=== PATIENT | female | born 1970 | race Caucasian/White ===

== ENCOUNTER 2023-10-28 07:53 | Outpatient (CLI) | payer OTHER, SELFPAY ==
[2023-10-28 13:33] LABS: Basophils Percent Auto 0.5 % (0.2-1.2); Eosinophils Absolute Auto 0.2 K/mm3 (0-0.3); Eosinophils Percent Auto 3.9 % (0-4.4); Hematocrit 35.8 % (37.0-47.0); Immature Granulocyte Absolute 0.02 K/mm3 (0.00-0.031); Immature Granulocyte Percent A 0.3 % (0-0.5); Lymphocytes Absolute Auto 1.37 K/mm3 (0.9-3.2); Lymphocytes Percent Auto 23.3 % (18.3-44.2); Mean Corpuscular HGB Conc 33.5 g/dl (32-36); Mean Corpuscular Hemoglobin 30.5 pg (26-34); Mean Corpuscular Volume 91.1 fl (80-100); Mean Platelet Volume 9.5 fl (7.4-10.4); Monocytes Absolute Auto 0.4 K/mm3 (0.1-0.6); Monocytes Percent Auto 7.1 % (2.6-8.5); Neutrophils Absolute Auto 3.8 K/mm3 (1.3-6.7); Neutrophils Percent Auto 64.9 % (45.5-73.1); Platelet Count Result 188 k/mm3 (150-375); Red Blood Count 3.93 M/mm3 (4.2-5.4); Red Cell Distribution Width 12.7 % (11.5-14.5); White Blood Count 5.9 K/mm3 (4.5-10.0)
[2023-10-28 13:37] LABS: Alanine Aminotransferase 49 U/L (6-35); Albumin Level 4.3 g/dL (3.5-5.1); Alkaline Phosphatase 74 U/L (38-126); Anion Gap 8 mmol/L (8-16); Aspartate Amino Transferase 48 U/L (14-36); Bilirubin,Total 0.6 mg/dL (0.2-1.3); Blood Urea Nitrogen 27 mg/dL (7-17); Calcium 10.1 mg/dL (8.4-10.2); Carbon Dioxide 28 mmol/L (22-30); Chloride 103 mmol/L (98-107); Cholesterol 178 mg/dL (0-200); Estimated Glomerular Filt Rate 52; Glucose 97 mg/dL (65-110); HDL Direct 41 mg/dL; Potassium 4.1 mmol/L (3.4-5.0); Sodium 139 mmol/L (137-145); Triglycerides 176 mg/dL (<150)
[2023-10-28 13:47] LABS: LDL Cholesterol Direct 91 mg/dL
[2023-10-28 13:48] LABS: Hemoglobin A1C 5.2 % (<5.7)
[2023-10-28 15:30] LABS: Creatinine Urine 113.9 mg/dL
[2023-10-28 15:36] LABS: MALB Creatinine Ratio 8.1 mg/g (0-30); Microalbumin Urine Random 9.2 mg/L (0-16.7)
== END 2023-10-28 07:54 | disposition home or self-care (01) ==
LOC: ANHGOSHLAB 07:55
PROVIDERS: PCP Emergency Medicine; Visit Provider Emergency Medicine
DX: E11.9 Type 2 diabetes mellitus without complications (principal); F32.9 Major depressive disorder, single episode, unspecified; I83.893 Varicose veins of bilateral lower extremities with other complications
CPT/HCPCS: 36415; 80053; 80061; 82043; 83036; 84443; 85025

== ENCOUNTER → 2023-10-28 08:26 | Outpatient (CLI) | payer OTHER, SELFPAY ==
--- NOTE | ~2023-10-28 | US_ITS ---
US soft tissue abdomen 10/28/2023 08:40 Indication: Palpable abdominal lump Procedure: High-resolution Limited ultrasound of the left abdomen in the area of palpable concern Comparison: No prior studies for comparison. Findings: In the area of palpable concern there is an oval circumscribed capsulated slightly hypoecho ic mass with horizontal oriented linear striations measuring 3.5 x 1.7 x 2.6 cm. No posterior feature s or internal vascularity. Impression: 1: Encapsulated hypoechoic anterior abdominal wall mass in the area of palpable concern measuring 3.5 cm. Sonographic characteristics are most compatible with lipoma. Recommend follow-up ultrasound as c linically warranted. Reviewed, dictated and finalized at location [employer] Impression: 1: Encapsulated hypoechoic anterior abdominal wall mass in the area of palpable concern measuring 3.5 cm. Sonographic characteristics are most compatible with lipoma. Recommend follow-up ultrasound as clinically warranted.
--- NOTE | ~2023-10-28 | XR_ITS ---
Right Knee Technique: AP, lateral, and sunrise views were obtained. Clinical History: Pain Findings: No fracture or dislocation is seen. Probable prior ACL reconstruction surgery. There is mil d degenerative change of the medial lateral compartments. Soft tissues are unremarkable. No joint eff usion is seen. Impression: No fracture or dislocation. Probable prior ACL reconstruction. Mild degenerative changes, as above. Reviewed, dictated and finalized at location . [employer] Impression: No fracture or dislocation. Probable prior ACL reconstruction. Mild degenerative changes, as above.
== END ==
PROVIDERS: PCP Emergency Medicine; Visit Provider Emergency Medicine
DX: M25.561 Pain in right knee (principal); R19.00 Intra-abdominal and pelvic swelling, mass and lump, unspecified site
CPT/HCPCS: 73564; 76705

== ENCOUNTER 2023-11-13 10:00 | Outpatient (RCR) | payer OTHER, SELFPAY ==
--- NOTE | 2023-10-06 09:25 | OPREHPOC ---
Outpatient Therapy Plan of Care This is a Multidisciplinary Plan of Care that may contain components documented by all disciplines (PT, OT, and ST.) PT Problem 1 PT Problem #1 Knowledge Deficit PT Goal 1 Goal Pt to be IND with issued HEP Target Visit 8 PT Problem 2 PT Problem #2 Pain PT Goal 1 Goal Pt to report back pain no greater than 3/10 in the last week. Target Visit 8 PT Goal 2 Goal Pt to report 75% improvement in overall symptoms. Target Visit 8 PT Problem 3 PT Problem #3 Impaired Sensation PT Goal 1 Goal Pt to decline altered sensation in the last week Target Visit 8 PT Problem 4 PT Problem #4 Impaired Range of Motion PT Goal 1 Goal Pt to improve active lumbar ROM to WNL without an increase in pain. Target Visit 8 PT Problem 5 PT Problem #5 Impaired Functional Mobil PT Goal 1 Goal Pt to be able to stand for 30 mins without an increase in back pain Target Visit 8 PT Goal 2 Goal Pt to be able to lift 20lb from ground level without an increase in pain.
--- NOTE | 2023-10-06 09:25 | PTOPEVAL1 ---
Assessment and note entered by Farrha Green, PT, DPT Evaluation Information Assessment Status Evaluation Diagnosis tammie lumbago with sciatica (M54.41, M54.42) Subjective Information Pt stats she has a long standing history of tammie back pain, she states last year she was unable to walk because she had a herniated disc and she was falling frequently d/t pain. Pt was treated by a chiropractor for her disc herniation. She states currently she is getting a burning and tingling sensation down the side of both of her legs and it is very tender to the touch, she states this increases at night. She states she has not found a position that eases her pain. She reports her pain as a 1/10 in sitting, and 8/10 at the worst. Pt states she can stand no longer than 30 mins at a time. Pt does not work. Reported Pain Level Pain Score 1: Self Report Assessment PT Clinical Summary Georgiana presents to therapy today for her initial evaluation with a diagnosis of tammie lumbago with sciatica. Today she demonstrates decreased active lumbar ROM in all directions, limited by pain. She demonstrates decreased core and BLE strength, there is tenderness to palpation generally throughout her tammie hip, paraspinal, and sacral region. She demonstrates a flexion bias with her movement. Skilled therapy services including lumbar traction are indicated for pain management, to improve movement mechanics, to improve core and hip strength, and to improve overall functional mobility. Oswestry 16/50, 32% disability Plan of Care Interventions Electrical Stimulation,Gait Training,Hot Pack/Cold Pack,Manual Therapy,Mechanical Traction,Neuro Re- education,Patient/Caregiver Educati,Therapeutic Activities,Therapeutic Exercise PT Services Indicated Yes Treatment Frequency and 2x/wk for 8 visits Duration These treatments will address the objective and functional deficits as defined above. The patient will be advanced safely and appropriately in order for the patient to progress towards his/her prior level of function. Additional exercises will be introduced and as well as a comprehensive home exercise program upon discharge, if needed, ?to ensure carryover of functional gains achieved in the clinic. This treatment plan has been reviewed and agreement upon by the patient.
--- NOTE | 2023-11-03 10:05 | PCPTNOTE ---
Patient called & cancelled scheduled appointment this date due to being ill. She has been rescheduled for next week.
--- NOTE | 2023-11-13 10:53 | PTOPDC ---
Assessment and note entered by Farrah Green, PT, DPT Evaluation Information Assessment Status Discharge Diagnosis tammie lumbago with sciatica (M54.41, M54.42) Subjective Information Pt states her pain has gotten a lot better since starting therapy. She states the only things she is still hesitant about is lifting weight off the floor and carrying things up stairs. She states she is worried about carry things up the stairs in regards to both pain and balance. She states she always has a very mild pain that is a 1-2/10. Reported Pain Level Pain Score 1: Self Report Assessment PT Clinical Summary Georgiana presents to therapy today for her progress report following 5 visits of skilled therapy to treat her diagnosis of tammie lumbago with sciatica. Today she demonstrates improved lumbar and hip ROM with a decrease in pain. She reports decreased pain since starting therapy. She demonstrates good lifting mechanics and body awareness with functional lifts today. She has met or progressed well towards all her therpay goals and will be discharged at this time. Oswestry 3/50, 6% disability
== END 2023-11-13 11:39 | disposition home or self-care (01) ==
LOC: ANHGOSHPT 10:00
PROVIDERS: PCP Emergency Medicine; Visit Provider Emergency Medicine
DX: M54.41 Lumbago with sciatica, right side (principal); M54.42 Lumbago with sciatica, left side; G89.29 Other chronic pain
CPT/HCPCS: 97012; 97110; 97161; 97530

== ENCOUNTER 2024-05-21 10:15 | Outpatient (RCR) | payer OTHER, SELFPAY ==
--- NOTE | 2024-04-27 14:55 | OPREHPOC ---
Outpatient Therapy Plan of Care This is a Multidisciplinary Plan of Care that may contain components documented by all disciplines (PT, OT, and ST.) PT Problem 1 PT Problem #1 Knowledge Deficit PT Goal 1 Goal [place] with HEP PT Problem 2 PT Problem #2 Pain PT Goal 1 Goal Report no pain greater than 1/10 with ambulation greater than 500 feet Target Visit 8 PT Problem 3 PT Problem #3 Impaired Strength PT Goal 1 Goal Improve left ankle gross strength to 5/5 to promote improved ankle stability Target Visit 8 PT Problem 4 PT Problem #4 Impaired Gait PT Goal 1 Goal Improve left foot progression to near neutral with full push off to even gait cycle for reduced medial gastric strain Target Visit 8
--- NOTE | 2024-04-27 14:55 | PTOPEVAL1 ---
Assessment and note entered by Rich Medellin, PT Evaluation Information Assessment Status Evaluation Diagnosis Achilles tendonitis Onset January 2024 Subjective Information Reports that she has a history of plantar fasciitis which has gotten worse with push off. Most of her pain is in her heel and Achilles tendon. Denies any known injury or change in activity level. She has since stopped working out due to this. She does not do a lot of walking but reports that she would do more if she felt better. She has a little bit of symptoms in right foots well, but left is significantly worse. Reported Pain Level Pain Score 4: Self Report Assessment PT Clinical Summary Patient presents with signs and symptoms consistent with Achilles tendonitis and plantar fasciitis. Will benefit form skilled therapy to promote improved gait cycle and reduce inflammatory pain from inflammatory disorder presence. Needs emphasis on correction of unilateral out-toeing and medial gastroc weakness. Plan of Care Interventions Electrical Stimulation,Gait Training,Manual Therapy,Neuro Re-education,Therapeutic Activities, Therapeutic Exercise PT Services Indicated Yes Treatment Frequency and 2x/week for 8 visits Duration These treatments will address the objective and functional deficits as defined above. The patient will be advanced safely and appropriately in order for the patient to progress towards his/her prior level of function. Additional exercises will be introduced and as well as a comprehensive home exercise program upon discharge, if needed, ?to ensure carryover of functional gains achieved in the clinic. This treatment plan has been reviewed and agreement upon by the patient.
--- NOTE | 2024-05-12 14:02 | PCPTNOTE ---
Patient reports she cannot make her appointment this date due to conflict.
--- NOTE | 2024-05-21 12:24 | OPREHPOC ---
Outpatient Therapy Plan of Care This is a Multidisciplinary Plan of Care that may contain components documented by all disciplines (PT, OT, and ST.) PT Problem 1 PT Problem #1 Knowledge Deficit PT Goal 1 Goal [place] with HEP Progress Met PT Problem 2 PT Problem #2 Pain PT Goal 1 Goal Report no pain greater than 1/10 with ambulation greater than 500 feet Target Visit 8 Progress Met PT Problem 3 PT Problem #3 Impaired Strength PT Goal 1 Goal Improve left ankle gross strength to 5/5 to promote improved ankle stability Target Visit 8 Progress Met PT Problem 4 PT Problem #4 Impaired Gait PT Goal 1 Goal Improve left foot progression to near neutral with full push off to even gait cycle for reduced medial gastric strain Target Visit 8 Progress Met
--- NOTE | 2024-05-21 12:24 | PTOPDC ---
Assessment and note entered by Rich Medellin, PT Evaluation Information Assessment Status Progress Diagnosis Achilles tendonitis Onset January 2024 Subjective Information Reports that she feels her ankle and calf are doing a lot better overall. States that she did hurt her back last week and she has been using a cane because of that. Does not feel ankle is correlated to the back at this time. Reported Pain Level Pain Score 0/10 Assessment PT Clinical Summary Patient presents with signs and symptoms consistent with Achilles tendonitis and plantar fasciitis. Will benefit form skilled therapy to promote improved gait cycle and reduce inflammatory pain from inflammatory disorder presence. Needs emphasis on correction of unilateral out-toeing and medial gastroc weakness. Plan of Care PT Services Indicated D/C to HEP
== END 2024-05-21 13:18 | disposition home or self-care (01) ==
LOC: ANHGOSHPT 10:15
PROVIDERS: PCP Emergency Medicine; Visit Provider Emergency Medicine
DX: M76.62 Achilles tendinitis, left leg (principal)
CPT/HCPCS: 97016; 97110; 97112; 97116; 97140; 97161

== ENCOUNTER 2024-09-30 08:08 | Outpatient (CLI) | payer OTHER, SELFPAY ==
[2024-09-30 18:38] LABS: Basophils Percent Auto 0.5 % (0.2-1.2); Eosinophils Absolute Auto 0.3 K/mm3 (0-0.3); Eosinophils Percent Auto 4.2 % (0-4.4); Hematocrit 39.9 % (37.0-47.0); Hemoglobin 13.6 g/dL (12.0-15.0); Immature Granulocyte Absolute 0.02 K/mm3 (0.00-0.031); Immature Granulocyte Percent A 0.3 % (0-0.5); Lymphocytes Absolute Auto 1.59 K/mm3 (0.9-3.2); Lymphocytes Percent Auto 26.9 % (18.3-44.2); Mean Corpuscular HGB Conc 34.1 g/dl (32-36); Mean Corpuscular Volume 90.9 fl (80-100); Mean Platelet Volume 9.4 fl (7.4-10.4); Monocytes Absolute Auto 0.4 K/mm3 (0.1-0.6); Monocytes Percent Auto 6.8 % (2.6-8.5); Neutrophils Absolute Auto 3.6 K/mm3 (1.3-6.7); Neutrophils Percent Auto 61.3 % (45.5-73.1); Platelet Count Result 189 k/mm3 (150-375); Red Blood Count 4.39 M/mm3 (4.2-5.4); Red Cell Distribution Width 13.1 % (11.5-14.5); White Blood Count 5.9 K/mm3 (4.5-10.0)
[2024-09-30 19:04] LABS: Alanine Aminotransferase 72 U/L (6-35); Albumin Level 4.4 g/dL (3.5-5.1); Alkaline Phosphatase 86 U/L (38-126); Anion Gap 11 mmol/L (4-12); Aspartate Amino Transferase 70 U/L (14-36); Bilirubin,Total 0.7 mg/dL (0.2-1.3); Blood Urea Nitrogen 21 mg/dL (7-17); Calcium 9.4 mg/dL (8.4-10.2); Carbon Dioxide 26 mmol/L (22-30); Chloride 103 mmol/L (98-107); Cholesterol 163 mg/dL (0-200); Estimated Glomerular Filt Rate 58; Glucose 130 mg/dL (65-110); HDL Direct 40 mg/dL; Potassium 4.1 mmol/L (3.4-5.0); Sodium 140 mmol/L (137-145); Triglycerides 159 mg/dL (<150)
[2024-09-30 19:22] LABS: LDL Cholesterol Direct 81 mg/dL
[2024-09-30 19:26] LABS: Creatinine Urine 176.8 mg/dL
[2024-09-30 19:31] LABS: MALB Creatinine Ratio 7.2 mg/g (0-30); Microalbumin Urine Random 12.8 mg/L (0-16.7)
[2024-09-30 22:31] LABS: Hemoglobin A1C 6.3 % (<5.7)
== END 2024-09-30 08:09 | disposition home or self-care (01) ==
LOC: ANHGOSHLAB 08:09
PROVIDERS: PCP Emergency Medicine; Visit Provider Internal Medicine
DX: E78.5 Hyperlipidemia, unspecified (principal); E11.9 Type 2 diabetes mellitus without complications
CPT/HCPCS: 36415; 80053; 80061; 82043; 83036; 85025

== ENCOUNTER 2025-05-16 11:27 | Outpatient (CLI) | payer OTHER, SELFPAY ==
--- OUTSIDE RECORDS SUMMARY | 2025-05-16 12:46 | XMS_ITS | Data Portability ---
Author Organization [facility] Address [address] [facility] [place] [address] Care Team Providers Care Straw Boss Name Role Phone PAIGE STEVENSON Primary Care Provider LENSEVIEAFTERRubens Laundry Agent ERIBERTO PENG Leader Writer Assessment Encounter Date Assessment Date Assessment LastModified by Organization Details LastModified Time 09/16/2024 09/16/2024 plan is to obtain old records obtain blood work we will have her see Podiatry for her foot we will get her in to see rn progressive care unit for well-woman she will see me in 4 months no changes in medications at this junction [email or web address] Not available 10/05/2024 22:19:57 03/21/2025 03/21/2025 CBC CMP lipid T3-T4 TSH mammogram A1c was 6.9 in January before she had her foot surgery see the labs from [facility] return to clinic 4 months' continue current therapy referrals made for Psychiatry [email or web address] Not available 04/03/2025 17:25:09 Plan of Treatment Reminders Order Date Submit Date Provider Last Modified By Organization Details Last Modified Time Details Appointments ANY 15 2024 01:00P M Paige Stevenson MD Not available Not available Not available Lab TSH + free T4, serum [address], [address], 05/02/2025 10:00:02 T3, free, serum or plasma [address] [address], [place], [address], 05/02/2025 10:00:02 lipid panel, serum 2024 025 [facility], [address] [place] [address], [id number], 05/02/2025 10:00:02 CBC w/ auto diff 2024 025 [facility], [address] [place] [address], [id number], 05/02/2025 10:00:02 CMP, serum or plasma 2024 025 [facility], [address] [place] [address], [id number], 05/02/2025 10:00:02 HbA1c (hemoglob in A1c), blood 2023 024 [facility], [address] [place] [address], [id number], 12/31/2024 09:18:11 albumin/c reatinine , mass ratio, urine 2023 024 [facility], [address] [place] [address], [id number], 10/06/2024 15:28:33 CBC w/ auto diff 2023 024 [facility], [address] [place] [address], [id number], 10/06/2024 15:28:52 lipid panel, serum 2023 024 [facility], [address] [place] [address], [id number], 10/06/2024 15:29:05 CMP, serum or plasma 2023 024 [facility], [address] [place] [address], [id number], 10/06/2024 15:27:12 Referral gynecolog ist referral 2024 025 shreya Perez MD, [address], [place], [address], 05/12/2025 12:40:59 psychiatr ist referral 2024 025 shreya Gomez MD, [address], [address], [place], [address], 05/04/2025 12:28:20 gynecolog ist referral 2023 024 shreya Perez MD, [address], [address], [place], [address], 03/30/2025 15:34:18 podiatris t referral 2023 024 [email or web address] Eriberto Peng DPM, [address], [address], [place], [address], 10/29/2024 15:29:27 Procedures None recorded. Surgeries None recorded. Imaging MAMMO, screening , digital, bilateral [address] (Imaging), [address], [place], [address], 03/21/2025 17:51:29 MAMMO, screening , digital, bilateral 2023 024 [facility] (Imaging), [address], [place], [address], 03/30/2025 15:37:42 Medication Orders None recorded. Patient TargetsNo targets recorded. Patient Instructions Encounter Date Encounter Id Patient Instructions Last Modified By Organization Details Last Modified Time 03/21/2025 [id number] A healthy lifestyle: care instructions [email or web address] Not available 03/21/2025 17:51:29 Reason for Referral Leader Writer Referral for Pain in left foot Referring Physician: Paige Stevenson, Internal Medicine, Encounter Date: 09/16/2024 Workers Compensation Claims Supervisor Referral for Gy necologic examination Referring Physician: Paige Stevenson Internal Medicine, Encounter Date: 09/16/2024 Psychiatrist Referral for An xiety Referring Physician: Paige Stevenson, Internal Medicine, Encounter Date: 03/21/2025 Workers Compensation Claims Supervisor Referral for Gy necologic examination Referring Physician: Paige Stevenson, Internal Medicine, Encounter Date: 03/21/2025 Results Created Date Observation Date Name Description Value Unit Range Abnormal Flag Note LastModifiedBy Organization Detail LastModifiedTime 12/15/19 25 12/15/2024 MRI, ankle , w/o contr ast No observ ation record ed. [facility] [address] [place] [address], [place], [address], 12/16/2024 09:46:12 12/15/19 25 12/15/2024 MRI, ankle , w/o contr ast No observ ation record ed. [facility] [address] [place] [address] [address], [place], [address], 12/16/2024 09:44:57 12/15/1912/15/2024 MRI, ankle , w/o contr ast No observ ation record ed. [facility] [address] [place] [address] [address], [place], [address], 12/16/2024 09:44:36 Result Notes None recorded. Problems Name Problem SNOMED Code Status Onset Date Resolution Date Notes Provider Name and Address Organization Details Recorded Time Insomnia 672099549 Active 2023 WOODY [place], [place] - [facility] 14:38:53 Hyperlipidemia 79722357 Active 2023 WOODY [place], [place] [facility] 14:38:54 Type 2 diabetes mellitus 47983266 Active 2023 Killian Verdin [place] null, [place] - [facility] 14:38:55 Anxiety 90025707 Active 2023 Killian Verdin MA null, [place] - [facility] 4 14:38:57 Problem Notes None recorded. Medical Equipment None Reported. Medications Name Sig Start Date Stop Date Status Note LastModified by Organization Details LastModified Time Prescriptio n - Prior Authorizati on Request active Not Available Not Available N ot Available celecoxib 200 mg capsule 03/21 completed Not Available Not Available Not Available pravastatin 40 mg tablet TAKE 1 TABLET BY MOUTH EVERY DAY 2024 active Not Available Not Available Not Avai lable alprazolam 1 mg tablet TAKE 1 TABLET BY MOUTH THREE TIMES DAILY active Not Available Not Available No t Available hydrocodone 5 mg-acetamin ophen 325 mg tablet TAKE 1 TABLET BY MOUTH EVERY 8 HOURS FOR 7 DAYS NEEDED FOR PAIN active Not Available Not Available No t Available trazodone 150 mg tablet TAKE 1 TABLET BY MOUTH EVERY DAY 2024 active Not Available Not Available Not Avai lable betamethaso ne dipropionat e 0.05 % topical cream 03/21 completed Not Available Not Available Not Available paroxetine 40 mg tablet TAKE 1 TABLET BY MOUTH EVERY DAY 2024 active Not Available Not Available Not Avai lable aripiprazol e 10 mg tablet Take 1 tablet twice a day by oral route. 2024 active Not Available Not Available Not Avai lable duloxetine 30 mg capsule,del ayed release TAKE 1 CAPSULE BY MOUTH EVERY DAY 2024 active Not Available Not Available Not Avai lable duloxetine 60 mg capsule,del ayed release TAKE 1 CAPSULE BY MOUTH EVERY DAY active Not Available Not Available No t Available Wegovy 0.25 mg/0.5 mL subcutaneou s pen injector Inject 0.25 mg every week by subcutane ous route as directed. 03/18 completed Not Available Not Available Not Available Ozempic 2 mg/dose (8 mg/3 mL) subcutaneou s pen injector INJECT 2MG UNDER THE SKIN EVERY WEEK 03/18 completed Not Available Not Available Not Available Mounjaro 7.5 mg/0.5 mL subcutaneou s pen injector ADMINISTE R 7.5 MG UNDER THE SKIN EVERY WEEK DIRECTED 05/13 completed Not Available Not Available Not Available Mounjaro 5 mg/0.5 mL subcutaneou s pen injector ADMINISTE R 5 MG UNDER THE SKIN EVERY WEEK 03/18 completed Not Available Not Available Not Available Mounjaro 15 mg/0.5 mL subcutaneou s pen injector 03/18 completed Not Available Not Available Not Available Mounjaro 10 mg/0.5 mL subcutaneou s pen injector Inject 10 mg every week by subcutane ous route as directed. 2024 active Not Available Not Available Not Avai corey Mounjaro 12.5 mg/0.5 mL subcutaneou s pen injector inject 12.5mg weekly 03/18 completed Not Available Not Available Not Available Mounjaro 2.5 mg/0.5 mL subcutaneou s pen injector 03/18 completed Not Available Not Available Not Available Vitals Date Recorded Body height Body mass index (BMI) Body weight Heart rate Oxygen saturation Oxygen saturation in Arterial blood by Pulse oximetry Systolic blood pressure Diastolic blood pressure Provider Name and Address Organization Details Last Updated DateTime 5 175.26 cm 44.3 kg/m2 974760. 71 g 104 /min 96 % 96 % 118 mm[Hg] 68 mm[Hg] Anneliese Conley MA [facility] 5 15:33:38 Date Recorded Body height Body mass index (BMI) Body weight Heart rate Oxygen saturation Oxygen saturation in Arterial blood by Pulse oximetry Systolic blood pressure Diastolic blood pressure Provider Name and Address Organization Details Last Updated DateTime 4 175.26 cm 44.8 kg/m2 687947. 93 g 88 /min 97 % 97 % 110 mm[Hg] 78 mm[Hg] Coni Castro MA [facility] 4 10:01:29 Social History Question Answer Notes LastModified by Organizat ion Details LastModified Time Tobacco Smoking Status Never Smoker WOODY Kendall [facility] 09/16/2024 10:04:09 Are You Blind Or Do You Have Difficulty Seeing? No Information n ot available 03/21/2025 What Is Your Level Of Caffeine Consumption? Occasional Information not available 03/21/2025 In The 14 Days Before Symptom Onset, Have You Had Close Contact With A Laboratory-confirm ed COVID-19 While That Case Was Ill? No Information n ot available 03/21/2025 In The 14 Days Before Symptom Onset, Have You Had Close Contact With A Person Who Is Under Investigation For COVID-19 While That Person Was Ill? No Information not available 03/21/2025 Have You Been To An Area Known To Be High Risk For COVID-19? No Information not available 03/21/2025 Are You Deaf Or Do You Have Serious Difficulty Hearing? No Information not available 03/21/2025 Are There Any Guns Present In Your Home? No Information not available 03/21/2025 What Was The Date Of Your Most Recent Tobacco Screening? 03/21/2025 Information not available 03/21/2025 Do You Use Your Seat Belt Or Car Seat Routinely? Yes Information not available 03/21/2025 Do You Have Smoke And Carbon Monoxide Detectors In Your Home? Yes Information not available 03/21/2025 Do You Use Sunscreen Routinely? Yes Information not available 03/21/2025 Has Tobacco Cessation Counseling Been Provided? No Information not available 03/21/2025 Sex: Female Functional Status Question Answer Note LastModified by Organizat ion Details LastModified Time Do you use any illicit or recreational drugs? No Information not available 03/21/2025 Do you or have you ever used any other forms of tobacco or nicotine? No Information not available 03/21/2025 Are you able to care for yourself? Yes Information not available 03/21/2025 Mental Status None recorded. Family History Nothing Reported. Medical History No medical history recorded. Gynecological HistoryNo gynecological history recorded. Obstetrics History GPAL:G 0 P 0 0 0 0 Past Encounters Encounter ID Performer Location Encounter Start Date Encounter Closed Date Diagnosis/Indication Diagnosis SNOMED-CT Code Diagnosis ICD10 Code Diagnosis Note [id number] Paige Stevenson MD [facility] [place] [address] [place] [address] 09/16/2024 09:41:58 09/16/2024 10:50:21 Insomnia 423094948 G47.00 Hyperlipidemia 49749058 E78.5 Type 2 ophelia betes mellitus 72092058 E11.9 Gynecologi c examination 32184465 Z01.419 Pain in left foot 771534 4854 81601 M79.672 Screening mammography 24 549491 Z12.31 [id number] Paige Stevenson MD [facility] [place] [address] [place] [address] 03/21/2025 14:59:48 03/21/2025 16:09:56 Body mass index 40+ - severely obese 203914863 Z68.41 Morbid obesity 622713117 E66.01 Type 2 ophelia betes mellitus 17412619 E11.9 Hyperlipidemia 16173051 E78.5 Anxiety 31879724 F41.9 Screening mammography 24 703652 Z12.31 Gynecologi c examination 09005782 Z01.419 Insomnia 842137325 G47.0 0 Health Concerns Section Related Observation LastModified by Organization Detai ls LastModified Time None Recorded Concern Status LastModified by Organization Details LastModified Time None Recorded Advance Directives Directive None Recorded Payers Insurance Date Sequence Insurance Name Policy Number Policy Rae Covered Member ID Rae Member ID Guarantor Name 04/04/2025 1 [facility] [id number] Charanjit De La Rosa [id number] Georgiana De La Rosa Notes Date Note Type Note Provider Name and Address Organization Details Recorded Time 09/16/2024 text/html 54-year-old with sleep apnea on CPAP history of insomnia depression hyperlipidemia diabetes comes in establishing care medications paroxetine pravastatin trazodone alprazolam Abilify. Ozempic Allergies sulfa rash lidocaine possibly convulsions surgeries umbilical hernia hernia and she had knee surgery Paige Stevenson MD Attn: [employer] [facility], [place], [address], [facility] 10/05/2024 22:21:39 03/21/2025 text/html Do better with h er diet exercise anxiety and depression needs to see psychiatry no SI or HI also needs guest services representative referral Paige Stevenson MD Attn: [employer] [facility], [place], [address], [facility] 04/03/2025 17:25:49 OBGyn Episode No OBEpisode recorded.
--- OUTSIDE RECORDS SUMMARY | 2025-05-16 12:46 | XMS_ITS | Patient Health Record ---
Author Organization [facility] Address [address] [address] Care Team Providers Care Management And Budget Analyst Name Role Phone Braxton Stevenson MD Primary Care Provider Unavaila Eriberto Romero DPM Unavailable [phone] REASON FOR REFERRAL No Information SOCIAL HISTORY Sex Assigned At : Social History Observation Description Sex Assigned At Unknown Encounters Encounter Location Date Provider Diagnosis [facility] [address] [address] 11/22/2024 Eriberto Vasquez DPM Achilles tendinitis of left lower extremity M76.62 ; Plantar fasciitis, left M72.2 and Bone spur of posterior portion of left calcaneus M77.32 [facility] [address] [address] 10/20/2024 Eriberto Vasquez DPM Achilles tendinitis of [...] agreed to. An order was sent to [facility] per the patient's request. We will call with results once they are received. 10/20/2024 Plantar fasciitis, left (ICD-10 - M72.2) [...] then follow up in five weeks. 10/20/2024 Achilles tendinitis of left lower extremity (ICD-10 - M76.62) 11/22/2024 Plantar fasciitis, left (ICD-10 - M72.2) 10/20/2024 Bone spur of posterior portion of left calcaneus (ICD-10 - M77.32) 11/22/2024 Bone spur of posterior portion of left calcaneus (ICD-10 - M77.32) PLAN OF TREATMENT Pending Test Test Name Order Date MRI: Bilateral ankles 12/09/2024 Insurance Providers Payer Name Payer Address Payer Phone Subscriber Number Group Number Insured Name Patient Relationship to Insured Coverage Start Date Coverage End Date [employer] [address] [address] [place] [address] [id number] Charanjit De La Rosa Spouse - patient is the spouse of the insured
--- OUTSIDE RECORDS SUMMARY | 2025-05-16 12:46 | XMS_ITS | Data Portability ---
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 At this time we will try to manage patient's pain with conservative care. I will give patient a Depo-Medrol IM steroid injection at a lower dose due to her diabetes. Also prescribed Mobic for for her pain. Advised patient would not recommend taking this long-term due to her diabetes. I will also refer patient for physical therapy for her neck and right arm. I will follow-up with patient in 6 to 8 weeks if she is not improved we will consider cervical MRI for further interventional treatment options. [email or web address] Not available 12/04/2022 10:19:13 Plan of Treatment Reminders Order Date Submit Date Provider Last Modified By Organization Details Last Modified Time Details Appointments None recorded. Lab None recorded. Referral physical therapist referral 2022 023 [email or web address] 6 [facility] (Internal Use Only-No Response), [address] [facility] [place], [address], 12:33:31 Procedures None recorded. Surgeries None recorded. Imaging XR, cervical spine, 4 or 5 view 2022 023 [email or web address] 6 In-House Results, For Internal Use Only, Do Not Delete/merge, [id number] 01/04/202 3 12:33:31 Medication Orders Mobic 7.5 mg tablet 2022 023 [email or web address] 6 [id number], [address] [place], [address], 3 12:33:31 Patient TargetsNo targets recorded. Patient Instructions Encounter Date Encounter Id Patient Instructions Last Modified By Organization Details Last Modified Time 12/04/2022 [id number] eating healthy foods: care instructions [email or web address] Not available 12/04/2022 12:33:31 neck: exercises [email or web address] Not available 12/04/2022 12:33:31 Reason for Referral Physical Therapist Referral for Cervical radiculopathy Referring Physician: Juan Alberto Day, Orthopedic Surgery, Encounter Date: 12/04/2022 Results Created Date Observation Date Name Description Value Unit Range Abnormal Flag Note LastModifiedBy Organization Detail LastModifiedTime 12/04/19 23 XR, cervi sheela spine , 4 or 5 view No observ ation record ed. [email or web address] In-House Results For Internal Use Only, Do Not Delete/merge, [id number] 12/04/2022 10:06:48 Result Notes None recorded. Problems Name Problem SNOMED Code Status Onset Date Resolution Date Notes Provider Name and Address Organization Details Recorded Time Obesity 699799687 Active 2021 GIOVANNI Macias - [facility] 3 09:18:41 Vitamin D deficiency 85168572 Active 2021 GIOVANNI Macias - [facility] 3 09:18:41 Uncontrolle d type 2 diabetes mellitus 862335746 Active 2021 GIOVANNI Macias - [facility] 3 09:18:41 Muscle weakness 38544319 Active 2021 GIOVANNI Macias - [facility] 3 09:18:41 Severe recurrent major depression without psychotic features 14523758 Active 2021 GIOVANNI Macias - [facility] 3 09:18:41 Osteoarthri tis 652118818 Active 2021 Jeanne Noemí null, [place] - [facility] 3 09:18:41 Chronic neck pain 6478922488801 Active 2021 Jeanne Noemí null, [place] - [facility] 3 09:18:41 Stasis dermatitis of lower limb due to chronic peripheral venous hypertensio n 865744626 Active 2021 Jeanne [place] null, [place] - [facility] 3 09:18:41 Hyperlipide chaim 48428853 Active 2021 Jeanne Noemí null, [place] - [facility] 3 09:18:41 Primary insomnia 5797581 Active 2021 Jeanne Dowd null, [place] - [facility] 3 09:18:41 Pain in left foot 3256819626170 07 Active 2021 Jeanne Noemí null, [place] - [facility] 3 09:18:41 Chronic pain syndrome 157073687 Active 2021 Jeanne Noemí null, [place] - [facility] 3 09:18:41 Generalized anxiety disorder 38666567 Active 2021 Jeanne Noemí null, [place] - [facility] 3 09:18:42 Steatotic liver disease 457531976 Active 2021 Jeanne Noemí null, [place] - [facility] 3 09:18:42 Peripheral neuropathic pain 559257762 Active 2021 Jeanne [place] null, [place] - [facility] 3 09:18:42 Spasm of back muscles 564764882 Active 2021 Jeanne Noemí null, [place] - [facility] 3 09:18:42 Problem Notes None recorded. Procedures Surgical History Date Name Laterality Status Provider Name and Address Organization Details Recorded Time 3 INJ IM Injection RIGHT completed Ghazal Lopez [place] - [facility] 12/04/2022 10:14:42 D & c after delivery completed Jeanne Dowd [facility] 12/04/2022 09:23:05 Hernia Repair completed Jeanne Dowd [facility] 12/04/2022 09:23:24 Imaging Results None recorded. Procedure Notes None recorded. Medical Equipment None Reported. Allergies Allergen ID Allergen Name Allergen Category Reaction Reaction Severity Criticality Documentation Date Start Date Code Code System Note Provider Name and Address Organization Details Recorded Time 299142 lidocaine medicatio n other Not available Not available 12/04/2022 6387 RxNorm Jeanne mccarty [facility] 3 09:18:32 478178 Substance with sulfonami de structure and antibacte rial mechanism of action (substanc e) medicatio n hives Not available Not available 12/04/2022 52456 8003 SNOMED Jeanne mccarty [facility] 3 09:18:32 Medications Name Sig Start Date Stop Date Status Note LastModified by Organization Details LastModified Time metformin 500 mg tablet Take 2 tablets twice a day by oral route. 09/23 completed Not Available Not Available Not Available pravastatin 40 mg tablet TAKE 1 TABLET BY MOUTH EVERYDAY AT BEDTIME active Not Available Not Available No t Available alprazolam 1 mg tablet TAKE 1 TABLET TWICE A DAY BY ORAL ROUTE NEEDED. 12/04 completed Not Available Not Available Not Available tramadol 50 mg tablet TAKE 1 TABLET BY MOUTH ONCE A DAY NEEDED FOR 10 DAYS 12/04 completed Not Available Not Available Not Available meloxicam 7.5 mg tablet TAKE 1 TABLET EVERY DAY BY ORAL ROUTE NEEDED. active Not Available Not Available No t Available alprazolam 0.5 mg tablet TAKE 1 TABLET BY MOUTH TWICE A DAY NEEDED 09/20 completed Not Available Not Available Not Available lorazepam 0.5 mg tablet Take 1 tablet every day by oral route as needed. 09/06 completed Not Available Not Available Not Available methocarbam ol 750 mg tablet TAKE 1 TABLET 3 TIMES A DAY BY ORAL ROUTE NEEDED FOR 10 DAYS. 09/06 completed Not Available Not Available Not Available trazodone 100 mg tablet TAKE 1 TABLET BY MOUTH EVERYDAY AT BEDTIME 09/06 completed Not Available Not Available Not Available baclofen 10 mg tablet TAKE 1 TABLET 3 TIMES A DAY BY ORAL ROUTE NEEDED. active Not Available Not Available No t Available trazodone 150 mg tablet TAKE 1 TABLET BY MOUTH EVERYDAY AT BEDTIME active Not Available Not Available No t Available betamethaso ne dipropionat e 0.05 % topical cream APPLY A THIN LAYER TO THE AFFECTED AREA(S) BY TOPICAL ROUTE ONCE DAILY active Not Available Not Available No t Available paroxetine 40 mg tablet TAKE 1 TABLET BY MOUTH EVERY DAY active Not Available Not Available No t Available aripiprazol e 10 mg tablet TAKE 1 TABLET BY MOUTH TWICE A DAY active Not Available Not Available No t Available duloxetine 30 mg capsule,del ayed release TAKE 1 CAPSULE BY MOUTH EVERY DAY active Not Available Not Available No t Available duloxetine 60 mg capsule,del ayed release TAKE 1 CAPSULE BY MOUTH EVERY DAY active Not Available Not Available No t Available Mounjaro 7.5 mg/0.5 mL subcutaneou s pen injector INJECT 7.5 MG EVERY WEEK BY SUBCUTANE OUS ROUTE FOR 90 DAYS. active Not Available Not Available No t Available Mounjaro 5 mg/0.5 mL subcutaneou s pen injector INJECT 5 MG EVERY WEEK BY SUBCUTANE OUS ROUTE. 12/04 completed Not Available Not Available Not Available Mounjaro 2.5 mg/0.5 mL subcutaneou s pen injector Inject 2.5 mg every week by subcutane ous route. 12/04 completed Not Available Not Available Not Available Vitals Date Recorded Body height Body mass index (BMI) Body weight Provider Name and Address Organization Details Last Updated DateTime 12/04/2022 152.4 cm 50.8 kg/m2 118093.02 g Jeanne DAVILA - [facility] 12/04/2022 09:18:25 Social History Question Answer Notes LastModified by Organizat ion Details LastModified Time Tobacco Smoking Status Never Smoker GIOVANNI [facility] - [facility] 12/04/2022 09:28:36 Do You Have An Advance Directive? No Information not available 12/04/2022 How Many Years Have You Consumed Alcohol? 30 Information not available 12/04/2022 Which Illicit Or Recreational Drugs Have You Used? THC Information not available 12/04/2022 Which Of Your Hands Is Dominant? Left Information not available 12/04/2022 Job Status Retired Information no t available 12/04/2022 Stairs At Home Yes Informatio n not available 12/04/2022 Live Alone Or With Others With Others Information not available 12/04/2022 Flu Vaccine No Information n ot available 12/04/2022 What Was The Date Of Your Most Recent Tobacco Screening? 12/04/2022 Information not available 12/04/2022 Have You Ever Been Counseled For Unhealthy Alcohol Use? Yes Information not available 12/04/2022 What Is Your Relationship Status? Information not available 12/04/2022 Has Tobacco Cessation Counseling Been Provided? No Information not available 12/04/2022 Are You Currently In School? No Information not available 12/04/2022 How Many Days In The Past Year Have You Consumed 4 Or More Drinks? 2 Information no t available 12/04/2022 Sex: Unknown Functional Status Question Answer Note LastModified by Organizat ion Details LastModified Time Do you use any illicit or recreational drugs? Yes Information not available 12/04/2022 Do you or have you ever used any other forms of tobacco or nicotine? No Information not available 12/04/2022 What is your level of alcohol consumption? Occasional Information not available 12/04/2022 Are you currently employed? No Information not available 12/04/2022 Are you able to care for yourself? Yes Information n ot available 12/04/2022 Mental Status None recorded. Family History Relationship Description Onset Age of this Age Resolved Age Notes LastModified by Organization Details LastModified Time Father No current problems or disability Not available 12/04 09:28:51 Mother No current problems or disability Not available 12/04 09:28:51 Medical History Condition Response Other N High Blood Pressure N Depression Y Liver problems N Prostate Problems N Headaches/Migraines N Anxiety Disorder Y Obesity Y Arthritis N Blood Clot / DVT N HIV / AIDS N Stroke/TIA N Reflux / GERD N Sleep apnea: CPAP or BIPAP N Metal Implants N Lung problems Y Kidney problems N Ulcers N Implanted device N Diabetes Type I or II N Seizures N Blood clot in lung N Thyroid problems N Bleeding Disorders N Heart Stent N Peripheral Neuropathy N Chronic infection N High Cholesterol N Dialysis N Stents (other than cardiac) N Parkinson's Disease N Anemia N No Diseases or Conditions N Memory Loss N Osteoporosis N Gynecological HistoryNo gynecological history recorded. Obstetrics History GPAL:G 0 P 0 0 0 0 Immunizations Vaccine Type Date Status Note Provider Nam e and Address Organization Details Recorded Time COVID-19, mRNA, LNP-S, PF, 100 mcg/0.5mL dose or 50 mcg/0.25mL dose 11/13/2020 completed GIOVANNI Macias [facility] 12/04/2022 09:18:49 COVID-19, mRNA, LNP-S, PF, 100 mcg/0.5mL dose or 50 mcg/0.25mL dose 11/18/2020 completed GIOVANNI Macias [facility] 12/04/2022 09:18:49 Past Encounters Encounter ID Performer Location Encounter Start Date Encounter Closed Date Diagnosis/Indication Diagnosis SNOMED-CT Code Diagnosis ICD10 Code Diagnosis Note [id number] Ronny Escalona MD [facility] [address] [place] [phone] 12/04/2022 08:35:57 12/04/2022 10:17:12 Cervical radiculopathy 33493190 M54.12 right Degenerati on of cervical intervertebral disc 97279285 M50.30 Myofascial pain syndrome of neck 152390585 M54.2 Health Concerns Section Related Observation LastModified by Organization Detai ls LastModified Time None Recorded Concern Status LastModified by Organization Details LastModified Time None Recorded Advance Directives Directive N: Payers Insurance Date Sequence Insurance Name Policy Number Policy Rae Covered Member ID Rae Member ID Guarantor Name 01/05/2023 1 [place] [id number] Georgiana De La Rosa [id number] Georgiana De La Rosa Notes Date Note Type Note Provider Name and Address Organization Details Recorded Time 12/04/2022 text/html 52-year-old fema le seen in office today for evaluation of neck and right upper extremity pain. She reports numbness and weakness in her right arm with manual dexterity loss in her hands. She denies any known injury and states she has had neck pain for 2 years with frequent flareups that worsens the pain. She reports her pain is 8 out of 10 at worst in office today. She reports the symptoms been waxing waning over 2 years and is worsened by bending her head down or turning side to side. Reports the pain is improved with TENS unit, heat, Voltaren gel, and baclofen and tramadol prescribed by her primary care physician. Relevant medications include extreme Tylenol, baclofen, tramadol, and Voltaren gel with some relief. Juan Alberto Day NP [address] [place] [address], [phone], [facility] [[email or web address]] - [facility] 12/04/2022 12:49:37 OBGyn Episode No OBEpisode recorded.
--- OUTSIDE RECORDS SUMMARY | 2025-05-16 12:46 | XMS_ITS | Data Portability ---
Author Organization [facility], [facility] [place] Address [address] [place] [address] Care Team Providers Care Extension Course Counselor Name Role Jay Jay BELEN WHITMORE Primary Care Provider Unavailabl e Assessment Encounter Date Assessment Date Assessment LastModified by Organization Details LastModified Time 07/02/2023 07/02/2023 Telehealth communication performed with patient. Service was provided using telemedicine. Patient verbally consents to this services (virtual check-in). Names and roles of all persons participating in telemedicine services include: Patient is located at home and is an established patient. A total of _15-20__ minutes were spent in consultation via esperanza Telehealth video and audio to assess and treat the following: Not available 07/02/2023 16:02:02 08/05/2023 08/05/2023 Telehealth communication performed with patient. Service was provided using telemedicine. Patient verbally consents to this services (virtual check-in). Names and roles of all persons participating in telemedicine services include: Patient is located at home and is an established patient. A total of _15-20__ minutes were spent in consultation via esperanza Telehealth video and audio to assess and treat the following: Not available 08/05/2023 11:11:35 Plan of Treatment Reminders Order Date Submit Date Provider Last Modified By Organization Details Last Modified Time Details Appointments None recorded. Lab HbA1c (hemoglobin A1c), blood 2022 023 [email or web address] [facility] Lab Registration, [address], [place], [address], 03/02/202 4 09:46:10 HbA1c (hemoglobin A1c), blood 2022 023 [facility] Lab Registration, [address] [place], [address], 4 13:17:35 Referral None recorded. Procedures None recorded. Surgeries None recorded. Imaging XR, knee 2022 023 cricket [id number] In-Office Order, Internal Use Only DO Not Attach Compendium DO Not Attach Compendium, Do Not Delete/merge, [id number] 3 14:01:40 Medication Orders paroxetine 40 mg tablet 2022 023 [facility], [address] [place], [address], 3 10:26:02 Cymbalta 30 mg capsule,del ayed release 2022 023 [facility], [address] [place], [address], 3 16:10:32 duloxetine 60 mg capsule,del ayed release 2022 023 [facility], [address] [place], [address], 3 16:10:31 phentermine 37.5 mg tablet 2022 023 [facility], [address] [place], [address], 3 16:10:34 Ozempic 2 mg/dose (8 mg/3 mL) subcutaneou s pen injector 2022 023 [facility], [address] [place], [address], 3 16:10:31 celecoxib 200 mg capsule 2022 023 [facility], [address] [place], [address], 3 14:00:49 tramadol 50 mg tablet 2022 023 [facility], [address] [place], [address], 3 14:00:53 Ozempic 2 mg/dose (8 mg/3 mL) subcutaneou s pen injector 2022 023 [facility], [address] [place], [address], 3 14:00:49 tramadol 50 mg tablet 2022 023 [facility], [address] [place], [address], 3 11:33:21 baclofen 10 mg tablet 2022 023 [facility], [address] [place], [address], 3 11:33:20 Ozempic 0.25 mg or 0.5 mg (2 mg/1.5 mL) subcutaneou s pen injector 2022 023 [facility], [address] [place], [address], 3 13:18:23 Mounjaro 7.5 mg/0.5 mL subcutaneou s pen injector 2021 022 [facility], [address] [place] [address], [id number], 3 11:24:00 Patient TargetsNo targets recorded. Patient Instructions Encounter Date Encounter Id Patient Instructions Last Modified By Organization Details Last Modified Time 11/01/2022 [id number] arthritis: care instructions Not available 11/01/2022 19:19:03 osteoarthritis: care instructions Not available 11/01/2022 19:19:02 depression treatment: care instructions Not available 11/01/2022 19:19:02 When You Want to Lose Weight: Care Instructions Not available 11/01/2022 19:21:27 learning about healthy weight Not available 11/01/2022 19:21:27 body mass index: care instructions Not available 11/01/2022 19:21:27 eating healthy foods: care instructions Not available 11/01/2022 19:21:27 high cholesterol : care instructions Not available 11/01/2022 19:19:02 When You Want to Lose Weight: Care Instructions Not available 11/01/2022 19:19:02 learning about healthy weight Not available 11/01/2022 19:19:02 body mass index: care instructions Not available 11/01/2022 19:19:03 eating healthy foods: care instructions Not available 11/01/2022 19:19:03 anxiety disorder : care instructions Not available 11/01/2022 19:19:02 type 2 diabetes: care instructions Not available 11/01/2022 19:19:02 02/14/2023 [id number] arthritis: care instructions Not available 02/14/2023 11:33:16 osteoarthritis: care instructions Not available 02/14/2023 11:33:16 depression treatment: care instructions Not available 02/14/2023 11:33:15 When You Want to Lose Weight: Care Instructions Not available 02/14/2023 11:33:16 learning about healthy weight Not available 02/14/2023 11:33:16 body mass index: care instructions Not available 02/14/2023 11:33:16 eating healthy foods: care instructions Not available 02/14/2023 11:33:15 high cholesterol : care instructions Not available 02/14/2023 11:33:16 When You Want to Lose Weight: Care Instructions Not available 02/14/2023 11:33:15 learning about healthy weight Not available 02/14/2023 11:33:15 body mass index: care instructions Not available 02/14/2023 11:33:15 eating healthy foods: care instructions Not available 02/14/2023 11:33:15 anxiety disorder : care instructions Not available 02/14/2023 11:33:15 type 2 diabetes: care instructions Not available 02/14/2023 11:33:15 04/04/2023 [id number] arthritis: care instructions Not available 04/04/2023 14:00:45 osteoarthritis: care instructions Not available 04/04/2023 14:00:45 depression treatment: care instructions Not available 04/04/2023 14:00:45 high cholesterol : care instructions Not available 04/04/2023 14:00:45 When You Want to Lose Weight: Care Instructions Not available 04/04/2023 14:00:46 learning about healthy weight Not available 04/04/2023 14:00:46 body mass index: care instructions Not available 04/04/2023 14:00:45 eating healthy foods: care instructions Not available 04/04/2023 14:00:46 anxiety disorder : care instructions Not available 04/04/2023 14:00:45 type 2 diabetes: care instructions Not available 04/04/2023 14:00:46 07/02/2023 [id number] arthritis: care instructions Not available 07/02/2023 16:10:28 osteoarthritis: care instructions Not available 07/02/2023 16:10:27 depression treatment: care instructions Not available 07/02/2023 16:10:27 When You Want to Lose Weight: Care Instructions Not available 07/02/2023 16:10:27 eating healthy foods: care instructions Not available 07/02/2023 16:10:27 body mass index: care instructions Not available 07/02/2023 16:10:28 learning about healthy weight Not available 07/02/2023 16:10:27 high cholesterol : care instructions Not available 07/02/2023 16:10:27 When You Want to Lose Weight: Care Instructions Not available 07/02/2023 16:10:28 learning about healthy weight Not available 07/02/2023 16:10:27 body mass index: care instructions Not available 07/02/2023 16:10:27 eating healthy foods: care instructions Not available 07/02/2023 16:10:27 anxiety disorder : care instructions Not available 07/02/2023 16:10:27 type 2 diabetes: care instructions Not available 07/02/2023 16:10:28 08/05/2023 [id number] When You Want to Lose Weight: Care Instructions Not available 08/05/2023 10:25:58 learning about healthy weight Not available 08/05/2023 10:25:58 body mass index: care instructions Not available 08/05/2023 10:25:58 eating healthy foods: care instructions Not available 08/05/2023 10:25:58 arthritis: care instructions Not available 08/05/2023 10:25:58 osteoarthritis: care instructions Not available 08/05/2023 10:25:58 depression treatment: care instructions Not available 08/05/2023 10:25:59 anxiety disorder : care instructions Not available 08/05/2023 10:25:58 type 2 diabetes: care instructions Not available 08/05/2023 10:25:58 When You Want to Lose Weight: Care Instructions Not available 08/05/2023 10:25:58 eating healthy foods: care instructions Not available 08/05/2023 10:25:58 body mass index: care instructions Not available 08/05/2023 10:25:58 learning about healthy weight Not available 08/05/2023 10:25:59 Reason for Referral None Reported. Results Created Date Observation Date Name Description Value Unit Range Abnormal Flag Note LastModifiedBy Organization Detail LastModifiedTime 02/12/20 23 02/11/2023 COMPL ETE BLOOD COUNT W/AUT O DIFFE RENTI AL WBC 5.6 x10(3 )/mcL 3.4-11 .6 Not Available [facility] [address] [place], [address], 02/11/2023 11:33:35 02/12/20 23 02/11/2023 COMPL ETE BLOOD COUNT W/AUT O DIFFE RENTI AL WBC cnt 5.6 x10(3 )/mcL 3.4-11 .6 Not Available [facility] [address] [place], [address], 02/11/2023 11:33:35 02/12/20 23 02/11/2023 COMPL ETE BLOOD COUNT W/AUT O DIFFE RENTI AL RBC 4.47 x10(6 )/mcL 3.91-5 .03 Not Available [facility] [address] [place], [address], 02/11/2023 11:33:35 02/12/20 23 02/11/2023 COMPL ETE BLOOD COUNT W/AUT O DIFFE RENTI AL HGB 13.3 gm/dL 11.5-1 5.5 Not Available [facility] [address] [place], [address], 02/11/2023 11:33:35 02/12/20 23 02/11/2023 COMPL ETE BLOOD COUNT W/AUT O DIFFE RENTI AL HCT 39.2 % 34.5-4 5.4 Not Available [facility] [address] [place], [address], 02/11/2023 11:33:35 02/12/20 23 02/11/2023 COMPL ETE BLOOD COUNT W/AUT O DIFFE RENTI AL MCH 29.9 pg 27.0-3 4.0 Not Available [facility] [address] [place], [address], 02/11/2023 11:33:35 02/12/20 23 02/11/2023 COMPL ETE BLOOD COUNT W/AUT O DIFFE RENTI AL MCHC 34.0 g/dL 32.5-3 5.6 Not Available [facility] [address] [place], [address], 02/11/2023 11:33:35 02/12/20 23 02/11/2023 COMPL ETE BLOOD COUNT W/AUT O DIFFE RENTI AL MCV 87.8 fL 82.0-1 00.0 Not Available [facility] [address] [place], [address], 02/11/2023 11:33:35 02/12/20 23 02/11/2023 COMPL ETE BLOOD COUNT W/AUT O DIFFE RENTI AL plt cnt 205 x10(3 )/mcL 142-41 5 Not Available [facility] [address] [place], [address], 02/11/2023 11:33:35 02/12/20 23 02/11/2023 COMPL ETE BLOOD COUNT W/AUT O DIFFE RENTI AL MPV 6.8 fL 6.7-10 .7 Not Available [facility] [address] [place], [address], 02/11/2023 11:33:35 02/12/20 23 02/11/2023 COMPL ETE BLOOD COUNT W/AUT O DIFFE RENTI AL RDW 13.7 % 11.0-1 6.0 Not Available [facility] [address] [place], [address], 02/11/2023 11:33:35 02/12/20 23 02/11/2023 .AUTO DIFF neutrophils% auto 66.4 % 44.0-7 6.0 Not Available [facility] [address] [place], [address], 02/11/2023 11:33:37 02/12/20 23 02/11/2023 .AUTO DIFF lymphocytes% auto 21.7 % 14.0-4 4.0 Not Available [facility] [address] [place], [address], 02/11/2023 11:33:37 02/12/20 23 02/11/2023 .AUTO DIFF monocytes% auto 7.7 % 0.0-12 .0 Not Available [facility] [address] [place], [address], 02/11/2023 11:33:37 02/12/20 23 02/11/2023 .AUTO DIFF eosinophils% auto 3.4 % 0.0-6. 0 Not Available [facility] [address] [place], [address], 02/11/2023 11:33:37 02/12/20 23 02/11/2023 .AUTO DIFF basophils% auto 0.8 % 0.0-2. 0 Not Available [facility] [address] [place], [address], 02/11/2023 11:33:37 02/12/20 23 02/11/2023 .AUTO DIFF neutrophils# auto 3.7 thou/ mcL 2.2-4. 8 Not Available [facility] [address] [place], [address], 02/11/2023 11:33:37 02/12/20 23 02/11/2023 .AUTO DIFF lymphocytes# auto 1.2 thou/ mcL 1.3-2. 9 low Not Available [facility] [address] [place], [address], 02/11/2023 11:33:37 02/12/20 23 02/11/2023 .AUTO DIFF monocytes# auto 0.4 thou/ mcL 0.3-0. 8 Not Available [facility] [address] [place], [address], 02/11/2023 11:33:37 02/12/20 23 02/11/2023 .AUTO DIFF eos# auto 0.2 thou/ mcL 0.1-0. 2 Not Available [facility] [address] [place], [address], 02/11/2023 11:33:37 02/12/20 23 02/11/2023 .AUTO DIFF basophils# auto 0.0 thou/ mcL 0.0-0. 1 Not Available [facility] [address] [place], [address], 02/11/2023 11:33:37 02/12/20 23 02/11/2023 COMPR EHENS SALVADOR METAB OLIC PROFI LE sodium 140 mmol/ L 136-14 5 Not Available [facility] [address] [place], [address], 02/11/2023 12:01:13 02/12/20 23 02/11/2023 COMPR EHENS SALVADOR METAB OLIC PROFI LE potassium 4.3 mmol/ L 3.5-5. 1 Not Available [facility] [address] [place], [address], 02/11/2023 12:01:13 02/12/20 23 02/11/2023 COMPR EHENS SALVADOR METAB OLIC PROFI LE chloride 105 mmol/ L 101-11 1 Not Available [facility] [address] [place], [address], 02/11/2023 12:01:13 02/12/20 23 02/11/2023 COMPR EHENS SALVADOR METAB OLIC PROFI LE carbon dioxide 27 mmol/ L 22-32 Not Available [facility] [address] [place], [address], 02/11/2023 12:01:13 02/12/20 23 02/11/2023 COMPR EHENS SALVADOR METAB OLIC PROFI LE BUN 31 mg/dL 8-26 high Not Available [facility] [address] [place], [address], 02/11/2023 12:01:13 02/12/20 23 02/11/2023 COMPR EHENS SALVADOR METAB OLIC PROFI LE creatinine 0.97 mg/dL 0.60-1 .20 Not Available [facility] [address] [place], [address], 02/11/2023 12:01:13 02/12/2002/11/2023 COMPR EHENS SALVADOR METAB OLIC PROFI LE eGFR non 66 mL/mi n CKD is defin ed by the prese nce of glome rular filtr ation rate (GFR) <60 mL for >3 month s and/o r evide nce of kidne y damag e (eg, struc tural abnor malit ies, histo logic abnor malit ies, album inuri a, urina ry sedim ent abnor malit ies, renal tubul ar disor ders, and/o r histo ry of kidne y trans plant ation ) for >3mon ths. This table provi francis inter preta tion of speci fic eGFR value s. Creat inine measu remen ts, and there fore eGFR calcu latio ns, are affec elio by very high or very low muscl e mass, muscl e injur y, a diet very high in meat, hepat ic cirrh osis, certa in drugs , etc. Stage s of CKD: Stage Descr iptio n GFR mL/mi n 1 Kidne y damag e with jaida l or incre ased GFR 90 2 Kidne y damag e with mild decre ase in GFR 60 to 89 3 Moder ate decre ase in GFR 30 to 59 4 Sever e decre ase in GFR 15 to 29 5 Kidne y failu re <15 (or dialy sis) Not Available [facility] [address] [place], [address], 02/11/2023 12:01:13 02/12/20 23 02/11/2023 COMPR EHENS SALVADOR METAB OLIC PROFI LE eGFR 77 mL/mi n CKD is defin ed by the prese nce of glome rular filtr ation rate (GFR) <60 mL for >3 month s and/o r evide nce of kidne y damag e (eg, struc tural abnor malit ies, histo logic abnor malit ies, album inuri a, urina ry sedim ent abnor malit ies, renal tubul ar disor ders, and/o r histo ry of kidne y trans plant ation ) for >3mon ths. This table provi francis inter preta tion of speci fic eGFR value s. Creat inine measu remen ts, and there fore eGFR calcu latio ns, are affec elio by very high or very low muscl e mass, muscl e injur y, a diet very high in meat, hepat ic cirrh osis, certa in drugs , etc. Stage s of CKD: Stage Descr iptio n GFR mL/mi n 1 Kidne y damag e with jaida l or incre ased GFR 90 2 Kidne y damag e with mild decre ase in GFR 60 to 89 3 Moder ate decre ase in GFR 30 to 59 4 Sever e decre ase in GFR 15 to 29 5 Kidne y failu re <15 (or dialy sis) Not Available [facility] [address] [place], [address], 02/11/2023 12:01:13 02/12/2002/11/2023 COMPR EHENS SALVADOR METAB OLIC PROFI LE glucose 110 mg/dL 70-99 high Resul t Fasti ng Plasm a Gluco se (FPG) Jaida l less than 100 mg/dl Predi abete s 100 mg/dl to 125 mg/dl Diabe dank 126 mg/dl or highe r A rando m plasm a gluco se great er than or equal to 200 mg/dl is diagn ostic of diabe dank per the Ameri can Diabe dank Assoc iatio n. Not Available [facility] [address] [place], [address], 02/11/2023 12:01:13 02/12/20 23 02/11/2023 COMPR EHENS SALVADOR METAB OLIC PROFI LE calcium 9.9 mg/dL 8.6-10 .2 Not Available [facility] [address] [place], [address], 02/11/2023 12:01:02/12/20 23 02/11/2023 COMPR EHENS SALVADOR METAB OLIC PROFI LE prot total 7.2 gm/dL 6.4-8. 3 Not Available [facility] [address] [place], [address], 02/11/2023 12:01:13 02/12/20 23 02/11/2023 COMPR EHENS SALVADOR METAB OLIC PROFI LE albumin 4.4 g/dL 3.5-5. 2 Not Available [facility] [address] [place], [address], 02/11/2023 12:01:02/12/20 23 02/11/2023 COMPR EHENS SALVADOR METAB OLIC PROFI LE bili total 0.4 mg/dL 0.2-1. 2 Not Available [facility] [address] [place], [address], 02/11/2023 12:01:13 02/12/2002/11/2023 COMPR EHENS SALVADOR METAB OLIC PROFI LE AST 25 intlu nit/L 15-41 Not Available [facility] [address] [place], [address], 02/11/2023 12:01:13 02/12/20 23 02/11/2023 COMPR EHENS SALVADOR METAB OLIC PROFI LE ALT 32 intlu nit/L 8-63 Not Available [facility] [address] [place], [address], 02/11/2023 12:01:13 02/12/20 23 02/11/2023 COMPR EHENS SALVADOR METAB OLIC PROFI LE alkaline phosphatase 69 intlu nit/L 34-104 Not Available [facility] [address] [place], [address], 02/11/2023 12:01:13 02/12/20 23 02/11/2023 COMPR EHENS SALVADOR METAB OLIC PROFI LE globulin 2.8 gm/dL 1.9-3. 7 Not Available [facility] [address] [place], [address], 02/11/2023 12:01:02/12/20 23 02/11/2023 COMPR EHENS SALVADOR METAB OLIC PROFI LE albumin/glob ulin ratio 1.6 0.8-2. 0 Not Available [facility] [address] [place], [address], 02/11/2023 12:01:13 02/12/20 23 02/11/2023 COMPR EHENS SALVADOR METAB OLIC PROFI LE Ca corrected 9.6 mg/dL 8.5-10 .5 Not Available [facility] [address] [place], [address], 02/11/2023 12:01:02/12/20 23 02/11/2023 COMPR EHENS SALVADOR METAB OLIC PROFI LE BUN/crea ratio 32.0 6.0-22 .0 high Not Available [facility] [address] [place], [address], 02/11/2023 12:01:02/12/20 23 02/11/2023 COMPR EHENS SALVADOR METAB OLIC PROFI LE anion gap 12 10-20 Not Available [facility] [address] [facility] [address], 02/11/2023 12:01:02/12/20 23 02/11/2023 THYRO ID STIMU LATIN G HORMO NE TSH 2.52 mciu/ mL 0.34-5 .60 Not Available [facility] [address] [place], [address], 02/11/2023 12:05:50 02/12/2002/11/2023 FREE THYRO XINE T4 free 0.66 NG/dL 0.54-1 .24 Not Available [facility] [address] [place], [address], 02/11/2023 12:10:29 02/12/20 23 02/11/2023 FOLAT E LEVEL folate lvl 9.4 NG/mL 5.9-24 .8 Not Available [facility] [address] [place], [address], 02/11/2023 12:15:03 02/12/20 23 02/11/2023 VITAM IN B12 LEVEL vitamin B12 lvl 1473 pg/mL 180-91 4 high Not Available [facility] [address] [place], [address], 02/11/2023 12:15:04 02/12/2002/14/2023 VITAM IN D 25 OH D2+D3 QASSU REDI? ? LC-MS /MS vitamin D, 25-oh, total cq 44 NG/mL 30-100 Vitam in D, 25-Hy droxy repor ts santa ntrat ions of two commo n forms , 25-OH D2 and 25-OH D3. 25-OH D3 indic ates both endog enous produ ction and suppl ement ation . 25-OH D2 is an indic ator of exoge nous sourc es such as diet or suppl ement ation . Thera py is based on measu remen t of Total 25-OH D, with level s <20 ng/mL indic ative of Vitam in D defic iency , while level s betwe en 20 ng/mL and 30 ng/mL sugge st insuf ficie ncy. Optim al level s are > or = 30 ng/mL . Vitam in D is fat-s olubl e and there fore inadv erten t or inten sahara l inges tion of exces sivel y high amoun ts could be toxic . Studi es in child van and adult s sugge st blood level s would need to excee d 150 ng/mL befor e there is any santa rn. João almanza MF, Cherie chahal NC, Anca off-f errar i REYES, et al. Evalu ation , treat ment and preve ntion of vitam in D defic iency : an Endoc rine Socie ty clini sheela pract ice guide line. J Clin Endoc rinol Metab . 2011; 96(7) :1911 -30. For addit ional infor abimbola mcarthur refer to http: //yumiko fang.Que stDia gnost ics.c om/fa q/FAQ 199 (This link is being provi ded for infor era mabry/ educa sahara l purpo ses only. ) Not Available [facility] [address], [place], [address], 02/14/2023 15:34:34 02/12/20 23 02/14/2023 VITAM IN D 25 OH D2+D3 QASSU REDI? ? LC-MS /MS vitamin D, 25-oh, D2 cq <4 NG/mL This test was devel oped and its valerie tical perfo rmanc e abelino cteri stics have been deter mined by [facility] [place], [place]. It has not been clear ed or appro eliane by the U.S. Food and Drug Admin istra tion. This assay has been valid ated pursu ant to the CLIA regul ation s and is used for clini sheela purpo ses. Test Perfo rmed at: [facility] [id number] [place], [place] Rio Mayer M.D., Ph.D. ,Dire ctor of Labor atori es Lab test perfo rmed by: Lab Mnemo raquel: [id number] [facility] [id number] [place], [place] Rio Mayer M.D., Ph.D. ,Dire ctor of Labor atori es Not Available [facility] [address] [place], [address], 02/14/2023 15:34:34 02/12/20 23 02/14/2023 VITAM IN D 25 OH D2+D3 QASSU REDI? ? LC-MS /MS vitamin D, 25-oh, D3 cq 44 NG/mL This test was devel opmatthias and its valerie tical perfo rmanc e abelino cteri stics have been deter mined by [facility] [place], [place]. It has not been clear ed or appro eliane by the U.S. Food and Drug Admin istra tion. This assay has been valid ated pursu ant to the CLIA regul ation s and is used for clini sheela purpo ses. Not Available [facility] [address] [place], [address], 02/14/2023 15:34:34 04/04/20 23 XR, knee No observ ation record ed. In-Office Order Internal Use Only DO Not Attach Compendium DO Not Attach Compendium, Do Not Delete/merge, [id number] 07/02/2023 16:01:24 04/04/20 23 04/04/2023 XR, knee, 4 or more view [facility] [place] Mckeon MRN:[id number] t: : [birth year] 68 Sex Female : Locati o TNS CL3 n: Orderi ng Physic alexandro: BELEN WHITMORE Diagno stic Radiol ogy ACCESS ION EXAM DATE/T JIM [id number] 04/04/20 23 14:08 EDT Reason For Exam pain Report EXAM: RO XR Knee Comple te Left REASON FOR STUDY: pain FINDIN GS: Three views left knee. The bony struct ures appear intact and unrema rkable . There is no eviden ce of fractu re, disloc ation, bone destru ction or arthri tis. IMPRES SHIN: Negati ve left knee. Final Dictat ed by: NISHANT BENITEZ MD Dictat ed DT/TM: 2022 02:26 pm EDT Signed by: NISHANT BENITEZ MD Signed (Elect umm Signat ure): 2022 02:26 pm EDT Transc ribed by: [place] Transc ribed DT/TM: 2022 02:26 pm EDT [facility] [address] [place], [address], 07/02/2023 16:01:23 Result Notes Documentation Provider Name and Address Organization Details Recorded Time Xr, Knee, 4 Or More View : [facility] [place] Mckeon t: : 1970 Sex Female : Locatio TNS CL3 n: Ordering Physician: BELEN WHITMORE Diagnostic Radiology ACCESSION EXAM DATE/TIME [id number] 04/04/2023 14:08 EDT Reason For Exam pain Report EXAM: RO XR Knee Complete Left REASON FOR STUDY: pain FINDINGS: Three views left knee. The bony structures appear intact and unremarkable. There is no evidence of fracture, dislocation, bone destruction or arthritis. IMPRESSION: Negative left knee. Final Dictated by: NISHANT BENITEZ MD Dictated DT/TM: 04/04/2023 02:26 pm EDT Signed by: NISHANT BENITEZ MD Signed (Electronic Signature): 04/04/2023 02:26 pm EDT Transcribed by: [place] Transcribed DT/TM: 04/04/2023 02:26 pm EDT ANISA Wang [address] [place], [address], [facility] 07/02/2023 16:01:23 Problems Name Problem SNOMED Code Status Onset Date Resolution Date Notes Provider Name and Address Organization Details Recorded Time Severe recurrent major depression without psychotic features 60945256 Active 2021 Not Available [facility] 3 02:40:02 Spasm of back muscles 994898100 Active 2021 Not Available [facility] 3 02:40:02 Steatotic liver disease 732467798 Active 2021 Not Available [facility] 3 02:40:02 Uncontroll ed type 2 diabetes mellitus 668858387 Active 2021 Not Available [facility] 3 02:40:02 Obesity 198870846 Active 2021 Not Available [facility] 3 02:40:02 Hyperlipid emia 99704854 Active 2021 Not Available [facility] 3 02:40:02 Vitamin D deficiency 46990103 Active 2021 Not Available [facility] 3 02:40:02 Generalize d anxiety disorder 34525616 Active 2021 Not Available [facility] 3 02:40:02 Peripheral neuropathi c pain 502969585 Active 2021 Not Available [facility] 3 02:40:02 Muscle weakness 66284082 Active 2021 Not Available [facility] 3 02:40:02 Primary insomnia 8448543 Active 2021 Not Available [facility] 3 02:40:02 Stasis dermatitis of lower limb due to chronic peripheral venous hypertensi on 011138437 Active 2021 Not Available [facility] 3 02:40:02 Chronic pain syndrome 661326996 Active 2021 Not Available [facility] 3 02:40:02 Osteoarthr itis 397486584 Active 2021 Not Available [facility] 3 02:40:02 Pain in left foot 2680802272318 07 Active 2021 Not Available [facility] 3 02:40:02 Chronic neck pain 6933509021937 Active 2021 Not Available [facility] 3 02:40:02 Morbid obesity 035875325 Active 2021 Not Available [facility] 3 02:40:02 Notes:Some problems listed i n Documents: #[id number], #[id number], #[id number], #[id number] could not be added to this patient's chart. Please review these documents and add these problems to the patient's chart manually as needed. Problem Notes None recorded. Procedures Surgical History Date Name Laterality Status Provider Name and Address Organization Details Recorded Time 09/08/20 Diabetic retina imaging exam cancelled SHANNON Robertson [facility] 08/08/2023 12:47:14 08/05/20 23 Telehealth Communication completed Kaelyn Lima CMA [facility] 08/05/2023 09:39:35 07/02/20 23 Telehealth Communication completed Kaelyn Lima CMA [facility] 07/02/2023 15:23:10 05/10/20 Date of Last Mammogram completed Stellamechelle Swanson CMA [facility] 09/06/2022 16:24:06 repair of umbilical hernia completed Stella Swanson [facility] 09/06/2022 16:26:31 Imaging Results None recorded. Procedure Notes None recorded. Medical Equipment None Reported. Allergies Allergen ID Allergen Name Allergen Category Reaction Reaction Severity Criticality Documentation Date Start Date Code Code System Note Provider Name and Address Organization Details Recorded Time 498757 Substance with sulfonami de structure and antibacte rial mechanism of action (substanc e) medicatio n hives Not available Not available 09/06/2022 56974 8003 SNOMED Stella Swanson CMA [facility] 2 16:19:25 776409 lidocaine medicatio n other Not available Not available 09/06/2022 6387 RxNorm tremo rs Stellamechelle Swanson CMA [facility] 2 16:19:51 Medications Name Sig Start Date Stop Date Status Note LastModified by Organization Details LastModified Time celecoxib 200 mg capsule TAKE 1 CAPSULE BY MOUTH ONCE A DAY FOR INFLAMMAT ION active Not Available Not Available No t Available metformin 500 mg tablet Take 2 tablets twice a day by oral route. 09/23 completed Not Available Not Available Not Available pravastatin 40 mg tablet TAKE 1 TABLET BY MOUTH EVERYDAY AT BEDTIME active Not Available Not Available No t Available alprazolam 1 mg tablet TAKE 1 TABLET TWICE A DAY BY ORAL ROUTE NEEDED. active Not Available Not Available No t Available phentermine 37.5 mg tablet Take 1 tablet every day by oral route. 2022 active Not Available Not Available Not Avai lable tramadol 50 mg tablet TAKE 1 TABLET BY MOUTH ONCE A DAY NEEDED FOR 10 DAYS active Not Available Not Available No t Available meloxicam 7.5 mg tablet 02/14 completed Not Available Not Available Not Available alprazolam 0.5 mg tablet TAKE 1 [...] TAKE 1 TABLET BY MOUTH EVERY DAY AT BEDTIME 2023 active Not Available Not Available Not Avai [...] Available duloxetine 30 mg capsule,del ayed release Take 1 capsule every day by oral route. active Not Available Not Available No t Available duloxetine 60 mg capsule,del ayed release TAKE 1 CAPSULE BY MOUTH EVERY DAY active Not Available Not Available No t Available Gelsyn-3 16.8 mg/2 mL intra-artic ular syringe active Not Available Not Available Not Available Ozempic 0.25 mg or 0.5 mg (2 mg/1.5 mL) subcutaneou s pen injector INJECT 0.5 MG SUBCUTANE OUSLY EVERY WEEK FOR 30 DAYS. 04/04 completed Not Available Not Available Not Available Ozempic 1 mg/dose (4 mg/3 mL) subcutaneou s pen injector Inject 1 mg every week by subcutane ous route. 04/04 completed Not Available Not Available Not Available Ozempic 2 mg/dose (8 mg/3 mL) subcutaneou s pen injector INJECT SUBCUTANE OUSLY 2 MG EVERY WEEK 2022 active Not Available Not Available Not Avai lable Mounjaro 7.5 mg/0.5 mL subcutaneou s pen injector INJECT 7.5 MG EVERY WEEK BY SUBCUTANE OUS ROUTE FOR 90 DAYS. 02/14 completed Not Available Not Available Not Available Mounjaro 5 mg/0.5 mL subcutaneou s pen injector INJECT 5 MG EVERY WEEK BY SUBCUTANE OUS ROUTE. 02/14 completed Not Available Not Available Not Available Mounjaro 2.5 mg/0.5 mL subcutaneou s pen injector Inject 2.5 mg every week by subcutane ous route. 02/14 completed Not Available Not Available Not Available Vitals Date Recorded Body height Body mass index (BMI) Body weight Respiratory rate Heart rate Oxygen saturation Oxygen saturation in Arterial blood by Pulse oximetry Systolic blood pressure Diastolic blood pressure Provider Name and Address Organization Details Last Updated DateTime 3 175.26 cm 43.7 kg/m2 998723. 34 g 16 /min 92 /min 96 % 96 % 122 mm[Hg] 64 mm[Hg] Katie Alcala MA [facility] 3 10:53:17 Date Recorded Body height Respiratory rate Body mass index (BMI) Body weight Oxygen saturation Oxygen saturation in Arterial blood by Pulse oximetry Heart rate Systolic blood pressure Diastolic blood pressure Provider Name and Address Organization Details Last Updated DateTime 3 175.26 cm 16 /min 44.3 kg/m2 549125. 71 g 95 % 95 % 105 /min 120 mm[Hg] 78 mm[Hg] Katie Alcala MA [facility] 3 13:23:47 Date Recorded Body mass index (BMI) Body weight Provider Name and Address Organization Details Last Updated DateTime 07/02/2023 44.3 kg/m2 188560.71 g ANISA Wang [address] [facility] [place], [address], [facility] 07/02/2023 16:04:10 Date Recorded Body height Provider Name an d Address Organization Details Last Updated DateTime 07/02/2023 175.26 cm Kaelyn Lima CMA [facility] 07/02/2023 15:23:33 Date Recorded Body height Body mass index (BMI) Body weight Provider Name and Address Organization Details Last Updated DateTime 08/05/2023 175.26 cm 42.8 kg/m2 419968.79 g Kaelyn Lima CMA [facility] 08/05/2023 09:40:09 Date Recorded Body height Body mass index (BMI) Body weight Body temperature Respiratory rate Heart rate Oxygen saturation Oxygen saturation in Arterial blood by Pulse oximetry Systolic blood pressure Diastolic blood pressure Provider Name and Address Organization Details Last Updated DateTime 175.26 cm 40.2 kg/m2 539200. 12 g 98 [degF] 16 /min 81 /min 98 % 98 % 128 mm[Hg] 70 mm[Hg] Malorie Carmona CMA [facility] 2 11:12:16 Social History Question Answer Notes LastModified by Organizat ion Details LastModified Time Tobacco Smoking Status Never Smoker Stella Swanson CMA null, [facility] 09/06/2022 16:25:40 What Is Your Level Of Caffeine Consumption? Occasional [email or web address] Information not available 09/06/2022 Which Illicit Or Recreational Drugs Have You Used? Delta 8 [email or web address] Information not available 09/06/2022 What Was The Date Of Your Most Recent Tobacco Screening? 08/05/2023 [email or web address] Information not available 08/05/2023 Has Tobacco Cessation Counseling Been Provided? Yes [email or web address] Information not available 09/06/2022 On What Date Was Tobacco Cessation Counseling Provided? 09/27/2022 [email or web address] Information not available 09/27/2022 Sex: Unknown Functional Status Question Answer Note LastModified by Organizat ion Details LastModified Time Do you use any illicit or recreational drugs? Yes [email or web address] Information not available 09/06/2022 Do you or have you ever used any other forms of tobacco or nicotine? No Information not available 09/06/2022 What is your level of alcohol consumption? Occasional [email or web address] Information not available 09/06/2022 What is your occupation? RETIRED [id number] Information not available 04/04/2023 Mental Status None recorded. Family History Nothing Reported Notes:Adopted Medical History Condition Response HEADACHES Y ANXIETY DISORDER Y DIZZINESS Y DIABETES Y HIGH CHOLESTEROL Y BACK / NECK PROBLEMS Y DEPRESSION (INCLUDING POST ) Y OTHER Y Gynecological History Statement/Question Response Date of Last Mammogram 05/10/2020 Obstetrics History GPAL:G 0 P 0 0 0 0 Immunizations Vaccine Type Date Status Note Provider Nam e and Address Organization Details Recorded Time COVID-19, mRNA, LNP-S, PF, 100 mcg/0.5mL dose or 50 mcg/0.25mL dose 02/16/2021 completed Not Available [facility] 3 02:40:02 COVID-19, mRNA, LNP-S, PF, 100 mcg/0.5mL dose or 50 mcg/0.25mL dose 03/14/2021 completed Not Available [facility] 3 02:40:02 Past Encounters Encounter ID Performer Location Encounter Start Date Encounter Closed Date Diagnosis/Indication Diagnosis SNOMED-CT Code Diagnosis ICD10 Code Diagnosis Note [id number] Chel Bell MD [facility], [place] [address] [address] 09/06/2022 15:45:20 09/09/2022 16:10:55 Severe recurrent major depression without psychotic features 25174271 F33.2 Spasm of back muscles 20 0087086 M62.830 Steatotic liver disease 494073476 K76.0 Uncontroll ed type 2 diabetes mellitus 647369500 E11.65 Obesity 071480218 E66.9 Hyperlipidemia 56682090 E78.5 Vitamin D deficiency 347 91974 E55.9 Generalize d anxiety disorder 72316593 F41.1 Peripheral neuropathic pain 541499417 M79.2 Muscle weakness 19863023 M62.81 Menopause 486428250 Z78. 0 Primary insomnia 3303201 F51.01 [id number] Chel Bell [place] [facility] [address] [facility] [address] [place] [address] 09/20/2022 10:04:31 09/23/2022 12:49:43 Severe recurrent major depression without psychotic features 02468722 F33.2 due to increased symtpoms we will increase from 60 mg of cymbalta daily to 90 mg dailypt previously on 120 mgcontinye abilify Spasm of back muscles 20 4082381 M62.830 reports marked improvemen t Steatotic liver disease 768190801 K76.0 will discuss [place] Uncontroll ed type 2 diabetes mellitus 573307098 E11.65 Discussed the following: Reduce carb intake to 30-45 g of carbs per meal up to 3 meals per day 1 cup of starchy foods= 30 g of carbs 1 cup of rice or pasta = 45 g of carbs 1 cup of non-starch y veggeis = 15 g of carbs Fruit has carbs, avoid eating fruit in between main meals Avoid surgary drinks Exercise at least 30 minutes per day- this will help blood glucose and promote weight loss Walking for 10-15 minutes after main meals can improve BG Get dilated eye exam annually and have ophthalmol ogy notes faxed to our office Check feet routinely and avoid walking barefoot If hungry, try lean meat, non-starch y veggies, nuts, small portions of cheese. These types of snacks do not raise BG Obesity 740430174 E66.9 Hyperlipidemia 93499173 E78.5 Discussed low-choles terol diet extensivel y, including decreasing intake of saturated and trans fat, decreasing soda/high sugar drinks, decreasing shrimp intake, increasing fiber, and adding protein with lean meat/fish/ poultry, adding in an omega 3 supplement . Continue physical activity 3-5 days per week. Vitamin D deficiency 347 94582 E55.9 Generalize d anxiety disorder 78474049 F41.1 Peripheral neuropathic pain 653389319 M79.2 suspect cymbalta also helping with patients pain despite her being unaware this is helpfulhes itant to completely d/c Muscle weakness 45945686 M62.81 Menopause 150378522 Z78. 0 Primary insomnia 4811882 F51.01 requesting rf Stasis wade matitis of lower limb due to chronic peripheral venous hypertension 983539566 I87.072 [id number] Chel Bell MD [facility], [place], [place] [facility] [address] [facility] [address] [place] [address] 09/27/2022 11:11:50 09/30/2022 11:37:04 Generalized anxiety disorder 60847394 F41.1 Peripheral neuropathic pain 380665471 M79.2 suspect cymbalta also helping with patients pain despite her being unaware this is helpfulhes itant to completely d/c Vitamin D deficiency 347 58670 E55.9 Chronic pain syndrome 37 9905392 G89.4 Osteoarthritis 472754891 M19.90 Uncontroll ed type 2 diabetes mellitus 145755277 E11.65 Discussed the following: Reduce carb intake to 30-45 g of carbs per meal up to 3 meals per day 1 cup of starchy foods= 30 g of carbs 1 cup of rice or pasta = 45 g of carbs 1 cup of non-starch y veggeis = 15 g of carbs Fruit has carbs, avoid eating fruit in between main meals Avoid surgary drinks Exercise at least 30 minutes per day- this will help blood glucose and promote weight loss Walking for 10-15 minutes after main meals can improve BG Get dilated eye exam annually and have ophthalmol ogy notes faxed to our office Check feet routinely and avoid walking barefoot If hungry, try lean meat, non-starch y veggies, nuts, small portions of cheese. These types of snacks do not raise BG Pain in left foot 684434 6150 75314 M79.672 Chronic neck pain 416779 4460 107 M54.2 Severe rec urrent major depression without psychotic features 35740561 F33.2 due to increased symtpoms we will increase from 60 mg of cymbalta daily to 90 mg dailypt previously on 120 mgcontinye abilify Hyperlipidemia 09053472 E78.5 Discussed low-choles terol diet extensivel y, including decreasing intake of saturated and trans fat, decreasing soda/high sugar drinks, decreasing shrimp intake, increasing fiber, and adding protein with lean meat/fish/ poultry, adding in an omega 3 supplement . Continue physical activity 3-5 days per week. Steatotic liver disease 100894633 K76.0 will discuss [place] Obesity 727972452 E66.9 [id number] Chel Bell MD [facility] [address] [facility] [address] [place] [address] 11/01/2022 11:05:48 11/02/2022 20:28:13 Uncontrolled type 2 diabetes mellitus 824339885 E11.65 Tolerating Mounjaro well We will increase to 7.5 mg todayDiscu ssed the following: Reduce carb intake to 30-45 g of carbs per meal up to 3 meals per day1 cup of starchy foods= 30 g of carbs1 cup of rice or pasta = 45 g of carbs1 cup of non-starch y veggeis = 15 g of carbsFruit has carbs, avoid eating fruit in between main mealsAvoid surgary drinksExer cise at least 30 minutes per day- this will help blood glucose and promote weight lossWalkin g for 10-15 minutes after main meals can improve BGGet dilated eye exam annually and have ophthalmol ogy notes faxed to our officeChec k feet routinely and avoid walking barefootIf hungry, try lean meat, non-starch y veggies, nuts, small portions of cheese. These types of snacks do not raise BG Peripheral neuropathic pain 680159415 M79.2 suspect cymbalta also helping with patients pain despite her being unaware this is helpfulhes itant to completely d/cWe will continue 60 mg in a.m. and 30 mg in p.m. Generalize d anxiety disorder 73520231 F41.1 Patient states she continues to run anxious though she is very happy with her improvemen t in mood and would like to continue current regimen of Paxil 40 mg, Cymbalta 60 mg a.m., 30 mg p.m., Abilify, and alprazolam as needed Vitamin D deficiency 347 47901 E55.9 Continue supplement ation Osteoarthritis 309284556 M19.90 Patient referred to Ortho for multiple joint painStates she has been contacted and scheduled within the next few weeks Pain in left foot 359959 8308 55262 M79.672 Patient states she was contacted and scheduled for appointmen t within the next few weeks Chronic neck pain 891093 4246 107 M54.2 Scheduled with Ortho per patient Continues to see chiropract or Severe rec urrent major depression without psychotic features 28161445 F33.2 Patient reports marked improvemen t in depression and states she finally feels herself Continue Cymbalta 60 mg in a.m., 30 mg in p.m., Paxil 40 mg, and Abilify 10 mg twice daily due to increased symtpoms we will increase from 60 mg of cymbalta daily to 90 mg dailypt previously on 120 mgcontinye abilify Hyperlipidemia 15719285 E78.5 Discussed low-choles terol diet extensivel y, including decreasing intake of saturated and trans fat, decreasing soda/high sugar drinks, decreasing shrimp intake, increasing fiber, and adding protein with lean meat/fish/ poultry, adding in an omega 3 supplement . Continue physical activity 3-5 days per week. Steatotic liver disease 023644203 K76.0 Patient would likely benefit from ultrasound of liver Obesity 979640403 E66.9 Morbid obesity 129473106 E66.01 [id number] ANISA Wang [facility], [place] [place] [facility] [address] [address] 02/14/2023 10:29:27 02/14/2023 21:17:34 Spasm of back muscles 962342748 M62.830 Refilled rx. Chronic pain syndrome 37 2169082 G89.4 Refilled rx to take sparingly. Uncontroll ed type 2 diabetes mellitus 025178300 E11.65 Tolerating Mounjaro 7.5 mg but pt worries not effective. We will discontinu e and start Ozempic at 0.5 mg weekly. Patient will follow-up in 1 month with hopes to increase to 1 mg if tolerating well.Last a1c well controlled at 5.4 - due to repeat because it was not checked with last labs. Generalize d anxiety disorder 98256686 F41.1 Currently taking Paxil 40 mg, Cymbalta 60 mg a.m., 30 mg p.m., Abilify, and alprazolam as needed Osteoarthritis 848768382 M19.90 Followed by Ortho Chronic neck pain 682226 3463 107 M54.2 Followed by ortho and Continues to see chiropract or Severe rec urrent major depression without psychotic features 88501985 F33.2 Will refer to counseling after patient determines who she wants to see. Hyperlipidemia 32723124 E78.5 Discussed low-choles terol diet extensivel y, including decreasing intake of saturated and trans fat, decreasing soda/high sugar drinks, decreasing shrimp intake, increasing fiber, and adding protein with lean meat/fish/ poultry, adding in an omega 3 supplement . Continue physical activity 3-5 days per week. Obesity 323584216 E66.9 Peripheral neuropathic pain 462348601 M79.2 We will continue Cymbalta 60 mg a.m. and 30 mg p.m. Vitamin D deficiency 347 92904 E55.9 Continue supplement ation Steatotic liver disease 812385547 K76.0 Patient would likely benefit from ultrasound of liver in the future.lab s WNL Morbid obesity 379285931 E66.01 [id number] ANISA Wang [facility] [address] [address] 04/04/2023 13:08:45 04/05/2023 13:01:22 Spasm of back muscles 391180649 M62.830 Baclofen prn Chronic pain syndrome 37 9098379 G89.4 Takes Tramadol prn Uncontroll ed type 2 diabetes mellitus 787241735 E11.65 Patient has been taking Ozempic 1 mg but states that it does nothing.W e will try increase to 2 mg due to no adverse side effects. Previous note:[place] ating Mounjaro 7.5 mg but pt worries not effective. We will discontinu e and start Ozempic at 0.5 mg weekly. Patient will follow-up in 1 month with hopes to increase to 1 mg if tolerating well.Last a1c well controlled at 5.4 - due to repeat because it was not checked with last labs. Generalize d anxiety disorder 10467292 F41.1 Currently taking Paxil 40 mg, Cymbalta 60 mg a.m., 30 mg p.m., Abilify, and alprazolam as needed Osteoarthritis 839721184 M19.90 Followed by Ortho Chronic neck pain 035670 4328 107 M54.2 Followed by ortho and Continues to see chiropract or Severe rec urrent major depression without psychotic features 58103788 F33.2 Previous note: Will refer to counseling after patient determines who she wants to see. Hyperlipidemia 71099456 E78.5 Previous note:Discu ssed low-choles terol diet extensivel y, including decreasing intake of saturated and trans fat, decreasing soda/high sugar drinks, decreasing shrimp intake, increasing fiber, and adding protein with lean meat/fish/ poultry, adding in an omega 3 supplement . Continue physical activity 3-5 days per week. Obesity 126914096 E66.9 Peripheral neuropathic pain 782666127 M79.2 We will continue Cymbalta 60 mg a.m. and 30 mg p.m. Vitamin D deficiency 347 52308 E55.9 Continue supplement ation Steatotic liver disease 531077801 K76.0 Patient would likely benefit from ultrasound of liver in the future.Mos t recent labs WNL Pain of le ft knee joint 0437175222 95361 M25.562 We will obtain x-ray of left knee today.Star t Celebrex as needed. Avoid any other NSAIDs with this medication .Also recommende d topical such as Voltaren.H eat/ice as needed.May consider additional imaging or orthopedic referral in the future. [id number] ANISA Wang [facility] [address] [address] 07/02/2023 15:22:06 07/03/2023 12:11:28 Spasm of back muscles 385926770 M62.830 Baclofen prn Chronic pain syndrome 37 0856113 G89.4 Takes Tramadol prn Uncontroll ed type 2 diabetes mellitus 823838429 E11.65 Continue Ozempic 2 mg. Previous note:Patie nt has been taking Ozempic 1 mg but states that it does nothing.W e will try increase to 2 mg due to no adverse side effects. Previous note:[place] at[place] Mounjaro 7.5 mg but pt worries not effective. We will discontinu e and start Ozempic at 0.5 mg weekly. Patient will follow-up in 1 month with hopes to increase to 1 mg if tolerating well.Last a1c well controlled at 5.4 - due to repeat because it was not checked with last labs. Generalize d anxiety disorder 91743309 F41.1 Currently taking Paxil 40 mg, Cymbalta 60 mg a.m., 30 mg p.m., Abilify, and alprazolam as needed Osteoarthritis 717032244 M19.90 Followed by Ortho Chronic neck pain 582922 5630 107 M54.2 Followed by ortho and Continues to see chiropract or Severe rec urrent major depression without psychotic features 92814752 F33.2 Continue Cymbalta Previous note: Will refer to counseling after patient determines who she wants to see. Hyperlipidemia 12091334 E78.5 Recheck at follow up. Obesity 568045448 E66.9 Patient interested in phentermin e. Lengthy discussion about possible risks, side effects, and benefit.Di scussed that patient should only take this for 3 months at a time.We will follow-up in 1 month Peripheral neuropathic pain 749435629 M79.2 We will continue Cymbalta 60 mg a.m. and 30 mg p.m. Steatotic liver disease 539698370 K76.0 Patient would likely benefit from ultrasound of liver in the future.Mos t recent labs WNL Morbid obesity 231100421 E66.01 See aboveDiscu ssed improving diet and that patient may benefit from seeing nutritioni st in the future. [id number] ANISA Wang [facility] [address] [facility] [address] [place] [address] 08/05/2023 09:38:48 08/05/2023 12:28:39 Spasm of back muscles [id number] M62.830 Baclofen prn Chronic pain syndrome 37 [id number] G89.4 Takes Tramadol prn Uncontroll ed type 2 diabetes mellitus [id number] E11.65 Continue Ozempic 2 mg. Previous note:Patie nt has been taking Ozempic 1 mg but states that it does nothing.W e will try increase to 2 mg due to no adverse side effects. Previous note:[place] ating Mounjaro 7.5 mg but pt worries not effective. We will discontinu e and start Ozempic at 0.5 mg weekly. Patient will follow-up in 1 month with hopes to increase to 1 mg if tolerating well.Last a1c well controlled at 5.4 - due to repeat because it was not checked with last labs. Generalize d anxiety disorder [id number] F41.1 Currently taking Paxil 40 mg, Cymbalta 60 mg a.m., 30 mg p.m., Abilify, and alprazolam as needed Osteoarthritis [id number] M19.90 Followed by Ortho Chronic neck pain [id number] 5840 107 M54.2 Followed by ortho and Continues to see chiropract or Severe rec urrent major depression without psychotic features [id number] F33.2 Continue Cymbalta - see above Previous note: Will refer to counseling after patient determines who she wants to see. Obesity [id number] E66.9 Doing well with phentermin e 37.5 mg - no adverse side effectsrep orts successful 10 lb weight loss 07/02/23Pati ent interested in phentermin e. Lengthy discussion about possible risks, side effects, and benefit.Di scussed that patient should only take this for 3 months at a time.We will follow-up in 1 month Peripheral neuropathic pain [id number] M79.2 We will continue Cymbalta 60 mg a.m. and 30 mg p.m. Steatotic liver disease [id number] K76.0 Patient would likely benefit from ultrasound of liver in the future.Mos t recent labs WNL Morbid obesity [id number] E66.01 See above - working toward weight loss Health Concerns Section Related Observation LastModified by Organization Detai ls LastModified Time None Recorded Concern Status LastModified by Organization Details LastModified Time None Recorded Advance Directives Directive None Recorded Payers Insurance Date Sequence Insurance Name Policy Number Policy Rae Covered Member ID Rae Member ID Guarantor Name 08/02/2023 1 [id number] [id number] Charanjit De La Rosa [id number] Georgiana De La Rosa Notes Date Note Type Note Provider Name and Address Organization Details Recorded Time 11/01/2022 text/html 52-year-old femsam rice presents today for follow-up. Patient reports marked improvement in mood. States her depression has nearly resolved. States she is finally feeling like herself again. States she does continue to run anxious, though she states this is tolerable and seems to be improving. Uses alprazolam as needed. States she has been contacted by Ortho and podiatry and has appointment scheduled. Continues to see chiropractor for chronic pain as well. She is tolerating Mounjaro well and is interested in continuing to increase dose to 7.5 mg. States she has noticed a change in appetite, though she has not appreciated any weight gain at this time. In regard to patient's mood, she states she would like to stay where [she is] at for a while and sit with it as she states she is feeling exponentially better than her first visit. 09/27/2022:52 year old female presents today for lab review. All labs were reviewed extensively. Patient also here to review medications. States she has been experiencing increased anxiety. She has not associated this with the ability though she is unsure. States she has been taking Xanax twice a day which is states isn't like her. She reports increased tremors and shaking and further disturbance in sleep. Patient also reports a knot on her right knee. States it just popped up and is kind of painful. She has history of ACL repair on right knee. She also inquires about prescription for stasis dermatitis. Reports marked improvement in spasms with the addition of baclofen. States she has been able to move more and states I even found myself dancing in the car. Patient denies any chest pain, shortness of breath, cough, fever, N/V, abdominal pain, blood in stool, increased fatigue, increased joint/muscle pain, or undesired weight changes. All questions were answered, medication list was discussed, and the patient is hemodynamically stable at this time. 09/06/2022: 52 year old female presents today to establish care. Patient states she has longstanding history of depression, anxiety, panic attacks, type 2 diabetes, fatty liver, muscle spasm, neuropathic pain, and muscle weakness. Patient states her depression was previously controlled well with Cymbalta 60 mg twice daily. States recently her symptoms are not controlled. Patient is interested in alternative therapy. Previously patient states she was on Zoloft which she states led to extreme apathy. She is interested in blood work. She is interested in treatment of cervical muscle spasms. Patient denies any chest pain, shortness of breath, cough, fever, N/V, abdominal pain, hematochezia, hemoptysis, weight changes, headaches, increased muscle or joint pain. Keesha Finnegan PA-C [address] [place], [address], [facility] 11/01/2022 19:21:58 02/14/2023 text/html 52-year-old fema le with PMH of depression, anxiety, panic attacks, type 2 diabetes, fatty liver, chronic pain, neuropathic pain presents today for follow-up and lab review. All labs reviewed in detail.She currently takes Cymbalta, Paxil, Abilify, and Xanax. States that she has been more depressed lately. She is not interested in adding new medication to her list. She did see counseling in the past he would like to consider doing this again now.She takes baclofen and tramadol as needed for chronic pain and low back pain.Her A1c was not checked with recent labs. She has been taking Mounjaro 7.5. States that she has not lost any weight with this. Her last A1c was well controlled at 5.4. She will have A1c checked next week and we will follow-up with that. Patient is interested in switching to Ozempic. States that she took Wegovy in the past and it worked very well for weight loss and that is why she wants to try Ozempic.Patient denies any chest pain, shortness of breath, cough, fever, N/V, abdominal pain, blood in stool, fatigue, increase joint/muscle pain, or weight changes.All questions were answered, medication list was discussed, and the patient is hemodynamically stable at this time. ANISA Wang [address] [place], [address], [facility] 02/14/2023 13:04:30 04/04/2023 text/html 52-year-old fema le with PMH of depression, anxiety, panic attacks, type 2 diabetes, fatty liver, chronic pain, neuropathic pain presents today with acute complaint of left knee pain that started worsening over the past few days. She denies any known injury or trauma. States the pain is worse with weightbearing. Describes the pain as sharp and on the inner part of her left knee.She does use a cane to help with ambulation but also used a cane prior to this as well due to chronic pain. She currently takes baclofen and tramadol for chronic low back pain. States that she takes tramadol so infrequently that she does not even remember the last time she filled the prescription. Last filled 02/14/23. We will plan to obtain imaging today and follow-up with pending results.All questions were answered, medication list was discussed, and the patient is hemodynamically stable at this time. ANISA Wang [address] [place], [address], [facility] 04/04/2023 15:19:27 07/02/2023 text/html 52-year-old fema le with PMH of depression, anxiety, panic attacks, type 2 diabetes, fatty liver, chronic pain, neuropathic pain presents today via telehealth to discuss weight loss.She is currently taking Ozempic 2 mg. States that she has not seen any results with weight loss. Has also taken Mounjaro in the past.She weighed at home and currently weight 300 lbs.She had hyaluronic acid injections in knee and reports much improvement since then.States her diet has been very reasonable apart from her recent beach vacation.All questions were answered, medication list was discussed, and the patient is hemodynamically stable at this time. ANISA Wang [address] [place], [address], [facility] 07/02/2023 16:28:14 08/05/2023 text/html 53-year-old fema le with PMH of depression, anxiety, panic attacks, type 2 diabetes, fatty liver, chronic pain, neuropathic pain presents today via telehealth to follow up weight loss.Started phentermine at last visit and is doing well with no adverse side effects. She reports successful 10 lb weight loss.States that she will be moving to [place] 09/02/23. Has plans to reestablish with old PCP there to complete labs.Continues to take Ozempic 2 mg with no adverse side effects.No other new concerns.All questions were answered, medication list was discussed, and the patient is hemodynamically stable at this time. ANISA Wang [address] , [place], [address], [facility] 08/05/2023 11:12:16 OBGyn Episode No OBEpisode recorded.
--- OUTSIDE RECORDS SUMMARY | 2025-05-16 12:46 | XMS_ITS ---
Author Organization [facility] Address [address] [address] Care Team Providers Care Record Clerk Salesperson Name Role Phone Braxton Stevenson MD Primary Care Provider Unavaila Eriberto Romero DPM [phone] REASON FOR VISIT lft foot Encounters Encounter Location Date Provider Diagnosis [facility] [address] [address] 10/20/2024 Eriberto Vasquez DPM Achilles tendinitis of [...]
--- OUTSIDE RECORDS SUMMARY | 2025-05-16 12:46 | XMS_ITS ---
Author Organization [facility] Address [address] [facility] [address], [place] [address] Care Team Providers Care Cash Analyst Name Role Phone Braxton Stevenson MD Primary Care Provider Unavaila Eriberto Romero DPM [phone] Encounters Encounter Location Date Provider Diagnosis [facility] [address] [facility] [address], [place] [address] 11/22/2024 Eriberto Vasquez DPM Achilles tendinitis of [...] agreed to. An order was sent to [facility] per the patient's request. We will call [...] agreed to. An order was sent to [facility] per the patient's request. We will call [...]
[2025-05-16 21:03] LABS: Basophils Percent Auto 0.6 % (0.2-1.2); Eosinophils Absolute Auto 0.4 K/mm3 (0-0.3); Eosinophils Percent Auto 4.9 % (0-4.4); Hematocrit 42.5 % (37.0-47.0); Hemoglobin 14.1 g/dL (12.0-15.0); Immature Granulocyte Absolute 0.03 K/mm3 (0.00-0.031); Immature Granulocyte Percent A 0.4 % (0-0.5); Lymphocytes Absolute Auto 1.77 K/mm3 (0.9-3.2); Lymphocytes Percent Auto 24.6 % (18.3-44.2); Mean Corpuscular HGB Conc 33.2 g/dl (32-36); Mean Corpuscular Hemoglobin 29.7 pg (26-34); Mean Corpuscular Volume 89.5 fl (80-100); Mean Platelet Volume 9.2 fl (7.4-10.4); Monocytes Absolute Auto 0.6 K/mm3 (0.1-0.6); Monocytes Percent Auto 7.8 % (2.6-8.5); Neutrophils Absolute Auto 4.5 K/mm3 (1.3-6.7); Neutrophils Percent Auto 61.7 % (45.5-73.1); Platelet Count Result 208 k/mm3 (150-375); Red Blood Count 4.75 M/mm3 (4.2-5.4); Red Cell Distribution Width 13.4 % (11.5-14.5); White Blood Count 7.2 K/mm3 (4.5-10.0)
[2025-05-16 22:06] LABS: Alanine Aminotransferase 61 U/L (6-35); Albumin Level 4.8 g/dL (3.5-5.1); Alkaline Phosphatase 90 U/L (38-126); Anion Gap 12 mmol/L (4-12); Aspartate Amino Transferase 66 U/L (14-36); Bilirubin,Total 0.5 mg/dL (0.2-1.3); Blood Urea Nitrogen 27 mg/dL (7-17); Calcium 9.7 mg/dL (8.4-10.2); Carbon Dioxide 22 mmol/L (22-30); Chloride 107 mmol/L (98-107); Cholesterol 202 mg/dL (0-200); Estimated Glomerular Filt Rate 59; Free T3 3.08 pg/mL (2.71-6.16); Free T4 Free Thyroxine 0.92 ng/dL (0.78-2.19); Glucose 100 mg/dL (65-110); HDL Direct 48 mg/dL; Potassium 4.2 mmol/L (3.4-5.0); Sodium 141 mmol/L (137-145); Total Protein 8.1 g/dL (6.3-8.2); Triglycerides 144 mg/dL (<150)
[2025-05-16 22:16] LABS: LDL Cholesterol Direct 103 mg/dL
== END 2025-05-16 11:28 | disposition home or self-care (01) ==
LOC: ANHGOSHLAB 11:28
PROVIDERS: PCP Internal Medicine; Visit Provider Internal Medicine
DX: E78.5 Hyperlipidemia, unspecified (principal); F41.9 Anxiety disorder, unspecified
CPT/HCPCS: 36415; 80053; 80061; 84439; 84443; 84481; 85025

== ENCOUNTER 2025-05-24 08:53 | Inpatient (IN) | payer OTHER, SELFPAY ==
--- NOTE | ~2025-05-24 | XR_ITS ---
INTRAOPERATIVE FLUOROSCOPY: CLINICAL HISTORY: 55 years old Female; INTRAMEDULLARY NAIL LEFT TIBIA PROCEDURE COMMENTS: Limited intraoperative fluoroscopy of the left lower extremity was performed. CUMULATIVE DOSE: 7.5 mGy FLUOROSCOPY TIME: 2 [id number] seconds FINDINGS/IMPRESSION: Please refer to operative note for further details. Reviewed, dictated and finalized at location A.
--- NOTE | ~2025-05-24 | XR_ITS ---
EXAM/ PROCEDURE: XR ankle LT 2V - 05/24/2025 9:30 CDT HISTORY: 55 years old Female with trauma COMPARISON: None available TECHNIQUE: Three view(s) FINDINGS/ IMPRESSION: Spiral / oblique fracture of the distal left tibial metaphysis with medial displacement of the distal fragment, is again seen. Joint space narrowing, subchondral sclerosis, subchondral cyst formation an d osteophyte formation, compatible with mild osteoarthritis. Calcaneal enthesopathy noted. Reviewed, dictated and finalized at location A.
--- NOTE | ~2025-05-24 | XR_ITS ---
XR chest 1V portable Ordering provider: Azalia Hinson MD History: 55 years Female with . fall/syncope . Comparison: None. FINDINGS: MEDIASTINUM: The cardiac silhouette is not enlarged. LUNGS: No effusions or pneumothorax. Prominent bronchovascular markings bilaterally more on the left side. OTHER: No free air under the diaphragm. IMPRESSION: No acute cardiopulmonary pathology. Reviewed, dictated and finalized at location A.
--- NOTE | ~2025-05-24 | US_ITS ---
EXAMINATION: US abdomen limited DATE: 05/25/2025 08:49 INDICATION: Elevated liver function tests TECHNIQUE: Multiple grayscale and Doppler ultrasound images of the abdomen were obtained. COMPARISON: None FINDINGS: Visualized portion of pancreatic body appears normal. The head and tail the pancreas are obscured. Th e proximal inferior vena cava and aorta are normal, the latter measuring 2.5 cm in maximal diameter. Liver has normal contour, with a smooth surface. There is increased parenchymal echogenicity and coar sened echotexture consistent with diffuse hepatic steatosis. No liver lesion identified. No intrahep atic biliary duct dilation suspected. Portal venous flow was seen in the hepatopetal, normal directio n and has normal Doppler waveform. The gallbladder is normal in appearance. There is no cholelithias is. The common bile duct measures 5 mm, which is normal. Sonographic Lemos sign was reported as nega tive by the producer assistant. IMPRESSION: 1. Diffuse hepatic steatosis. Reviewed, dictated and finalized at location A.
--- NOTE | ~2025-05-24 | XR_ITS ---
EXAM/ PROCEDURE: XR tibia fibula LT 2V - 05/24/2025 9:30 CDT HISTORY: 55 years old Female with trauma COMPARISON: None available TECHNIQUE: Three view(s) FINDINGS/ IMPRESSION: Spiral fracture of the left proximal fibula with posterior displacement of the distal fragment. Oblique fracture of the left distal tibial diaphysis with medial displacement of the distal fragment. Joint spaces are within normal limits. Reviewed, dictated and finalized at location A.
[2025-05-24 08:55] VITALS: BP 118/60; PULSE 86; RESP 16; TEMP 36.6; O2SAT 99
--- NOTE | 2025-05-24 09:44 | ED_ITS ---
HPI - Extremity Injury (Lower) General Chief Complaint: Extremity Injury, Lower Stated Complaint: left ankle pain History of Present Illness HPI Narrative: Patient is a 55-year-old female who presents ER with left lower extremity pain. She stood up out of bed when she felt a snap in her leg and she collapsed suddenly to the floor. She did not strike her head or lose consciousness. Has persistent pain in left leg below the knee. Small splint applied to the ankle by EMS. No numbness or tingling. No additional concerns. Patient had an Achilles tendon repair by Podiatry on the affected leg earlier this year. Related Data Home Medications ?Medication ?Instructions ?Recorded ?Confirmed ?Last Taken ?Type tirzepatide 10 mg/0.5 mL 10 mg subcut WEEKLY 05/24/25 05/24/25 Unknown History subcutaneous pen injector (Mounjaro) trazodone 150 mg tablet 150 mg PO HS 05/24/25 05/24/25 05/23/25 History Allergies Allergy/AdvReac Type Severity Reaction Status Date / Time Sulfa (Sulfonamide Allergy Hives Verified 04/01/24 14:57 Antibiotics) Review of Systems 2 Review of Systems: All systems reviewed & are unremarkable except as noted in HPI and below Constitutional: Constitutional: Reports no additional constitutional complaints Musculoskeletal: Musculoskeletal: Reports no additional musculoskeletal complaints Neurologic: Reports system reviewed and no additional complaints, except as documented [facility] Past Medical History Medical History (Updated 05/24/25 @ 15:24 by Som Michaels MD) MDD (major depressive disorder) Diabetes type 2, controlled Closed fracture of left distal tibia Family History Family History Other Adopted person Social History Social History Smoking packs per day: 0 Smoking cigarettes per day: 0.0 Smoking status: Never smoker Alcohol intake: current Drinks per week: 1 Alcohol use details: 6 times a year Substance use: never Substance use type: marijuana Do You Feel Safe in your Home?: Yes Lack of Transportation: No Lack of Food: Never True Current Housing: I Have Housing Concerned About Future Housing: No Difficulty Paying Gas/Electric Bills: No Difficulty Paying for Meds: No Currently Unemployed: No Education: Bachelor's Degree Difficulty w/ Childcare or Family Care: No Spiritual care concerns: No Exam 2 Narrative: GENERAL: Well-appearing, well-nourished, and in no acute distress. HEAD: Normocephalic, atraumatic. ENT: Mucous membranes moist. NECK: Supple. CHEST: Clear to auscultation. No respiratory distress. HEART: Regular rate and rhythm. Normal peripheral pulses. EXTREMITIES: Left lower extremity with the knee pointing superiorly towards the ceiling but the right ankle are turn to left side an abnormal fashion. Tender over the calf. Normal pulses and sensation to left lower extremity. Normal upper extremities and right lower extremity. SKIN: Warm, dry, no rash. NEURO: No focal deficits. Alert and oriented x3. PSYCH: Normal mood and affect. Course Course Emergency Course: Discussed with orthopedic surgery who will consult on the patient requests that she be admitted to the hospitalist service. Patient family informed of diagnosis and treatment plan and verbalized understanding. Patient will be placed in a short-leg posterior splint. Patient last ate solid food at 6:00 p.m. last night. She has had no food or drink since midnight. Vital Signs Vital signs: Vital Signs Temperature 97.9 F 05/24/25 08:55 Pulse Rate 86 05/24/25 08:55 Respiratory Rate 16 05/24/25 08:55 Blood Pressure 118/60 05/24/25 08:55 Pulse Oximetry 99 05/24/25 08:55 Temperature 97.5 F L 05/24/25 12:00 Pulse Rate 75 05/24/25 12:00 Respiratory Rate 18 05/24/25 12:00 Blood Pressure 108/69 05/24/25 12:00 Pulse Oximetry 99 05/24/25 12:00 Oxygen Delivery Room Air 05/24/25 12:17 MDM - Extremity Injury (Lower) Lab Data 05/24/25 10:35 05/24/25 10:35 Imaging Data Radiologist's impression: EXAM/ PROCEDURE: XR tibia fibula LT 2V - 05/24/2025 9:30 CDT HISTORY: 55 years old Female with trauma COMPARISON: None available TECHNIQUE: Three view(s) FINDINGS/ IMPRESSION: Spiral fracture of the left proximal fibula with posterior displacement of the distal fragment. Oblique fracture of the left distal tibial diaphysis with medial displacement of the distal fragment. Joint spaces are within normal limits. Reviewed, dictated and finalized at location A. Discharge Plan Discharge Clinical Impression: Displaced spiral fracture of shaft of left tibia, Fracture of fibula, proximal Patient Disposition: Still a Patient Condition: Stable
[2025-05-24] MEDS: SODIUM CHLORIDE 0.9% IV 1,000 ML 999 ML IV CONT (10:38)
[2025-05-24] MEDS: MORPHINE SULFATE (*CRX) 4 MG/ML INJ IV PUSH ×4 (10:39→22:34)
[2025-05-24 10:46] LABS: Hematocrit 42.5 % (37.0-47.0); Hemoglobin 14.4 g/dL (12.0-15.0); Immature Granulocyte Percent A 0.4 % (0-0.5); Lymphocytes Absolute Auto 1.31 K/mm3 (0.9-3.2); Mean Corpuscular HGB Conc 33.9 g/dl (32-36); Mean Corpuscular Hemoglobin 29.9 pg (26-34); Mean Corpuscular Volume 88.4 fl (80-100); Nucleated Red Blood Cells Absolute Auto 0.000 K/mm3 (0.0-0.012); Nucleated Red Blood Cells Perc 0.0 % (0.0-0.2); Platelet Count Result 199 k/mm3 (150-375); Red Blood Count 4.81 M/mm3 (4.2-5.4); White Blood Count 7.9 K/mm3 (4.5-10.0)
[2025-05-24 10:57] LABS: Alanine Aminotransferase 58 U/L (6-35); Albumin Level 4.5 g/dL (3.5-5.1); Alkaline Phosphatase 83 U/L (38-126); Anion Gap 11 mmol/L (4-12); Aspartate Amino Transferase 46 U/L (14-36); Bilirubin,Total 0.4 mg/dL (0.2-1.3); Blood Urea Nitrogen 33 mg/dL (7-17); Calcium 9.2 mg/dL (8.4-10.2); Carbon Dioxide 22 mmol/L (22-30); Chloride 108 mmol/L (98-107); Estimated CRCL calculation 88 ml/min; Estimated Glomerular Filt Rate > 60; Glucose 118 mg/dL (65-110); Potassium 4.3 mmol/L (3.4-5.0); Sodium 141 mmol/L (137-145); Total Protein 7.9 g/dL (6.3-8.2)
[2025-05-24 10:58] LABS: INR 1.1; Partial Thromboplastin Time 27.4 Seconds (22.3-36.8); Prothrombin Time 14.0 Seconds (11.1-14.7)
[2025-05-24 11:10] VITALS: BP 99/64; PULSE 72; RESP 16; O2SAT 98
--- NOTE | 2025-05-24 11:46 | ADMGEN ---
This patient, Georgiana De La Rosa, was admitted to Medical Room 247-. Patient/family oriented to hospital policies and general routines including ID bracelet, bed and alarms, visiting hours, pain management, procedures, bathroom and other care routines, personal items, smoking policy, room service/diet, and visiting hours. Information on how to activate the Rapid Response Team has been discussed. Patient/Family are encouraged to report perceived risks to care and to ask questions if they do not understand what they are told or what they should do.
[2025-05-24 11:53] VITALS: BMI 44.9
[2025-05-24 12:00] VITALS: BP 108/69; PULSE 75; RESP 18; TEMP 36.4; O2SAT 99
--- NOTE | 2025-05-24 12:13 | P.CONOP_ITS ---
Assessment and Plan Assessment and plan (1) Diabetes type 2, controlled: Qualifiers: Diabetes mellitus complication status: without complication Diabetes mellitus long-term insulin use: without medical terminologist use Qualified Code(s): E11.9 - Type 2 diabetes mellitus without complications Code(s): E11.9 - Type 2 diabetes mellitus without complications Status: Acute (2) Closed fracture of left distal tibia: Qualifiers: Encounter type: initial encounter Fracture morphology: other fracture Qualified Code(s): S82.392A - Other fracture of lower end of left tibia, initial encounter for closed fracture Code(s): S82.302A - Unspecified fracture of lower end of left tibia, initial encounter for closed fracture Status: Acute Assessment and Plan: fracture left distal tibia occurred at home this a.m. when getting out of bed. No prior sequela. Approximately 4 months status post Achilles tendon surgery but was out of the fracture boot. Splinted in the emergency room. Discussed treatment options with the patient including operative and non operative treatment. Risks, benefits and alternatives discussed in detail. Questions answered. She would like to proceed with surgical fixation. Ice, elevate, pain control in the interim. Plan IM nail left tibia when operating room available and supplied. Plan Discussed nonoperative and operative treatment options with the patient. Risks and benefits of each as well as alternatives were reviewed. All of the patient's questions were answered. The risks of surgery reviewed including but not limited to: Neurovascular damage, wound complication, infection, blood clot, pulmonary embolus, stroke, myocardial infarction, and anesthetic risks up to and including . Continued pain and possible dysfunction were explained. Specific risks of the procedure including later recurrence of deformity. No guarantees were offered. If hardware used, discussed risk of failure/ breakage and possible need for removal. If complications occur, the patient understands the need for further treatment, possible further surgery. Patient verbalizes understanding and wishes to proceed. PLAN: Left tibia reduction with intramedullary nail fixation History of Present Illness HPI Consult date: 05/24/25 Requesting physician: Som Michaels MD Chief complaint: Distal Tibia Fracture/Proximal Fibular Fx on the L Narrative: 55-year-old woman who got up out of bed and stepped on the left leg. [place] a pop and give way of the left lower leg. Unable to bear weight and presented to the emergency room with left distal tibia fracture. Denies other injury. Had Achilles tendon surgery 4 months ago otherwise no pre-existing problems. Review of Systems 2 Constitutional: Constitutional: Denies fever(s) Eyes: Eyes: Denies blurry vision ENT: Reports Normal hearing present Cardiovascular: Cardiovascular: Denies chest pain and Denies dyspnea Respiratory: Respiratory: Denies dyspnea and Denies wheezing Gastrointestinal: Gastrointestinal: Denies abdominal pain Genitourinary: Genitourinary: Denies urinary urgency Musculoskeletal: Musculoskeletal: Reports as per HPI and Denies numbness Integumentary/Breasts: Skin/Breast: Denies changing lesions and Denies sores Neurologic: Reports Normal hearing present, Denies behavioral changes, Denies confusion, Denies numbness and Denies convulsions Psychiatric: Psychiatric: Denies behavioral changes, Denies confusion and Denies hallucinations Endocrine: Endocrine: Denies heat intolerance Hematologic/Lymphatic: Hematologic/Lymphatic: Denies easy bleeding Allergic/Immunologic: Allergic/Immunologic: Denies wheezing [facility] Past Medical History Medical History (Updated 05/24/25 @ 15:24 by Som Michaels MD) MDD (major depressive disorder) Diabetes type 2, controlled Closed fracture of left distal tibia Family History Family History Other Adopted person Social History Social History Smoking packs per day: 0 Smoking cigarettes per day: 0.0 Smoking status: Never smoker Alcohol intake: current Drinks per week: 1 Alcohol use details: 6 times a year Substance use: never Substance use type: marijuana Do You Feel Safe in your Home?: Yes Lack of Transportation: No Lack of Food: Never True Current Housing: I Have Housing Concerned About Future Housing: No Difficulty Paying Gas/Electric Bills: No Difficulty Paying for Meds: No Currently Unemployed: No Education: Bachelor's Degree Difficulty w/ Childcare or Family Care: No Spiritual care concerns: No Meds Home Medications and Allergies Home Medications ?Medication ?Instructions ?Recorded ?Confirmed ?Type pravastatin 40 mg tablet 40 mg PO DAILY #90 tabs 10/02/23 05/24/25 Rx alprazolam 1 mg tablet 1 mg PO DAILY PRN anxiety #30 tabs 04/01/24 05/24/25 Rx betamethasone dipropionate 0.05 % 1 applic topical DAILY rash #45 04/01/24 05/24/25 Rx topical cream grams paroxetine HCl 40 mg tablet 40 mg PO DAILY #90 tabs 05/17/24 05/24/25 Rx duloxetine 30 mg capsule,delayed 30 mg PO QPM #90 caps 07/23/24 05/24/25 Rx release duloxetine 60 mg capsule,delayed 60 mg PO QAM #90 caps 10/18/24 05/24/25 Rx release tirzepatide 10 mg/0.5 mL 10 mg subcut WEEKLY 05/24/25 05/24/25 History subcutaneous pen injector (Carmelo) trazodone 150 mg tablet 150 mg PO HS 05/24/25 05/24/25 History Allergies Allergy/AdvReac Type Severity Reaction Status Date / Time Sulfa (Sulfonamide Allergy Hives Verified 04/01/24 14:57 Antibiotics) Vital Signs Vital Signs - 24 hr 05/24/25 08:55 05/24/25 11:10 05/24/25 12:00 Temperature 97.9 F 97.5 F L Pulse Rate 86 72 75 Respiratory Rate 16 16 18 Blood Pressure 118/60 99/64 L 108/69 Pulse Oximetry 99 98 99 Exam 2 Const: General: cooperative, healthy appearing, comfortable and no acute distress; No confusion Orientation/consciousness: No confusion HENMT: Head: normal to inspection, normocephalic and atraumatic Neck: Neck: supple and nontender Chest: Chest palpation & inspection: normal inspection of the chest Resp: Effort & Inspection: normal respiratory effort and no audible wheezes Cardio: Rate: regular rate : General: Yes deferred Skin: General skin exam: no rashes or lesions noted Neuro: General: No confusion Extrem: General: capillary refill normal Right upper extremity: normal to inspection Left upper extremity: normal to inspection Right lower extremity: normal to inspection and hip/thigh Details: normal to inspection L eft lower extremity: hip/thigh Details: normal to inspection, knee Details: normal to inspection and knee ligament exam normal Details: anterior drawer test normal, valgus stress test normal, varus stress test normal and Nii's test normal, ankle (no calf tenderness) Details: abnormal to inspection ( Obvious swelling at the ankle joint), tenderness ( lateral malleolus), swelling (moderate lateral ankle), abnormal ROM Details: pain with active ROM Details: with plantar flexion and with dorsiflexion and with range as follows ( limited secondary to injury), crepitus Details: at the lateral malleolus and other ( good capillary refill in toes, 2+ DP pulse) and foot Details: normal capillary refill, toes with normal ROM, vascular exam Details: dorsalis pedis pulse present and motor-sensory exam Other: Splint left lower leg. Toes exposed. Good capillary refill and good sensation light touch throughout. Able to move toes. Psych: Affect: normal affect Results Labs 05/24/25 10:35 05/24/25 10:35 Labs: Abnormal lab results 05/24/25 Range/Units 10:35 Lymph % (Auto) 16.5 L (18.3-44.2) % Chloride 108 H (98-107) mmol/L BUN 33 H (7-17) mg/dL Glucose 118 H (65-110) mg/dL AST 46 H (14-36) U/L ALT 58 H (6-35) U/L H & H 05/24/25 Range/Units 10:35 Hgb 14.4 (12.0-15.0) g/dL Hct 42.5 (37.0-47.0) % Coagulation 05/24/25 Range/Units 10:35 INR 1.1 All other labs normal. Diagnostic results Ankle/Foot x-ray: image reviewed ( Left distal tibia a medullary fracture with 100% lateral displacement. Proximal fibular fracture.)
--- NOTE | 2025-05-24 14:53 | P.HP_ITS ---
H&P: HPI History of Present Illness Date/Time: 05/24/25 14:53 Chief Complaint: Fall with left ankle pain. Narrative: 49 cc old female past medical history of type 2 diabetes and depression/anxiety presented to the ER after a fall with left lower extremity pain. Patient reported she got out of bed in the morning and fell to the ground. She does not remember exactly how it happened but strongly denies passing out. Denies any chest pain, shortness for breath, vomiting no diarrhea no change in appetite no recent changes in medications. Firmly denies any head trauma too. ER evaluation vital signs stable within normal limits, saturating 99% on room air. Labs notable for AST 46 sinus ALT 58. Ankle xray showed spiral fracture of the distal left tibia, Xray tibiofibular showed proximal fractur eof left procimal fibular and left distal tibia. Ortho was consulted prior to admission. Review of Systems Review of Systems: On the systems are reviewed and negative except as noted in the history above. [facility] Past Medical History Medical History (Updated 05/24/25 @ 12:15 by Angel Fraser MD) Closed fracture of left distal tibia Family History Family History Other Adopted person Social History Social History Smoking packs per day: 0 Smoking cigarettes per day: 0.0 Smoking status: Never smoker Alcohol intake: current Drinks per week: 1 Alcohol use details: 6 times a year Substance use: never Substance use type: marijuana Do You Feel Safe in your Home?: Yes Lack of Transportation: No Lack of Food: Never True Current Housing: I Have Housing Concerned About Future Housing: No Difficulty Paying Gas/Electric Bills: No Difficulty Paying for Meds: No Currently Unemployed: No Education: Bachelor's Degree Difficulty w/ Childcare or Family Care: No Spiritual care concerns: No Meds Home Medications and Allergies Home Medications ?Medication ?Instructions ?Recorded ?Confirmed ?Type pravastatin 40 mg tablet 40 mg PO DAILY #90 tabs 10/02/23 05/24/25 Rx alprazolam 1 mg tablet 1 mg PO DAILY PRN anxiety #30 tabs 04/01/24 05/24/25 Rx betamethasone dipropionate 0.05 % 1 applic topical DAILY rash #45 04/01/24 05/24/25 Rx topical cream grams paroxetine HCl 40 mg tablet 40 mg PO DAILY #90 tabs 05/17/24 05/24/25 Rx duloxetine 30 mg capsule,delayed 30 mg PO QPM #90 caps 07/23/24 05/24/25 Rx release duloxetine 60 mg capsule,delayed 60 mg PO QAM #90 caps 10/18/24 05/24/25 Rx release tirzepatide 10 mg/0.5 mL 10 mg subcut WEEKLY 05/24/25 05/24/25 History subcutaneous pen injector (Carmelo) trazodone 150 mg tablet 150 mg PO HS 05/24/25 05/24/25 History Allergies Allergy/AdvReac Type Severity Reaction Status Date / Time Sulfa (Sulfonamide Allergy Hives Verified 04/01/24 14:57 Antibiotics) Vital Signs Vital Signs - 24 hr 05/24/25 08:55 05/24/25 11:10 05/24/25 12:00 Temperature 97.9 F 97.5 F L Pulse Rate 86 72 75 Respiratory Rate 16 16 18 Blood Pressure 118/60 99/64 L 108/69 Pulse Oximetry 99 98 99 Oxygen Delivery 05/24/25 12:17 Temperature Pulse Rate Respiratory Rate Blood Pressure Pulse Oximetry Oxygen Delivery Room Air Exam Narrative: General: alert and comfortable Eyes: EOMI, PERRLA ENNT External ears normal, Neck is supple, no masses, Respiratory systems: Clear to auscultation Cardiovascular S1, S2, normal rhythm, no murmur, rub, or gallop; no thrill or palpable murmurs on palpation. Gastrointestinal: soft, non-tender, and non-distended abdomen with no masses; BS present Skin: no rash, lesions, ulcerations, subcutaneous nodules or induration Musculoskeletal: left leg ninfa splint Neurologic: Alert and oriented x3, non focal Mental Status Exam: normal affect H&P: Results Labs Labs: Short CBC 05/24/25 Range/Units 10:35 WBC 7.9 (4.5-10.0) K/mm3 Hgb 14.4 (12.0-15.0) g/dL Hct 42.5 (37.0-47.0) % Plt Count 199 (150-375) k/mm3 [facility] [place] 05/24/25 10:35 Sodium 141 Potassium 4.3 Chloride 108 H Carbon Dioxide 22 BUN 33 H Creatinine 0.95 Glucose 118 H Calcium 9.2 Liver Function 05/24/25 Range/Units 10:35 Total Bilirubin 0.4 (0.2-1.3) mg/dL AST 46 H (14-36) U/L ALT 58 H (6-35) U/L Alkaline Phosphatase 83 (38-126) U/L Albumin 4.5 (3.5-5.1) g/dL Assessment and Plan Assessment and plan (1) Closed fracture of left distal tibia: Qualifiers: Encounter type: initial encounter Fracture morphology: other fracture Qualified Code(s): S82.392A - Other fracture of lower end of left tibia, initial encounter for closed fracture Code(s): S82.302A - Unspecified fracture of lower end of left tibia, initial encounter for closed fracture Status: Acute Plan Left proximal fibular and distal tibial fractures From fall, patient unable to explain fall and noted it was not witnessed ECHO ordered, EKG, orthostatic vital signs Decreased xanax to 0.5mg from 1mg daily PRN pRN pain control Ortho following DM2 SSi with accucheks, monitor and adjust Anxiety and depression patient noted she is on duloxetine Continue Duloxetine DVT prophylaxis on Sq Lovenox Full code SDML Charanjit De La [facility] Hospitalist MIPS Advance Care Plan I have confirmed that the patient's Advanced Care Plan is present, code status is documented, or surrogate decision maker is listed in patient medical record.: Yes Medication Reconciliation I have utilized all available resources to obtain, update and review the patients current medications (includes all prescriptions, OTC, herbals, cannabis, and nutritional supplements).: Yes
--- NOTE | 2025-05-24 15:01 | ECG_ITS ---
Test Date: 2025-05-24 16:54:10 Measurements Intervals [place] Rate: 82 P: 30 IL: 185 QRS: -7 QRSD: 94 T: 5 QT: 359 QTc: 420 Interpretive Statements SINUS RHYTHM LOW QRS VOLTAGE IN PRECORDIAL LEADS ANTEROLATERAL INFARCT, AGE INDETERMINATE BORDERLINE T WAVE ABNORMALITY- INFERIOR LEADS BASELINE ARTIFACT- I, II, AVR, AVL, AVF, V1-V6 ABNORMAL ECG No previous ECG available for comparison Electronically Signed On 05-24-2025 16:57:29 CDT by Arsenio Mandujano D.O.
[2025-05-24 16:00] VITALS: BP 114/77; PULSE 96; RESP 18; TEMP 36.4; O2SAT 95
[2025-05-24 20:00] VITALS: BP 107/66; PULSE 92; RESP 20; TEMP 36.3; O2SAT 96
[2025-05-24] MEDS: ALPRAZolam (*CRX) 0.5 MG TABLET PO (21:59)
[2025-05-25] VITALS (12 sets, daily range): BP systolic 108–141; BP diastolic 63–86; PULSE 72–111; RESP 13–20; TEMP 36.2–37; O2SAT 92–99
--- NOTE | 2025-05-25 | ECHO_ITS ---
Patient Info Name: Georgiana De La Rosa Age: 55 years : 1970 Gender: Female Ht: 69 in Wt: 304 lbs BSA: 2.66 m2 HR: 84 bpm BP: 118 / 76 mmHg Technical Quality: Good Exam Date: 05/25/2025 9:11 AM Patient Status: I Admit Date: 05/24/2025 Exam Type: CA echo dop color flow w con Complete two-dimensional, color flow and Doppler transthoracic echocardiogram is performed with contrast to opacify the left ventricle and to improve the deliniation of the left ventricle endocardial borders. Staff Referring Physician: Azalia Hinson Joy Operator: Paty Suggs Attending Provider: Azalia Hinson Contrast/Agitated Saline Contrast/Ag. Saline: Definity Amount: 2.00 ml Administered By: Paty Suggs Existing IV Access: Yes IV Access Condition: patent with no signs of infiltration Summary 1. There is normal biventricular size and systolic function. 2. There are no significant valvular abnormalities. Left Ventricle The left ventricle is normal in size and systolic function. The left ventricular ejection fraction is visually estimated to be 60-65%. There are no regional wall motion abnormalities. Right Ventricle The right ventricle is normal in size and systolic function. Left Atria The left atrium is normal size. Right Atria Right atrium is normal size. Aortic Valve The aortic valve is trileaflet and opens well. There is no aortic regurgitation. Pulmonic Valve The pulmonic valve is not well visualized. There is no color Doppler evidence of pulmonic valve regurgitation. Mitral Valve The mitral valve is grossly normal. There is no mitral regurgitation. Tricuspid Valve The tricuspid valve is normal. There is trace tricuspid regurgitation. Pericardium/Pleural Pericardium is normal in appearance with no evidence for significant pericardial effusion. Inferior Vena Cava Normal inferior vena cava with >50% collapse upon inspiration consistent with normal right atrial pressure, 3 mmHg. Aorta The aortic root measured at the level of the sinus of Valsalva is 3.5 cm in diameter. Left Ventricular Outflow Tract Name Value Normal LVOT 2D LVOT Diameter 2.2 cm LVOT Doppler LVOT Peak Velocity 86 cm/s LVOT Peak Gradient 3 mmHg LVOT Mean Gradient 2 mmHg LVOT VTI 17 cm LVOT VTI/AV VTI Ratio 0.7 LVOT Stroke Volume 64 ml LVOT CO 5.5 l/min LVOT CI 2.0 l/min/m2 Pulmonic Valve Name Value Normal PV Doppler PV Peak Velocity 87 cm/s PV Peak Gradient 3 mmHg Mitral Valve Name Value Normal MV Regurgitation Doppler MR Peak Gradient 69 mmHg MV Diastolic Function MV E Peak Velocity 52 cm/s MV A Peak Velocity 81 cm/s MV E/A 0.6 MV Decel Time (PW) 349 ms MV Annular TDI MV E/e' (Septal) 7.3 MV E/e' (Lateral) 5.2 MV E/e' (Average) 6.3 Tricuspid Valve Name Value Normal TV Regurgitation Doppler TR Peak Velocity 237 cm/s TR Peak Gradient 22 mmHg Estimated PAP/RSVP RA Pressure 3 mmHg <=5 PA Systolic Pressure 25 mmHg <36 RV Systolic Pressure 25 mmHg <36 TV Annular TDI TV Lateral Norma s' Velocity 9.7 cm/s >=9.5 Aortic Valve Name Value Normal AV Doppler AV Peak Velocity 115 cm/s AV Peak Gradient 5 mmHg AV Mean Gradient 3 mmHg AV VTI 23 cm AV Area (Cont Eq VTI) 2.8 cm2 >=3.0 AV Area (Cont Eq Ryan) 2.9 cm2 AV DI (Ryan) 0.75 AV Regurgitation 2D LVOT Area 3.8 cm2 Ventricles Name Value Normal LV Dimensions 2D/MM IVS Diastolic Thickness (2D) 1.1 cm 0.6-1.0 LVID Diastole (2D) 3.5 cm 3.8-5.2 LVIW Diastolic Thickness (2D) 1.1 cm 0.6-0.9 LVID Systole (2D) 2.5 cm 2.2-3.5 LVOT Diameter 2.2 cm LV Mass (2D Cubed) 115.61 g 67.00-162.00 LV Mass Index (2D Cubed) 43 g/m2 43-95 Relative Wall Thickness (2D) 0.60 <=0.42 LV Fractional Shortening/Ejection Fraction 2D/MM LV Fractional Shortening (2D) 28 % 27-45 LV EF (2D Teichholz) 55 % LV Diastolic Volume (4C MOD) 134 ml LV EF (4C MOD) 59 % LV Diastolic Volume (2C MOD) 137 ml LV EF (2C MOD) 65 % LV Diastolic Volume (BP MOD) 136 ml 46-106 LV Diastolic Volume Index (BP MOD) 51 ml/m2 29-61 LV Systolic Volume (BP MOD) 52 ml 14-42 LV Systolic Volume Index (BP MOD) 19 ml/m2 8-24 LV EF (BP MOD) 62 % 54-74 LV Diastolic Length (4C) 9.2 cm LV Systolic Length (4C) 7.8 cm LV Stroke Volume (4C MOD) 79 ml Atria Name Value Normal LA Dimensions LA Volume (4C A-L) 49 ml LA Volume (BP A-L) 50 ml RA Dimensions RA Systolic Major [place] Length (4C) 4.8 cm 2.2-2.8 RA Area (4C) 12.9 cm2 <=18.0 Report Signatures
[2025-05-25] MEDS: MORPHINE SULFATE (*CRX) 4 MG/ML INJ IV PUSH ×3 (05:43→21:21)
[2025-05-25 05:53] LABS: Hepatitis B Surface Antigen Negative (Negative)
[2025-05-25 05:59] LABS: HAV RESULT Negative (Negative); Hepatitis B Core IgM Result Negative (Negative)
--- NOTE | 2025-05-25 08:06 | WPDHPUPDATE1 ---
History and Physical Update Update Date/Time: 05/25/25 08:06 History and Physical has been reviewed, including an updated exam of the patient. There are NO changes in the patient's condition. Risks, benefits, and alternatives have been discussed and questions answered. Patient agrees to proceed with procedure.
[2025-05-25] MEDS: DULoxetine HCL 60 MG CAPSULE.DR PO (08:58)
[2025-05-25] MEDS: PRAVASTATIN SODIUM 20 MG TABLET 40 MG PO (08:58)
[2025-05-25] MEDS: TRIAMCINOLONE ACET 0.1% CREAM 15 GM TUBE 1 APPLIC TOPICAL (08:59)
[2025-05-25] MEDS: PERFLUTREN LIPID MICROSPHERES 1.5 ML VIAL DILUTED TO 10 ML TOTAL VOLUME IV PUSH (10:00)
[2025-05-25] MEDS: [UNRECOGNIZED DRUG - REMARK] 1 EACH XX (10:20)
--- NOTE | 2025-05-25 10:25 | IVDEFINITY ---
Prior to administration of IV Definity the patient was educated on the risks and benefits of the imaging enhancing agent including potential adverse side effects. The patient verbalized understanding. Allergies were verified. No exclusion criteria were identified and at least one of the following inclusion criteria were met: 1) physician request, 2) patient technically difficult to image (per the [place] [employer] guidelines of two or more segments not discernable within the apical view), or 3) questionable left ventricular function. ?
--- NOTE | 2025-05-25 12:04 | PM.IMPN ---
Progress Note: A&P Assessment and Plan (1) Closed fracture of left distal tibia: Qualifiers: Encounter type: initial encounter Fracture morphology: other fracture Qualified Code(s): S82.392A - Other fracture of lower end of left tibia, initial encounter for closed fracture Code(s): S82.302A - Unspecified fracture of lower end of left tibia, initial encounter for closed fracture Status: Acute Plan Left proximal fibular and distal tibial fractures From fall, patient unable to explain fall and noted it was not witnessed Decreased xanax to 0.5mg from 1mg daily PRN PRN pain control For Surgery today Ortho following Fall ?Syncope EKG showed low voltage ECHO pending, TSH pending, On telemetry PT/OT monitor Hepatic steatosis with elevated liver enzymes Hepatitis viral panel negative US liver reviewed counseled patient about lifestyle modificaiton DM2 SSI with accucheks, monitor and adjust Anxiety and depression patient noted she is on duloxetine Continue Duloxetine DVT prophylaxis on Sq Lovenox Subjective Date/time seen: 05/25/25 12:04 Interval history: Comfortable at bedside awaiting OR ECHO pending Review of Systems Review of Systems: On the systems are reviewed and negative except as noted in the history above. Exam Narrative: General: alert and comfortable Eyes: EOMI, PERRLA ENNT External ears normal, Neck is supple, no masses, Respiratory systems: Clear to auscultation Cardiovascular S1, S2, normal rhythm, no murmur, rub, or gallop; no thrill or palpable murmurs on palpation. Gastrointestinal: soft, non-tender, and non-distended abdomen with no masses; BS present Skin: no rash, lesions, ulcerations, subcutaneous nodules or induration Musculoskeletal: left leg ninfa splint Neurologic: Alert and oriented x3, non focal Mental Status Exam: normal affect Objective Data Vital Signs Vital Signs: Vital Signs - 24 hr 05/24/25 12:17 05/24/25 16:00 05/24/25 20:00 Temperature 97.6 F 97.3 F L Pulse Rate 96 92 Respiratory Rate 18 20 Blood Pressure 114/77 107/66 Pulse Oximetry 95 96 Oxygen Delivery Room Air 05/24/25 20:00 05/25/25 00:00 05/25/25 04:00 Temperature 97.2 F L 97.1 F L Pulse Rate 92 89 84 Respiratory Rate 20 20 20 Blood Pressure 110/70 118/76 Pulse Oximetry 96 95 96 Oxygen Delivery Room Air 05/25/25 08:08 05/25/25 09:09 Temperature Pulse Rate Respiratory Rate Blood Pressure Pulse Oximetry 96 Oxygen Delivery Room Air Room Air Intake/Output Intake/Output: Intake & Output 05/22/25 05/23/25 05/24/25 05/25/25 23:59 23:59 23:59 23:59 Intake Total 480 190 Output Total 800 100 Balance -320 90 Meds/Results Medications: Active Medications Generic Name Dose Route Start Last Admin Trade Name Freq PRN Reason Stop Dose Admin Alprazolam 0.5 mg 05/24/25 15:01 05/24/25 21:59 Alprazolam (*Crx) 0.5 Mg Tablet PO 0.5 mg DAILY PRN Administration Anxiety Dextrose 12.5 gm 05/24/25 14:54 Dextrose 50% 25 Gm/50 Ml Syringe IV PUSH PRN PRN Hypoglycemia Protocol Duloxetine HCl 30 mg 05/24/25 18:00 05/24/25 17:37 Duloxetine Hcl 30 Mg Capsule. PO 30 mg QPM DAMION Administration Duloxetine HCl 60 mg 05/25/25 09:00 05/25/25 08:58 Duloxetine Hcl 60 Mg Capsule. PO 60 mg QAM DAMION Administration Glucagon 1 mg 05/24/25 14:54 Glucagon For Inj 1 Mg Vial IM PRN PRN Hypoglycemia Protocol Glucose 15 gm 05/24/25 14:54 Glucose Oral Gel 15 Gm Of Glucse In 37.5 Gm Tube PO PRN PRN Hypoglycemia Protocol Cefazolin Sodium 100 mls @ 200 mls/hr 05/25/25 14:00 Ancef 3 Gm/D5w 100 Ml IVPB 05/25/25 14:29 ONCE ONE Dextrose 1,000 mls @ 100 mls/hr 05/24/25 14:54 Dextrose 5% 1,000 Ml IVPB PRN PRN Hypoglycemia Protocol Insulin Aspart 3 - 6 units 05/24/25 17:00 05/25/25 12:03 Insulin Aspart (*Bkc) 100 Units/Ml SUB-Q Not Given TIDWM DAMION Protocol Insulin Aspart 1 - 3 units 05/24/25 21:00 05/24/25 22:03 Insulin Aspart (*Bkc) 100 Units/Ml SUB-Q Not Given HS DAMION Protocol Miscellaneous Information 1 each 05/25/25 00:01 Mounjaro Is Nonform; Can Pt Use From Home? XX 06/24/25 00:00 CLARIFY [facility] Morphine Sulfate 4 mg 05/24/25 10:21 05/25/25 10:10 Morphine Sulfate (*Crx) 4 Mg/Ml Inj IV PUSH 4 mg Q2H PRN Administration Pain Rated 7-10 Non-Formulary Medication 10 mg 05/31/25 21:00 Tirzepatide [Mounjaro] SUB-Q 06/30/25 20:59 Tu@HS [facility] Ondansetron HCl 4 mg 05/24/25 10:21 Ondansetron Inj 4 Mg/2 Ml Vial IV PUSH Q4H PRN Nausea Paroxetine HCl 40 mg 05/25/25 09:00 05/25/25 08:58 Paroxetine 20 Mg Tablet PO 40 mg DAILY DAMION Administration Pravastatin Sodium 40 mg 05/25/25 09:00 05/25/25 08:58 Pravastatin Sodium 20 Mg Tablet PO 40 mg DAILY DAMION Administration Trazodone HCl 150 mg 05/25/25 21:00 Trazodone Hcl 50 Mg Tablet PO [facility] Triamcinolone Acetonide 1 applic 05/25/25 09:00 05/25/25 08:59 Triamcinolone Acet 0.1% Cream 15 Gm Tube TOPICAL 06/24/25 08:59 1 applic DAILY [facility] Administration Radiology Results: ITS Impressions Chest X-Ray 05/24/25 16:10 IMPRESSION: No acute cardiopulmonary pathology. Abdomen Ultrasound 05/25/25 09:01 IMPRESSION: 1. Diffuse hepatic steatosis. Labs Labs: Laboratory Results - last 24 hr 05/24/25 05/24/25 05/24/25 10:35 17:12 21:24 POC Capillary Glucose 170 H 131 H Hepatitis A IgM Ab Hep Bs Antigen Hep B Core IgM Ab Hepatitis C Ab Screen Antibody Screen Negative 05/25/25 05/25/25 04:57 08:09 POC Capillary Glucose 109 H Hepatitis A IgM Ab Negative Hep Bs Antigen Negative Hep B Core IgM Ab Negative Hepatitis C Ab Screen Negative Antibody Screen
--- NOTE | 2025-05-25 14:15 | PC.NURSE ---
pt to surgery via bed, reviewed plan of care, consent previously this shift obtained
[2025-05-25] MEDS: LACTATED RINGERS 1,000 ML 30 ML IV CONT ×2 (14:18→18:52)
[2025-05-25] MEDS: KETOROLAC 15 MG/ML VIAL (*BKC) IV PUSH (14:38)
[2025-05-25] MEDS: ACETAMINOPHEN 500 MG TABLET 1000 MG PO (14:38)
--- NOTE | 2025-05-25 15:38 | P.PNAN_ITS ---
Anes - Initial Pre Proc Eval Procedure: Operation Date: 05/25/25 15:00 Proposed Procedures p Intramedullary Nail Left Tibia - Angel Fraser MD Date/Time: 05/25/25 15:38 Surgeon: Azalia Hinson MD Pre Op Diagnosis: Distal Tibia Fracture/Proximal Fibular Fx on the L Patient Data Age: 55 Gender: F Height: 1.75 m Weight: 138.2 kg Last Vital Signs Temp 36.5 C 05/25/25 08:00 Pulse 72 05/25/25 08:00 Resp 20 05/25/25 08:00 BP 140/72 05/25/25 08:00 Pulse Ox 96 05/25/25 09:09 O2 Del Method Room Air 05/25/25 09:09 Allergies Allergy/AdvReac Type Severity Reaction Status Date / Time Sulfa (Sulfonamide Allergy Hives Verified 04/01/24 14:57 Antibiotics) Home Medications ?Medication ?Instructions ?Recorded ?Confirmed ?Type pravastatin 40 mg tablet 40 mg PO DAILY #90 tabs 10/02/23 05/24/25 Rx alprazolam 1 mg tablet 1 mg PO DAILY PRN anxiety #30 tabs 04/01/24 05/24/25 Rx betamethasone dipropionate 0.05 % 1 applic topical DAILY rash #45 04/01/24 05/24/25 Rx topical cream grams paroxetine HCl 40 mg tablet 40 mg PO DAILY #90 tabs 05/17/24 05/24/25 Rx duloxetine 30 mg capsule,delayed 30 mg PO QPM #90 caps 07/23/24 05/24/25 Rx release duloxetine 60 mg capsule,delayed 60 mg PO QAM #90 caps 10/18/24 05/24/25 Rx release tirzepatide 10 mg/0.5 mL 10 mg subcut WEEKLY 05/24/25 05/24/25 History subcutaneous pen injector (Carmelo) trazodone 150 mg tablet 150 mg PO HS 05/24/25 05/24/25 History Laboratory Tests 05/24/25 05/24/25 05/25/25 17:12 21:24 04:57 POC Capillary Glucose 170 H mg/dl 131 H mg/dl (65-105) (65-105) Hepatitis A IgM Ab Negative (Negative) Hep Bs Antigen Negative (Negative) Hep B Core IgM Ab Negative (Negative) Hepatitis C Ab Screen Negative (Negative) 05/25/25 05/25/25 05/25/25 08:09 12:01 15:06 POC Capillary Glucose 109 H mg/dl 107 H mg/dl 91 mg/dl (65-105) (65-105) (65-105) Hepatitis A IgM Ab Hep Bs Antigen Hep B Core IgM Ab Hepatitis C Ab Screen Patient hx anesthesia problems: none Family hx anesthesia problems: none Results Review: All pre-operative results and documents have been reviewed as part of the pre- operative evaluation. PMFSH Past Medical History Medical History MDD (major depressive disorder) Diabetes type 2, controlled Closed fracture of left distal tibia Family History Family History Other Adopted person Social History Social History Smoking packs per day: 0 Smoking cigarettes per day: 0.0 Smoking status: Never smoker Alcohol intake: current Drinks per week: 1 Alcohol use details: 6 times a year Substance use: never Substance use type: marijuana Do You Feel Safe in your Home?: Yes Lack of Transportation: No Lack of Food: Never True Current Housing: I Have Housing Concerned About Future Housing: No Difficulty Paying Gas/Electric Bills: No Difficulty Paying for Meds: No Currently Unemployed: No Education: Bachelor's Degree Difficulty w/ Childcare or Family Care: No Spiritual care concerns: No Anes - Eval Final PreProcedure Day of Procedure 05/25/25 15:38 Patient weight: obese Heart: regular rate and rhythm Lungs: clear to auscultation Airway: Mallampati scale class II Neurological: alert and oriented Last oral intake: >/= 8 hours ASA classification: III Emergent: no Anesthetic plan: proceed Anesthesia type and monitoring: general and standard monitoring Results Review: All pre-operative results and documents have been reviewed as part of the pre- operative evaluation. Informed Consent: The patient's anesthetic plan and its attendant risks and benefits were discussed with the patient/family/POA. Questions were solicited and answers provided to the satisfaction of the patient/family/POA.
--- NOTE | 2025-05-25 16:39 | P.OP_ITS ---
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 She presents for operative treatment and is indicated for intramedullary nail fixation. Description of Procedure Patient identified in the preoperative holding. Informed consent given. Operative extremity marked. Patient received intravenous antibiotics. Patient brought to the operating room where underwent general anesthetic by anesthesia team. Positioned supine on operating room table. Time-out performed confirming the patient, site of the surgery and the plan. Left lower extremity prepped and draped usual sterile surgical fashion using a ChloraPrep skin solution. Incision made over the infrapatellar tendon with a 15 blade knife. Hemostasis controlled electrocautery. Fascia incised in line with the skin incision. Patellar tendon identified and retracted medially. A lateral parapatellar arthrotomy was performed. This allowed visualization of the proximal tibia. Guide pin placed in the anterior tibial plafond and verified with image intensification. This was over reamed to allowed entry into the proximal tibial intramedullary canal. Guide batsheva then placed down the intramedullary canal with the fracture reduced and passed into the distal fragment and verified with image intensification. Reaming the intramedullary canal and performed starting with size 8 mm proceeding up to size 10 mm. Measurement done off the guide batsheva the appropriate length nail selected inserted into the tibia over the guide batsheva. Guide batsheva removed. Depth verified with image intensification. Proximal locking was done with 5.0 mm screws placed through stab incisions using 15 blade knife and blunt dissection to the tibia. These were drilled measured and appropriate size screws placed x2. Distal locking then performed with freehand technique. 1 anterior-posterior and 2 medial to lateral screws placed. Image intensification used to verify the drill hole which was drilled measured and appropriate size 5.0 mm screws placed for good fixation. Wounds irrigated with saline solution. Stab incisions for the skin were closed with 3-0 Monocryl interrupted suture the subcuticular tissue and caterina for the skin. The proximal tibia incision arthrotomy was closed with 0 Vicryl interrupted suture. Subcutaneous tissue and capsule repaired with 2-0 Vicryl interrupted suture and 3-0 Monocryl interrupted suture. Skin repaired with caterina. Sterile dressing applied. The patient was then woken from anesthesia, extubated and taken to the recovery room in stable condition. All sponge, needle, instrument counts were correct at the end of the case. Implants Alli tibial intramedullary nail, 9 mm by 340 mm. 2 5.0 mm locking screws proximal, 3 5.0 mm locking screws distal Estimated Blood Loss 50 Tourniquet Time Total Tourniquet Time: 0 Drains No Packing No Pathology None sent Complications None Condition Stable Disposition PACU [facility] Billing Surgery - Charge Forward: Surgery Billing ([id number])
[2025-05-25] MEDS: ceFAZolin 3 GM/D5W 100 ML 100 ML IVPB (16:59)
[2025-05-25] MEDS: BUPivacaine HCL 0.5% 10 ML AMP 20 ML INFILTRATE (17:44)
[2025-05-25] MEDS: fentaNYL CITRATE INJ (*CRX) 100 MCG/2 ML VIAL 25 MCG IV PUSH ×4 (19:26→19:38)
[2025-05-26] VITALS (7 sets, daily range): BP systolic 132–155; BP diastolic 78–90; PULSE 91–124; RESP 18–24; TEMP 36.3–37.2; O2SAT 95–99
[2025-05-26] MEDS: MORPHINE SULFATE (*CRX) 4 MG/ML INJ IV PUSH ×8 (00:37→20:57)
[2025-05-26 06:51] LABS: Thyroid Stimulating Hormone Reflex 3.160 uIU/mL (0.465-4.68)
[2025-05-26 07:53] LABS: Anion Gap 12 mmol/L (4-12); Blood Urea Nitrogen 22 mg/dL (7-17); Calcium 9.0 mg/dL (8.4-10.2); Carbon Dioxide 19 mmol/L (22-30); Chloride 107 mmol/L (98-107); Estimated CRCL calculation 83 ml/min; Estimated Glomerular Filt Rate 57; Glucose 100 mg/dL (65-110); Potassium 4.2 mmol/L (3.4-5.0); Sodium 138 mmol/L (137-145)
[2025-05-26 08:13] LABS: Hematocrit 39.6 % (37.0-47.0); Hemoglobin 12.8 g/dL (12.0-15.0); Immature Granulocyte Percent A 0.3 % (0-0.5); Lymphocytes Absolute Auto 1.42 K/mm3 (0.9-3.2); Mean Corpuscular HGB Conc 32.3 g/dl (32-36); Mean Corpuscular Hemoglobin 30.0 pg (26-34); Mean Corpuscular Volume 92.7 fl (80-100); Nucleated Red Blood Cells Absolute Auto 0.000 K/mm3 (0.0-0.012); Nucleated Red Blood Cells Perc 0.0 % (0.0-0.2); Platelet Count Result 179 k/mm3 (150-375); Red Blood Count 4.27 M/mm3 (4.2-5.4); White Blood Count 7.7 K/mm3 (4.5-10.0)
[2025-05-26] MEDS: PRAVASTATIN SODIUM 20 MG TABLET 40 MG PO (08:41)
[2025-05-26] MEDS: DULoxetine HCL 60 MG CAPSULE.DR PO (08:41)
[2025-05-26] MEDS: ENOXAPARIN 30 MG/0.3 ML SYRINGE SUB-Q (08:47)
[2025-05-26] MEDS: ceFAZolin 2 GM/D5W 50 ML 2 GM/50 ML BAG IVPB ×2 (08:47→16:14)
[2025-05-26] MEDS: TRIAMCINOLONE ACET 0.1% CREAM 15 GM TUBE 1 APPLIC TOPICAL (08:48)
--- NOTE | 2025-05-26 10:39 | P.PNIM_ITS ---
Progress Note: A&P Assessment and Plan (1) Closed fracture of left distal tibia: Qualifiers: Encounter type: initial encounter Fracture morphology: other fracture Qualified Code(s): S82.392A - Other fracture of lower end of left tibia, initial encounter for closed fracture Code(s): S82.302A - Unspecified fracture of lower end of left tibia, initial encounter for closed fracture Status: Acute Plan Left proximal fibular and distal tibial fractures From fall, patient unable to explain fall and noted it was not witnessed Decreased xanax to 0.5mg from 1mg daily PRN PRN pain control s/p Intramedullary nail fixation PT/OT Ortho following Fall ?Syncope EKG showed low voltage ECHO normal, TSH wnl, no telemetry findings cardiac origin ruled out PT/OT monitor Hepatic steatosis with elevated liver enzymes Hepatitis viral panel negative US liver reviewed counseled patient about lifestyle modification DM2 SSI with accucheks, monitor and adjust Anxiety and depression patient noted she is on duloxetine Continue Duloxetine DVT prophylaxis on Sq Lovenox Subjective Date/time seen: 05/26/25 10:39 Interval history: Comfortable at bedside S/p intramedullary nail fixation left tibia Review of Systems Review of Systems: On the systems are reviewed and negative except as noted in the history above. Exam Narrative: General: alert and comfortable Eyes: EOMI, PERRLA ENNT External ears normal, Neck is supple, no masses, Respiratory systems: Clear to auscultation Cardiovascular S1, S2, normal rhythm, no murmur, rub, or gallop; no thrill or palpable murmurs on palpation. Gastrointestinal: soft, non-tender, and non-distended abdomen with no masses; BS present Skin: no rash, lesions, ulcerations, subcutaneous nodules or induration Musculoskeletal: left leg wound dressing clean adn dry Neurologic: Alert and oriented x3, non focal Mental Status Exam: normal affect Objective Data Vital Signs Vital Signs: Vital Signs - 24 hr 05/25/25 18:52 05/25/25 19:00 05/25/25 19:15 Temperature 97.5 F L Pulse Rate 111 H 111 H 107 H Respiratory Rate 16 13 19 Blood Pressure 112/63 116/70 123/74 Pulse Oximetry 94 99 95 Oxygen Delivery Simple Face Mask Simple Face Mask Room Air Oxygen Flow Rate 10 10 05/25/25 19:30 05/25/25 19:42 05/25/25 20:00 Temperature Pulse Rate 103 H 104 H Respiratory Rate 14 19 Blood Pressure 141/75 H 124/72 Pulse Oximetry 95 95 Oxygen Delivery Room Air Room Air Room Air Oxygen Flow Rate 05/25/25 20:15 05/25/25 20:45 05/25/25 21:45 Temperature 98.6 F 97.7 F 97.1 F L Pulse Rate 104 H 106 H 105 H Respiratory Rate 16 16 18 Blood Pressure 132/86 108/76 118/65 Pulse Oximetry 96 96 98 Oxygen Delivery Oxygen Flow Rate 05/26/25 01:45 05/26/25 06:00 05/26/25 09:19 Temperature 97.3 F L 98.9 F Pulse Rate 91 99 Respiratory Rate 18 18 Blood Pressure 155/90 H 141/78 H Pulse Oximetry 97 99 Oxygen Delivery Room Air Oxygen Flow Rate 05/26/25 09:37 05/26/25 10:28 Temperature 97.6 F Pulse Rate 115 H Respiratory Rate 20 Blood Pressure 154/90 H Pulse Oximetry 95 Oxygen Delivery Room Air Oxygen Flow Rate Intake/Output Intake/Output: Intake & Output 05/23/25 05/24/25 05/25/25 05/26/25 23:59 23:59 23:59 23:59 Intake Total 480 490 350 Output Total 589 875 1187 Balance -320 390 -1250 Meds/Results Medications: Active Medications Generic Name Dose Route Start Last Admin Trade Name Freq PRN Reason Stop Dose Admin Acetaminophen 500 mg 05/26/25 07:36 Acetaminophen 500 Mg Tablet PO Q6H PRN Pain or Fever Hydrocodone Bitart/Acetaminophen 1 tab 05/26/25 07:36 Hydrocodone/Acetaminophen (*Crx) 5-325 Mg Tablet PO Q4H PRN Pain Rated 4-6 Hydrocodone Bitart/Acetaminophen 1 tab 05/26/25 07:36 Hydrocodone/Acetaminophen (*Crx) 10-325 Mg Tablet PO Q4H PRN Pain Rated 7-10 Alprazolam 0.5 mg 05/24/25 15:01 05/24/25 21:59 Alprazolam (*Crx) 0.5 Mg Tablet PO 0.5 mg DAILY PRN Administration Anxiety Dextrose 12.5 gm 05/24/25 14:54 Dextrose 50% 25 Gm/50 Ml Syringe IV PUSH PRN PRN Hypoglycemia Protocol Duloxetine HCl 30 mg 05/24/25 18:00 05/25/25 21:21 Duloxetine Hcl 30 Mg Capsule. PO 30 mg QPM DAMION Administration Duloxetine HCl 60 mg 05/25/25 09:00 05/26/25 08:41 Duloxetine Hcl 60 Mg Capsule. PO 60 mg QAM DAMION Administration Enoxaparin Sodium 30 mg 05/26/25 09:00 05/26/25 08:47 Enoxaparin 30 Mg/0.3 Ml Syringe SUB-Q 30 mg DAILY DAMION Administration Glucagon 1 mg 05/24/25 14:54 Glucagon For Inj 1 Mg Vial IM PRN PRN Hypoglycemia Protocol Glucose 15 gm 05/24/25 14:54 Glucose Oral Gel 15 Gm Of Glucse In 37.5 Gm Tube PO PRN PRN Hypoglycemia Protocol Hydroxyzine Pamoate 50 mg 05/26/25 07:36 Hydroxyzine Pamoate 25 Mg Capsule PO Q4H PRN Itching Dextrose 1,000 mls @ 100 mls/hr 05/24/25 14:54 Dextrose 5% 1,000 Ml IVPB PRN PRN Hypoglycemia Protocol Lactated Ringer's 1,000 mls @ 30 mls/hr 05/25/25 15:40 05/25/25 19:43 Lr - Lactated Ringers Iv IV CONT Infused .Q24H DAMION Infusion Cefazolin Sodium 2 gm in 50 mls @ 100 mls/hr 05/26/25 08:00 05/26/25 09:17 Ancef 2 Gm/D5w 50 Ml IVPB 05/27/25 00:29 Infused Q8H DAMION Infusion Ibuprofen 800 mg in 200 mls @ 400 mls/hr 05/26/25 07:36 Caldolor 800 Mg/200 Ml IVPB Q6H PRN Breakthrough Pain Rated 1-3 or NPO Insulin Aspart 3 - 6 units 05/24/25 17:00 05/26/25 08:41 Insulin Aspart (*Bkc) 100 Units/Ml SUB-Q Not Given TIDWM [facility] Protocol Insulin Aspart 1 - 3 units 05/24/25 21:00 05/25/25 21:22 Insulin Aspart (*Bkc) 100 Units/Ml SUB-Q Not Given HS DAMION Protocol Miscellaneous Information 1 each 05/25/25 00:01 05/26/25 07:46 Mounjaro Is Nonform; Can Pt Use From Home? XX 06/24/25 00:00 Not Given CLARIFY [facility] Morphine Sulfate 4 mg 05/24/25 10:21 05/26/25 08:38 Morphine Sulfate (*Crx) 4 Mg/Ml Inj IV PUSH 4 mg Q2H PRN Administration Pain Rated 7-10 Naloxone HCl 0.1 mg 05/26/25 07:36 Naloxone Hcl 0.4 Mg/Ml Vial IV PUSH Q2M PRN Opiate Reversal Ondansetron HCl 4 mg 05/24/25 10:21 Ondansetron Inj 4 Mg/2 Ml Vial IV PUSH Q4H PRN Nausea Paroxetine HCl 40 mg 05/25/25 09:00 05/26/25 08:41 Paroxetine 20 Mg Tablet PO 40 mg DAILY DAMION Administration Polyethylene Glycol 17 gm 05/26/25 09:00 05/26/25 08:42 Polyethylene Glycol 3350 17 Gm Powd.Pack PO 17 gm QAM DAMION Administration Pravastatin Sodium 40 mg 05/25/25 09:00 05/26/25 08:41 Pravastatin Sodium 20 Mg Tablet PO 40 mg DAILY DAMION Administration Senna/Docusate Sodium 2 tab 05/26/25 17:00 Senna/Docusate Sodium Tablet PO BID DAMION Trazodone HCl 150 mg 05/25/25 21:00 05/25/25 21:21 Trazodone Hcl 50 Mg Tablet PO 150 mg HS DAMION Administration Triamcinolone Acetonide 1 applic 05/25/25 09:00 05/26/25 08:48 Triamcinolone Acet 0.1% Cream 15 Gm Tube TOPICAL 06/24/25 08:59 1 applic DAILY DAMION Administration Radiology Results: ITS Impressions Chest X-Ray 05/24/25 16:10 IMPRESSION: No acute cardiopulmonary pathology. Abdomen Ultrasound 05/25/25 09:01 IMPRESSION: 1. Diffuse hepatic steatosis. Labs Labs: Laboratory Results - last 24 hr 05/25/25 05/25/25 05/25/25 12:01 15:06 19:05 WBC RBC Hgb Hct MCV MCH MCHC RDW Plt Count MPV Immature Gran % (Auto) Neut % (Auto) Lymph % (Auto) [place] % (Auto) Eos % (Auto) Baso % (Auto) Lymph # (Auto) [place] # (Auto) Eos # (Auto) Baso # (Auto) Abs Immat Gran (auto) Absolute Neuts (auto) Absolute Nucleated RBC Nucleated RBC % Sodium Potassium Chloride Carbon Dioxide Anion Gap BUN Creatinine Estim Creat Clear Calc Estimated GFR Glucose POC Capillary Glucose 107 H 91 93 Calcium TSH (Reflex) 05/25/25 05/26/25 05/26/25 21:15 05:13 05:20 WBC 7.7 RBC 4.27 Hgb 12.8 Hct 39.6 MCV 92.7 MCH 30.0 MCHC 32.3 RDW 13.5 Plt Count 179 MPV 9.4 Immature Gran % (Auto) 0.3 Neut % (Auto) 69.9 Lymph % (Auto) 18.4 [place] % (Auto) 8.0 Eos % (Auto) 3.0 Baso % (Auto) 0.4 Lymph # (Auto) 1.42 [place] # (Auto) 0.6 Eos # (Auto) 0.2 Baso # (Auto) 0.0 Abs Immat Gran (auto) 0.02 Absolute Neuts (auto) 5.4 Absolute Nucleated RBC 0.000 Nucleated RBC % 0.0 Sodium 138 Potassium 4.2 Chloride 107 Carbon Dioxide 19 L Anion Gap 12 BUN 22 H D Creatinine 1.00 Estim Creat Clear Calc 83 Estimated GFR 57 L Glucose 100 POC Capillary Glucose 115 H Calcium 9.0 TSH (Reflex) 3.160 05/26/25 08:09 WBC RBC Hgb Hct MCV MCH MCHC RDW Plt Count MPV Immature Gran % (Auto) Neut % (Auto) Lymph % (Auto) [place] % (Auto) Eos % (Auto) Baso % (Auto) Lymph # (Auto) [place] # (Auto) Eos # (Auto) Baso # (Auto) Abs Immat Gran (auto) Absolute Neuts (auto) Absolute Nucleated RBC Nucleated RBC % Sodium Potassium Chloride Carbon Dioxide Anion Gap BUN Creatinine Estim Creat Clear Calc Estimated GFR Glucose POC Capillary Glucose 108 H Calcium TSH (Reflex)
--- NOTE | 2025-05-26 11:20 | PM.PNORT ---
Progress Note: A&P Assessment and Plan (1) S/P ORIF (open reduction internal fixation) fracture: Code(s): Z98.890 - Other specified postprocedural states; Z87.81 - Personal history of (healed) traumatic fracture Status: Acute Assessment and Plan: POD #1 : Intramedullary nail fixation left tibia Continue PT/OT. NWB LLE. Walker/Crutches. HIGH FALL RISK. Continue pain control. Ice leg over splint. DVT prophylaxis with Lovenox. Incentive Spirometry Use reviewed. Monitor Splint. Keep c/d/i. Bowel Regimen. Dispo: Home pending progress with PT/OT (2) Fracture of fibula, proximal: Code(s): S82.839A - Other fracture of upper and lower end of unspecified fibula, initial encounter for closed fracture Status: Acute (3) Displaced spiral fracture of shaft of left tibia: Code(s): S82.242A - Displaced spiral fracture of shaft of left tibia, initial encounter for closed fracture Status: Acute (4) Diabetes type 2, controlled: Qualifiers: Diabetes mellitus complication status: without complication Diabetes mellitus nursing home insulin use: without nursing home use Qualified Code(s): E11.9 - Type 2 diabetes mellitus without complications Code(s): E11.9 - Type 2 diabetes mellitus without complications Status: Acute Plan Reviewed history, exam, radiographs and current labs with attending MD and covering surgeon, Dr. Fraser, who agrees with current plan as indicated above. No further recommendations from Dr. Fraser at this time. Subjective Subjective Date/Time Seen: 05/26/25 11:20 Post Op day: 1 Interval history: POD #1: Intramedullary nail fixation left tibia Patient awake/alert. Complaints of pain. Reports improvement with current pain medication regimen. Concerned about ability to work with PT/OT. Review of Systems Review of Systems: All systems reviewed & are unremarkable except as noted in HPI and below Exam Const: General: comfortable and no acute distress Resp: Effort & Inspection: normal respiratory effort Cardio: Rate: regular rate Rhythm: regular rhythm Extrem: Right upper extremity: normal to inspection Left upper extremity: normal to inspection Right lower extremity: normal to inspection Left lower extremity: knee Details: tenderness and swelling (mild ), lower leg (splint c/d/i. ), ankle (splint c/d/i. ) and foot Details: normal capillary refill, toes with normal ROM and motor-sensory exam light-touch normal Psych: Mental Status: mental status grossly normal Objective Data Vital Signs Vital Signs: Vital Signs - 24 hr 05/25/25 18:52 05/25/25 19:00 05/25/25 19:15 Temperature 36.4 C L Pulse Rate 111 H 111 H 107 H Respiratory Rate 16 13 19 Blood Pressure 112/63 116/70 123/74 Pulse Oximetry 94 99 95 Oxygen Delivery Simple Face Mask Simple Face Mask Room Air Oxygen Flow Rate 10 10 05/25/25 19:30 05/25/25 19:42 05/25/25 20:00 Temperature Pulse Rate 103 H 104 H Respiratory Rate 14 19 Blood Pressure 141/75 H 124/72 Pulse Oximetry 95 95 Oxygen Delivery Room Air Room Air Room Air Oxygen Flow Rate 05/25/25 20:15 05/25/25 20:45 05/25/25 21:45 Temperature 37.0 C 36.5 C 36.2 C L Pulse Rate 104 H 106 H 105 H Respiratory Rate 16 16 18 Blood Pressure 132/86 108/76 118/65 Pulse Oximetry 96 96 98 Oxygen Delivery Oxygen Flow Rate 05/26/25 01:45 05/26/25 06:00 05/26/25 09:19 Temperature 36.3 C L 37.2 C Pulse Rate 91 99 Respiratory Rate 18 18 Blood Pressure 155/90 H 141/78 H Pulse Oximetry 97 99 Oxygen Delivery Room Air Oxygen Flow Rate 05/26/25 09:37 05/26/25 10:28 Temperature 36.4 C Pulse Rate 115 H Respiratory Rate 20 Blood Pressure 154/90 H Pulse Oximetry 95 Oxygen Delivery Room Air Oxygen Flow Rate Intake/Output Intake/Output: Intake & Output 05/23/25 05/24/25 05/25/25 05/26/25 23:59 23:59 23:59 23:59 Intake Total 480 490 350 Output Total 832 091 8298 Balance -320 390 -1250 Meds/Results Medications: Active Medications Generic Name Dose Route Start Last Admin Trade Name Freq PRN Reason Stop Dose Admin Acetaminophen 500 mg 05/26/25 07:36 Acetaminophen 500 Mg Tablet PO Q6H PRN Pain or Fever Hydrocodone Bitart/Acetaminophen 1 tab 05/26/25 07:36 Hydrocodone/Acetaminophen (*Crx) 5-325 Mg Tablet PO Q4H PRN Pain Rated 4-6 Hydrocodone Bitart/Acetaminophen 1 tab 05/26/25 07:36 Hydrocodone/Acetaminophen (*Crx) 10-325 Mg Tablet PO Q4H PRN Pain Rated 7-10 Alprazolam 0.5 mg 05/24/25 15:01 05/24/25 21:59 Alprazolam (*Crx) 0.5 Mg Tablet PO 0.5 mg DAILY PRN Administration Anxiety Dextrose 12.5 gm 05/24/25 14:54 Dextrose 50% 25 Gm/50 Ml Syringe IV PUSH PRN PRN Hypoglycemia Protocol Duloxetine HCl 30 mg 05/24/25 18:00 05/25/25 21:21 Duloxetine Hcl 30 Mg Capsule. PO 30 mg QPM DAMION Administration Duloxetine HCl 60 mg 05/25/25 09:00 05/26/25 08:41 Duloxetine Hcl 60 Mg Capsule. PO 60 mg QAM DAMION Administration Enoxaparin Sodium 30 mg 05/26/25 09:00 05/26/25 08:47 Enoxaparin 30 Mg/0.3 Ml Syringe SUB-Q 30 mg DAILY DAMION Administration Glucagon 1 mg 05/24/25 14:54 Glucagon For Inj 1 Mg Vial IM PRN PRN Hypoglycemia Protocol Glucose 15 gm 05/24/25 14:54 Glucose Oral Gel 15 Gm Of Glucse In 37.5 Gm Tube PO PRN PRN Hypoglycemia Protocol Hydroxyzine Pamoate 50 mg 05/26/25 07:36 Hydroxyzine Pamoate 25 Mg Capsule PO Q4H PRN Itching Dextrose 1,000 mls @ 100 mls/hr 05/24/25 14:54 Dextrose 5% 1,000 Ml IVPB PRN PRN Hypoglycemia Protocol Lactated Ringer's 1,000 mls @ 30 mls/hr 05/25/25 15:40 05/25/25 19:43 Lr - Lactated Ringers Iv IV CONT Infused .Q24H DAMION Infusion Cefazolin Sodium 2 gm in 50 mls @ 100 mls/hr 05/26/25 08:00 05/26/25 09:17 Ancef 2 Gm/D5w 50 Ml IVPB 05/27/25 00:29 Infused Q8H DAMION Infusion Ibuprofen 800 mg in 200 mls @ 400 mls/hr 05/26/25 07:36 Caldolor 800 Mg/200 Ml IVPB Q6H PRN Breakthrough Pain Rated 1-3 or NPO Insulin Aspart 3 - 6 units 05/24/25 17:00 05/26/25 08:41 Insulin Aspart (*Bkc) 100 Units/Ml SUB-Q Not Given TIDWM [facility] Protocol Insulin Aspart 1 - 3 units 05/24/25 21:00 05/25/25 21:22 Insulin Aspart (*Bkc) 100 Units/Ml SUB-Q Not Given HS [facility] Protocol Miscellaneous Information 1 each 05/25/25 00:01 05/26/25 07:46 Mounjaro Is Nonform; Can Pt Use From Home? XX 06/24/25 00:00 Not Given CLARIFY [facility] Morphine Sulfate 4 mg 05/24/25 10:21 05/26/25 10:47 Morphine Sulfate (*Crx) 4 Mg/Ml Inj IV PUSH 4 mg Q2H PRN Administration Pain Rated 7-10 Naloxone HCl 0.1 mg 05/26/25 07:36 Naloxone Hcl 0.4 Mg/Ml Vial IV PUSH Q2M PRN Opiate Reversal Ondansetron HCl 4 mg 05/24/25 10:21 Ondansetron Inj 4 Mg/2 Ml Vial IV PUSH Q4H PRN Nausea Paroxetine HCl 40 mg 05/25/25 09:00 05/26/25 08:41 Paroxetine 20 Mg Tablet PO 40 mg DAILY DAMION Administration Polyethylene Glycol 17 gm 05/26/25 09:00 05/26/25 08:42 Polyethylene Glycol 3350 17 Gm Powd.Pack PO 17 gm QAM DAMION Administration Pravastatin Sodium 40 mg 05/25/25 09:00 05/26/25 08:41 Pravastatin Sodium 20 Mg Tablet PO 40 mg DAILY DAMION Administration Senna/Docusate Sodium 2 tab 05/26/25 17:00 Senna/Docusate Sodium Tablet PO BID DAMION Trazodone HCl 150 mg 05/25/25 21:00 05/25/25 21:21 Trazodone Hcl 50 Mg Tablet PO 150 mg HS [facility] Administration Triamcinolone Acetonide 1 applic 05/25/25 09:00 05/26/25 08:48 Triamcinolone Acet 0.1% Cream 15 Gm Tube TOPICAL 06/24/25 08:59 1 applic DAILY DAMION Administration Radiology Results: ITS Impressions Chest X-Ray 05/24/25 16:10 IMPRESSION: No acute cardiopulmonary pathology. Abdomen Ultrasound 05/25/25 09:01 IMPRESSION: 1. Diffuse hepatic steatosis. Labs Labs: Laboratory Results - last 24 hr 05/25/25 05/25/25 05/25/25 12:01 15:06 19:05 WBC RBC Hgb Hct MCV MCH MCHC RDW Plt Count MPV Immature Gran % (Auto) Neut % (Auto) Lymph % (Auto) [place] % (Auto) Eos % (Auto) Baso % (Auto) Lymph # (Auto) [place] # (Auto) Eos # (Auto) Baso # (Auto) Abs Immat Gran (auto) Absolute Neuts (auto) Absolute Nucleated RBC Nucleated RBC % Sodium Potassium Chloride Carbon Dioxide Anion Gap BUN Creatinine Estim Creat Clear Calc Estimated GFR Glucose POC Capillary Glucose 107 H 91 93 Calcium TSH (Reflex) 05/25/25 05/26/25 05/26/25 21:15 05:13 05:20 WBC 7.7 RBC 4.27 Hgb 12.8 Hct 39.6 MCV 92.7 MCH 30.0 MCHC 32.3 RDW 13.5 Plt Count 179 MPV 9.4 Immature Gran % (Auto) 0.3 Neut % (Auto) 69.9 Lymph % (Auto) 18.4 [place] % (Auto) 8.0 Eos % (Auto) 3.0 Baso % (Auto) 0.4 Lymph # (Auto) 1.42 [place] # (Auto) 0.6 Eos # (Auto) 0.2 Baso # (Auto) 0.0 Abs Immat Gran (auto) 0.02 Absolute Neuts (auto) 5.4 Absolute Nucleated RBC 0.000 Nucleated RBC % 0.0 Sodium 138 Potassium 4.2 Chloride 107 Carbon Dioxide 19 L Anion Gap 12 BUN 22 H D Creatinine 1.00 Estim Creat Clear Calc 83 Estimated GFR 57 L Glucose 100 POC Capillary Glucose 115 H Calcium 9.0 TSH (Reflex) 3.160 05/26/25 08:09 WBC RBC Hgb Hct MCV MCH MCHC RDW Plt Count MPV Immature Gran % (Auto) Neut % (Auto) Lymph % (Auto) [place] % (Auto) Eos % (Auto) Baso % (Auto) Lymph # (Auto) [place] # (Auto) Eos # (Auto) Baso # (Auto) Abs Immat Gran (auto) Absolute Neuts (auto) Absolute Nucleated RBC Nucleated RBC % Sodium Potassium Chloride Carbon Dioxide Anion Gap BUN Creatinine Estim Creat Clear Calc Estimated GFR Glucose POC Capillary Glucose 108 H Calcium TSH (Reflex)
--- NOTE | 2025-05-26 14:01 | WPDANESPN ---
Anes - Prog Note Post-Op Date/Time: 05/26/25 14:01 Cardiovascular status: normal Respiratory status: normal Airway patency: baseline Mental status: baseline Post-Op hydration status: normal Vital Signs: Last Vital Signs Temp 97.6 F 05/26/25 10:28 Pulse 115 H 05/26/25 10:28 Resp 20 05/26/25 10:28 BP 154/90 H 05/26/25 10:28 Pulse Ox 95 05/26/25 10:28 O2 Del Method Room Air 05/26/25 09:37 O2 Flow Rate 10 05/25/25 19:00 Pain Score (VAS): 0/10 I/O: Intake & Output 05/25/25 05/26/25 05/26/25 23:59 07:59 15:59 Intake Total 300 300 170 Output Total 1600 Balance 300 -1300 170 Laboratory Tests 05/26/25 05:13 05/26/25 05:13 05/25/25 05/25/25 05/25/25 15:06 19:05 21:15 WBC RBC Hgb Hct MCV MCH MCHC RDW Plt Count MPV Immature Gran % (Auto) Neut % (Auto) Lymph % (Auto) [place] % (Auto) Eos % (Auto) Baso % (Auto) Lymph # (Auto) [place] # (Auto) Eos # (Auto) Baso # (Auto) Abs Immat Gran (auto) Absolute Neuts (auto) Absolute Nucleated RBC Nucleated RBC % Sodium Potassium Chloride Carbon Dioxide Anion Gap BUN Creatinine Estim Creat Clear Calc Estimated GFR Glucose POC Capillary Glucose 91 93 115 H Calcium TSH (Reflex) 05/26/25 05/26/25 05/26/25 05:13 05:20 08:09 WBC 7.7 RBC 4.27 Hgb 12.8 Hct 39.6 MCV 92.7 MCH 30.0 MCHC 32.3 RDW 13.5 Plt Count 179 MPV 9.4 Immature Gran % (Auto) 0.3 Neut % (Auto) 69.9 Lymph % (Auto) 18.4 [place] % (Auto) 8.0 Eos % (Auto) 3.0 Baso % (Auto) 0.4 Lymph # (Auto) 1.42 [place] # (Auto) 0.6 Eos # (Auto) 0.2 Baso # (Auto) 0.0 Abs Immat Gran (auto) 0.02 Absolute Neuts (auto) 5.4 Absolute Nucleated RBC 0.000 Nucleated RBC % 0.0 Sodium 138 Potassium 4.2 Chloride 107 Carbon Dioxide 19 L Anion Gap 12 BUN 22 H D Creatinine 1.00 Estim Creat Clear Calc 83 Estimated GFR 57 L Glucose 100 POC Capillary Glucose 108 H Calcium 9.0 TSH (Reflex) 3.160 05/26/25 11:51 WBC RBC Hgb Hct MCV MCH MCHC RDW Plt Count MPV Immature Gran % (Auto) Neut % (Auto) Lymph % (Auto) [place] % (Auto) Eos % (Auto) Baso % (Auto) Lymph # (Auto) [place] # (Auto) Eos # (Auto) Baso # (Auto) Abs Immat Gran (auto) Absolute Neuts (auto) Absolute Nucleated RBC Nucleated RBC % Sodium Potassium Chloride Carbon Dioxide Anion Gap BUN Creatinine Estim Creat Clear Calc Estimated GFR Glucose POC Capillary Glucose 154 H Calcium TSH (Reflex) Post-procedural complaints: none Patient Feedback: Patient satisfied with anesthetic care.
[2025-05-26] MEDS: SENNA/DOCUSATE SODIUM TABLET 2 TAB PO (17:02)
[2025-05-27] VITALS (10 sets, daily range): BP systolic 111–132; BP diastolic 74–91; PULSE 83–137; RESP 12–18; TEMP 35.9–37.1; O2SAT 94–97
[2025-05-27] MEDS: ceFAZolin 2 GM/D5W 50 ML 2 GM/50 ML BAG IVPB (00:26)
[2025-05-27] MEDS: MORPHINE SULFATE (*CRX) 4 MG/ML INJ IV PUSH (00:26)
[2025-05-27] MEDS: DULoxetine HCL 60 MG CAPSULE.DR PO (08:24)
[2025-05-27] MEDS: HYDROcodone/acetaminophen (*CRX) 10-325 MG TABLET 1 TAB PO ×3 (08:24→17:14)
[2025-05-27] MEDS: SENNA/DOCUSATE SODIUM TABLET 2 TAB PO ×2 (08:24→17:14)
[2025-05-27] MEDS: PRAVASTATIN SODIUM 20 MG TABLET 40 MG PO (08:25)
[2025-05-27] MEDS: ENOXAPARIN 30 MG/0.3 ML SYRINGE SUB-Q (08:25)
[2025-05-27] MEDS: TRIAMCINOLONE ACET 0.1% CREAM 15 GM TUBE 1 APPLIC TOPICAL (08:26)
--- NOTE | 2025-05-27 14:01 | PM.PNORT ---
Progress Note: A&P Assessment and Plan (1) S/P ORIF (open reduction internal fixation) fracture: Code(s): Z98.890 - Other specified postprocedural states; Z87.81 - Personal history of (healed) traumatic fracture Status: Acute Assessment and Plan: POD #2: Intramedullary nail fixation left tibia Continue PT/OT. NWB LLE. Walker/Crutches. HIGH FALL RISK. Continue pain control. Ice leg over splint. DVT prophylaxis with Lovenox. Incentive Spirometry Use reviewed. Monitor Splint. Keep c/d/i. Bowel Regimen. Dispo: awaiting approval for [facility] may discharge when disposition has been determined, follow up in orthopedic office scheduled. (2) Fracture of fibula, proximal: Code(s): S82.839A - Other fracture of upper and lower end of unspecified fibula, initial encounter for closed fracture Status: Acute (3) Displaced spiral fracture of shaft of left tibia: Code(s): S82.242A - Displaced spiral fracture of shaft of left tibia, initial encounter for closed fracture Status: Acute (4) Diabetes type 2, controlled: Qualifiers: Diabetes mellitus [facility] insulin use: without [facility] use Diabetes mellitus complication status: without complication Qualified Code(s): E11.9 - Type 2 diabetes mellitus without complications Code(s): E11.9 - Type 2 diabetes mellitus without complications Status: Acute Plan Reviewed history, exam, radiographs and current labs with attending MD and covering surgeon, Dr. Fraser, who agrees with current plan as indicated above. No further recommendations from Dr. Fraser at this time. Subjective Subjective Date/Time Seen: 05/27/25 14:01 Post Op day: 2 Principal diagnosis: Left tibia fracture Interval history: POD #2: Intramedullary nail fixation left tibia Patient awake/alert, up in chair.. Complaints of pain With movement. Reports improvement with current pain medication regimen. Concerned about ability to work with PT/OT. Exam Const: General: comfortable and no acute distress Resp: Effort & Inspection: normal respiratory effort GI: GI Palp: No Hepatosplenomegaly present Neuro: Coordination: No does not sway with eyes open Extrem: Right upper extremity: normal to inspection Left upper extremity: normal to inspection Right lower extremity: normal to inspection Left lower extremity: knee Details: tenderness and swelling (mild ), lower leg (splint c/d/i. ), ankle (splint c/d/i. ) and foot Details: normal capillary refill, toes with normal ROM and motor-sensory exam light-touch normal Psych: Mental Status: mental status grossly normal Objective Data Vital Signs Vital Signs: Vital Signs - 24 hr 05/26/25 18:24 05/26/25 20:55 05/26/25 21:05 Temperature 98.0 F 98.3 F Pulse Rate 124 H 115 H 115 H Respiratory Rate 18 24 H 24 H Blood Pressure 140/88 142/79 H Pulse Oximetry 95 97 97 Oxygen Delivery CPAP 05/26/25 21:58 05/27/25 00:28 05/27/25 04:32 Temperature 98.7 F 97.7 F Pulse Rate 113 H 103 H Respiratory Rate 12 16 Blood Pressure 132/78 127/80 Pulse Oximetry 96 97 Oxygen Delivery CPAP 05/27/25 08:00 05/27/25 09:21 05/27/25 09:56 Temperature 97.7 F Pulse Rate 108 H 108 H 137 H Respiratory Rate 18 Blood Pressure 128/91 H 128/91 H 127/81 Pulse Oximetry 96 Oxygen Delivery Intake/Output Intake/Output: Intake & Output 05/24/25 05/25/25 05/26/25 05/27/25 23:59 23:59 23:59 23:59 Intake Total 480 490 760 340 Output Total 209 103 3589 700 Balance -320 390 -1690 -360 Meds/Results Medications: Active Medications Generic Name Dose Route Start Last Admin Trade Name Freq PRN Reason Stop Dose Admin Acetaminophen 500 mg 05/26/25 07:36 Acetaminophen 500 Mg Tablet PO Q6H PRN Pain or Fever Hydrocodone Bitart/Acetaminophen 1 tab 05/26/25 07:36 Hydrocodone/Acetaminophen (*Crx) 5-325 Mg Tablet PO Q4H PRN Pain Rated 4-6 Hydrocodone Bitart/Acetaminophen 1 tab 05/26/25 07:36 05/27/25 12:34 Hydrocodone/Acetaminophen (*Crx) 10-325 Mg Tablet PO 1 tab Q4H PRN Administration Pain Rated 7-10 Alprazolam 0.5 mg 05/24/25 15:01 05/24/25 21:59 Alprazolam (*Crx) 0.5 Mg Tablet PO 0.5 mg DAILY PRN Administration Anxiety Dextrose 12.5 gm 05/24/25 14:54 Dextrose 50% 25 Gm/50 Ml Syringe IV PUSH PRN PRN Hypoglycemia Protocol Duloxetine HCl 30 mg 05/24/25 18:00 05/26/25 17:02 Duloxetine Hcl 30 Mg Capsule. PO 30 mg QPM [facility] Administration Duloxetine HCl 60 mg 05/25/25 09:00 05/27/25 08:24 Duloxetine Hcl 60 Mg Capsule. PO 60 mg QAM [facility] Administration Enoxaparin Sodium 30 mg 05/26/25 09:00 05/27/25 08:25 Enoxaparin 30 Mg/0.3 Ml Syringe SUB-Q 30 mg DAILY [facility] Administration Glucagon 1 mg 05/24/25 14:54 Glucagon For Inj 1 Mg Vial IM PRN PRN Hypoglycemia Protocol Glucose 15 gm 05/24/25 14:54 Glucose Oral Gel 15 Gm Of Glucse In 37.5 Gm Tube PO PRN PRN Hypoglycemia Protocol Hydroxyzine Pamoate 50 mg 05/26/25 07:36 Hydroxyzine Pamoate 25 Mg Capsule PO Q4H PRN Itching Dextrose 1,000 mls @ 100 mls/hr 05/24/25 14:54 Dextrose 5% 1,000 Ml IVPB PRN PRN Hypoglycemia Protocol Lactated Ringer's 1,000 mls @ 30 mls/hr 05/25/25 15:40 05/26/25 17:01 Lr - Lactated Ringers Iv IV CONT Not Given .Q24H DAMION Ibuprofen 800 mg in 200 mls @ 400 mls/hr 05/26/25 07:36 Caldolor 800 Mg/200 Ml IVPB Q6H PRN Breakthrough Pain Rated 1-3 or NPO Insulin Aspart 3 - 6 units 05/24/25 17:00 05/27/25 12:01 Insulin Aspart (*Bkc) 100 Units/Ml SUB-Q Not Given TIDWM [facility] Protocol Insulin Aspart 1 - 3 units 05/24/25 21:00 05/26/25 20:54 Insulin Aspart (*Bkc) 100 Units/Ml SUB-Q Not Given HS [facility] Protocol Miscellaneous Information 1 each 05/25/25 00:01 05/27/25 07:37 Mounjaro Is Nonform; Can Pt Use From Home? XX 06/24/25 00:[address] [facility] Morphine Sulfate 4 mg 05/24/25 10:21 05/27/25 00:26 Morphine Sulfate (*Crx) 4 Mg/Ml Inj IV PUSH 4 mg Q2H PRN Administration Pain Rated 7-10 Naloxone HCl 0.1 mg 05/26/25 07:36 Naloxone Hcl 0.4 Mg/Ml Vial IV PUSH Q2M PRN Opiate Reversal Ondansetron HCl 4 mg 05/24/25 10:21 Ondansetron Inj 4 Mg/2 Ml Vial IV PUSH Q4H PRN Nausea Paroxetine HCl 40 mg 05/25/25 09:00 05/27/25 08:24 Paroxetine 20 Mg Tablet PO 40 mg DAILY [facility] Administration Polyethylene Glycol 17 gm 05/26/25 09:00 05/27/25 08:24 Polyethylene Glycol 3350 17 Gm Powd.Pack PO 17 gm QAM [facility] Administration Pravastatin Sodium 40 mg 05/25/25 09:00 05/27/25 08:25 Pravastatin Sodium 20 Mg Tablet PO 40 mg DAILY [facility] Administration Senna/Docusate Sodium 2 tab 05/26/25 17:00 05/27/25 08:24 Senna/Docusate Sodium Tablet PO 2 tab BID [facility] Administration Trazodone HCl 150 mg 05/25/25 21:00 05/26/25 20:57 Trazodone Hcl 50 Mg Tablet PO 150 mg HS [facility] Administration Triamcinolone Acetonide 1 applic 05/25/25 09:00 05/27/25 08:26 Triamcinolone Acet 0.1% Cream 15 Gm Tube TOPICAL 06/24/25 08:59 1 applic DAILY [facility] Administration Radiology Results: ITS Impressions Chest X-Ray 05/24/25 16:10 IMPRESSION: No acute cardiopulmonary pathology. Abdomen Ultrasound 05/25/25 09:01 IMPRESSION: 1. Diffuse hepatic steatosis. Labs Labs: Laboratory Results - last 24 hr 05/26/25 05/26/25 05/27/25 16:42 20:52 08:13 POC Capillary Glucose 153 H 155 H 147 H 05/27/25 11:31 POC Capillary Glucose 127 H
[2025-05-28 00:25] VITALS: PULSE 79; O2SAT 94
[2025-05-28] MEDS: HYDROcodone/acetaminophen (*CRX) 10-325 MG TABLET 1 TAB PO ×3 (02:52→22:05)
[2025-05-28] MEDS: ENOXAPARIN 30 MG/0.3 ML SYRINGE SUB-Q (08:20)
[2025-05-28] MEDS: PRAVASTATIN SODIUM 20 MG TABLET 40 MG PO (08:20)
[2025-05-28] MEDS: SENNA/DOCUSATE SODIUM TABLET 2 TAB PO ×2 (08:20→17:00)
[2025-05-28] MEDS: DULoxetine HCL 60 MG CAPSULE.DR PO (08:20)
[2025-05-28] MEDS: TRIAMCINOLONE ACET 0.1% CREAM 15 GM TUBE 1 APPLIC TOPICAL (08:20)
[2025-05-28] MEDS: HYDROcodone/acetaminophen (*CRX) 5-325 MG TABLET 1 TAB PO ×2 (08:21→13:00)
--- NOTE | 2025-05-28 10:38 | P.PNIM_ITS ---
Progress Note: A&P Assessment and Plan (1) Closed fracture of left distal tibia: Qualifiers: Encounter type: initial encounter Fracture morphology: other fracture Qualified Code(s): S82.392A - Other fracture of lower end of left tibia, initial encounter for closed fracture Code(s): S82.302A - Unspecified fracture of lower end of left tibia, initial encounter for closed fracture Status: Acute Plan Left proximal fibular and distal tibial fractures From fall, patient unable to explain fall and noted it was not witnessed Decreased xanax to 0.5mg from 1mg daily PRN PRN pain control s/p Intramedullary nail fixation PT/OT Ortho following Fall EKG showed low voltage ECHO normal, TSH wnl, no telemetry findings cardiac origin ruled out PT/OT monitor Hepatic steatosis with elevated liver enzymes Hepatitis viral panel negative US liver reviewed counseled patient about lifestyle modification DM2 SSI with accucheks, monitor and adjust Anxiety and depression patient noted she is on duloxetine Continue Duloxetine DVT prophylaxis on Sq Lovenox Subjective Date/time seen: 05/28/25 10:38 Interval history: Comfortable at bedside Review of Systems Review of Systems: On the systems are reviewed and negative except as noted in the history above. Exam Narrative: General: alert and comfortable Eyes: EOMI, PERRLA ENNT External ears normal, Neck is supple, no masses, Respiratory systems: Clear to auscultation Cardiovascular S1, S2, normal rhythm, no murmur, rub, or gallop; no thrill or palpable murmurs on palpation. Gastrointestinal: soft, non-tender, and non-distended abdomen with no masses; BS present Skin: no rash, lesions, ulcerations, subcutaneous nodules or induration Musculoskeletal: left leg wound dressing clean adn dry Neurologic: Alert and oriented x3, non focal Mental Status Exam: normal affect Objective Data Vital Signs Vital Signs: Vital Signs - 24 hr 05/27/25 14:06 05/27/25 20:50 05/27/25 21:25 Temperature 97.0 F L Pulse Rate 113 H 83 Respiratory Rate 18 18 Blood Pressure 118/84 Pulse Oximetry 97 94 94 Oxygen Delivery CPAP CPAP Fraction of Inspired Oxygen 21 05/27/25 21:26 05/27/25 21:47 05/28/25 00:25 Temperature 96.6 F L Pulse Rate 83 83 79 Respiratory Rate 18 Blood Pressure 111/74 Pulse Oximetry 94 94 94 Oxygen Delivery CPAP CPAP Fraction of Inspired Oxygen Intake/Output Intake/Output: Intake & Output 05/25/25 05/26/25 05/27/25 05/28/25 23:59 23:59 23:59 23:59 Intake Total 490 760 580 690 Output Total 100 2450 700 400 Balance 043 -3896 -009 290 Meds/Results Medications: Active Medications Generic Name Dose Route Start Last Admin Trade Name Freq PRN Reason Stop Dose Admin Acetaminophen 500 mg 05/26/25 07:36 Acetaminophen 500 Mg Tablet PO Q6H PRN Pain or Fever Hydrocodone Bitart/Acetaminophen 1 tab 05/26/25 07:36 05/28/25 08:21 Hydrocodone/Acetaminophen (*Crx) 5-325 Mg Tablet PO 1 tab Q4H PRN Administration Pain Rated 4-6 Hydrocodone Bitart/Acetaminophen 1 tab 05/26/25 07:36 05/28/25 02:52 Hydrocodone/Acetaminophen (*Crx) 10-325 Mg Tablet PO 1 tab Q4H PRN Administration Pain Rated 7-10 Alprazolam 0.5 mg 05/24/25 15:01 05/24/25 21:59 Alprazolam (*Crx) 0.5 Mg Tablet PO 0.5 mg DAILY PRN Administration Anxiety Dextrose 12.5 gm 05/24/25 14:54 Dextrose 50% 25 Gm/50 Ml Syringe IV PUSH PRN PRN Hypoglycemia Protocol Duloxetine HCl 30 mg 05/24/25 18:00 05/27/25 17:14 Duloxetine Hcl 30 Mg Capsule. PO 30 mg QPM DAMION Administration Duloxetine HCl 60 mg 05/25/25 09:00 05/28/25 08:20 Duloxetine Hcl 60 Mg Capsule. PO 60 mg QAM [facility] Administration Enoxaparin Sodium 30 mg 05/26/25 09:00 05/28/25 08:20 Enoxaparin 30 Mg/0.3 Ml Syringe SUB-Q 30 mg DAILY [facility] Administration Glucagon 1 mg 05/24/25 14:54 Glucagon For Inj 1 Mg Vial IM PRN PRN Hypoglycemia Protocol Glucose 15 gm 05/24/25 14:54 Glucose Oral Gel 15 Gm Of Glucse In 37.5 Gm Tube PO PRN PRN Hypoglycemia Protocol Hydroxyzine Pamoate 50 mg 05/26/25 07:36 Hydroxyzine Pamoate 25 Mg Capsule PO Q4H PRN Itching Dextrose 1,000 mls @ 100 mls/hr 05/24/25 14:54 Dextrose 5% 1,000 Ml IVPB PRN PRN Hypoglycemia Protocol Lactated Ringer's 1,000 mls @ 30 mls/hr 05/25/25 15:40 05/27/25 17:24 Lr - Lactated Ringers Iv IV CONT Not Given .Q24H [facility]ION Ibuprofen 800 mg in 200 mls @ 400 mls/hr 05/26/25 07:36 Caldolor 800 Mg/200 Ml IVPB Q6H PRN Breakthrough Pain Rated 1-3 or NPO Insulin Aspart 3 - 6 units 05/24/25 17:00 05/28/25 08:21 Insulin Aspart (*Bkc) 100 Units/Ml SUB-Q Not Given TIDWM [facility] Protocol Insulin Aspart 1 - 3 units 05/24/25 21:00 05/27/25 20:32 Insulin Aspart (*Bkc) 100 Units/Ml SUB-Q Not Given HS [facility] Protocol Miscellaneous Information 1 each 05/25/25 00:01 05/28/25 07:32 Mounjaro Is Nonform; Can Pt Use From Home? XX 06/24/25 00:00 Not Given CLARIFY [facility] Morphine Sulfate 4 mg 05/24/25 10:21 05/27/25 00:26 Morphine Sulfate (*Crx) 4 Mg/Ml Inj IV PUSH 4 mg Q2H PRN Administration Pain Rated 7-10 Naloxone HCl 0.1 mg 05/26/25 07:36 Naloxone Hcl 0.4 Mg/Ml Vial IV PUSH Q2M PRN Opiate Reversal Ondansetron HCl 4 mg 05/24/25 10:21 Ondansetron Inj 4 Mg/2 Ml Vial IV PUSH Q4H PRN Nausea Paroxetine HCl 40 mg 05/25/25 09:00 05/28/25 08:21 Paroxetine 20 Mg Tablet PO 40 mg DAILY DAMION Administration Polyethylene Glycol 17 gm 05/26/25 09:00 05/28/25 08:20 Polyethylene Glycol 3350 17 Gm Powd.Pack PO 17 gm QAM DAMION Administration Pravastatin Sodium 40 mg 05/25/25 09:00 05/28/25 08:20 Pravastatin Sodium 20 Mg Tablet PO 40 mg DAILY [facility] Administration Senna/Docusate Sodium 2 tab 05/26/25 17:00 05/28/25 08:20 Senna/Docusate Sodium Tablet PO 2 tab BID DAMION Administration Trazodone HCl 150 mg 05/25/25 21:00 05/27/25 20:49 Trazodone Hcl 50 Mg Tablet PO 150 mg HS [facility] Administration Triamcinolone Acetonide 1 applic 05/25/25 09:00 05/28/25 08:20 Triamcinolone Acet 0.1% Cream 15 Gm Tube TOPICAL 06/24/25 08:59 1 applic DAILY DAMION Administration Radiology Results: ITS Impressions Chest X-Ray 05/24/25 16:10 IMPRESSION: No acute cardiopulmonary pathology. Abdomen Ultrasound 05/25/25 09:01 IMPRESSION: 1. Diffuse hepatic steatosis. Labs Labs: Laboratory Results - last 24 hr 05/27/25 05/27/25 05/27/25 11:31 17:04 20:31 POC Capillary Glucose 127 H 124 H 139 H 05/28/25 08:11 POC Capillary Glucose 131 H
[2025-05-28 14:39] VITALS: BP 116/73; PULSE 98; RESP 16; O2SAT 99
[2025-05-28 19:31] VITALS: BP 101/73; PULSE 98; RESP 18; TEMP 36.3; O2SAT 96
[2025-05-28 20:35] VITALS: PULSE 98; RESP 18; O2SAT 96
[2025-05-28 21:33] VITALS: PULSE 98; O2SAT 96
[2025-05-29 01:25] VITALS: PULSE 93; O2SAT 96
[2025-05-29 05:00] VITALS: BP 106/72; PULSE 83; RESP 17; TEMP 36.7; O2SAT 96
[2025-05-29] MEDS: HYDROcodone/acetaminophen (*CRX) 5-325 MG TABLET 1 TAB PO ×2 (05:02→21:09)
[2025-05-29] MEDS: PRAVASTATIN SODIUM 20 MG TABLET 40 MG PO (09:46)
[2025-05-29] MEDS: SENNA/DOCUSATE SODIUM TABLET 2 TAB PO ×2 (09:47→18:14)
[2025-05-29] MEDS: HYDROcodone/acetaminophen (*CRX) 10-325 MG TABLET 1 TAB PO ×2 (09:47→15:55)
[2025-05-29] MEDS: ENOXAPARIN 30 MG/0.3 ML SYRINGE SUB-Q (09:47)
[2025-05-29] MEDS: DULoxetine HCL 60 MG CAPSULE.DR PO (09:47)
[2025-05-29] MEDS: TRIAMCINOLONE ACET 0.1% CREAM 15 GM TUBE 1 APPLIC TOPICAL (09:48)
--- NOTE | 2025-05-29 10:12 | P.PNIM_ITS ---
Progress Note: A&P Assessment and Plan (1) Closed fracture of left distal tibia: Qualifiers: Encounter type: initial encounter Fracture morphology: other fracture Qualified Code(s): S82.392A - Other fracture of lower end of left tibia, initial encounter for closed fracture Code(s): S82.302A - Unspecified fracture of lower end of left tibia, initial encounter for closed fracture Status: Acute Plan Left proximal fibular and distal tibial fractures From fall, patient unable to explain fall and noted it was not witnessed Decreased Xanax to 0.5mg from 1mg daily PRN Pain controlled on Po [place] s/p Intramedullary nail fixation PT/OT Ortho following Fall EKG showed low voltage ECHO normal, TSH wnl, no telemetry findings cardiac origin ruled out PT/OT monitor Hepatic steatosis with elevated liver enzymes Hepatitis viral panel negative US liver reviewed counseled patient about lifestyle modification DM2 SSI with accucheks, monitor and adjust Anxiety and depression patient noted she is on duloxetine Continue Duloxetine DVT prophylaxis on Sq Lovenox Awaiting placement Subjective Date/time seen: 05/29/25 10:12 Interval history: Comfortable at bedside Review of Systems Review of Systems: On the systems are reviewed and negative except as noted in the history above. Exam Narrative: General: alert and comfortable Eyes: EOMI, PERRLA ENNT External ears normal, Neck is supple, no masses, Respiratory systems: Clear to auscultation Cardiovascular S1, S2, normal rhythm, no murmur, rub, or gallop; no thrill or palpable murmurs on palpation. Gastrointestinal: soft, non-tender, and non-distended abdomen with no masses; BS present Skin: no rash, lesions, ulcerations, subcutaneous nodules or induration Musculoskeletal: left leg wound dressing clean adn dry Neurologic: Alert and oriented x3, non focal Mental Status Exam: normal affect Objective Data Vital Signs Vital Signs: Vital Signs - 24 hr 05/28/25 14:39 05/28/25 19:31 05/28/25 20:35 Temperature 97.4 F L Pulse Rate 98 98 98 Respiratory Rate 16 18 18 Blood Pressure 116/73 101/73 Pulse Oximetry 99 96 96 Oxygen Delivery CPAP Fraction of Inspired Oxygen 21 05/28/25 21:33 05/28/25 21:33 05/29/25 01:25 Temperature Pulse Rate 98 93 Respiratory Rate Blood Pressure Pulse Oximetry 96 96 96 Oxygen Delivery CPAP CPAP CPAP Fraction of Inspired Oxygen 05/29/25 05:00 Temperature 98.1 F Pulse Rate 83 Respiratory Rate 17 Blood Pressure 106/72 Pulse Oximetry 96 Oxygen Delivery Fraction of Inspired Oxygen Intake/Output Intake/Output: Intake & Output 05/26/25 05/27/25 05/28/25 05/29/25 23:59 23:59 23:59 23:59 Intake Total 788 304 2905 150 Output Total 2450 102 766 7796 Balance -1690 -120 870 -1000 Meds/Results Medications: Active Medications Generic Name Dose Route Start Last Admin Trade Name Freq PRN Reason Stop Dose Admin Acetaminophen 500 mg 05/26/25 07:36 Acetaminophen 500 Mg Tablet PO Q6H PRN Pain or Fever Hydrocodone Bitart/Acetaminophen 1 tab 05/26/25 07:36 05/29/25 05:02 Hydrocodone/Acetaminophen (*Crx) 5-325 Mg Tablet PO 1 tab Q4H PRN Administration Pain Rated 4-6 Hydrocodone Bitart/Acetaminophen 1 tab 05/26/25 07:36 05/29/25 09:47 Hydrocodone/Acetaminophen (*Crx) 10-325 Mg Tablet PO 1 tab Q4H PRN Administration Pain Rated 7-10 Alprazolam 0.5 mg 05/24/25 15:01 05/24/25 21:59 Alprazolam (*Crx) 0.5 Mg Tablet PO 0.5 mg DAILY PRN Administration Anxiety Dextrose 12.5 gm 05/24/25 14:54 Dextrose 50% 25 Gm/50 Ml Syringe IV PUSH PRN PRN Hypoglycemia Protocol Duloxetine HCl 30 mg 05/24/25 18:00 05/28/25 17:00 Duloxetine Hcl 30 Mg Capsule. PO 30 mg QPM DAMION Administration Duloxetine HCl 60 mg 05/25/25 09:00 05/29/25 09:47 Duloxetine Hcl 60 Mg Capsule. PO 60 mg QAM DAMION Administration Enoxaparin Sodium 30 mg 05/26/25 09:00 05/29/25 09:47 Enoxaparin 30 Mg/0.3 Ml Syringe SUB-Q 30 mg DAILY DAMION Administration Glucagon 1 mg 05/24/25 14:54 Glucagon For Inj 1 Mg Vial IM PRN PRN Hypoglycemia Protocol Glucose 15 gm 05/24/25 14:54 Glucose Oral Gel 15 Gm Of Glucse In 37.5 Gm Tube PO PRN PRN Hypoglycemia Protocol Hydroxyzine Pamoate 50 mg 05/26/25 07:36 Hydroxyzine Pamoate 25 Mg Capsule PO Q4H PRN Itching Dextrose 1,000 mls @ 100 mls/hr 05/24/25 14:54 Dextrose 5% 1,000 Ml IVPB PRN PRN Hypoglycemia Protocol Lactated Ringer's 1,000 mls @ 30 mls/hr 05/25/25 15:40 05/28/25 17:01 Lr - Lactated Ringers Iv IV CONT Not Given .Q24H DAMION Ibuprofen 800 mg in 200 mls @ 400 mls/hr 05/26/25 07:36 Caldolor 800 Mg/200 Ml IVPB Q6H PRN Breakthrough Pain Rated 1-3 or NPO Insulin Aspart 3 - 6 units 05/24/25 17:00 05/29/25 09:26 Insulin Aspart (*Bkc) 100 Units/Ml SUB-Q Not Given TIDWM [facility] Protocol Insulin Aspart 1 - 3 units 05/24/25 21:00 05/28/25 22:07 Insulin Aspart (*Bkc) 100 Units/Ml SUB-Q Not Given HS [facility] Protocol Miscellaneous Information 1 each 05/25/25 00:01 05/28/25 07:32 Mounjaro Is Nonform; Can Pt Use From Home? XX 06/24/25 00:00 Not Given CLARIFY [facility] Morphine Sulfate 4 mg 05/24/25 10:21 05/27/25 00:26 Morphine Sulfate (*Crx) 4 Mg/Ml Inj IV PUSH 4 mg Q2H PRN Administration Pain Rated 7-10 Naloxone HCl 0.1 mg 05/26/25 07:36 Naloxone Hcl 0.4 Mg/Ml Vial IV PUSH Q2M PRN Opiate Reversal Ondansetron HCl 4 mg 05/24/25 10:21 Ondansetron Inj 4 Mg/2 Ml Vial IV PUSH Q4H PRN Nausea Paroxetine HCl 40 mg 05/25/25 09:00 05/29/25 09:46 Paroxetine 20 Mg Tablet PO 40 mg DAILY DAMION Administration Polyethylene Glycol 17 gm 05/26/25 09:00 05/29/25 09:47 Polyethylene Glycol 3350 17 Gm Powd.Pack PO 17 gm QAM DAMION Administration Pravastatin Sodium 40 mg 05/25/25 09:00 05/29/25 09:46 Pravastatin Sodium 20 Mg Tablet PO 40 mg DAILY [facility] Administration Senna/Docusate Sodium 2 tab 05/26/25 17:00 05/29/25 09:47 Senna/Docusate Sodium Tablet PO 2 tab BID DAMION Administration Trazodone HCl 150 mg 05/25/25 21:00 05/28/25 20:36 Trazodone Hcl 50 Mg Tablet PO 150 mg HS [facility] Administration Triamcinolone Acetonide 1 applic 05/25/25 09:00 05/29/25 09:48 Triamcinolone Acet 0.1% Cream 15 Gm Tube TOPICAL 06/24/25 08:59 1 applic DAILY DAMION Administration Radiology Results: ITS Impressions Chest X-Ray 05/24/25 16:10 IMPRESSION: No acute cardiopulmonary pathology. Abdomen Ultrasound 05/25/25 09:01 IMPRESSION: 1. Diffuse hepatic steatosis. Labs Labs: Laboratory Results - last 24 hr 05/28/25 05/28/25 05/28/25 11:59 16:34 19:27 POC Capillary Glucose 120 H 118 H 125 H 05/29/25 08:21 POC Capillary Glucose 113 H
[2025-05-29 14:44] VITALS: BP 127/76; PULSE 90; RESP 18; TEMP 37.1; O2SAT 97
[2025-05-29 20:32] VITALS: BP 103/63; PULSE 95; RESP 16; TEMP 36.7; O2SAT 97
[2025-05-29 20:42] VITALS: BP 114/83; PULSE 105
[2025-05-29 21:05] VITALS: PULSE 127; RESP 16; O2SAT 97
[2025-05-30] VITALS (7 sets, daily range): BP systolic 97–136; BP diastolic 67–77; PULSE 86–127; RESP 14–20; TEMP 36.3–36.9; O2SAT 95–98
[2025-05-30] MEDS: HYDROcodone/acetaminophen (*CRX) 10-325 MG TABLET 1 TAB PO ×4 (03:18→21:27)
--- NOTE | 2025-05-30 07:48 | P.CDI_ITS ---
CDI Query Clarification Request Patient with a BMI of 45.0 please provide a diagnosis to accompany this finding: * Overweight * Obesity * Morbid Obesity * Other/Unknown <Vivian Gore RN - Last Filed: 05/30/25 07:49> Clarified Diagnosis Clarified Diagnosis: * Morbid Obesity <Azalia Hinson MD - Last Filed: 05/30/25 09:27>
--- NOTE | 2025-05-30 07:48 | WPDCDIQUERY2 ---
CDI Query Clarification Request Patient with a BMI of 45.0 please provide a diagnosis to accompany this finding: Overweight Obesity Morbid Obesity Other/Unknown <Vivian Gore RN - Last Filed: 05/30/25 07:49> Clarified Diagnosis Clarified Diagnosis: Morbid Obesity <Azalia Hinson MD - Last Filed: 05/30/25 09:27>
[2025-05-30] MEDS: SENNA/DOCUSATE SODIUM TABLET 2 TAB PO ×2 (08:48→17:36)
[2025-05-30] MEDS: HYDROcodone/acetaminophen (*CRX) 5-325 MG TABLET 1 TAB PO (08:48)
[2025-05-30] MEDS: ALPRAZolam (*CRX) 0.5 MG TABLET PO (08:49)
[2025-05-30] MEDS: DULoxetine HCL 60 MG CAPSULE.DR PO (08:49)
[2025-05-30] MEDS: PRAVASTATIN SODIUM 20 MG TABLET 40 MG PO (08:49)
[2025-05-30] MEDS: TRIAMCINOLONE ACET 0.1% CREAM 15 GM TUBE 1 APPLIC TOPICAL (12:54)
[2025-05-30 14:40] LABS: Hematocrit 35.3 % (37.0-47.0); Hemoglobin 11.5 g/dL (12.0-15.0); Mean Corpuscular HGB Conc 32.6 g/dl (32-36); Mean Corpuscular Hemoglobin 29.6 pg (26-34); Mean Corpuscular Volume 90.7 fl (80-100); Platelet Count Result 222 k/mm3 (150-375); Red Blood Count 3.89 M/mm3 (4.2-5.4); White Blood Count 7.3 K/mm3 (4.5-10.0)
[2025-05-30 14:49] LABS: Anion Gap 10 mmol/L (4-12); Blood Urea Nitrogen 24 mg/dL (7-17); Calcium 9.2 mg/dL (8.4-10.2); Carbon Dioxide 26 mmol/L (22-30); Chloride 103 mmol/L (98-107); Estimated CRCL calculation 84 ml/min; Estimated Glomerular Filt Rate 58; Glucose 135 mg/dL (65-110); Magnesium 2.0 mg/dL (1.6-2.3); Potassium 4.0 mmol/L (3.4-5.0); Sodium 139 mmol/L (137-145)
--- NOTE | 2025-05-30 15:02 | PM.IMPN ---
Progress Note: A&P Assessment and Plan (1) Closed fracture of left distal tibia: Qualifiers: Encounter type: initial encounter Fracture morphology: other fracture Qualified Code(s): S82.392A - Other fracture of lower end of left tibia, initial encounter for closed fracture Code(s): S82.302A - Unspecified fracture of lower end of left tibia, initial encounter for closed fracture Status: Acute Plan Left proximal fibular and distal tibial fractures From fall, patient unable to explain fall and noted it was not witnessed Decreased Xanax to 0.5mg from 1mg daily PRN Pain controlled on Po [place] s/p Intramedullary nail fixation PT/OT Ortho following Fall EKG showed low voltage ECHO normal, TSH wnl, no telemetry findings cardiac origin ruled out PT/OT monitor Hepatic steatosis with elevated liver enzymes Hepatitis viral panel negative US liver reviewed counseled patient about lifestyle modification DM2 SSI with accucheks, monitor and adjust Anxiety and depression patient noted she is on duloxetine Continue Duloxetine DVT prophylaxis on Sq Lovenox Awaiting insurance auth for placement Subjective Date/time seen: 05/30/25 15:02 Interval history: Comfortable at bedside Awaiting insurance auth Review of Systems Review of Systems: On the systems are reviewed and negative except as noted in the history above. Exam Narrative: General: alert and comfortable Eyes: EOMI, PERRLA ENNT External ears normal, Neck is supple, no masses, Respiratory systems: Clear to auscultation Cardiovascular S1, S2, normal rhythm, no murmur, rub, or gallop; no thrill or palpable murmurs on palpation. Gastrointestinal: soft, non-tender, and non-distended abdomen with no masses; BS present Skin: no rash, lesions, ulcerations, subcutaneous nodules or induration Musculoskeletal: left leg wound dressing clean adn dry Neurologic: Alert and oriented x3, non focal Mental Status Exam: normal affect Objective Data Vital Signs Vital Signs: Vital Signs - 24 hr 05/29/25 20:32 05/29/25 20:32 05/29/25 20:42 Temperature 98.1 F Pulse Rate 95 95 105 H Respiratory Rate 16 Blood Pressure 103/63 103/63 114/83 Pulse Oximetry 97 Oxygen Delivery Fraction of Inspired Oxygen 05/29/25 21:05 05/29/25 23:30 05/30/25 01:59 Temperature Pulse Rate 127 H 127 H Respiratory Rate 16 Blood Pressure 121/75 Pulse Oximetry 97 Oxygen Delivery CPAP CPAP Fraction of Inspired Oxygen 21 05/30/25 02:52 05/30/25 07:35 05/30/25 08:00 Temperature 97.9 F 97.4 F L Pulse Rate 97 98 Respiratory Rate 14 18 Blood Pressure 120/76 113/75 Pulse Oximetry 97 95 Oxygen Delivery CPAP Fraction of Inspired Oxygen 05/30/25 08:45 05/30/25 09:06 05/30/25 09:06 Temperature Pulse Rate 107 H 119 H Respiratory Rate 16 18 Blood Pressure 113/75 97/77 L Pulse Oximetry 95 98 Oxygen Delivery Room Air Fraction of Inspired Oxygen 05/30/25 11:39 05/30/25 14:04 Temperature 98.2 F Pulse Rate 86 Respiratory Rate 20 Blood Pressure 136/67 125/72 Pulse Oximetry 98 Oxygen Delivery Fraction of Inspired Oxygen Intake/Output Intake/Output: Intake & Output 05/27/25 05/28/25 05/29/25 05/30/25 23:59 23:59 23:59 23:59 Intake Total 580 4475 800 7285 Output Total 261 934 8234 Balance -120 870 -560 1910 Meds/Results Medications: Active Medications Generic Name Dose Route Start Last Admin Trade Name Freq PRN Reason Stop Dose Admin Acetaminophen 500 mg 05/26/25 07:36 Acetaminophen 500 Mg Tablet PO Q6H PRN Pain or Fever Hydrocodone Bitart/Acetaminophen 1 tab 05/26/25 07:36 05/30/25 08:48 Hydrocodone/Acetaminophen (*Crx) 5-325 Mg Tablet PO 1 tab Q4H PRN Administration Pain Rated 4-6 Hydrocodone Bitart/Acetaminophen 1 tab 05/26/25 07:36 05/30/25 12:54 Hydrocodone/Acetaminophen (*Crx) 10-325 Mg Tablet PO 1 tab Q4H PRN Administration Pain Rated 7-10 Alprazolam 0.5 mg 05/24/25 15:01 05/30/25 08:49 Alprazolam (*Crx) 0.5 Mg Tablet PO 0.5 mg DAILY PRN Administration Anxiety Dextrose 12.5 gm 05/24/25 14:54 Dextrose 50% 25 Gm/50 Ml Syringe IV PUSH PRN PRN Hypoglycemia Protocol Duloxetine HCl 30 mg 05/24/25 18:00 05/29/25 18:14 Duloxetine Hcl 30 Mg Capsule. PO 30 mg QPM DAMION Administration Duloxetine HCl 60 mg 05/25/25 09:00 05/30/25 08:49 Duloxetine Hcl 60 Mg Capsule. PO 60 mg QAM DAMION Administration Enoxaparin Sodium 40 mg 05/30/25 09:00 05/30/25 08:22 Enoxaparin 40 Mg/0.4 Ml Syringe SUB-Q Not Given DAILY DAMION Glucagon 1 mg 05/24/25 14:54 Glucagon For Inj 1 Mg Vial IM PRN PRN Hypoglycemia Protocol Glucose 15 gm 05/24/25 14:54 Glucose Oral Gel 15 Gm Of Glucse In 37.5 Gm Tube PO PRN PRN Hypoglycemia Protocol Hydroxyzine Pamoate 50 mg 05/26/25 07:36 Hydroxyzine Pamoate 25 Mg Capsule PO Q4H PRN Itching Dextrose 1,000 mls @ 100 mls/hr 05/24/25 14:54 Dextrose 5% 1,000 Ml IVPB PRN PRN Hypoglycemia Protocol Lactated Ringer's 1,000 mls @ 30 mls/hr 05/25/25 15:40 05/30/25 12:09 Lr - Lactated Ringers Iv IV CONT Not Given .Q24H DAMION Ibuprofen 800 mg in 200 mls @ 400 mls/hr 05/26/25 07:36 Caldolor 800 Mg/200 Ml IVPB Q6H PRN Breakthrough Pain Rated 1-3 or NPO Insulin Aspart 3 - 6 units 05/24/25 17:00 05/30/25 12:09 Insulin Aspart (*Bkc) 100 Units/Ml SUB-Q Not Given TIDWM [facility] Protocol Insulin Aspart 1 - 3 units 05/24/25 21:00 05/29/25 21:11 Insulin Aspart (*Bkc) 100 Units/Ml SUB-Q Not Given HS [facility] Protocol Morphine Sulfate 4 mg 05/24/25 10:21 05/27/25 00:26 Morphine Sulfate (*Crx) 4 Mg/Ml Inj IV PUSH 4 mg Q2H PRN Administration Pain Rated 7-10 Naloxone HCl 0.1 mg 05/26/25 07:36 Naloxone Hcl 0.4 Mg/Ml Vial IV PUSH Q2M PRN Opiate Reversal Ondansetron HCl 4 mg 05/24/25 10:21 Ondansetron Inj 4 Mg/2 Ml Vial IV PUSH Q4H PRN Nausea Paroxetine HCl 40 mg 05/25/25 09:00 05/30/25 08:48 Paroxetine 20 Mg Tablet PO 40 mg DAILY DAMION Administration Polyethylene Glycol 17 gm 05/26/25 09:00 05/30/25 08:46 Polyethylene Glycol 3350 17 Gm Powd.Pack PO Not Given QAM [facility] Pravastatin Sodium 40 mg 05/25/25 09:00 05/30/25 08:49 Pravastatin Sodium 20 Mg Tablet PO 40 mg DAILY DAMION Administration Senna/Docusate Sodium 2 tab 05/26/25 17:00 05/30/25 08:48 Senna/Docusate Sodium Tablet PO 2 tab BID DAMION Administration Trazodone HCl 150 mg 05/25/25 21:00 05/29/25 21:09 Trazodone Hcl 50 Mg Tablet PO 150 mg HS DAMION Administration Triamcinolone Acetonide 1 applic 05/25/25 09:00 05/30/25 12:54 Triamcinolone Acet 0.1% Cream 15 Gm Tube TOPICAL 06/24/25 08:59 1 applic DAILY DAMION Administration Radiology Results: ITS Impressions Chest X-Ray 05/24/25 16:10 IMPRESSION: No acute cardiopulmonary pathology. Abdomen Ultrasound 05/25/25 09:01 IMPRESSION: 1. Diffuse hepatic steatosis. Labs Labs: Laboratory Results - last 24 hr 05/29/25 05/29/25 05/30/25 17:16 21:22 08:03 WBC RBC Hgb Hct MCV MCH MCHC RDW Plt Count MPV Sodium Potassium Chloride Carbon Dioxide Anion Gap BUN Creatinine Estim Creat Clear Calc Estimated GFR Glucose POC Capillary Glucose 104 150 H 142 H Calcium Phosphorus Magnesium 05/30/25 05/30/25 11:23 14:36 WBC 7.3 RBC 3.89 L Hgb 11.5 L Hct 35.3 L MCV 90.7 MCH 29.6 MCHC 32.6 RDW 13.2 Plt Count 222 MPV 8.7 Sodium 139 Potassium 4.0 Chloride 103 Carbon Dioxide 26 Anion Gap 10 BUN 24 H Creatinine 0.99 Estim Creat Clear Calc 84 Estimated GFR 58 L Glucose 135 H POC Capillary Glucose 139 H Calcium 9.2 Phosphorus 3.9 Magnesium 2.0
[2025-05-30 15:30] LABS: Hemoglobin A1C 6.0 % (<5.7)
--- NOTE | 2025-05-30 15:45 | P.PNOP_ITS ---
Progress Note: A&P Assessment and Plan (1) S/P ORIF (open reduction internal fixation) fracture: Code(s): Z98.890 - Other specified postprocedural states; Z87.81 - Personal history of (healed) traumatic fracture Status: Acute Assessment and Plan: POD #5: Intramedullary nail fixation left tibia Continue PT/OT. NWB LLE. Walker/Crutches. HIGH FALL RISK. Continue pain control. Ice leg over splint. DVT prophylaxis with Lovenox. Incentive Spirometry Use reviewed. Monitor Splint. Keep c/d/i. Plan to transition to fracture boot tomorrow. Bowel Regimen. Dispo: [facility] vs. 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 Fraser, who agrees with current plan as indicated above. No further recommendations from Dr. Fraser at this time. Subjective Subjective Date/Time Seen: 05/30/25 15:45 Post Op day: 5 Principal diagnosis: Left tibia fracture Interval history: POD #5: Intramedullary nail fixation left tibia Patient awake/alert, up in chair. Complaints of pain with movement. Well controlled with current pain medication regimen. Concerned about ability to work with PT/OT. Review of Systems Review of Systems: All systems reviewed & are unremarkable except as noted in HPI and below Objective Data Vital Signs Vital Signs: Vital Signs - 24 hr 05/29/25 20:32 05/29/25 20:32 05/29/25 20:42 Temperature 36.7 C Pulse Rate 95 95 105 H Respiratory Rate 16 Blood Pressure 103/63 103/63 114/83 Pulse Oximetry 97 Oxygen Delivery Fraction of Inspired Oxygen 05/29/25 21:05 05/29/25 23:30 05/30/25 01:59 Temperature Pulse Rate 127 H 127 H Respiratory Rate 16 Blood Pressure 121/75 Pulse Oximetry 97 Oxygen Delivery CPAP CPAP Fraction of Inspired Oxygen 05/30/25 02:52 05/30/25 07:35 05/30/25 08:00 Temperature 36.6 C 36.3 C L Pulse Rate 97 98 Respiratory Rate 14 18 Blood Pressure 120/76 113/75 Pulse Oximetry 97 95 Oxygen Delivery CPAP Fraction of Inspired Oxygen 05/30/25 08:45 05/30/25 09:06 05/30/25 09:06 Temperature Pulse Rate 107 H 119 H Respiratory Rate 16 18 Blood Pressure 113/75 97/77 L Pulse Oximetry 95 98 Oxygen Delivery Room Air Fraction of Inspired Oxygen 05/30/25 11:39 05/30/25 14:04 Temperature 36.8 C Pulse Rate 86 Respiratory Rate 20 Blood Pressure 136/67 125/72 Pulse Oximetry 98 Oxygen Delivery Fraction of Inspired Oxygen Intake/Output Intake/Output: Intake & Output 05/27/25 05/28/25 05/29/25 05/30/25 23:59 23:59 23:59 23:59 Intake Total 580 4044 278 8152 Output Total 981 758 0776 Balance -120 870 -560 1910 Meds/Results Medications: Active Medications Generic Name Dose Route Start Last Admin Trade Name Freq PRN Reason Stop Dose Admin Acetaminophen 500 mg 05/26/25 07:36 Acetaminophen 500 Mg Tablet PO Q6H PRN Pain or Fever Hydrocodone Bitart/Acetaminophen 1 tab 05/26/25 07:36 05/30/25 08:48 Hydrocodone/Acetaminophen (*Crx) 5-325 Mg Tablet PO 1 tab Q4H PRN Administration Pain Rated 4-6 Hydrocodone Bitart/Acetaminophen 1 tab 05/26/25 07:36 05/30/25 12:54 Hydrocodone/Acetaminophen (*Crx) 10-325 Mg Tablet PO 1 tab Q4H PRN Administration Pain Rated 7-10 Alprazolam 0.5 mg 05/24/25 15:01 05/30/25 08:49 Alprazolam (*Crx) 0.5 Mg Tablet PO 0.5 mg DAILY PRN Administration Anxiety Dextrose 12.5 gm 05/24/25 14:54 Dextrose 50% 25 Gm/50 Ml Syringe IV PUSH PRN PRN Hypoglycemia Protocol Duloxetine HCl 30 mg 05/24/25 18:00 05/29/25 18:14 Duloxetine Hcl 30 Mg Capsule. PO 30 mg QPM DAMION Administration Duloxetine HCl 60 mg 05/25/25 09:00 05/30/25 08:49 Duloxetine Hcl 60 Mg Capsule. PO 60 mg QAM DAMION Administration Enoxaparin Sodium 40 mg 05/30/25 09:00 05/30/25 08:22 Enoxaparin 40 Mg/0.4 Ml Syringe SUB-Q Not Given DAILY DAMION Glucagon 1 mg 05/24/25 14:54 Glucagon For Inj 1 Mg Vial IM PRN PRN Hypoglycemia Protocol Glucose 15 gm 05/24/25 14:54 Glucose Oral Gel 15 Gm Of Glucse In 37.5 Gm Tube PO PRN PRN Hypoglycemia Protocol Hydroxyzine Pamoate 50 mg 05/26/25 07:36 Hydroxyzine Pamoate 25 Mg Capsule PO Q4H PRN Itching Dextrose 1,000 mls @ 100 mls/hr 05/24/25 14:54 Dextrose 5% 1,000 Ml IVPB PRN PRN Hypoglycemia Protocol Lactated Ringer's 1,000 mls @ 30 mls/hr 05/25/25 15:40 05/30/25 12:09 Lr - Lactated Ringers Iv IV CONT Not Given .Q24H DAMION Ibuprofen 800 mg in 200 mls @ 400 mls/hr 05/26/25 07:36 Caldolor 800 Mg/200 Ml IVPB Q6H PRN Breakthrough Pain Rated 1-3 or NPO Insulin Aspart 3 - 6 units 05/24/25 17:00 05/30/25 12:09 Insulin Aspart (*Bkc) 100 Units/Ml SUB-Q Not Given TIDWM [facility] Protocol Insulin Aspart 1 - 3 units 05/24/25 21:00 05/29/25 21:11 Insulin Aspart (*Bkc) 100 Units/Ml SUB-Q Not Given HS [facility] Protocol Morphine Sulfate 4 mg 05/24/25 10:21 05/27/25 00:26 Morphine Sulfate (*Crx) 4 Mg/Ml Inj IV PUSH 4 mg Q2H PRN Administration Pain Rated 7-10 Naloxone HCl 0.1 mg 05/26/25 07:36 Naloxone Hcl 0.4 Mg/Ml Vial IV PUSH Q2M PRN Opiate Reversal Ondansetron HCl 4 mg 05/24/25 10:21 Ondansetron Inj 4 Mg/2 Ml Vial IV PUSH Q4H PRN Nausea Paroxetine HCl 40 mg 05/25/25 09:00 05/30/25 08:48 Paroxetine 20 Mg Tablet PO 40 mg DAILY DAMION Administration Polyethylene Glycol 17 gm 05/26/25 09:00 05/30/25 08:46 Polyethylene Glycol 3350 17 Gm Powd.Pack PO Not Given QAM DAMION Pravastatin Sodium 40 mg 05/25/25 09:00 05/30/25 08:49 Pravastatin Sodium 20 Mg Tablet PO 40 mg DAILY DAMION Administration Senna/Docusate Sodium 2 tab 05/26/25 17:00 05/30/25 08:48 Senna/Docusate Sodium Tablet PO 2 tab BID DAMION Administration Trazodone HCl 150 mg 05/25/25 21:00 05/29/25 21:09 Trazodone Hcl 50 Mg Tablet PO 150 mg HS DAMION Administration Triamcinolone Acetonide 1 applic 05/25/25 09:00 05/30/25 12:54 Triamcinolone Acet 0.1% Cream 15 Gm Tube TOPICAL 06/24/25 08:59 1 applic DAILY DAMION Administration Radiology Results: ITS Impressions Chest X-Ray 05/24/25 16:10 IMPRESSION: No acute cardiopulmonary pathology. Abdomen Ultrasound 05/25/25 09:01 IMPRESSION: 1. Diffuse hepatic steatosis. Labs Labs: Laboratory Results - last 24 hr 05/29/25 05/29/25 05/30/25 17:16 21:22 08:03 WBC RBC Hgb Hct MCV MCH MCHC RDW Plt Count MPV Sodium Potassium Chloride Carbon Dioxide Anion Gap BUN Creatinine Estim Creat Clear Calc Estimated GFR Glucose POC Capillary Glucose 104 150 H 142 H Hemoglobin A1c Calcium Phosphorus Magnesium 05/30/25 05/30/25 11:23 14:36 WBC 7.3 RBC 3.89 L Hgb 11.5 L Hct 35.3 L MCV 90.7 MCH 29.6 MCHC 32.6 RDW 13.2 Plt Count 222 MPV 8.7 Sodium 139 Potassium 4.0 Chloride 103 Carbon Dioxide 26 Anion Gap 10 BUN 24 H Creatinine 0.99 Estim Creat Clear Calc 84 Estimated GFR 58 L Glucose 135 H POC Capillary Glucose 139 H Hemoglobin A1c 6.0 H Calcium 9.2 Phosphorus 3.9 Magnesium 2.0
[2025-05-31 06:16] VITALS: BP 120/85; PULSE 86; RESP 18; TEMP 36.5; O2SAT 96
[2025-05-31] MEDS: HYDROcodone/acetaminophen (*CRX) 10-325 MG TABLET 1 TAB PO ×2 (06:47→13:07)
--- NOTE | 2025-05-31 08:45 | PCNWS ---
Weekly nutritional screen. Patient is tolerating current Diabetic consistent carbs diet with adequate intake, 90-100%. No weight loss reported. No nutritional needs at this time.
[2025-05-31] MEDS: SENNA/DOCUSATE SODIUM TABLET 2 TAB PO (08:55)
[2025-05-31] MEDS: DULoxetine HCL 60 MG CAPSULE.DR PO (08:55)
[2025-05-31] MEDS: PRAVASTATIN SODIUM 20 MG TABLET 40 MG PO (08:56)
[2025-05-31] MEDS: ENOXAPARIN 40 MG/0.4 ML SYRINGE SUB-Q (08:56)
[2025-05-31] MEDS: TRIAMCINOLONE ACET 0.1% CREAM 15 GM TUBE 1 APPLIC TOPICAL (08:57)
--- NOTE | 2025-05-31 13:00 | PM.PNORT ---
Progress Note: A&P Assessment and Plan (1) S/P ORIF (open reduction internal fixation) fracture: Code(s): Z98.890 - Other specified postprocedural states; Z87.81 - Personal history of (healed) traumatic fracture Status: Acute Assessment and Plan: POD #6: Intramedullary nail fixation left tibia Continue PT/OT. NWB LLE. Walker/Crutches. HIGH FALL RISK. Continue pain control. Ice leg over splint. DVT prophylaxis with Lovenox. Incentive Spirometry Use reviewed. Monitor Splint. Keep c/d/i. Plan to transition to fracture boot today and change dressings. Awaiting fracture boot from DME. Nursing aware to obtain and notify office when it is at the bedside. Bowel Regimen. Dispo: [facility] vs. Home with Home Health pending progress with PT/OT and insurance authorization (2) Fracture of fibula, proximal: Code(s): S82.839A - Other fracture of upper and lower end of unspecified fibula, initial encounter for closed fracture Status: Acute (3) Displaced spiral fracture of shaft of left tibia: Code(s): S82.242A - Displaced spiral fracture of shaft of left tibia, initial encounter for closed fracture Status: Acute (4) Diabetes type 2, controlled: Code(s): E11.9 - Type 2 diabetes mellitus without complications Status: Acute Plan Reviewed history, exam, radiographs and current labs with attending MD and covering surgeon, Dr. Fraser, who agrees with current plan as indicated above. No further recommendations from Dr. Fraser at this time. Subjective Subjective Date/Time Seen: 05/31/25 13:00 Post Op day: 6 Principal diagnosis: Left tibia fracture Interval history: POD #6: Intramedullary nail fixation left tibia Patient awake/alert, up in chair. Complaints of pain with movement. Well controlled with current pain medication regimen. Awaiting final d/c plans pending insurance authorization. Review of Systems Review of Systems: All systems reviewed & are unremarkable except as noted in HPI and below Exam Const: General: comfortable and no acute distress Resp: Effort & Inspection: normal respiratory effort GI: GI Palp: No Hepatosplenomegaly present Neuro: Coordination: No does not sway with eyes open Extrem: Right upper extremity: normal to inspection Left upper extremity: normal to inspection Right lower extremity: normal to inspection Left lower extremity: knee Details: tenderness and swelling (mild ), lower leg (splint c/d/i. ), ankle (splint c/d/i. ) and foot Details: normal capillary refill, toes with normal ROM and motor-sensory exam light-touch normal Psych: Mental Status: mental status grossly normal Objective Data Vital Signs Vital Signs: Vital Signs - 24 hr 05/30/25 14:04 05/30/25 21:55 05/30/25 22:52 Temperature 36.8 C 36.9 C Pulse Rate 86 93 Respiratory Rate 20 18 Blood Pressure 125/72 118/74 Pulse Oximetry 98 98 Oxygen Delivery CPAP 05/31/25 02:15 05/31/25 06:16 05/31/25 08:55 Temperature 36.5 C Pulse Rate 86 Respiratory Rate 18 Blood Pressure 120/85 Pulse Oximetry 96 Oxygen Delivery CPAP Room Air Intake/Output Intake/Output: Intake & Output 05/28/25 05/29/25 05/30/25 05/31/25 23:59 23:59 23:59 23:59 Intake Total 0934 175 4800 540 Output Total 800 1550 Balance 870 -560 2700 540 Meds/Results Medications: Active Medications Generic Name Dose Route Start Last Admin Trade Name Freq PRN Reason Stop Dose Admin Acetaminophen 500 mg 05/26/25 07:36 Acetaminophen 500 Mg Tablet PO Q6H PRN Pain or Fever Hydrocodone Bitart/Acetaminophen 1 tab 05/26/25 07:36 05/30/25 08:48 Hydrocodone/Acetaminophen (*Crx) 5-325 Mg Tablet PO 1 tab Q4H PRN Administration Pain Rated 4-6 Hydrocodone Bitart/Acetaminophen 1 tab 05/26/25 07:36 05/31/25 06:47 Hydrocodone/Acetaminophen (*Crx) 10-325 Mg Tablet PO 1 tab Q4H PRN Administration Pain Rated 7-10 Alprazolam 0.5 mg 05/24/25 15:01 05/30/25 08:49 Alprazolam (*Crx) 0.5 Mg Tablet PO 0.5 mg DAILY PRN Administration Anxiety Dextrose 12.5 gm 05/24/25 14:54 Dextrose 50% 25 Gm/50 Ml Syringe IV PUSH PRN PRN Hypoglycemia Protocol Duloxetine HCl 30 mg 05/24/25 18:00 05/30/25 17:36 Duloxetine Hcl 30 Mg Capsule. PO 30 mg QPM DAMION Administration Duloxetine HCl 60 mg 05/25/25 09:00 05/31/25 08:55 Duloxetine Hcl 60 Mg Capsule. PO 60 mg QAM DAMION Administration Enoxaparin Sodium 40 mg 05/30/25 09:00 05/31/25 08:56 Enoxaparin 40 Mg/0.4 Ml Syringe SUB-Q 40 mg DAILY DAMION Administration Glucagon 1 mg 05/24/25 14:54 Glucagon For Inj 1 Mg Vial IM PRN PRN Hypoglycemia Protocol Glucose 15 gm 05/24/25 14:54 Glucose Oral Gel 15 Gm Of Glucse In 37.5 Gm Tube PO PRN PRN Hypoglycemia Protocol Hydroxyzine Pamoate 50 mg 05/26/25 07:36 Hydroxyzine Pamoate 25 Mg Capsule PO Q4H PRN Itching Dextrose 1,000 mls @ 100 mls/hr 05/24/25 14:54 Dextrose 5% 1,000 Ml IVPB PRN PRN Hypoglycemia Protocol Lactated Ringer's 1,000 mls @ 30 mls/hr 05/25/25 15:40 05/30/25 12:09 Lr - Lactated Ringers Iv IV CONT Not Given .Q24H DMAION Ibuprofen 800 mg in 200 mls @ 400 mls/hr 05/26/25 07:36 Caldolor 800 Mg/200 Ml IVPB Q6H PRN Breakthrough Pain Rated 1-3 or NPO Insulin Aspart 3 - 6 units 05/24/25 17:00 05/31/25 12:32 Insulin Aspart (*Bkc) 100 Units/Ml SUB-Q Not Given TIDWM [facility] Protocol Insulin Aspart 1 - 3 units 05/24/25 21:00 05/31/25 03:04 Insulin Aspart (*Bkc) 100 Units/Ml SUB-Q Not Given HS [facility] Protocol Morphine Sulfate 4 mg 05/24/25 10:21 05/27/25 00:26 Morphine Sulfate (*Crx) 4 Mg/Ml Inj IV PUSH 4 mg Q2H PRN Administration Pain Rated 7-10 Naloxone HCl 0.1 mg 05/26/25 07:36 Naloxone Hcl 0.4 Mg/Ml Vial IV PUSH Q2M PRN Opiate Reversal Ondansetron HCl 4 mg 05/24/25 10:21 Ondansetron Inj 4 Mg/2 Ml Vial IV PUSH Q4H PRN Nausea Paroxetine HCl 40 mg 05/25/25 09:00 05/31/25 08:56 Paroxetine 20 Mg Tablet PO 40 mg DAILY DAMION Administration Polyethylene Glycol 17 gm 05/26/25 09:00 05/31/25 08:57 Polyethylene Glycol 3350 17 Gm Powd.Pack PO 17 gm QAM DAMION Administration Pravastatin Sodium 40 mg 05/25/25 09:00 05/31/25 08:56 Pravastatin Sodium 20 Mg Tablet PO 40 mg DAILY DAMION Administration Senna/Docusate Sodium 2 tab 05/26/25 17:00 05/31/25 08:55 Senna/Docusate Sodium Tablet PO 2 tab BID DAMION Administration Trazodone HCl 150 mg 05/25/25 21:00 05/30/25 21:28 Trazodone Hcl 50 Mg Tablet PO 150 mg HS DAMION Administration Triamcinolone Acetonide 1 applic 05/25/25 09:00 05/31/25 08:57 Triamcinolone Acet 0.1% Cream 15 Gm Tube TOPICAL 06/24/25 08:59 1 applic DAILY DAMION Administration Radiology Results: ITS Impressions Chest X-Ray 05/24/25 16:10 IMPRESSION: No acute cardiopulmonary pathology. Abdomen Ultrasound 05/25/25 09:01 IMPRESSION: 1. Diffuse hepatic steatosis. Labs Labs: Laboratory Results - last 24 hr 05/30/25 05/30/25 05/30/25 14:36 16:40 21:34 WBC 7.3 RBC 3.89 L Hgb 11.5 L Hct 35.3 L MCV 90.7 MCH 29.6 MCHC 32.6 RDW 13.2 Plt Count 222 MPV 8.7 Sodium 139 Potassium 4.0 Chloride 103 Carbon Dioxide 26 Anion Gap 10 BUN 24 H Creatinine 0.99 Estim Creat Clear Calc 84 Estimated GFR 58 L Glucose 135 H POC Capillary Glucose 121 H 116 H Hemoglobin A1c 6.0 H Calcium 9.2 Phosphorus 3.9 Magnesium 2.0 05/31/25 05/31/25 08:19 11:50 WBC RBC Hgb Hct MCV MCH MCHC RDW Plt Count MPV Sodium Potassium Chloride Carbon Dioxide Anion Gap BUN Creatinine Estim Creat Clear Calc Estimated GFR Glucose POC Capillary Glucose 132 H 105 Hemoglobin A1c Calcium Phosphorus Magnesium
--- NOTE | 2025-05-31 13:16 | P.PNIM_ITS ---
Progress Note: A&P Assessment and Plan (1) Closed fracture of left distal tibia: Qualifiers: Encounter type: initial encounter Fracture morphology: other fracture Qualified Code(s): S82.392A - Other fracture of lower end of left tibia, initial encounter for closed fracture Code(s): S82.302A - Unspecified fracture of lower end of left tibia, initial encounter for closed fracture Status: Acute Plan Left proximal fibular and distal tibial fractures From fall, patient unable to explain fall and noted it was not witnessed Decreased Xanax to 0.5mg from 1mg daily PRN Pain controlled on Po [place] s/p Intramedullary nail fixation PT/OT Ortho following POD 6 Intramedullary nail fixation left tibia Fall EKG showed low voltage ECHO normal, TSH wnl, no telemetry findings cardiac origin ruled out PT/OT monitor Hepatic steatosis with elevated liver enzymes Hepatitis viral panel negative US liver reviewed counseled patient about lifestyle modification DM2 SSI with accucheks, monitor and adjust Anxiety and depression patient noted she is on duloxetine Continue Duloxetine DVT prophylaxis on Sq Lovenox Awaiting insurance auth for placement Subjective Date/time seen: 05/31/25 13:16 Interval history: 49 cc old female past medical history of type 2 diabetes and depression/anxiety presented to the ER after a fall with left lower extremity pain. 05/31/2025 POD6 Intramedullary nail fixation left tibia. Patient sitting comfortably at bedside during exam.. Still pending final discharge plans/insurance authorization. Patient otherwise has no complaints or concerns. Review of Systems Review of Systems: On the systems are reviewed and negative except as noted in the history above. Exam Narrative: General: alert and comfortable Eyes: EOMI, PERRLA ENNT External ears normal, Neck is supple, no masses, Respiratory systems: Clear to auscultation Cardiovascular S1, S2, normal rhythm, no murmur, rub, or gallop; no thrill or palpable murmurs on palpation. Gastrointestinal: soft, non-tender, and non-distended abdomen with no masses; BS present Skin: no rash, lesions, ulcerations, subcutaneous nodules or induration Musculoskeletal: left leg wound dressing clean adn dry Neurologic: Alert and oriented x3, non focal Mental Status Exam: normal affect Objective Data Vital Signs Vital Signs: Vital Signs - 24 hr 05/30/25 14:04 05/30/25 21:55 05/30/25 22:52 Temperature 98.2 F 98.5 F Pulse Rate 86 93 Respiratory Rate 20 18 Blood Pressure 125/72 118/74 Pulse Oximetry 98 98 Oxygen Delivery CPAP 05/31/25 02:15 05/31/25 06:16 05/31/25 08:55 Temperature 97.7 F Pulse Rate 86 Respiratory Rate 18 Blood Pressure 120/85 Pulse Oximetry 96 Oxygen Delivery CPAP Room Air Intake/Output Intake/Output: Intake & Output 05/28/25 05/29/25 05/30/25 05/31/25 23:59 23:59 23:59 23:59 Intake Total 5350 829 3195 540 Output Total 800 1550 Balance 870 -560 2700 540 Meds/Results Medications: Active Medications Generic Name Dose Route Start Last Admin Trade Name Freq PRN Reason Stop Dose Admin Acetaminophen 500 mg 05/26/25 07:36 Acetaminophen 500 Mg Tablet PO Q6H PRN Pain or Fever Hydrocodone Bitart/Acetaminophen 1 tab 05/26/25 07:36 05/30/25 08:48 Hydrocodone/Acetaminophen (*Crx) 5-325 Mg Tablet PO 1 tab Q4H PRN Administration Pain Rated 4-6 Hydrocodone Bitart/Acetaminophen 1 tab 05/26/25 07:36 05/31/25 13:07 Hydrocodone/Acetaminophen (*Crx) 10-325 Mg Tablet PO 1 tab Q4H PRN Administration Pain Rated 7-10 Alprazolam 0.5 mg 05/24/25 15:01 05/30/25 08:49 Alprazolam (*Crx) 0.5 Mg Tablet PO 0.5 mg DAILY PRN Administration Anxiety Dextrose 12.5 gm 05/24/25 14:54 Dextrose 50% 25 Gm/50 Ml Syringe IV PUSH PRN PRN Hypoglycemia Protocol Duloxetine HCl 30 mg 05/24/25 18:00 05/30/25 17:36 Duloxetine Hcl 30 Mg Capsule. PO 30 mg QPM DAMION Administration Duloxetine HCl 60 mg 05/25/25 09:00 05/31/25 08:55 Duloxetine Hcl 60 Mg Capsule. PO 60 mg QAM DAMION Administration Enoxaparin Sodium 40 mg 05/30/25 09:00 05/31/25 08:56 Enoxaparin 40 Mg/0.4 Ml Syringe SUB-Q 40 mg DAILY DAMION Administration Glucagon 1 mg 05/24/25 14:54 Glucagon For Inj 1 Mg Vial IM PRN PRN Hypoglycemia Protocol Glucose 15 gm 05/24/25 14:54 Glucose Oral Gel 15 Gm Of Glucse In 37.5 Gm Tube PO PRN PRN Hypoglycemia Protocol Hydroxyzine Pamoate 50 mg 05/26/25 07:36 Hydroxyzine Pamoate 25 Mg Capsule PO Q4H PRN Itching Dextrose 1,000 mls @ 100 mls/hr 05/24/25 14:54 Dextrose 5% 1,000 Ml IVPB PRN PRN Hypoglycemia Protocol Lactated Ringer's 1,000 mls @ 30 mls/hr 05/25/25 15:40 05/30/25 12:09 Lr - Lactated Ringers Iv IV CONT Not Given .Q24H DAMION Ibuprofen 800 mg in 200 mls @ 400 mls/hr 05/26/25 07:36 Caldolor 800 Mg/200 Ml IVPB Q6H PRN Breakthrough Pain Rated 1-3 or NPO Insulin Aspart 3 - 6 units 05/24/25 17:00 05/31/25 12:32 Insulin Aspart (*Bkc) 100 Units/Ml SUB-Q Not Given TIDWM [facility] Protocol Insulin Aspart 1 - 3 units 05/24/25 21:00 05/31/25 03:04 Insulin Aspart (*Bkc) 100 Units/Ml SUB-Q Not Given HS [facility] Protocol Morphine Sulfate 4 mg 05/24/25 10:21 05/27/25 00:26 Morphine Sulfate (*Crx) 4 Mg/Ml Inj IV PUSH 4 mg Q2H PRN Administration Pain Rated 7-10 Naloxone HCl 0.1 mg 05/26/25 07:36 Naloxone Hcl 0.4 Mg/Ml Vial IV PUSH Q2M PRN Opiate Reversal Ondansetron HCl 4 mg 05/24/25 10:21 Ondansetron Inj 4 Mg/2 Ml Vial IV PUSH Q4H PRN Nausea Paroxetine HCl 40 mg 05/25/25 09:00 05/31/25 08:56 Paroxetine 20 Mg Tablet PO 40 mg DAILY DAMION Administration Polyethylene Glycol 17 gm 05/26/25 09:00 05/31/25 08:57 Polyethylene Glycol 3350 17 Gm Powd.Pack PO 17 gm QAM DAMION Administration Pravastatin Sodium 40 mg 05/25/25 09:00 05/31/25 08:56 Pravastatin Sodium 20 Mg Tablet PO 40 mg DAILY DAMION Administration Senna/Docusate Sodium 2 tab 05/26/25 17:00 05/31/25 08:55 Senna/Docusate Sodium Tablet PO 2 tab BID DAMION Administration Trazodone HCl 150 mg 05/25/25 21:00 05/30/25 21:28 Trazodone Hcl 50 Mg Tablet PO 150 mg HS DAMION Administration Triamcinolone Acetonide 1 applic 05/25/25 09:00 05/31/25 08:57 Triamcinolone Acet 0.1% Cream 15 Gm Tube TOPICAL 06/24/25 08:59 1 applic DAILY DAMION Administration Radiology Results: ITS Impressions Chest X-Ray 05/24/25 16:10 IMPRESSION: No acute cardiopulmonary pathology. Abdomen Ultrasound 05/25/25 09:01 IMPRESSION: 1. Diffuse hepatic steatosis. Labs Labs: Laboratory Results - last 24 hr 05/30/25 05/30/25 05/30/25 14:36 16:40 21:34 WBC 7.3 RBC 3.89 L Hgb 11.5 L Hct 35.3 L MCV 90.7 MCH 29.6 MCHC 32.6 RDW 13.2 Plt Count 222 MPV 8.7 Sodium 139 Potassium 4.0 Chloride 103 Carbon Dioxide 26 Anion Gap 10 BUN 24 H Creatinine 0.99 Estim Creat Clear Calc 84 Estimated GFR 58 L Glucose 135 H POC Capillary Glucose 121 H 116 H Hemoglobin A1c 6.0 H Calcium 9.2 Phosphorus 3.9 Magnesium 2.0 05/31/25 05/31/25 08:19 11:50 WBC RBC Hgb Hct MCV MCH MCHC RDW Plt Count MPV Sodium Potassium Chloride Carbon Dioxide Anion Gap BUN Creatinine Estim Creat Clear Calc Estimated GFR Glucose POC Capillary Glucose 132 H 105 Hemoglobin A1c Calcium Phosphorus Magnesium
--- NOTE | 2025-05-31 14:33 | P.DS_ITS ---
DS: Admitting Diagnosis Discharge Date 05/31/2025 Admitting Diagnosis Closed fracture of left distal tibia DS: Discharge Diagnosis Discharge Diagnosis (1) Closed fracture of left distal tibia: Qualifiers: Encounter type: initial encounter Fracture morphology: other fracture Qualified Code(s): S82.392A - Other fracture of lower end of left tibia, initial encounter for closed fracture Code(s): S82.302A - Unspecified fracture of lower end of left tibia, initial encounter for closed fracture Status: Acute DS: Summary Hospital Course Reason for hospitalization: Fall with left ankle pain Hospital Course: 49 cc old female past medical history of type 2 diabetes and depression/anxiety presented to the ER after a fall with left lower extremity pain. Patient reported she got out of bed in the morning and fell to the ground. She does not remember exactly how it happened but strongly denies passing out. Denies any chest pain, shortness for breath, vomiting no diarrhea no change in appetite no recent changes in medications. Firmly denies any head trauma too. ER evaluation vital signs stable within normal limits, saturating 99% on room air. Labs notable for AST 46 sinus ALT 58. Ankle xray showed spiral fracture of the distal left tibia, Xray tibiofibular showed proximal fractur eof left procimal fibular and left distal tibia. Ortho was consulted prior to admission. . Ortho consulted regarding closed fracture of left distal tibial. Patient was taken for an intramedullary nail fixation the left tibia 05/25. Patient tolerated procedure well and was managed by medical team and Orthopedics for postop care. Patient continued to work with PT/OT over the next several days during her hospitalization. PT/OT recommended continued rehab care in the form of [facility] or SNF. Patient was eventually accepted for SNF on 05/31 and insurance authorization was accepted. Patient is hemodynamically stable with stable blood work and vital signs. Plan for discharge to SNF at this time. Patient amenable to this plan. Status at Discharge Functional status at discharge: uses cane/walker Overall status at discharge: patient is progressing back to baseline Time Spent with Patient Time attestation: Total time spent providing and/or coordinating discharge services: 35 Exam Narrative: General: alert and comfortable Eyes: EOMI, PERRLA ENNT External ears normal, Neck is supple, no masses, Respiratory systems: Clear to auscultation Cardiovascular S1, S2, normal rhythm, no murmur, rub, or gallop; no thrill or palpable murmurs on palpation. Gastrointestinal: soft, non-tender, and non-distended abdomen with no masses; BS present Skin: no rash, lesions, ulcerations, subcutaneous nodules or induration Musculoskeletal: left leg wound dressing clean and dry Neurologic: Alert and oriented x3, non focal Mental Status Exam: normal affect DS: Data Data Completed and Pending Labs on day of discharge: Labs from last 24 hours 05/31/25 05/31/25 05/30/25 11:50 08:19 21:34 WBC RBC Hgb Hct MCV MCH MCHC RDW Plt Count MPV Sodium Potassium Chloride Carbon Dioxide Anion Gap BUN Creatinine Estim Creat Clear Calc Estimated GFR Glucose POC Capillary Glucose 105 132 H 116 H Hemoglobin A1c Calcium Phosphorus Magnesium 05/30/25 05/30/25 16:40 14:36 WBC 7.3 RBC 3.89 L Hgb 11.5 L Hct 35.3 L MCV 90.7 MCH 29.6 MCHC 32.6 RDW 13.2 Plt Count 222 MPV 8.7 Sodium 139 Potassium 4.0 Chloride 103 Carbon Dioxide 26 Anion Gap 10 BUN 24 H Creatinine 0.99 Estim Creat Clear Calc 84 Estimated GFR 58 L Glucose 135 H POC Capillary Glucose 121 H Hemoglobin A1c 6.0 H Calcium 9.2 Phosphorus 3.9 Magnesium 2.0 Discharge Plan Discharge Attending physician on discharge: Zahraa Nicole Consulting providers: Angel Fraser; Paul Decker Discharging Clinician: Paul Decker Anticipated Discharge Date/Time: 05/31/25 14:32 Patient Disposition: SNF Activity: no shower, no driving and follow weight bearing status Diet: as tolerated Wound Care Instructions: follow printed instructions Discharge Instructions: Orthopedic Recommendations Dr. Angel Fraser [phone] * Non-weight bearing left leg. * Keep splint clean, dry and intact. * Elevate leg. Ice over splint. * Pain control. * DVT prophylaxis at discharge x28 days with Lovenox. * Follow up in [address] Fraser for cast change. Patient Language: Yi Stand Alone Forms: General Discharge Information Follow-up/Referrals: Angel Fraser MD [Physician] - 06/08/25 10:30 am () Discharge Medications: New hydrocodone-acetaminophen 5-325 mg Tablet 1 tablet PO Q4-6H PRN (Reason: pain) Qty: 30 0RF enoxaparin 30 mg/0.3 mL Syringe 30 mg subcut DAILY 28 Days Qty: 8.4 0RF Continued pravastatin 40 mg tablet 40 mg PO DAILY Qty: 90 3RF betamethasone dipropionate 0.05 % cream 1 applic topical DAILY Qty: 45 0RF Rx Instructions: Use no more than 2 weeks continuously alprazolam 1 mg tablet 1 mg PO DAILY PRN (Reason: anxiety) Qty: 30 0RF Mounjaro 10 mg/0.5 mL pen injector 10 mg SUBCUT WEEKLY trazodone 150 mg tablet 150 mg PO HS paroxetine HCl 40 mg tablet 40 mg PO DAILY Qty: 90 1RF duloxetine 30 mg capsule,delayed release(DR/EC) 30 mg PO QPM Qty: 90 1RF duloxetine 60 mg capsule,delayed release(DR/EC) 60 mg PO QAM Qty: 90 1RF Date of admission: 05/26/25 15:20 Primary Care Provider: Richard*Braxton Admitting Provider: Azalia Hinson Attending physician on admission: Azalia Hinson Condition: Stable
[2025-05-31 15:25] VITALS: BP 114/82; PULSE 82
[2025-05-31 15:28] VITALS: BP 100/61; PULSE 93
[2025-05-31 15:33] VITALS: BP 95/62; PULSE 109
== END 2025-05-31 16:35 | disposition swing bed (61) | DRG 493 ==
LOC: ANHED 09:55 → ANH2MED 10:51
PROVIDERS: Nurse Practitioner; Orthopaedic Surgery; Admitting Provider Internal Medicine; Emergency Provider Emergency Medicine; PCP Internal Medicine; Visit Provider Physician Assistant
PROC: 0QSH06Z Reposition Left Tibia with Intramedullary Internal Fixation Device, Open Approach (ICD-10-PCS; principal; 2025-05-25 15:00)
DX: S82.392A Other fracture of lower end of left tibia, initial encounter for closed fracture (principal); Z68.42 Body mass index [BMI] 45.0-49.9, adult; S82.442A Displaced spiral fracture of shaft of left fibula, initial encounter for closed fracture; W19.XXXA Unspecified fall, initial encounter; E11.9 Type 2 diabetes mellitus without complications; F41.8 Other specified anxiety disorders; F32.9 Major depressive disorder, single episode, unspecified; K76.0 Fatty (change of) liver, not elsewhere classified; E66.01 Morbid (severe) obesity due to excess calories; R55 Syncope and collapse
CPT/HCPCS: 36415; 71045; 73590; 73600; 76705; 80048; 80053; 80074; 82948; 83036; 83735; 84100; 84443; 85025; 85027; 85610; 85730; 86850; 86900; 86901; 93005; 96361; 96374; 96375; 97110; 97162; 97165; 97530; 97535; 99199; 99285; A9270; C1713; C8929; G0378; J0690; J1171; J1650; J1885; J2003; J2250; J2270; J2405; J2704; J3010; J7030; J7120; Q9957

== ENCOUNTER 2025-05-31 17:28 | Inpatient (IN) | payer OTHER, SELFPAY ==
--- NOTE | ~2025-05-31 | XR_ITS ---
XR ankle LT min 3V Ordering provider: Angel Fraser MD History: . tib/ fib fx /f/u, post surg 05/24 . Comparison: None. FINDINGS: BONES: Fracture in the distal left tibia. Postoperative changes. Small bony fragment is seen near to the fracture site. JOINT SPACES: The ankle mortise is normal. SOFT TISSUES: Normal. Calcaneal spur. Ossification of the insertion of the tendo Achilles. IMPRESSION: Fracture distal left tibia with postoperative changes. Reviewed, dictated and finalized at location A.
--- NOTE | ~2025-05-31 | XR_ITS ---
XR tibia fibula LT 2V Ordering provider: Angel Fraser MD History: . tibia fx f/u . Comparison: None. FINDINGS: BONES: Fracture in the distal left tibia is noted. Postoperative changes seen in the tibia with batsheva a nd screws. JOINT SPACES: Normal. SOFT TISSUES: Normal. Calcaneal spur. IMPRESSION: Fracture in the distal left tibia with postoperative changes. Reviewed, dictated and finalized at location A.
--- OUTSIDE RECORDS SUMMARY | 2025-05-31 17:37 | XMS_ITS | Data Portability ---
Author Organization [place] - [facility] Address [address] [place] [address] Care Team Providers Care Atmospheric Technician Name Role Phone FERNANDO DARIUS Referring Provider [phone] Assessment Encounter Date Assessment Date Assessment LastModified [...] 6 [facility] (Internal Use Only-No Response), [address] [place], [address], 12:33:31 Procedures None recorded. Surgeries None recorded. Imaging XR, cervical spine, 4 or 5 view 2022 023 [email or web address] In-House Results, For Internal Use Only, Do Not Delete/merge, [id number] 3 12:33:31 Medication Orders Mobic 7.5 mg tablet 2022 023 [email or web address] [id number], [address] [place], [address], 3 12:33:31 Patient TargetsNo targets recorded. Patient Instructions Encounter Date Encounter Id Patient Instructions Last Modified By Organization Details Last Modified Time 12/04/2022 [id number] eating healthy foods: care instructions [email or web address] Not available 12/04/2022 12:33:31 neck: exercises [email or web address] Not available 12/04/2022 12:33:31 Reason for Referral Physical Therapist Referral for Cervical radiculopathy Referring Physician: Juan Alberto Day, Orthopedic Surgery, Encounter Date: 12/04/2022 Results Created Date Observation Date Name Description Value Unit Range Abnormal Flag Note LastModifiedBy Organization Detail LastModifiedTime 12/04/19 23 XR, cervi sheela spine , 4 or 5 view No observ ation record ed. [email or web address] In-House Results For Internal Use Only, Do Not Delete/merge, [id number] 12/04/2022 10:06:48 Result Notes None recorded. Problems Name Problem SNOMED Code Status Onset Date Resolution Date Notes Provider Name and Address Organization Details Recorded Time Obesity 759981908 Active 2021 GIOVANNI [facility] 3 09:18:41 Vitamin D deficiency 66987103 Active 2021 GIOVANNI [facility] - [facility] 3 09:18:41 Uncontrolle d type 2 diabetes mellitus 136751560 Active 2021 GIOVANNI [facility] 3 09:18:41 Muscle weakness 77172375 Active 2021 GIOVANNI [facility] - [facility] 3 09:18:41 Severe recurrent major depression without psychotic features 11775464 Active 2021 GIOVANNI [facility] 3 09:18:41 Osteoarthri tis 683334837 Active 2021 Jeanne Noemí null, [place] - [facility] 3 09:18:41 Chronic neck pain 6380000459464 Active 2021 Jeanne Noemí null, [place] [facility] 3 09:18:41 Stasis dermatitis of lower limb due to chronic peripheral venous hypertensio n 818078442 Active 2021 Jeanne [place] null, [place] - [facility] 3 09:18:41 Hyperlipide chaim 91115159 Active 2021 Jeanne Noemí [place], [place] [facility] 3 09:18:41 Primary insomnia 0554485 Active 2021 Jeanne Noemí null, [place] [facility] 3 09:18:41 Pain in left foot 7411612219746 07 Active 2021 Jeanne Noemí [place], [place] [facility] 3 09:18:41 Chronic pain syndrome 936852094 Active 2021 Jeanne [place] [facility] 3 09:18:41 Generalized anxiety disorder 05686893 Active 2021 Jeanne Noemí [place], [place] [facility] 3 09:18:42 Steatotic liver disease 399960696 Active 2021 Jeanne [place] [facility] 3 09:18:42 Peripheral neuropathic pain 503140840 Active 2021 Jeanne Noemí [place], [place] [facility] 3 09:18:42 Spasm of back muscles 075443749 Active 2021 Jeanne Noemí null, [place] [facility] 3 09:18:42 Problem Notes None recorded. Procedures Surgical History Date Name Laterality Status Provider Name and Address Organization Details Recorded Time 3 INJ IM Injection RIGHT completed Ghazal Lopez [facility] 12/04/2022 10:14:42 D & c after delivery completed Jeanne Dowd [facility] 12/04/2022 09:23:05 Hernia Repair completed Jeanne Dowd [facility] 12/04/2022 09:23:24 Imaging Results None recorded. Procedure Notes None recorded. Medical Equipment None Reported. Allergies Allergen ID Allergen Name Allergen Category Reaction Reaction Severity Criticality Documentation Date Start Date Code Code System Note Provider Name and Address Organization Details Recorded Time 435309 lidocaine medicatio n other Not available Not available 12/04/2022 6387 RxNorm Jeanne mccarty [facility] 3 09:18:32 [id number] Substance with sulfonami de structure and antibacte rial mechanism of action (substanc e) medicatio n hives Not available Not available 12/04/2022 55248 8003 SNOMED Jeanne mccarty [facility] 3 09:18:32 Medications [...] Updated DateTime 12/04/2022 152.4 cm 50.8 kg/m2 662518.02 g Jeanne [facility] Response Other N High Blood Pressure N Sleep apnea: CPAP or BIPAP N Bleeding Disorders N Parkinson's Disease N Stents (other than cardiac) N Thyroid problems N Metal Implants N Depression Y Lung problems Y Anemia N Liver problems N Prostate Problems N Kidney problems N Heart Stent N Ulcers N Headaches/Migraines N Implanted device N Peripheral Neuropathy N Anxiety Disorder Y Obesity Y Chronic infection N Arthritis N No Diseases or Conditions N Diabetes Type I or II N Blood Clot / DVT N HIV / AIDS N Seizures N Stroke/TIA N Reflux / GERD N High Cholesterol N Memory Loss N Dialysis N Blood clot in lung N Osteoporosis N Gynecological HistoryNo gynecological history [...] SNOMED-CT Code Diagnosis ICD10 Code Diagnosis Note [id number] Ronny Escalona MD [facility] [address] [place] [id number] 12/04/2022 08:35:57 12/04/2022 10:17:12 Cervical radiculopathy 90095484 M54.12 right Degenerati on of cervical intervertebral disc 46112594 M50.30 Myofascial pain syndrome of neck 280277796 M54.2 Health Concerns Section Related Observation LastModified by Organization Detai ls LastModified Time None Recorded Concern Status LastModified by Organization Details LastModified Time None Recorded Advance Directives Directive N: Payers Insurance Date Sequence Insurance Name Policy Number Policy Rae Covered Member ID Rae Member ID Guarantor Name 01/05/2023 1 [id number] [id number] Georgiana De La Rosa [id number] Georgiana De La Rosa Notes Date Note Type Note Provider Name and Address Organization Details Recorded Time 12/04/2022 text/html 52-year-old dianna rice seen in office today for evaluation of [...] with some relief. Juan Alberto Day NP [address] [place], [address] 12/04/2022 12:49:37 OBGyn Episode No OBEpisode recorded.
--- OUTSIDE RECORDS SUMMARY | 2025-05-31 17:38 | XMS_ITS | Data Portability ---
Author Organization [facility]os [facility] Address [address] [place] [address] Care Team Providers Care Family Advocate Name Role Phone PAIGE STEVENSON Primary Care Provider LENSCRAFTERS Plating Stripper ERIBERTO PENG Electrophysiology Technologist Assessment Encounter Date Assessment Date Assessment LastModified by Organization Details LastModified Time 09/16/2024 09/16/2024 plan is to obtain old records obtain blood work we will have her see Podiatry for her foot we will get her in to see tube handler for well-woman she will see me in 4 months no changes in medications at this junction [email or web address] Not available 10/05/2024 22:19:57 03/21/2025 03/21/2025 CBC CMP lipid T3-T4 TSH mammogram A1c was 6.9 in January before she had her foot surgery see the labs from [facility] return to clinic 4 months' continue current therapy referrals made for Psychiatry [email or web address] Not available 04/03/2025 17:25:09 Plan of Treatment Reminders Order Date Submit Date Provider Last Modified By Organization Details Last Modified Time Details Appointments ANY 15 2024 01:00P Yuri Stevenson MD Not available Not available Not available Lab TSH + free T4, serum [address] [place] [address] [address], [place], [address], 05/23/2025 12:46:52 T3, free, serum or plasma [address] [place] [address] [address], [place], [address], 05/23/2025 12:46:52 lipid panel, serum 2024 025 [facility], [address] [place] [address], [address], 05/17/2025 10:37:38 CBC w/ auto diff 2024 025 [facility], [address] [place] [address], [address], 05/17/2025 06:50:17 CMP, serum or plasma 2024 025 [facility], [address] [place] [address], [address], 05/23/2025 12:46:52 HbA1c (hemoglob in A1c), blood 2023 024 [facility], [address] [place] [address], [address], 12/31/2024 09:18:11 albumin/c reatinine , mass ratio, urine 2023 024 [facility], [address] [place] [address], [address], 10/06/2024 15:28:33 CBC w/ auto diff 2023 024 [facility], [address] [place] [address], [address], 10/06/2024 15:28:52 lipid panel, serum 2023 024 [facility], [address] [place] [address], [address], 10/06/2024 15:29:05 CMP, serum or plasma 2023 024 [facility], [address] [place] [address], [address], 10/06/2024 15:27:12 Referral gynecolog ist referral 2024 025 shreya Perez MD, [address] [facility] [address], [place], [address], 05/12/2025 12:40:59 psychiatr ist referral 2024 025 [email or web address] Yogesh Gomez MD, [address], [address], [place], [address], 05/25/2025 08:29:11 gynecolog ist referral 2023 024 shreya Perez MD, [address], [address], [place], [address], 03/30/2025 15:34:18 podiatris t referral 2023 024 [email or web address] Eriberto Peng DPM, [address], [address], [place], [address], 10/29/2024 15:29:27 Procedures None recorded. Surgeries None recorded. Imaging MAMMO, screening , digital, bilateral [address] (Imaging), [address], [place], [address], 03/21/2025 17:51:29 MAMMO, screening , digital, bilateral 2023 024 [facility] (Imaging), [address], [place], [address], 03/30/2025 15:37:42 Medication Orders None recorded. Patient TargetsNo targets recorded. Patient Instructions Encounter Date Encounter Id Patient Instructions Last Modified By Organization Details Last Modified Time 03/21/2025 [id number] A healthy lifestyle: care instructions [place] [id number] Not available 03/21/2025 17:51:29 Reason for Referral Electrophysiology Technologist Referral for Pain in left foot Referring Physician: Paige Stevenson, Internal Medicine, Encounter Date: 09/16/2024 Refrigeration Technician Referral for Gy necologic examination Referring Physician: Paige Stevenson Internal Medicine, Encounter Date: 09/16/2024 Psychiatrist Referral for An xiety Referring Physician: Paige Stevenson, Internal Medicine, Encounter Date: 03/21/2025 Refrigeration Technician Referral for Gy necologic examination Referring Physician: Paige Stevenson, Internal Medicine, Encounter Date: 03/21/2025 Results Created Date Observation Date Name Description Value Unit Range Abnormal Flag Note LastModifiedBy Organization Detail LastModifiedTime 12/15/19 25 12/15/2024 MRI, ankle , w/o contr ast No observ ation record ed. [address], [place], [address], 12/16/2024 09:46:12 12/15/19 25 12/15/2024 MRI, ankle , w/o contr ast No observ ation record ed. [address], [place], [address], 12/16/2024 09:44:57 12/15/19 25 12/15/2024 MRI, ankle , w/o contr ast No observ ation record ed. [address], [place], [address], 12/16/2024 09:44:36 05/24/20 25 05/24/2025 XR, tibia + fibul a No observ ation record ed. [address], [address], 05/24/2025 20:06:15 05/24/20 25 05/24/2025 XR, ankle No observ ation record ed. [address], [place], [address], 05/24/2025 20:06:15 05/24/20 25 05/24/2025 XR, chest No observ ation record ed. [address], [place], [address], 05/25/2025 13:54:59 05/25/2005/25/2025 US, abdom en No observ ation record ed. [address], [place], [address], 05/27/2025 12:48:58 05/25/2005/25/2025 stres s echoc ardio gram with doppl er color flow (PROC ) No observ ation record ed. [address], [place], [address], 05/26/2025 17:00:26 05/25/20 25 05/25/2025 fluor oscop y (PROC ) No observ ation record ed. [address], [place], [address], 05/27/2025 12:54:36 Result Notes None recorded. Problems Name Problem SNOMED Code Status Onset Date Resolution Date Notes Provider Name and Address Organization Details Recorded Time Insomnia 758350805 Active 2023 WOODY Miller, [place] - [facility] 4 14:38:53 Hyperlipidemia 29877494 Active 2023 Killian Verdin [place] null, [place] - [facility] 4 14:38:54 Type 2 diabetes mellitus 23849569 Active 2023 Killian Verdin [place], [place] [facility] 4 14:38:55 Anxiety 37732139 Active 2023 Killian Verdin [place] null, [place] [...] t Available aripiprazol e 10 mg tablet Take 1 tablet twice a day by oral route. 2024 active Not Available Not Available Not Avai lable duloxetine 30 mg capsule,del ayed release TAKE 1 CAPSULE BY MOUTH EVERY DAY active Not Available Not Available No t Available duloxetine 60 mg capsule,del ayed release TAKE 1 CAPSULE BY MOUTH EVERY MORNING active Not Available Not Available No t Available Wegovy 0.25 mg/0.5 mL subcutaneou s pen injector Inject 0.25 mg every week by subcutane ous route as directed. 03/18 completed Not Available Not Available Not Available Wegovy 0.5 mg/0.5 mL subcutaneou s pen injector Inject 0.5 mg every week by subcutane ous route [...] 10 mg/0.5 mL subcutaneou s pen injector ADMINISTE R 10 MG UNDER THE SKIN EVERY WEEK DIRECTED active Not Available Not Available No t Available Mounjaro 12.5 mg/0.5 mL subcutaneou s pen injector inject 12.5mg weekly 03/18 completed Not Available Not Available Not Available Mounjaro 2.5 mg/0.5 mL subcutaneou s pen injector inject 2.5mg weekly for 4wks then go to 5mg weekly 03/18 completed Not Available Not Available Not Available Vitals Date Recorded Body height Body mass index (BMI) Body weight Heart rate Oxygen saturation Oxygen saturation in Arterial blood by Pulse oximetry Systolic blood pressure Diastolic blood pressure Provider Name and Address Organization Details Last Updated DateTime 5 175.26 cm 44.3 kg/m2 763391. 71 g 104 /min 96 % 96 % 118 mm[Hg] 68 mm[Hg] Anneliese Conley MA [facility] 5 15:33:38 Date Recorded Body height Body mass index (BMI) Body weight Heart rate Oxygen saturation Oxygen saturation in Arterial blood by Pulse oximetry Systolic blood pressure Diastolic blood pressure Provider Name and Address Organization Details Last Updated DateTime 4 175.26 cm 44.8 kg/m2 515772. 93 g 88 /min 97 % 97 % 110 mm[Hg] 78 mm[Hg] Coni Castro MA [facility] 4 10:01:29 Social History Question Answer Notes LastModified by Organizat ion Details LastModified Time Tobacco Smoking Status Never Smoker Coni Castro MA [facility] 09/16/2024 10:04:09 Are You Blind Or Do [...] SNOMED-CT Code Diagnosis ICD10 Code Diagnosis Note [id number] Paige Stevenson MD [facility] [employer] [place] [address] [place] [address] 09/16/2024 09:41:58 09/16/2024 10:50:21 Insomnia 869831894 G47.00 Hyperlipidemia 22195275 E78.5 Type 2 ophelia betes mellitus 53507176 E11.9 Gynecologi c examination 30047302 Z01.419 Pain in left foot 904416 2989 75746 M79.672 Screening mammography 24 149308 Z12.31 [id number] Paige Stevenson MD [facility] [employer] [address] [place] [address] 03/21/2025 14:59:48 03/21/2025 16:09:56 Body mass index 40+ - severely obese 778744131 Z68.41 Morbid obesity 554890042 E66.01 Type 2 ophelia betes mellitus 35241486 E11.9 Hyperlipidemia 46602503 E78.5 Anxiety 83628787 F41.9 Screening mammography 24 016700 Z12.31 Gynecologi c examination 10733244 Z01.419 Insomnia 783328638 G47.0 0 Health Concerns Section Related Observation LastModified by Organization Detai ls LastModified Time None Recorded Concern Status LastModified by Organization Details LastModified Time None Recorded Advance Directives Directive None Recorded Payers Insurance Date Sequence Insurance Name Policy Number Policy Rae Covered Member ID Rae Member ID Guarantor Name 04/04/2025 1 [facility] [id number] Charanjit Pittsvey [id number] Georgiana De La Rosa Notes Date Note Type Note Provider Name and Address Organization Details Recorded Time 09/16/2024 text/html 54-year-old with sleep apnea on CPAP history of insomnia depression hyperlipidemia diabetes comes in establishing care medications paroxetine pravastatin trazodone alprazolam Abilify. Ozempic Allergies sulfa rash lidocaine possibly convulsions surgeries umbilical hernia hernia and she had knee surgery Paige Stevenson MD Attn: [address] [facility], [place], [address], [facility] 10/05/2024 22:21:39 03/21/2025 text/html Do better with h er diet exercise anxiety and depression needs to see psychiatry no SI or HI also needs aging department supervisor referral Paige Stevenson MD Attn: [employer] [facility], [place], [address], [facility] 04/03/2025 17:25:49 OBGyn Episode No OBEpisode recorded.
--- OUTSIDE RECORDS SUMMARY | 2025-05-31 17:38 | XMS_ITS | Data Portability ---
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 Lab HbA1c (hemoglobin A1c), blood 2022 0505 023 [email or web address] [facility], [address], [place], [address], 4 09:46:10 HbA1c (hemoglobin A1c), blood 2022 023 [facility], [address] [place], [address], 4 13:17:35 Referral None recorded. Procedures None recorded. Surgeries None recorded. Imaging XR, knee 2022 023 [email or web address] [id number] In-Office Order, Internal Use Only DO Not Attach Compendium DO Not Attach Compendium, Do Not Delete/merge, [id number] 3 14:01:40 Medication Orders paroxetine 40 mg tablet 2022 023 [facility], [address] [place], [address], 3 10:26:02 Cymbalta 30 mg capsule,del ayed release 2022 023 [facility] [address] [place], [address], 3 16:10:32 duloxetine 60 mg capsule,del ayed release 2022 023 [facility] [address] [place], [address], 3 16:10:31 phentermine 37.5 mg tablet 2022 023 [facility] [address] [place], [address], 3 16:10:34 Ozempic 2 mg/dose (8 mg/3 mL) subcutaneou s pen injector 2022 023 [facility] [address] [place], [address], 3 16:10:31 celecoxib 200 mg capsule 2022 023 [facility], [address] [place], [address], 3 14:00:49 tramadol 50 mg tablet 2022 023 [facility] [address] [place], [address], 3 14:00:53 Ozempic 2 mg/dose (8 mg/3 mL) subcutaneou s pen injector 2022 023 [facility] [address] [place], [address], 3 14:00:49 tramadol 50 mg tablet 2022 023 [facility] [address] [place], [address], 3 11:33:21 baclofen 10 mg tablet 2022 023 [facility], [address] [place], [address], 3 11:33:20 Ozempic 0.25 mg or 0.5 mg (2 mg/1.5 mL) subcutaneou s pen injector 2022 023 [email or web address] [facility], [address] [place], [address], 3 13:18:23 Mounjaro 7.5 mg/0.5 mL subcutaneou s pen injector 2021 022 [facility], [address] [place] [address], [id number], 11:24:00 Patient TargetsNo targets recorded. Patient Instructions Encounter Date Encounter Id Patient Instructions Last Modified By Organization Details Last Modified Time 11/01/2022 [id number] arthritis: care instructions Not available 11/01/2022 19:19:03 [...] care instructions Not available 11/01/2022 19:19:02 02/14/2023 [id number] arthritis: care instructions Not available 02/14/2023 11:33:16 [...] care instructions Not available 02/14/2023 11:33:15 04/04/2023 [id number] arthritis: care instructions Not available 04/04/2023 14:00:45 [...] care instructions Not available 04/04/2023 14:00:46 07/02/2023 [id number] arthritis: care instructions Not available 07/02/2023 16:10:28 [...] care instructions Not available 07/02/2023 16:10:28 08/05/2023 [id number] When You Want to Lose Weight: Care [...] Abnormal Flag Note LastModifiedBy Organization Detail LastModifiedTime 02/12/2002/11/2023 COMPL ETE BLOOD COUNT W/AUT O DIFFE RENTI AL WBC 5.6 x10(3 )/mcL 3.4-11 .6 Not Available [facility] [address] [place], [address], 02/11/2023 11:33:35 02/12/20 23 02/11/2023 COMPL ETE BLOOD COUNT W/AUT O DIFFE RENTI AL WBC cnt 5.6 x10(3 )/mcL 3.4-11 .6 Not Available [facility] [address] [place], [address], 02/11/2023 11:33:35 02/12/20 23 02/11/2023 COMPL ETE BLOOD COUNT W/AUT O DIFFE RENTI AL RBC 4.47 x10(6 )/mcL 3.91-5 .03 Not Available [facility] [address] [place], [address], 02/11/2023 11:33:35 02/12/20 23 02/11/2023 COMPL ETE BLOOD COUNT W/AUT O DIFFE RENTI AL HGB 13.3 gm/dL 11.5-1 5.5 Not Available [facility] [address] [place], [address], 02/11/2023 11:33:35 02/12/20 23 02/11/2023 COMPL ETE BLOOD COUNT W/AUT O DIFFE RENTI AL HCT 39.2 % 34.5-4 5.4 Not Available [facility] [address] [place], [address], 02/11/2023 11:33:35 02/12/20 23 02/11/2023 COMPL ETE BLOOD COUNT W/AUT O DIFFE RENTI AL MCH 29.9 pg 27.0-3 4.0 Not Available [facility] [address] [place], [address], 02/11/2023 11:33:35 02/12/20 23 02/11/2023 COMPL ETE BLOOD COUNT W/AUT O DIFFE TRIPP AL MCHC 34.0 g/dL 32.5-3 5.6 Not Available [facility] [address] [place], [address], 02/11/2023 11:33:35 02/12/20 23 02/11/2023 COMPL ETE BLOOD COUNT W/AUT O DIFFE TRIPP AL MCV 87.8 fL 82.0-1 00.0 Not Available [facility] [address] [place], [address], 02/11/2023 11:33:35 02/12/20 23 02/11/2023 COMPL ETE BLOOD COUNT W/AUT O DIFFE TRIPP AL plt cnt 205 x10(3 )/mcL 142-41 5 Not Available [facility] [address] [place], [address], 02/11/2023 11:33:35 02/12/20 23 02/11/2023 COMPL ETE BLOOD COUNT W/AUT O DIFFE TRIPP AL MPV 6.8 fL 6.7-10 .7 Not Available [facility] [address] [place], [address], 02/11/2023 11:33:35 02/12/20 23 02/11/2023 COMPL ETE BLOOD COUNT W/AUT O DIFFE TRIPP AL RDW 13.7 % 11.0-1 6.0 Not Available [facility] [address] [place], [address], 02/11/2023 11:33:35 02/12/20 23 02/11/2023 .AUTO DIFF neutrophils% auto 66.4 % 44.0-7 6.0 Not Available [facility] [address] [place], [address], 02/11/2023 11:33:37 02/12/20 23 02/11/2023 .AUTO DIFF lymphocytes% auto 21.7 % 14.0-4 4.0 Not Available [facility] [address] [place], [address], 02/11/2023 11:33:37 02/12/20 23 02/11/2023 .AUTO DIFF monocytes% auto 7.7 % 0.0-12 .0 Not Available [facility] [address] [place], [address], 02/11/2023 11:33:37 02/12/20 23 02/11/2023 .AUTO DIFF eosinophils% auto 3.4 % 0.0-6. 0 Not Available [facility] [address] [place], [address], 02/11/2023 11:33:37 02/12/20 23 02/11/2023 .AUTO DIFF basophils% auto 0.8 % 0.0-2. 0 Not Available [facility] [address] [place], [address], 02/11/2023 11:33:37 02/12/20 23 02/11/2023 .AUTO DIFF neutrophils# auto 3.7 thou/ mcL 2.2-4. 8 Not Available [facility] [address] [place], [address], 02/11/2023 11:33:37 02/12/20 23 02/11/2023 .AUTO DIFF lymphocytes# auto 1.2 thou/ mcL 1.3-2. 9 low Not Available [facility] [address] [place], [address], 02/11/2023 11:33:37 02/12/20 23 02/11/2023 .AUTO DIFF monocytes# auto 0.4 thou/ mcL 0.3-0. 8 Not Available [facility] [address] [place], [address], 02/11/2023 11:33:37 02/12/20 23 02/11/2023 .AUTO DIFF eos# auto 0.2 thou/ mcL 0.1-0. 2 Not Available [facility] [address] [place], [address], 02/11/2023 11:33:37 02/12/20 23 02/11/2023 .AUTO DIFF basophils# auto 0.0 thou/ mcL 0.0-0. 1 Not Available [facility] [address] [place], [address], 02/11/2023 11:33:37 02/12/20 23 02/11/2023 COMPR EHENS SALVADOR METAB OLIC PROFI LE sodium 140 mmol/ L 136-14 5 Not Available [facility] [address] [place], [address], 02/11/2023 12:01:13 02/12/20 23 02/11/2023 COMPR EHENS SALVADOR METAB OLIC PROFI LE potassium 4.3 mmol/ L 3.5-5. 1 Not Available [facility] [address] [place], [address], 02/11/2023 12:01:13 02/12/20 23 02/11/2023 COMPR EHENS SALVADOR METAB OLIC PROFI LE chloride 105 mmol/ L 101-11 1 Not Available [facility] [address] [place], [address], 02/11/2023 12:01:13 02/12/20 23 02/11/2023 COMPR EHENS SALVADOR METAB OLIC PROFI LE carbon dioxide 27 mmol/ L 22-32 Not Available [facility] [address] [place], [address], 02/11/2023 12:01:13 02/12/20 23 02/11/2023 COMPR EHENS SALVADOR METAB OLIC PROFI LE BUN 31 mg/dL 8-26 high Not Available [facility] [address] [place], [address], 02/11/2023 12:01:13 02/12/20 23 02/11/2023 COMPR EHENS SALVADOR METAB OLIC PROFI LE creatinine 0.97 mg/dL 0.60-1 .20 Not Available [facility] [address] [place], [address], 02/11/2023 12:01:13 02/12/2002/11/2023 COMPR EHENS SALVADOR METAB [...] re <15 (or dialy sis) Not Available [facility] [address] [place] [facility] [place], [address], 02/11/2023 12:01:13 03/14/20 23 02/11/2023 COMPR EHENS SALVADOR METAB OLIC [...] re <15 (or dialy sis) Not Available [facility] [address] [place], [address], 02/11/2023 12:01:13 02/12/20 23 02/11/2023 COMPR EHENS [...] [facility]. Not Available [facility] [address] [place] [facility] [place], [address], 02/11/2023 12:01:13 02/12/20 23 02/11/2023 COMPR EHENS SALVADOR METAB OLIC PROFI LE calcium 9.9 mg/dL 8.6-10 .2 Not Available [facility] [address] [place], [address], 02/11/2023 12:01:13 02/12/20 23 02/11/2023 COMPR EHENS SALVADOR METAB OLIC PROFI LE prot total 7.2 gm/dL 6.4-8. 3 Not Available [facility] [address] [place], [address], 02/11/2023 12:01:13 02/12/20 23 02/11/2023 COMPR EHENS SALVADOR METAB OLIC PROFI LE albumin 4.4 g/dL 3.5-5. 2 Not Available [facility] [address] [place], [address], 02/11/2023 12:01:13 02/12/20 23 02/11/2023 COMPR EHENS SALAVDOR METAB OLIC PROFI LE bili total 0.4 mg/dL 0.2-1. 2 Not Available [facility] [address] [place], [address], 02/11/2023 12:01:13 02/12/20 23 02/11/2023 COMPR EHENS SALVADOR METAB OLIC PROFI LE AST 25 intlu nit/L 15-41 Not Available [facility] [address] [place], [address], 02/11/2023 12:01:13 02/12/20 23 02/11/2023 COMPR EHENS SALVADOR METAB OLIC PROFI LE ALT 32 intlu nit/L 8-63 Not Available [facility] [address] [place], [address], 02/11/2023 12:01:13 02/12/20 23 02/11/2023 COMPR EHENS SALVADOR METAB OLIC PROFI LE alkaline phosphatase 69 intlu nit/L 34-104 Not Available [facility] [address] [place], [address], 02/11/2023 12:01:13 02/12/20 23 02/11/2023 COMPR EHENS SALVADOR METAB OLIC PROFI LE globulin 2.8 gm/dL 1.9-3. 7 Not Available [facility] [address] [place], [address], 02/11/2023 12:01:13 02/12/20 23 02/11/2023 COMPR EHENS SALVADOR METAB OLIC PROFI LE albumin/glob ulin ratio 1.6 0.8-2. 0 Not Available [facility] [address] [place], [address], 02/11/2023 12:01:13 02/12/20 23 02/11/2023 COMPR EHENS SALVADOR METAB OLIC PROFI LE Ca corrected 9.6 mg/dL 8.5-10 .5 Not Available [facility] [address] [place], [address], 02/11/2023 12:01:13 02/12/20 23 02/11/2023 COMPR EHENS SALVADOR METAB OLIC PROFI LE BUN/crea ratio 32.0 6.0-22 .0 high Not Available [facility] [address] [place], [address], 02/11/2023 12:01:13 02/12/20 23 02/11/2023 COMPR EHENS SALVADOR METAB OLIC PROFI LE anion gap 12 10-20 Not Available [facility] [address] [place], [address], 02/11/2023 12:01:13 02/12/20 23 02/11/2023 THYRO ID STIMU LATIN G HORMO NE TSH 2.52 mciu/ mL 0.34-5 .60 Not Available [facility] [address] [place], [address], 02/11/2023 12:05:50 02/12/2002/11/2023 FREE THYRO XINE T4 free 0.66 NG/dL 0.54-1 .24 Not Available [facility] [address] [place], [address], 02/11/2023 12:10:29 02/12/20 23 02/11/2023 FOLAT E LEVEL folate lvl 9.4 NG/mL 5.9-24 .8 Not Available [facility] [address] [place], [address], 02/11/2023 12:15:03 02/12/20 23 02/11/2023 VITAM IN B12 LEVEL vitamin B12 lvl 1473 pg/mL 180-91 4 high Not Available [facility] [address] [place], [address], 02/11/2023 12:15:04 02/12/2002/14/2023 VITAM IN D 25 [...] any santa rn. João almanza MF, Cherie ey NC, Abbie off-f errar i REYES, et al. Evalu [...] l purpo ses only. ) Not Available [facility] [address], [place], [address], 02/14/2023 15:34:34 02/12/20 23 02/14/2023 VITAM IN D 25 OH D2+D3 QASSU REDI? ? LC-MS /MS vitamin D, 25-oh, D2 cq <4 NG/mL This test was devel oped and its valerie tical perfo rmanc e abelino cteri stics have been deter mined by [facility]ashid [facility] [place] [place]. It has not been clear ed or appro eliane by the U.S. Food and Drug Admin istra tion. This assay has been valid ated pursu ant to the CLIA regul ation s and is used for clini sheela purpo ses. Test Perfo rmed at: [facility] [address] [facility] [place], [place] Rio Mayer M.D., Ph.D. ,Dire ctor of Labor atori es Lab test perfo rmed by: Lab Mnemo raquel: [id number] [facility] [address] [place], [place] Rio Mayer M.D., Ph.D. ,Dire ctor of Labor atori es Not Available [facility] [address] [place], [address], 02/14/2023 15:34:34 02/12/20 23 02/14/2023 VITAM IN D 25 OH D2+D3 QASSU REDI? ? LC-MS /MS vitamin D, 25-oh, D3 cq 44 NG/mL This test was kady stone and its valerie tical perfo rmanc e abelino cteri stics have been deter mined by [facility] [place], [place]. It has not been clear ed or appro eliane by the U.S. Food and Drug Admin istra tion. This assay has been valid ated pursu ant to the CLIA regul ation s and is used for clini sheela purpo ses. Not Available [facility] [address] [place], [address], 02/14/2023 15:34:34 04/04/20 23 XR, knee No observ ation record ed. In-Office Order Internal Use Only DO Not Attach Compendium DO Not Attach Compendium, Do Not Delete/merge, [id number] 07/02/2023 16:01:24 04/04/20 23 04/04/2023 XR, knee, 4 or more view [facility] [place] Mckeon MRN:[id number] t: : [birth year] 68 Sex Female : Locati o TNS CL3 n: Orderi ng Physic alexandro: BELEN WHITMOREo stic Radiol ogy ACCESS ION EXAM DATE/T [...] Signed by: NISHANT BENITEZ MD Signed (Elect ronic Signat ure): 2022 02:26 pm EDT Transc ribed by: [place] Transc ribed DT/TM: 2022 02:26 pm EDT [address] [place], [address], 07/02/2023 16:01:23 Result Notes Documentation Provider Name and Address Organization Details Recorded Time Xr, Knee, 4 Or More View : [facility] [place] Mckeon t: : 1970 Sex Female : Locatio TNS CL3 n: Ordering Physician: BELEN WHITMORE Diagnostic Radiology ACCESSION EXAM DATE/TIME [phone] 04/04/2023 14:08 EDT Reason For Exam pain [...] pm EDT ANISA Wang [address] [place], [address], [facility] 07/02/2023 16:01:23 Problems Name Problem SNOMED Code Status Onset Date Resolution Date Notes Provider Name and Address Organization Details Recorded Time Severe recurrent major depression without psychotic features 31450315 Active 2021 Not Available [facility] 3 02:40:02 Spasm of back muscles 161690839 Active 2021 Not Available [facility] 3 02:40:02 Steatotic liver disease 786843889 Active 2021 Not Available [facility] 3 02:40:02 Uncontroll ed type 2 diabetes mellitus 549094129 Active 2021 Not Available [facility] 3 02:40:02 Obesity 337114894 Active 2021 Not Available [facility] 3 02:40:02 Hyperlipid emia 69218325 Active 2021 Not Available [facility] 3 02:40:02 Vitamin D deficiency 90454131 Active 2021 Not Available [facility] 3 02:40:02 Generalize d anxiety disorder 59278884 Active 2021 Not Available [facility] 3 02:40:02 Peripheral neuropathi c pain 503317982 Active 2021 Not Available [facility] 3 02:40:02 Muscle weakness 77431091 Active 2021 Not Available [facility] 3 02:40:02 Primary insomnia 1217242 Active 2021 Not Available [facility] 3 02:40:02 Stasis dermatitis of lower limb due to chronic peripheral venous hypertensi on 746051376 Active 2021 Not Available [facility] 3 02:40:02 Chronic pain syndrome 100553007 Active 2021 Not Available [facility] 3 02:40:02 Osteoarthr itis 637779093 Active 2021 Not Available [facility] 3 02:40:02 Pain in left foot 6904148633791 07 Active 2021 Not Available [facility] 3 02:40:02 Chronic neck pain 7085777829908 Active 2021 Not Available [facility] 3 02:40:02 Morbid obesity 840043168 Active 2021 Not Available [facility] 3 02:40:02 Notes:Some problems listed i n Documents: #[id number], #[id number], #[id number], #[id number] could not be added to this patient's chart. Please review these documents and add these problems to the patient's chart manually as needed. Problem Notes None recorded. Procedures Surgical History Date Name Laterality Status Provider Name and Address Organization Details Recorded Time 09/08/20 Diabetic retina imaging exam cancelled SHANNON Robertson [facility] 08/08/2023 12:47:14 08/05/20 Telehealth Communication completed Kaelyn Lima CMA [facility] 08/05/2023 09:39:35 07/02/20 Telehealth Communication completed Kaelyn Lima CMA [facility] 07/02/2023 15:23:10 05/10/20 Date of Last Mammogram completed Stella Swanson CMA [facility] 09/06/2022 16:24:06 repair of umbilical hernia completed Stella Swanson CMA [facility] 09/06/2022 16:26:31 Imaging Results None recorded. Procedure Notes None recorded. Medical Equipment None Reported. Allergies Allergen ID Allergen Name Allergen Category Reaction Reaction Severity Criticality Documentation Date Start Date Code Code System Note Provider Name and Address Organization Details Recorded Time 761841 Substance with sulfonami de structure and antibacte rial mechanism of action (substanc e) medicatio n hives Not available Not available 09/06/2022 51150 8003 SNOMED Stella Swanson CMA [facility] 2 16:19:25 162384 lidocaine medicatio n other Not available Not available 09/06/2022 6387 RxNorm tremo rs Stellamechelle Swanson CMA [facility] 2 16:19:51 Medications Name Sig Start Date [...] Available Not Available Not Avai corey Mounjaro 7.5 mg/0.5 mL subcutaneou s pen [...] in Arterial blood by Pulse oximetry Systolic And Diastolic Provider Name and Address Organization Details Last Updated DateTime 3 175.26 cm 43.7 kg/m2 883615. 34 g 16 /min 92 /min 96 % 96 % 122/64 mm[Hg] Katie Alcala MA [facility] 3 10:53:17 Date Recorded Body height Respiratory rate Body mass index (BMI) Body weight Oxygen saturation Oxygen saturation in Arterial blood by Pulse oximetry Heart rate Systolic And Diastolic Provider Name and Address Organization Details Last Updated DateTime 3 175.26 cm 16 /min 44.3 kg/m2 530360. 71 g 95 % 95 % 105 /min 120/78 mm[Hg] Katie Alcala MA [facility] 13:23:47 Date Recorded Body mass index (BMI) Body weight Provider Name and Address Organization Details Last Updated DateTime 07/02/2023 44.3 kg/m2 965951.71 g ANISA Wang [address] [facility] [place], [address], [facility] 07/02/2023 16:04:10 Date Recorded Body height Provider Name an d Address Organization Details Last Updated DateTime 07/02/2023 175.26 cm Kaelyn Lima CMA [facility] 07/02/2023 15:23:33 Date Recorded Body height Body mass index (BMI) Body weight Provider Name and Address Organization Details Last Updated DateTime 08/05/2023 175.26 cm 42.8 kg/m2 894657.79 g Kaelyn Lima CMA [facility] 08/05/2023 09:40:09 Date Recorded Body height Body mass index (BMI) Body weight Body temperature Respiratory rate Heart rate Oxygen saturation Oxygen saturation in Arterial blood by Pulse oximetry Systolic And Diastolic Provider Name and Address Organization Details Last Updated DateTime 175.26 cm 40.2 kg/m2 882570. 12 g 98 [degF] 16 /min 81 /min 98 % 98 % 128/70 mm[Hg] Malorie Carmona CMA [facility] 2 11:12:16 Social History Question Answer Notes LastModified by Organizat ion Details LastModified Time Tobacco Smoking Status Never Smoker Stella Swanson CMA null, [facility] 09/06/2022 16:25:40 What Is Your Level Of Caffeine Consumption? Occasional [email or web address] Information not available 09/06/2022 Which Illicit Or Recreational Drugs Have You Used? Delta 8 [email or web address] Information not available 09/06/2022 What Was The Date Of Your Most Recent Tobacco Screening? 08/05/2023 [email or web address] Information not available 08/05/2023 Has Tobacco Cessation Counseling Been Provided? Yes Information not available 09/06/2022 On What Date Was Tobacco Cessation Counseling Provided? 09/27/2022 [email or web address] Information not available 09/27/2022 Sex: Unknown Functional Status Question Answer Note LastModified by Organizat ion Details LastModified Time Do you use any illicit or recreational drugs? Yes [email or web address] Information not available 09/06/2022 Do you or have you ever used any other forms of tobacco or nicotine? No [email or web address] Information not available 09/06/2022 What is your level of alcohol consumption? Occasional [email or web address] Information not available 09/06/2022 What is your occupation? RETIRED FORMERLY [employer]-[id number] Information not available 04/04/2023 Mental Status None [...] 50 mcg/0.25mL dose 02/16/2021 completed Not Available [facility] 3 02:40:02 COVID-19, mRNA, LNP-S, PF, 100 mcg/0.5mL dose or 50 mcg/0.25mL dose 03/14/2021 completed Not Available [facility] 3 02:40:02 Past Encounters Encounter ID Performer Location Encounter Start Date Encounter Closed Date Diagnosis/Indication Diagnosis SNOMED-CT Code Diagnosis ICD10 Code Diagnosis Note [id number] Chel Bell MD [facility] [address] [place] [address] 09/06/2022 15:45:20 09/09/2022 16:10:55 Severe recurrent major depression without psychotic features 61521120 F33.2 Spasm of back muscles 20 5874357 M62.830 Steatotic liver disease 167745301 K76.0 Uncontroll ed type 2 diabetes mellitus 526468356 E11.65 Obesity 255297843 E66.9 Hyperlipidemia 39516511 E78.5 Vitamin D deficiency 347 77805 E55.9 Generalize d anxiety disorder 81426563 F41.1 Peripheral neuropathic pain 814058791 M79.2 Muscle weakness 91590030 M62.81 Menopause 996893378 Z78. 0 Primary insomnia 4112484 F51.01 [id number] Chel Bell MD [facility] [address] [address] 09/20/2022 10:04:31 09/23/2022 12:49:43 Severe recurrent major depression without psychotic features 72664912 F33.2 due to increased symtpoms we will increase from 60 mg of cymbalta daily to 90 mg dailypt previously on 120 mgcontinye abilify Spasm of back muscles 20 1035575 M62.830 reports marked improvemen t Steatotic liver disease 405356026 K76.0 will discuss [place] Uncontroll ed type 2 diabetes mellitus 234692271 E11.65 Discussed the following: Reduce carb intake [...] of snacks do not raise BG Obesity 452155556 E66.9 Hyperlipidemia 92260924 E78.5 Discussed low-choles terol diet extensivel y, including decreasing intake of saturated and trans fat, decreasing soda/high sugar drinks, decreasing shrimp intake, increasing fiber, and adding protein with lean meat/fish/ poultry, adding in an omega 3 supplement . Continue physical activity 3-5 days per week. Vitamin D deficiency 347 29165 E55.9 Generalize d anxiety disorder 52838812 F41.1 Peripheral neuropathic pain 392118064 M79.2 suspect cymbalta also helping with patients pain despite her being unaware this is helpfulhes itant to completely d/c Muscle weakness 50322692 M62.81 Menopause 469124792 Z78. 0 Primary insomnia 0929982 F51.01 requesting rf Stasis wade matitis of lower limb due to chronic peripheral venous hypertension 084379601 I87.508 [id number] Chel Bell MD [facility] [address] [address] 09/27/2022 11:11:50 09/30/2022 11:37:04 Generalized anxiety disorder 48325349 F41.1 Peripheral neuropathic pain 690128691 M79.2 suspect cymbalta also helping with patients pain despite her being unaware this is helpfulhes itant to completely d/c Vitamin D deficiency 347 87507 E55.9 Chronic pain syndrome 37 5596920 G89.4 Osteoarthritis 241635147 M19.90 Uncontroll ed type 2 diabetes mellitus 487960773 E11.65 Discussed the following: Reduce carb intake [...] not raise BG Pain in left foot 133523 2609 07202 M79.672 Chronic neck pain 727131 1735 107 M54.2 Severe rec urrent major depression without psychotic features 47062294 F33.2 due to increased symtpoms we will increase from 60 mg of cymbalta daily to 90 mg dailypt previously on 120 mgcontinye abilify Hyperlipidemia 58106752 E78.5 Discussed low-choles terol diet extensivel y, including decreasing intake of saturated and trans fat, decreasing soda/high sugar drinks, decreasing shrimp intake, increasing fiber, and adding protein with lean meat/fish/ poultry, adding in an omega 3 supplement . Continue physical activity 3-5 days per week. Steatotic liver disease [id number] K76.0 will discuss [place] Obesity 438262071 E66.9 [id number] Chel Bell MD [facility] [address] [facility] [address] [place] [address] 11/01/2022 11:05:48 11/02/2022 20:28:13 Uncontrolled type 2 diabetes mellitus [id number] E11.65 Tolerating Mounjaro well We will increase [...] do not raise BG Peripheral neuropathic pain [id number] M79.2 suspect cymbalta also helping with patients pain despite her being unaware this is helpfulhes itant to completely d/cWe will continue 60 mg in a.m. and 30 mg in p.m. Generalize d anxiety disorder 31329186 F41.1 Patient states she continues to run anxious though she is very happy with her improvemen t in mood and would like to continue current regimen of Paxil 40 mg, Cymbalta 60 mg a.m., 30 mg p.m., Abilify, and alprazolam as needed Vitamin D deficiency 347 76545 E55.9 Continue supplement ation Osteoarthritis 418063804 M19.90 Patient referred to Ortho for multiple joint painStates she has been contacted and scheduled within the next few weeks Pain in left foot 384406 0366 30914 M79.672 Patient states she was contacted and scheduled for appointmen t within the next few weeks Chronic neck pain 372488 4194 107 M54.2 Scheduled with Ortho per patient Continues to see chiropract or Severe rec urrent major depression without psychotic features 60843356 F33.2 Patient reports marked improvemen t in depression and states she finally feels herself Continue Cymbalta 60 mg in a.m., 30 mg in p.m., Paxil 40 mg, and Abilify 10 mg twice daily due to increased symtpoms we will increase from 60 mg of cymbalta daily to 90 mg dailypt previously on 120 mgcontinye abilify Hyperlipidemia 12742661 E78.5 Discussed low-choles terol diet extensivel y, including decreasing intake of saturated and trans fat, decreasing soda/high sugar drinks, decreasing shrimp intake, increasing fiber, and adding protein with lean meat/fish/ poultry, adding in an omega 3 supplement . Continue physical activity 3-5 days per week. Steatotic liver disease 456111124 K76.0 Patient would likely benefit from ultrasound of liver Obesity 651683932 E66.9 Morbid obesity 770301669 E66.01 [id number] ANISA Wang [facility] [address] [address] 02/14/2023 10:29:27 02/14/2023 21:17:34 Spasm of back muscles 943464310 M62.830 Refilled rx. Chronic pain syndrome 37 6988408 G89.4 Refilled rx to take sparingly. Uncontroll ed type 2 diabetes mellitus 940571708 E11.65 Tolerating Mounjaro 7.5 mg but pt worries not effective. We will discontinu e and start Ozempic at 0.5 mg weekly. Patient will follow-up in 1 month with hopes to increase to 1 mg if tolerating well.Last a1c well controlled at 5.4 - due to repeat because it was not checked with last labs. 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 Hyperlipidemia 85132356 E78.5 Discussed low-choles terol diet extensivel y, including decreasing intake of saturated and trans fat, decreasing soda/high sugar drinks, decreasing shrimp intake, increasing fiber, and adding protein with lean meat/fish/ poultry, adding in an omega 3 supplement . Continue physical activity 3-5 days per week. Obesity 189627409 E66.9 Peripheral neuropathic pain 669226368 M79.2 We will continue Cymbalta 60 mg a.m. and 30 mg p.m. Vitamin D deficiency 347 91201 E55.9 Continue supplement ation Steatotic liver disease 668179515 K76.0 Patient would likely benefit from ultrasound of liver in the future.lab s WNL Morbid obesity 505711665 E66.01 [id number] ANISA Wang [facility] [address] [address] 04/04/2023 13:08:45 04/05/2023 13:01:22 Spasm of back muscles 158225273 M62.830 Baclofen prn Chronic pain syndrome 37 7807903 G89.4 Takes Tramadol prn Uncontroll ed type 2 diabetes mellitus 136811544 E11.65 Patient has been taking Ozempic 1 [...] with last labs. 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 Hyperlipidemia 56203009 E78.5 Previous note:Discu ssed low-choles terol diet extensivel y, including decreasing intake of saturated and trans fat, decreasing soda/high sugar drinks, decreasing shrimp intake, increasing fiber, and adding protein with lean meat/fish/ poultry, adding in an omega 3 supplement . Continue physical activity 3-5 days per week. Obesity 067713144 E66.9 Peripheral neuropathic pain 380711693 M79.2 We will continue Cymbalta 60 mg a.m. and 30 mg p.m. Vitamin D deficiency 347 64779 E55.9 Continue supplement ation Steatotic liver disease 084383132 K76.0 Patient would likely benefit from ultrasound of liver in the future.Mos t recent labs WNL Pain of le ft knee joint [id number] 25874 M25.562 We will obtain x-ray of left knee today.Star t Celebrex as needed. Avoid any other NSAIDs with this medication .Also recommende d topical such as Voltaren.H eat/ice as needed.May consider additional imaging or orthopedic referral in the future. [id number] ANISA Wang [facility] [address] [address] 07/02/2023 15:22:06 07/03/2023 12:11:28 Spasm of back muscles 404441092 M62.830 Baclofen prn Chronic pain syndrome 37 5680243 G89.4 Takes Tramadol prn Uncontroll ed type 2 diabetes mellitus 511609006 E11.65 Continue Ozempic 2 mg. Previous note:Patie [...] with last labs. 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 Hyperlipidemia 99951779 E78.5 Recheck at follow up. Obesity 479198101 E66.9 Patient interested in phentermin e. Lengthy discussion about possible risks, side effects, and benefit.Di scussed that patient should only take this for 3 months at a time.We will follow-up in 1 month Peripheral neuropathic pain 511951662 M79.2 We will continue Cymbalta 60 mg a.m. and 30 mg p.m. Steatotic liver disease 690576734 K76.0 Patient would likely benefit from ultrasound of liver in the future.Mos t recent labs WNL Morbid obesity 663778624 E66.01 See aboveDiscu ssed improving diet and that patient may benefit from seeing nutritioni st in the future. [id number] ANISA Wang [facility] [address] [address] 08/05/2023 09:38:48 08/05/2023 12:28:39 Spasm of back muscles 402527434 M62.830 Baclofen prn Chronic pain syndrome 37 6595532 G89.4 Takes Tramadol prn Uncontroll ed type 2 diabetes mellitus 943019820 E11.65 Continue Ozempic 2 mg. Previous note:Patie [...] with last labs. 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 Obesity 559949626 E66.9 Doing well with phentermin e 37.5 mg - no adverse side effectsrep orts successful 10 lb weight loss 07/02/23Pati ent interested in phentermin e. Lengthy discussion about possible risks, side effects, and benefit.Di scussed that patient should only take this for 3 months at a time.We will follow-up in 1 month Peripheral neuropathic pain 263558925 M79.2 We will continue Cymbalta 60 mg a.m. and 30 mg p.m. Steatotic liver disease 728256600 K76.0 Patient would likely benefit from ultrasound of liver in the future.Mos t recent labs WNL Morbid obesity 602294216 E66.01 See above - working toward weight loss Health Concerns Section Related Observation LastModified by Organization Detai ls LastModified Time None Recorded Concern Status LastModified by Organization Details LastModified Time None Recorded Advance Directives Directive None Recorded Payers Insurance Date Sequence Insurance Name Policy Number Policy Rae Covered Member ID Rae Member ID Guarantor Name 08/02/2023 1 [id number] [id number] Charanjit De La Rosa [id number] Georgiana De La Rosa Notes Date Note Type Note Provider Name and Address Organization Details Recorded Time 11/01/2022 text/html 52-year-old fema krystal presents today for follow-up. Patient reports marked [...] muscle or joint pain. Keesha Finnegan PA-C [address] [place], [address], [facility] 11/01/2022 19:21:58 02/14/2023 text/html 52-year-old fema le [...] hemodynamically stable at this time. ANISA Wang [address] [place], [address], [facility] 02/14/2023 13:04:30 04/04/2023 text/html 52-year-old fema le [...] hemodynamically stable at this time. ANISA Wang [address] [place], [address], [facility] 04/04/2023 15:19:27 07/02/2023 text/html 52-year-old fema le [...] hemodynamically stable at this time. ANISA Wang [address] [place], [address], [facility] 07/02/2023 16:28:14 08/05/2023 text/html 53-year-old fema le with PMH of depression, anxiety, panic attacks, type 2 diabetes, fatty liver, chronic pain, neuropathic pain presents today via telehealth to follow up weight loss.Started phentermine at last visit and is doing well with no adverse side effects. She reports successful 10 lb weight loss.States that she will be moving to [place] 09/02/23. Has plans to reestablish with old PCP there to complete labs.Continues to take Ozempic 2 mg with no adverse side effects.No other new concerns.All questions were answered, medication list was discussed, and the patient is hemodynamically stable at this time. ANISA Wang [address] , [place], [address], [facility] 08/05/2023 11:12:16 OBGyn Episode No OBEpisode recorded.
[2025-05-31 17:40] VITALS: BMI 45.3
[2025-05-31] MEDS: HYDROcodone/acetaminophen (*CRX) 5-325 MG TABLET 1 TAB PO ×2 (19:25→21:21)
--- NOTE | 2025-05-31 19:27 | PC.NURSE ---
55 year old female admitted via [facility] to room 210. Patient is alert and oriented x4. Able to answer questions. Patient has a boot to the LLE due to tib/fib fracture, S/P nailing of the fibia. Dressing clean, dry, intact and were changed [facility]. Patient able to use gait belt to get LLE in and out of bed. NWB on the left. Patient oriented to room and floor routine. Call light and belongings within reach.
[2025-05-31 19:56] LABS: Estimated CRCL calculation 90 ml/min; Estimated Glomerular Filt Rate > 60
[2025-05-31 20:00] VITALS: PULSE 96; RESP 16; O2SAT 95
[2025-05-31] MEDS: TRIAMCINOLONE ACET 0.1% CREAM 15 GM TUBE 1 APPLIC TOPICAL (21:55)
[2025-06-01] VITALS: BP 121/91; PULSE 96; RESP 16; TEMP 36.7; O2SAT 95
[2025-06-01] MEDS: HYDROcodone/acetaminophen (*CRX) 10-325 MG TABLET 1 TAB PO ×4 (06:10→23:43)
[2025-06-01 08:00] VITALS: BP 100/70; PULSE 84; RESP 18; TEMP 36.3; O2SAT 94
[2025-06-01] MEDS: ENOXAPARIN 40 MG/0.4 ML SYRINGE SUB-Q (09:00)
[2025-06-01] MEDS: PRAVASTATIN SODIUM 20 MG TABLET 40 MG PO (09:01)
[2025-06-01] MEDS: SENNA/DOCUSATE SODIUM TABLET 2 TAB PO ×2 (09:01→16:27)
[2025-06-01] MEDS: TRIAMCINOLONE ACET 0.1% CREAM 15 GM TUBE 1 APPLIC TOPICAL ×2 (09:02→20:46)
--- NOTE | 2025-06-01 09:25 | P.HP_ITS ---
H&P: HPI History of Present Illness Date/Time: 06/01/25 09:25 Chief Complaint: Fall with left ankle pain. Narrative: Patient is a 55-year-old female who was admitted to [facility] for rehabilitation following a fall at home with a closed fracture of the left distal tibia. Ankle xray showed spiral fracture of the distal left tibia, Xray tibiofibular showed proximal fractur eof left procimal fibular and left distal tibia. Ortho was consulted and performed an ORIF initially started out on a splint and transitioned to a fracture boot prior to discharge to [place]. Patient reports past medical history of diabetes and HLD. patient denied any chest pain, shortness a breath, nausea, vomiting, difficulty with urination or defecation did report some left lower extremity muscle spasm versus nerve pain. Review of Systems Review of Systems: On the systems are reviewed and negative except as noted in the history above. All systems reviewed & are unremarkable except as noted in HPI and below PMFSH Past Medical History Medical History MDD (major depressive disorder) Diabetes type 2, controlled Closed fracture of left distal tibia Surgical History Surgical History S/P ORIF (open reduction internal fixation) fracture Family History Family History Other Adopted person Social History Social History Smoking packs per day: 0 Smoking cigarettes per day: 0.0 Smoking status: Never smoker Second hand tobacco smoke exposure: No Alcohol intake: current Drinks per week: 1 Alcohol use details: 6 times a year Substance use: never Substance use type: marijuana Do You Feel Safe in your Home?: Yes Lack of Transportation: No Lack of Food: Never True Current Housing: I Have Housing Concerned About Future Housing: No Difficulty Paying Gas/Electric Bills: No Difficulty Paying for Meds: No Currently Unemployed: No Education: Bachelor's Degree Difficulty w/ Childcare or Family Care: No Spiritual care concerns: No Meds Home Medications and Allergies Home Medications ?Medication ?Instructions ?Recorded ?Confirmed ?Type pravastatin 40 mg tablet 40 mg PO DAILY #90 tabs 10/02/23 05/31/25 Rx alprazolam 1 mg tablet 1 mg PO DAILY PRN anxiety #30 tabs 04/01/24 05/31/25 Rx betamethasone dipropionate 0.05 % 1 applic topical DAILY rash #45 04/01/24 05/31/25 Rx topical cream grams paroxetine HCl 40 mg tablet 40 mg PO DAILY #90 tabs 05/17/24 05/31/25 Rx duloxetine 30 mg capsule,delayed 30 mg PO QPM #90 caps 07/23/24 05/31/25 Rx release duloxetine 60 mg capsule,delayed 60 mg PO QAM #90 caps 10/18/24 05/31/25 Rx release tirzepatide 10 mg/0.5 mL 10 mg subcut WEEKLY 05/24/25 05/31/25 History subcutaneous pen injector (Carmelo) trazodone 150 mg tablet 150 mg PO HS 05/24/25 05/31/25 History enoxaparin 30 mg/0.3 mL 30 mg (0.3 mL) subcut DAILY 28 05/26/25 05/31/25 Rx subcutaneous syringe days #8.4 mL hydrocodone 5 mg-acetaminophen 325 1 tablet PO Q4H PRN pain #30 tabs 05/31/25 05/31/25 Rx mg tablet Allergies Allergy/AdvReac Type Severity Reaction Status Date / Time Sulfa (Sulfonamide Allergy Hives Verified 04/01/24 14:57 Antibiotics) Vital Signs Vital Signs - 24 hr 05/31/25 20:00 06/01/25 00:00 06/01/25 08:00 Temperature 98.0 F 97.3 F L Pulse Rate 96 96 84 Respiratory Rate 16 16 18 Blood Pressure 121/91 H 100/70 Pulse Oximetry 95 95 94 Oxygen Delivery Room Air Room Air Room Air Exam Narrative: General: alert and comfortable Eyes: EOMI, PERRLA ENNT: External ears normal, Neck is supple, no JVD, Respiratory systems: Clear to auscultation Cardiovascular: S1, S2, normal rhythm. Gastrointestinal: soft, non-tender, and non-distended BS present Skin: no rash, lesions, wounds Musculoskeletal: left leg in fracture boot Pulses 2+ Neurologic: Alert and oriented x3, non focal Mental Status Exam: normal affect H&P: Results Labs Labs: BMP 05/31/25 19:42 Creatinine 0.93 Assessment and Plan Assessment and plan (1) S/P ORIF (open reduction internal fixation) fracture: Code(s): Z98.890 - Other specified postprocedural states; Z87.81 - Personal history of (healed) traumatic fracture Status: Acute Assessment and Plan: Left proximal fibular and distal tibial fractures post ORIF in fracture boot * fracture boot * Pain management with [place] * will add PRN Flexeril and gabapentin patient muscle spasms versus nerve pain * Keep elevated when at rest * incentive spirometer while awake * continue bowel regimen * PT/OT * continued Lovenox DVT prophylaxis (2) MDD (major depressive disorder): Qualifiers: Major depression recurrence: recurrent Active/Remission status: in partial remission Qualified Code(s): F33.41 - Major depressive disorder, recurrent, in partial remission Code(s): F32.9 - Major depressive disorder, single episode, unspecified Status: Acute Assessment and Plan: * continued duloxetine (3) Diabetes type 2, controlled: Code(s): E11.9 - Type 2 diabetes mellitus without complications Status: Acute Assessment and Plan: * Holding trace appetite patient brings in will resume * moderate SSI * Accu-Cheks a.c. HS * diabetic diet (4) HLD (hyperlipidemia): Code(s): E78.5 - Hyperlipidemia, unspecified Status: Acute Assessment and Plan: * continues atorvastatin Plan Code status: Full code per patient DVT prophylaxis: Lovenox Stress ulcer prophylaxis: NA PT/OT notes: Swing Bed Disposition: Patient was admitted to inpatient swing bed for rehabilitation to [facility] postop ORIF of left lower extremity Tib/Fib fracture. patient currently in fracture boot continue with PT/OT to increase patient's strength and endurance prior to returning home continue with pain management. patient's plan is to return home at discharge. Quality VTE Prophylaxis VTE prophylaxis: pharmacologic ordered -Patient's previous records reviewed on admission -ER notes reviewed in detail on admission -discussed all findings and current treatment plan with patient/Family/POA -Consultations reviewed for recommendations -Patient's disposition for safe discharge discussed with disease case manager Dictation performed by [employer] direct speech recognition software, therefore mdm developer variants and typographical errors may occur. Hospitalist [facility] Advance Care Plan I have confirmed that the patient's Advanced Care Plan is present, code status is documented, or surrogate decision maker is listed in patient medical record.: Yes Medication Reconciliation I have utilized all available resources to obtain, update and review the patients current medications (includes all prescriptions, OTC, herbals, cannabi s, and nutritional supplements).: Yes The patient is not eligible for med reconciliation; the patient is in a emergent medical situation where delaying treatment would jeopardize the patients health.: No
[2025-06-01 09:43] LABS: Hematocrit 32.1 % (35.0-49.0); Hemoglobin 10.4 g/dL (12.0-15.0); Mean Corpuscular HGB Conc 32.4 g/dL (32-36); Mean Corpuscular Hemoglobin 29.5 pg (27.0-31.0); Mean Corpuscular Volume 90.9 fL (78.0-102.0); Platelet Count Result 203 K/mm3 (150-420); Red Blood Count 3.53 M/mm3 (4.20-5.40); White Blood Count 6.0 K/mm3 (4.8-10.8)
[2025-06-01 09:54] LABS: Alanine Aminotransferase 42 U/L (6-35); Albumin Level 3.6 g/dL (3.5-5.1); Alkaline Phosphatase 72 U/L (38-126); Anion Gap 6 mmol/L (4-12); Aspartate Amino Transferase 43 U/L (14-36); Bilirubin,Total 0.5 mg/dL (0.2-1.3); Blood Urea Nitrogen 17 mg/dL (7-17); Calcium 8.5 mg/dL (8.4-10.2); Carbon Dioxide 25 mmol/L (22-30); Chloride 108 mmol/L (98-107); Estimated CRCL calculation 95 ml/min; Estimated Glomerular Filt Rate > 60; Glucose 199 mg/dL (65-110); Magnesium 2.1 mg/dL (1.6-2.3); Osmolality Calculated 295 mOsm/kg (285-295); Potassium 4.0 mmol/L (3.4-5.0); Sodium 139 mmol/L (137-145); Total Protein 6.5 g/dL (6.3-8.2)
[2025-06-01] MEDS: CYCLOBENZAPRINE HCL 10 MG TABLET PO ×2 (12:04→20:46)
[2025-06-01 16:00] VITALS: BP 138/78; PULSE 88; RESP 20; TEMP 36.6; O2SAT 97
[2025-06-01] MEDS: GABAPENTIN 100 MG CAPSULE PO (16:26)
[2025-06-02] VITALS: BP 131/81; PULSE 76; RESP 17; TEMP 36.5; O2SAT 97
[2025-06-02] MEDS: HYDROcodone/acetaminophen (*CRX) 10-325 MG TABLET 1 TAB PO ×4 (06:20→19:27)
[2025-06-02 07:55] VITALS: BP 110/76; PULSE 79; RESP 16; TEMP 35.8; O2SAT 95
[2025-06-02 08:40] VITALS: PULSE 79; RESP 16; O2SAT 95
[2025-06-02] MEDS: TRIAMCINOLONE ACET 0.1% CREAM 15 GM TUBE 1 APPLIC TOPICAL ×2 (09:41→21:04)
[2025-06-02] MEDS: ENOXAPARIN 40 MG/0.4 ML SYRINGE SUB-Q (09:41)
[2025-06-02] MEDS: SENNA/DOCUSATE SODIUM TABLET 2 TAB PO ×2 (09:42→17:48)
[2025-06-02] MEDS: PRAVASTATIN SODIUM 20 MG TABLET 40 MG PO (09:42)
[2025-06-02] MEDS: GABAPENTIN 100 MG CAPSULE PO ×2 (09:42→17:50)
[2025-06-02 16:35] VITALS: BP 106/68; PULSE 73; RESP 16; TEMP 36.1; O2SAT 97
[2025-06-02 20:00] VITALS: PULSE 73; RESP 16; O2SAT 97
[2025-06-03] VITALS: BP 123/80; PULSE 76; RESP 16; TEMP 36.3; O2SAT 95
[2025-06-03] MEDS: HYDROcodone/acetaminophen (*CRX) 10-325 MG TABLET 1 TAB PO ×4 (03:20→20:37)
[2025-06-03 07:50] VITALS: BP 114/79; PULSE 74; RESP 16; TEMP 35.9; O2SAT 97
[2025-06-03 08:20] VITALS: PULSE 74; RESP 16; O2SAT 97
[2025-06-03] MEDS: TRIAMCINOLONE ACET 0.1% CREAM 15 GM TUBE 1 APPLIC TOPICAL ×2 (09:11→20:38)
[2025-06-03] MEDS: ENOXAPARIN 40 MG/0.4 ML SYRINGE SUB-Q (09:11)
[2025-06-03] MEDS: SENNA/DOCUSATE SODIUM TABLET 2 TAB PO ×2 (09:11→17:58)
[2025-06-03] MEDS: PRAVASTATIN SODIUM 20 MG TABLET 40 MG PO (09:11)
[2025-06-03 16:30] VITALS: BP 118/86; PULSE 75; RESP 16; TEMP 36.3; O2SAT 97
[2025-06-03] MEDS: GABAPENTIN 100 MG CAPSULE PO (18:00)
[2025-06-04] VITALS: BP 124/84; PULSE 80; RESP 16; TEMP 36.3; O2SAT 97
[2025-06-04] MEDS: HYDROcodone/acetaminophen (*CRX) 10-325 MG TABLET 1 TAB PO ×5 (00:32→21:25)
[2025-06-04 08:00] VITALS: BP 100/71; PULSE 76; RESP 20; TEMP 36.2; O2SAT 94
[2025-06-04] MEDS: PRAVASTATIN SODIUM 20 MG TABLET 40 MG PO (09:03)
[2025-06-04] MEDS: ENOXAPARIN 40 MG/0.4 ML SYRINGE SUB-Q (09:05)
[2025-06-04] MEDS: TRIAMCINOLONE ACET 0.1% CREAM 15 GM TUBE 1 APPLIC TOPICAL ×2 (09:06→21:29)
[2025-06-04] MEDS: CYCLOBENZAPRINE HCL 10 MG TABLET PO (09:06)
[2025-06-04] MEDS: GABAPENTIN 100 MG CAPSULE PO ×3 (10:52→21:25)
[2025-06-04 16:00] VITALS: BP 112/78; PULSE 70; RESP 18; TEMP 36.3; O2SAT 95
[2025-06-04] MEDS: SENNA/DOCUSATE SODIUM TABLET 2 TAB PO (17:57)
[2025-06-04 20:00] VITALS: PULSE 72; RESP 18; O2SAT 94
[2025-06-05] VITALS: BP 136/87; PULSE 72; RESP 18; TEMP 36.5; O2SAT 94
[2025-06-05] MEDS: HYDROcodone/acetaminophen (*CRX) 10-325 MG TABLET 1 TAB PO ×4 (05:07→18:08)
[2025-06-05] MEDS: CYCLOBENZAPRINE HCL 10 MG TABLET PO ×3 (05:08→20:37)
[2025-06-05 08:00] VITALS: BP 106/72; PULSE 77; RESP 16; TEMP 36.2; O2SAT 94
[2025-06-05] MEDS: PRAVASTATIN SODIUM 20 MG TABLET 40 MG PO (08:33)
[2025-06-05] MEDS: GABAPENTIN 100 MG CAPSULE PO ×4 (08:33→20:37)
[2025-06-05] MEDS: TRIAMCINOLONE ACET 0.1% CREAM 15 GM TUBE 1 APPLIC TOPICAL ×2 (08:34→20:38)
[2025-06-05] MEDS: ENOXAPARIN 40 MG/0.4 ML SYRINGE SUB-Q (08:34)
[2025-06-05 16:00] VITALS: BP 133/76; PULSE 73; RESP 18; TEMP 36.4; O2SAT 99
[2025-06-05 20:00] VITALS: PULSE 75; RESP 18; O2SAT 93
[2025-06-05] MEDS: SENNA/DOCUSATE SODIUM TABLET 2 TAB PO (20:37)
[2025-06-06] VITALS: BP 113/58; PULSE 75; RESP 18; TEMP 36.4; O2SAT 93
[2025-06-06] MEDS: HYDROcodone/acetaminophen (*CRX) 10-325 MG TABLET 1 TAB PO ×4 (06:31→20:47)
[2025-06-06] MEDS: CYCLOBENZAPRINE HCL 10 MG TABLET PO ×2 (06:31→15:20)
[2025-06-06 08:00] VITALS: BP 108/74; PULSE 83; RESP 16; TEMP 36.1; O2SAT 94
[2025-06-06] MEDS: PRAVASTATIN SODIUM 20 MG TABLET 40 MG PO (09:07)
[2025-06-06] MEDS: ENOXAPARIN 40 MG/0.4 ML SYRINGE SUB-Q (09:07)
[2025-06-06] MEDS: GABAPENTIN 100 MG CAPSULE PO ×2 (09:07→15:20)
[2025-06-06] MEDS: TRIAMCINOLONE ACET 0.1% CREAM 15 GM TUBE 1 APPLIC TOPICAL ×2 (09:08→20:46)
[2025-06-06] MEDS: diazePAM (*CRX) 2.5 MG TABLET PO (10:58)
[2025-06-06 16:00] VITALS: BP 105/72; PULSE 78; RESP 20; TEMP 36.2; O2SAT 96
[2025-06-06 20:00] VITALS: PULSE 78; RESP 20; O2SAT 96
[2025-06-06] MEDS: SENNA/DOCUSATE SODIUM TABLET 2 TAB PO (20:46)
[2025-06-07] VITALS: BP 108/72; PULSE 77; RESP 17; TEMP 36.2; O2SAT 95
[2025-06-07 00:30] VITALS: BP 106/70; PULSE 73; RESP 16; TEMP 35.8; O2SAT 95
[2025-06-07] MEDS: diazePAM (*CRX) 2.5 MG TABLET PO (07:22)
[2025-06-07] MEDS: HYDROcodone/acetaminophen (*CRX) 10-325 MG TABLET 1 TAB PO ×4 (07:22→21:02)
[2025-06-07 07:58] VITALS: BP 122/78; PULSE 68; RESP 15; TEMP 36.1; O2SAT 94
[2025-06-07] MEDS: TRIAMCINOLONE ACET 0.1% CREAM 15 GM TUBE 1 APPLIC TOPICAL ×2 (09:00→21:03)
[2025-06-07] MEDS: ENOXAPARIN 40 MG/0.4 ML SYRINGE SUB-Q (09:00)
[2025-06-07] MEDS: PRAVASTATIN SODIUM 20 MG TABLET 40 MG PO (09:00)
[2025-06-07] MEDS: CYCLOBENZAPRINE HCL 10 MG TABLET PO (15:16)
[2025-06-07] MEDS: GABAPENTIN 100 MG CAPSULE PO ×2 (15:16→21:03)
[2025-06-07 16:00] VITALS: BP 126/90; PULSE 70; RESP 16; TEMP 36.6; O2SAT 96
[2025-06-07] MEDS: SENNA/DOCUSATE SODIUM TABLET 2 TAB PO (21:02)
[2025-06-08] VITALS: BP 109/77; PULSE 80; RESP 15; TEMP 36.3; O2SAT 96
--- NOTE | 2025-06-08 05:23 | P.PNIM_ITS ---
Progress Note: A&P Assessment and Plan (1) S/P ORIF (open reduction internal fixation) fracture: Code(s): Z98.890 - Other specified postprocedural states; Z87.81 - Personal history of (healed) traumatic fracture Status: Acute Assessment and Plan: Left proximal fibular and distal tibial fractures post ORIF in fracture boot * fracture boot * Pain management with Vivian * gabapentin patient muscle spasms versus nerve pain * Valium added 2.5mg for muscle spasticity * Keep elevated when at rest * incentive spirometer while awake * continue bowel regimen * PT/OT/Non-weight bearing * continued Lovenox DVT prophylaxis (2) MDD (major depressive disorder): Qualifiers: Active/Remission status: in partial remission Major depression recurrence: recurrent Qualified Code(s): F33.41 - Major depressive disorder, recurrent, in partial remission Code(s): F32.9 - Major depressive disorder, single episode, unspecified Status: Acute Assessment and Plan: * continued duloxetine (3) Diabetes type 2, controlled: Code(s): E11.9 - Type 2 diabetes mellitus without complications Status: Acute Assessment and Plan: * Holding trace appetite patient brings in will resume * moderate SSI * Accu-Nacho VILLALOBOS * diabetic diet (4) HLD (hyperlipidemia): Code(s): E78.5 - Hyperlipidemia, unspecified Status: Acute Assessment and Plan: * continues atorvastatin Plan Code status: Full code per patient DVT prophylaxis: Lovenox Stress ulcer prophylaxis: NA PT/OT notes: Swing Bed Disposition: Patient was admitted to inpatient swing bed for rehabilitation to continue physical and occupational therapy postop ORIF of left lower extremity Tib/Fib fracture. patient currently in fracture boot continue with PT/OT to increase patient's strength and endurance prior to returning home continue with pain management. patient's plan is to return home at discharge. Time Spent With Patient Time with patient: 15 - 25 minutes Subjective Date/time seen: 06/08/25 05:23 Interval history: Patient is a 55 female admitted for continued rehab after surgical repair for a Left proximal fibular and distal tibial fractures 06/08/2025: Patient up in chair working with PT/OT progressing as expected, Patient with no complaints or acute issues. Labs and vitals reviewed did have a episode of orthostatic BP stable now. Patient report Valium helped with her muscle spasticity. Review of Systems Review of Systems: On the systems are reviewed and negative except as noted in the history above. All systems reviewed & are unremarkable except as noted in HPI and below Exam Narrative: General: alert and comfortable Eyes: EOMI, PERRLA ENNT: External ears normal, Neck is supple, no JVD, Respiratory systems: Clear to auscultation Cardiovascular: S1, S2, normal rhythm. Gastrointestinal: soft, non-tender, and non-distended BS present Skin: no rash, lesions, wounds Musculoskeletal: left leg in fracture boot Pulses 2+ Neurologic: Alert and oriented x3, non focal Mental Status Exam: normal affect Objective Data Vital Signs Vital Signs: Vital Signs - 24 hr 06/07/25 07:58 06/07/25 16:00 06/08/25 00:00 Temperature 97 F L 97.8 F 97.4 F L Pulse Rate 68 70 80 Respiratory Rate 15 16 15 Blood Pressure 122/78 126/90 109/77 Pulse Oximetry 94 96 96 Oxygen Delivery Room Air Room Air Room Air Intake/Output Intake/Output: Intake & Output 06/05/25 06/06/25 06/07/25 06/08/25 23:59 23:59 23:59 23:59 Intake Total 2540 2440 2250 Balance 2540 2440 2250 Meds/Results Medications: Active Medications Generic Name Dose Route Start Last Admin Trade Name Freq PRN Reason Stop Dose Admin Acetaminophen 500 mg 05/31/25 19:20 Acetaminophen 500 Mg Tablet PO Q6H PRN Pain Rated 5 or Less Hydrocodone Bitart/Acetaminophen 1 tab 05/31/25 20:25 06/07/25 21:02 Hydrocodone/Acetaminophen (*Crx) 10-325 Mg Tablet PO 1 tab Q4H PRN Administration Pain Rated 6 or Greater Alprazolam 0.5 mg 05/31/25 19:12 Alprazolam (*Crx) 0.5 Mg Tablet PO DAILY PRN Anxiety Cyclobenzaprine HCl 10 mg 06/01/25 09:00 06/07/25 15:16 Cyclobenzaprine Hcl 10 Mg Tablet PO 10 mg Q8H PRN Administration Muscle Spasm Dextrose 12.5 gm 05/31/25 19:12 Dextrose 50% 25 Gm/50 Ml Syringe IV PUSH PRN PRN Hypoglycemia Protocol Diazepam 2.5 mg 06/06/25 10:13 06/07/25 07:22 Diazepam (*Crx) 2.5 Mg Tablet PO 2.5 mg TID PRN Administration Muscle Spasticity Duloxetine HCl 30 mg 05/31/25 19:10 06/07/25 17:47 Duloxetine Hcl 30 Mg Capsule. PO 30 mg QPM DAMION Administration Duloxetine HCl 60 mg 06/01/25 09:00 06/07/25 09:00 Duloxetine Hcl 30 Mg Capsule. PO 60 mg QAM DAMION Administration Enoxaparin Sodium 40 mg 06/01/25 09:00 06/07/25 09:00 Enoxaparin 40 Mg/0.4 Ml Syringe SUB-Q 40 mg DAILY DAMION Administration Gabapentin 100 mg 06/01/25 09:00 06/07/25 21:03 Gabapentin 100 Mg Capsule PO 100 mg TID PRN Administration Nerve pain Glucagon 1 mg 05/31/25 19:12 Glucagon For Inj 1 Mg Vial IM PRN PRN Hypoglycemia Protocol Glucose 15 gm 05/31/25 19:12 Glucose Oral Gel 15 Gm Of Glucse In 37.5 Gm Tube PO PRN PRN Hypoglycemia Protocol Hydroxyzine HCl 50 mg 05/31/25 19:12 06/06/25 20:47 Hydroxyzine Hcl 25 Mg Tablet PO 50 mg Q4H PRN Administration Itching Dextrose 1,000 mls @ 100 mls/hr 05/31/25 19:12 Dextrose 5% 1,000 Ml IVPB PRN PRN Hypoglycemia Protocol Insulin Human Lispro 3 - 6 units 06/01/25 08:00 06/07/25 17:48 Insulin Human Lispro (*Bkc) 1,000 Units/10 Ml Vial SUB-Q Not Given TIDWM DAMION Protocol Ondansetron HCl 4 mg 05/31/25 19:12 Ondansetron Hcl Odt 4 Mg Tablet PO Q6H PRN Nausea And Vomiting Paroxetine HCl 40 mg 06/01/25 09:00 06/07/25 09:00 Paroxetine 20 Mg Tablet PO 40 mg DAILY DAMION Administration Polyethylene Glycol 17 gm 06/05/25 09:47 06/06/25 09:41 Polyethylene Glycol 3350 17 Gm Powd.Pack PO 17 gm QAM PRN Administration Constipation Pravastatin Sodium 40 mg 06/01/25 09:00 06/07/25 09:00 Pravastatin Sodium 20 Mg Tablet PO 40 mg DAILY DAMION Administration Senna/Docusate Sodium 2 tab 06/05/25 21:00 06/07/25 21:02 Senna/Docusate Sodium Tablet PO 2 tab HS DAMION Administration Trazodone HCl 150 mg 05/31/25 21:00 06/07/25 21:02 Trazodone Hcl 50 Mg Tablet PO 150 mg HS DAMION Administration Triamcinolone Acetonide 1 applic 05/31/25 21:00 06/07/25 21:03 Triamcinolone Acet 0.1% Cream 15 Gm Tube TOPICAL 1 applic Q12HR DAMION Administration Labs Labs: Laboratory Results - last 24 hr 06/07/25 06/07/25 06/07/25 07:41 11:41 16:51 POC Capillary Glucose 139 H 127 H 101 06/07/25 20:39 POC Capillary Glucose 108 H Quality VTE Prophylaxis VTE prophylaxis: pharmacologic ordered Hospitalist MIPS Advance Care Plan I have confirmed that the patient's Advanced Care Plan is present, code status is documented, or surrogate decision maker is listed in patient medical record.: Yes Medication Reconciliation I have utilized all available resources to obtain, update and review the patients current medications (includes all prescriptions, OTC, herbals, cannabis, and nutritional supplements).: Yes The patient is not eligible for med reconciliation; the patient is in a emergent medical situation where delaying treatment would jeopardize the patients health.: No
[2025-06-08 05:51] LABS: Hematocrit 31.7 % (35.0-49.0); Hemoglobin 10.3 g/dL (12.0-15.0); Mean Corpuscular HGB Conc 32.5 g/dL (32-36); Mean Corpuscular Hemoglobin 29.3 pg (27.0-31.0); Mean Corpuscular Volume 90.3 fL (78.0-102.0); Platelet Count Result 197 K/mm3 (150-420); Red Blood Count 3.51 M/mm3 (4.20-5.40); White Blood Count 5.7 K/mm3 (4.8-10.8)
[2025-06-08 06:01] LABS: Alanine Aminotransferase 38 U/L (6-35); Albumin Level 3.6 g/dL (3.5-5.1); Alkaline Phosphatase 82 U/L (38-126); Anion Gap 2 mmol/L (4-12); Aspartate Amino Transferase 42 U/L (14-36); Bilirubin,Total 0.4 mg/dL (0.2-1.3); Blood Urea Nitrogen 25 mg/dL (7-17); Calcium 8.4 mg/dL (8.4-10.2); Carbon Dioxide 30 mmol/L (22-30); Chloride 107 mmol/L (98-107); Estimated CRCL calculation 96 ml/min; Estimated Glomerular Filt Rate > 60; Glucose 102 mg/dL (65-110); Magnesium 1.9 mg/dL (1.6-2.3); Osmolality Calculated 292 mOsm/kg (285-295); Potassium 4.1 mmol/L (3.4-5.0); Sodium 139 mmol/L (137-145); Total Protein 6.3 g/dL (6.3-8.2)
[2025-06-08] MEDS: HYDROcodone/acetaminophen (*CRX) 10-325 MG TABLET 1 TAB PO ×4 (06:27→20:34)
[2025-06-08 08:00] VITALS: BP 94/67; PULSE 86; RESP 18; TEMP 35.9; O2SAT 97
[2025-06-08] MEDS: TRIAMCINOLONE ACET 0.1% CREAM 15 GM TUBE 1 APPLIC TOPICAL ×2 (09:41→20:37)
[2025-06-08] MEDS: GABAPENTIN 100 MG CAPSULE PO (09:41)
[2025-06-08] MEDS: ENOXAPARIN 40 MG/0.4 ML SYRINGE SUB-Q (09:41)
[2025-06-08] MEDS: diazePAM (*CRX) 2.5 MG TABLET PO ×2 (09:41→13:57)
[2025-06-08] MEDS: PRAVASTATIN SODIUM 20 MG TABLET 40 MG PO (09:41)
[2025-06-08 16:00] VITALS: BP 109/72; PULSE 81; RESP 17; TEMP 36.2; O2SAT 95
--- NOTE | 2025-06-08 18:45 | PC.NURSE ---
ASSUMED CARE. REPORT RECEIVED FROM FRANCE FISHER
[2025-06-08] MEDS: SENNA/DOCUSATE SODIUM TABLET 2 TAB PO (20:34)
[2025-06-09] VITALS: BP 96/65; PULSE 75; RESP 18; TEMP 36.3; O2SAT 96
[2025-06-09] MEDS: HYDROcodone/acetaminophen (*CRX) 10-325 MG TABLET 1 TAB PO ×3 (06:08→21:02)
[2025-06-09 08:00] VITALS: BP 106/67; PULSE 69; RESP 16; TEMP 36; O2SAT 92
[2025-06-09] MEDS: diazePAM (*CRX) 2.5 MG TABLET PO ×2 (08:39→14:22)
[2025-06-09] MEDS: ENOXAPARIN 40 MG/0.4 ML SYRINGE SUB-Q (08:40)
[2025-06-09] MEDS: TRIAMCINOLONE ACET 0.1% CREAM 15 GM TUBE 1 APPLIC TOPICAL ×2 (08:41→21:02)
[2025-06-09] MEDS: PRAVASTATIN SODIUM 20 MG TABLET 40 MG PO (08:41)
[2025-06-09 16:00] VITALS: BP 118/74; PULSE 73; RESP 16; TEMP 36.4; O2SAT 97
[2025-06-09 20:00] VITALS: PULSE 68; RESP 18; O2SAT 96
[2025-06-09] MEDS: GABAPENTIN 100 MG CAPSULE PO (21:02)
[2025-06-09] MEDS: SENNA/DOCUSATE SODIUM TABLET 2 TAB PO (21:02)
[2025-06-10] VITALS: BP 119/85; PULSE 68; RESP 18; TEMP 36.6; O2SAT 96
[2025-06-10] MEDS: HYDROcodone/acetaminophen (*CRX) 10-325 MG TABLET 1 TAB PO ×4 (06:11→20:59)
[2025-06-10 07:50] VITALS: BP 101/70; PULSE 75; RESP 16; TEMP 35.6; O2SAT 92
[2025-06-10 08:00] VITALS: PULSE 75; RESP 16; O2SAT 92
[2025-06-10] MEDS: diazePAM (*CRX) 2.5 MG TABLET PO (09:13)
[2025-06-10] MEDS: ENOXAPARIN 40 MG/0.4 ML SYRINGE SUB-Q (09:13)
[2025-06-10] MEDS: PRAVASTATIN SODIUM 20 MG TABLET 40 MG PO (09:13)
[2025-06-10] MEDS: TRIAMCINOLONE ACET 0.1% CREAM 15 GM TUBE 1 APPLIC TOPICAL ×2 (09:13→21:01)
--- NOTE | 2025-06-10 10:41 | PCPTNOTE ---
spoke with patients surgeon via text. he is ok with patient going to [facility] only on steps to work on dafely navigating to get in home.
--- NOTE | 2025-06-10 13:24 | P.PNOP_ITS ---
Progress Note: A&P Assessment and Plan (1) S/P ORIF (open reduction internal fixation) fracture: Code(s): Z98.890 - Other specified postprocedural states; Z87.81 - Personal history of (healed) traumatic fracture Status: Acute Assessment and Plan: POD #16: Intramedullary nail fixation left tibia Continue PT/OT/ Rehab Will progress to [facility] LLE. Walker/Crutches. HIGH FALL RISK. Continue pain control. Ice, elevbate as needed DVT prophylaxis with Lovenox. Incentive Spirometry Use reviewed. fracture boot when up Bowel Regimen. Dispo: [facility]. Home when cleared from rehab will check x ray F/U ortho 07/06/25 (2) Fracture of fibula, proximal: Qualifiers: Encounter type: subsequent encounter Fracture type: closed Fracture morphology: other fracture Laterality: left Fracture healing: with routine hea ling Qualified Code(s): S82.832D - Other fracture of upper and lower end of left fibula, subsequent encounter for closed fracture with routine healing Code(s): S82.839A - Other fracture of upper and lower end of unspecified fibula, initial encounter for closed fracture Status: Acute (3) Displaced spiral fracture of shaft of left tibia: Qualifiers: Encounter type: subsequent encounter Fracture type: closed Fracture healing: with routine healing Qualified Code(s): S82.242D - Displaced spiral fracture of shaft of left tibia, subsequent encounter for closed fracture with routine healing Code(s): S82.242A - Displaced spiral fracture of shaft of left tibia, initial encounter for closed fracture Status: Acute (4) Diabetes type 2, controlled: Code(s): E11.9 - Type 2 diabetes mellitus without complications Status: Acute Subjective Subjective Date/Time Seen: 06/10/25 13:24 Post Op day: 16 (16) Principal diagnosis: Left tibia fracture Interval history: POD #16: Intramedullary nail fixation left tibia Patient awake/alert, up in wheelchair at Swing bed facility. Complaints of pain with movement and if foot dependant. Otherwise well controlled with current pain medication regimen. Exam Const: General: comfortable and no acute distress Resp: Effort & Inspection: normal respiratory effort GI: GI Palp: No Hepatosplenomegaly present Neuro: Coordination: No does not sway with eyes open Extrem: Right upper extremity: normal to inspection Left upper extremity: normal to inspection Right lower extremity: normal to inspection Left lower extremity: knee Details: tenderness and swelling (mild ), lower leg (Incisions c/d/i) Details: other (negative homans), ankle Details: swelling Details: diffusely (mild) and foot Details: normal capillary refill, toes with n ormal ROM and motor-sensory exam light-touch normal Psych: Mental Status: mental status grossly normal Objective Data Vital Signs Vital Signs: Vital Signs - 24 hr 06/09/25 16:00 06/09/25 20:00 06/10/25 00:00 Temperature 97.5 F L 97.9 F Pulse Rate 73 68 68 Respiratory Rate 16 18 18 Blood Pressure 118/74 119/85 Pulse Oximetry 97 96 96 Oxygen Delivery Room Air Room Air Room Air 06/10/25 07:50 06/10/25 08:00 Temperature 96.1 F L Pulse Rate 75 75 Respiratory Rate 16 16 Blood Pressure 101/70 Pulse Oximetry 92 92 Oxygen Delivery Room Air Room Air Intake/Output Intake/Output: Intake & Output 06/07/25 06/08/25 06/09/25 06/10/25 23:59 23:59 23:59 23:59 Intake Total 2250 1400 1810 1250 Balance 2250 1400 1810 1250 Meds/Results Medications: Active Medications Generic Name Dose Route Start Last Admin Trade Name Freq PRN Reason Stop Dose Admin Acetaminophen 500 mg 05/31/25 19:20 Acetaminophen 500 Mg Tablet PO Q6H PRN Pain Rated 5 or Less Hydrocodone Bitart/Acetaminophen 1 tab 05/31/25 20:25 06/10/25 11:51 Hydrocodone/Acetaminophen (*Crx) 10-325 Mg Tablet PO 1 tab Q4H PRN Administration Pain Rated 6 or Greater Dextrose 12.5 gm 05/31/25 19:12 Dextrose 50% 25 Gm/50 Ml Syringe IV PUSH PRN PRN Hypoglycemia Protocol Diazepam 2.5 mg 06/06/25 10:13 06/10/25 09:13 Diazepam (*Crx) 2.5 Mg Tablet PO 2.5 mg TID PRN Administration Muscle Spasticity Duloxetine HCl 30 mg 05/31/25 19:10 06/09/25 17:50 Duloxetine Hcl 30 Mg Capsule.Dr PO 30 mg QPM DAMION Administration Duloxetine HCl 60 mg 06/01/25 09:00 06/10/25 09:12 Duloxetine Hcl 30 Mg Capsule. PO 60 mg QAM DAMION Administration Enoxaparin Sodium 40 mg 06/01/25 09:00 06/10/25 09:13 Enoxaparin 40 Mg/0.4 Ml Syringe SUB-Q 40 mg DAILY DAMION Administration Gabapentin 100 mg 06/01/25 09:00 06/09/25 21:02 Gabapentin 100 Mg Capsule PO 100 mg TID PRN Administration Nerve pain Glucagon 1 mg 05/31/25 19:12 Glucagon For Inj 1 Mg Vial IM PRN PRN Hypoglycemia Protocol Glucose 15 gm 05/31/25 19:12 Glucose Oral Gel 15 Gm Of Glucse In 37.5 Gm Tube PO PRN PRN Hypoglycemia Protocol Hydroxyzine HCl 50 mg 05/31/25 19:12 06/06/25 20:47 Hydroxyzine Hcl 25 Mg Tablet PO 50 mg Q4H PRN Administration Itching Dextrose 1,000 mls @ 100 mls/hr 05/31/25 19:12 Dextrose 5% 1,000 Ml IVPB PRN PRN Hypoglycemia Protocol Insulin Human Lispro 3 - 6 units 06/01/25 08:00 06/10/25 12:05 Insulin Human Lispro (*Bkc) 1,000 Units/10 Ml Vial SUB-Q Not Given TIDWM DAMION Protocol Ondansetron HCl 4 mg 05/31/25 19:12 Ondansetron Hcl Odt 4 Mg Tablet PO Q6H PRN Nausea And Vomiting Paroxetine HCl 40 mg 06/01/25 09:00 06/10/25 09:13 Paroxetine 20 Mg Tablet PO 40 mg DAILY DAMION Administration Polyethylene Glycol 17 gm 06/05/25 09:47 06/06/25 09:41 Polyethylene Glycol 3350 17 Gm Powd.Pack PO 17 gm QAM PRN Administration Constipation Pravastatin Sodium 40 mg 06/01/25 09:00 06/10/25 09:13 Pravastatin Sodium 20 Mg Tablet PO 40 mg DAILY DAMION Administration Senna/Docusate Sodium 2 tab 06/05/25 21:00 06/09/25 21:02 Senna/Docusate Sodium Tablet PO 2 tab HS DAMION Administration Trazodone HCl 150 mg 05/31/25 21:00 06/09/25 21:01 Trazodone Hcl 50 Mg Tablet PO 150 mg HS DAMION Administration Triamcinolone Acetonide 1 applic 05/31/25 21:00 06/10/25 09:13 Triamcinolone Acet 0.1% Cream 15 Gm Tube TOPICAL 1 applic Q12HR DAMION Administration Labs Labs: Laboratory Results - last 24 hr 06/09/25 06/09/25 06/10/25 16:32 20:59 07:55 POC Capillary Glucose 113 H 98 115 H 06/10/25 11:46 POC Capillary Glucose 145 H
--- NOTE | 2025-06-10 13:50 | PC.NURSE ---
caterina removed from left knee and left ankle. 18 total caterina removed from knee and ankle. Patient tolerated well. Incision site well approximated.
--- NOTE | 2025-06-10 14:20 | PC.NURSE ---
Spoke with Dr. Fraser about Incision site. N.O. to take caterina out. Patient tolerated well. Dr. Fraser okayed for patient to have incision open to air, okayed if patient wants to cover area with island dressing/telfa dressing to prevent rubbing from boot
[2025-06-10 16:25] VITALS: BP 135/82; PULSE 65; RESP 16; TEMP 36.2; O2SAT 99
[2025-06-10] MEDS: SENNA/DOCUSATE SODIUM TABLET 2 TAB PO (20:59)
[2025-06-10] MEDS: GABAPENTIN 100 MG CAPSULE PO (20:59)
[2025-06-10 23:20] VITALS: BP 94/66; PULSE 81; RESP 17; TEMP 36.6; O2SAT 94
[2025-06-11] MEDS: HYDROcodone/acetaminophen (*CRX) 10-325 MG TABLET 1 TAB PO ×3 (06:55→21:00)
[2025-06-11 07:40] VITALS: BP 131/81; PULSE 70; RESP 16; TEMP 36.2; O2SAT 96
[2025-06-11 08:35] VITALS: PULSE 70; RESP 16; O2SAT 96
[2025-06-11] MEDS: ENOXAPARIN 40 MG/0.4 ML SYRINGE SUB-Q (09:05)
[2025-06-11] MEDS: diazePAM (*CRX) 2.5 MG TABLET PO ×2 (09:06→16:51)
[2025-06-11] MEDS: TRIAMCINOLONE ACET 0.1% CREAM 15 GM TUBE 1 APPLIC TOPICAL ×2 (09:06→21:02)
[2025-06-11] MEDS: PRAVASTATIN SODIUM 20 MG TABLET 40 MG PO (09:06)
[2025-06-11 16:35] VITALS: BP 137/94; PULSE 84; RESP 16; TEMP 36.1; O2SAT 96
[2025-06-11] MEDS: SENNA/DOCUSATE SODIUM TABLET 2 TAB PO (20:59)
[2025-06-11] MEDS: GABAPENTIN 100 MG CAPSULE PO (21:00)
[2025-06-12] VITALS: BP 125/90; PULSE 79; RESP 18; TEMP 36.5; O2SAT 98
[2025-06-12 07:35] VITALS: BP 102/68; PULSE 78; RESP 16; TEMP 36.2; O2SAT 96
[2025-06-12] MEDS: HYDROcodone/acetaminophen (*CRX) 10-325 MG TABLET 1 TAB PO ×3 (08:11→20:38)
[2025-06-12 08:40] VITALS: PULSE 78; RESP 16; O2SAT 96
[2025-06-12] MEDS: ENOXAPARIN 40 MG/0.4 ML SYRINGE SUB-Q (09:27)
[2025-06-12] MEDS: diazePAM (*CRX) 2.5 MG TABLET PO ×2 (09:27→15:57)
[2025-06-12] MEDS: PRAVASTATIN SODIUM 20 MG TABLET 40 MG PO (09:27)
[2025-06-12] MEDS: TRIAMCINOLONE ACET 0.1% CREAM 15 GM TUBE 1 APPLIC TOPICAL ×2 (09:27→20:37)
[2025-06-12 16:50] VITALS: BP 123/76; PULSE 78; RESP 16; TEMP 36.9; O2SAT 96
[2025-06-12] MEDS: GABAPENTIN 100 MG CAPSULE PO (20:37)
[2025-06-12] MEDS: SENNA/DOCUSATE SODIUM TABLET 2 TAB PO (20:37)
[2025-06-13] VITALS: BP 112/78; PULSE 82; RESP 18; TEMP 36.2; O2SAT 98
[2025-06-13] MEDS: HYDROcodone/acetaminophen (*CRX) 10-325 MG TABLET 1 TAB PO ×3 (05:42→18:11)
[2025-06-13] MEDS: diazePAM (*CRX) 2.5 MG TABLET PO ×2 (05:48→18:11)
[2025-06-13 08:00] VITALS: BP 100/69; PULSE 82; RESP 18; TEMP 36.3; O2SAT 93
[2025-06-13] MEDS: TRIAMCINOLONE ACET 0.1% CREAM 15 GM TUBE 1 APPLIC TOPICAL ×2 (09:00→20:40)
[2025-06-13] MEDS: ENOXAPARIN 40 MG/0.4 ML SYRINGE SUB-Q (09:18)
[2025-06-13] MEDS: PRAVASTATIN SODIUM 20 MG TABLET 40 MG PO (09:18)
[2025-06-13 16:00] VITALS: BP 128/80; PULSE 70; RESP 18; TEMP 36.3; O2SAT 97
[2025-06-13 20:00] VITALS: PULSE 70; RESP 18; O2SAT 97
[2025-06-13] MEDS: SENNA/DOCUSATE SODIUM TABLET 2 TAB PO (20:39)
[2025-06-14] VITALS: BP 93/61; PULSE 78; RESP 17; TEMP 36.3; O2SAT 94
[2025-06-14] MEDS: HYDROcodone/acetaminophen (*CRX) 10-325 MG TABLET 1 TAB PO ×4 (01:16→22:23)
[2025-06-14 08:00] VITALS: BP 113/76; PULSE 75; RESP 18; TEMP 36; O2SAT 96
[2025-06-14] MEDS: PRAVASTATIN SODIUM 20 MG TABLET 40 MG PO (08:42)
[2025-06-14] MEDS: ENOXAPARIN 40 MG/0.4 ML SYRINGE SUB-Q (08:42)
[2025-06-14] MEDS: TRIAMCINOLONE ACET 0.1% CREAM 15 GM TUBE 1 APPLIC TOPICAL ×2 (08:43→20:26)
[2025-06-14] MEDS: diazePAM (*CRX) 2.5 MG TABLET PO ×2 (09:30→19:33)
[2025-06-14 15:35] VITALS: BP 110/77; PULSE 70
--- NOTE | 2025-06-14 15:35 | PC.NURSE ---
Orthostatic vital signs done, slight dizzyness when standing, no otherr complaints, see vitals for results
[2025-06-14 15:36] VITALS: BP 91/72; PULSE 79
[2025-06-14 15:37] VITALS: BP 94/64; PULSE 95
[2025-06-14 20:00] VITALS: PULSE 95; RESP 18; O2SAT 96
[2025-06-14] MEDS: SENNA/DOCUSATE SODIUM TABLET 2 TAB PO (20:25)
[2025-06-15] VITALS: BP 95/60; PULSE 78; RESP 16; TEMP 36.3; O2SAT 96
[2025-06-15] MEDS: diazePAM (*CRX) 2.5 MG TABLET PO (07:45)
[2025-06-15] MEDS: HYDROcodone/acetaminophen (*CRX) 10-325 MG TABLET 1 TAB PO ×3 (07:46→21:01)
[2025-06-15 07:48] LABS: Hematocrit 35.6 % (35.0-49.0); Hemoglobin 11.6 g/dL (12.0-15.0); Mean Corpuscular HGB Conc 32.6 g/dL (32-36); Mean Corpuscular Hemoglobin 29.7 pg (27.0-31.0); Mean Corpuscular Volume 91.3 fL (78.0-102.0); Platelet Count Result 190 K/mm3 (150-420); Red Blood Count 3.90 M/mm3 (4.20-5.40); White Blood Count 5.0 K/mm3 (4.8-10.8)
[2025-06-15 07:59] LABS: Alanine Aminotransferase 41 U/L (6-35); Albumin Level 3.8 g/dL (3.5-5.1); Alkaline Phosphatase 100 U/L (38-126); Anion Gap 5 mmol/L (4-12); Aspartate Amino Transferase 44 U/L (14-36); Bilirubin,Total 0.5 mg/dL (0.2-1.3); Blood Urea Nitrogen 27 mg/dL (7-17); Calcium 8.6 mg/dL (8.4-10.2); Carbon Dioxide 25 mmol/L (22-30); Chloride 109 mmol/L (98-107); Estimated CRCL calculation 103 ml/min; Estimated Glomerular Filt Rate > 60; Glucose 112 mg/dL (65-110); Magnesium 1.8 mg/dL (1.6-2.3); Osmolality Calculated 294 mOsm/kg (285-295); Potassium 4.4 mmol/L (3.4-5.0); Sodium 139 mmol/L (137-145); Total Protein 6.6 g/dL (6.3-8.2)
[2025-06-15 08:00] VITALS: BP 100/66; PULSE 81; RESP 18; TEMP 36; O2SAT 94
[2025-06-15] MEDS: TRIAMCINOLONE ACET 0.1% CREAM 15 GM TUBE 1 APPLIC TOPICAL ×2 (08:47→21:01)
[2025-06-15] MEDS: ENOXAPARIN 40 MG/0.4 ML SYRINGE SUB-Q (08:47)
[2025-06-15] MEDS: PRAVASTATIN SODIUM 20 MG TABLET 40 MG PO (08:48)
--- NOTE | 2025-06-15 10:05 | P.PNIM_ITS ---
Progress Note: A&P Assessment and Plan (1) S/P ORIF (open reduction internal fixation) fracture: Code(s): Z98.890 - Other specified postprocedural states; Z87.81 - Personal history of (healed) traumatic fracture Status: Acute Assessment and Plan: Left proximal fibular and distal tibial fractures post ORIF in fracture boot * fracture boot * Pain management with Decherd * gabapentin patient muscle spasms versus nerve pain * Valium added 2.5mg for muscle spasticity * Keep elevated when at rest * incentive spirometer while awake * continue bowel regimen * PT/OT/Non-weight bearing * continued Lovenox DVT prophylaxis (2) MDD (major depressive disorder): Qualifiers: Major depression recurrence: recurrent Active/Remission status: in partial remission Qualified Code(s): F33.41 - Major depressive disorder, recurrent, in partial remission Code(s): F32.9 - Major depressive disorder, single episode, unspecified Status: Acute Assessment and Plan: * continued duloxetine (3) Diabetes type 2, controlled: Code(s): E11.9 - Type 2 diabetes mellitus without complications Status: Acute Assessment and Plan: * Holding trace appetite patient brings in will resume * moderate SSI * Accu-Nacho VILLALOBOS * diabetic diet (4) HLD (hyperlipidemia): Code(s): E78.5 - Hyperlipidemia, unspecified Status: Acute Assessment and Plan: * continues atorvastatin (5) Dizziness: Code(s): R42 - Dizziness and giddiness Status: Acute Assessment and Plan: Patient with reports of dizziness with standing, Mild orthostatics 16 point systolic drop * added shorty hose to LLE * encouraged to rise slowly * need to wean pain medication and valium * encouraged oral hydration Plan Code status: Full code per patient DVT prophylaxis: Lovenox Stress ulcer prophylaxis: NA PT/OT notes: Swing Bed Disposition: Patient was admitted to inpatient swing bed for rehabilitation to continue physical and occupational therapy postop ORIF of left lower extremity Tib/Fib fracture. patient currently in fracture boot continue with PT/OT to increase patient's strength and endurance prior to returning home continue with pain management. Requesting coverage until for further stair training. Patient's plan is to return home at discharge. Time Spent With Patient Time with patient: 15 - 25 minutes Subjective Date/time seen: 06/15/25 10:05 Interval history: Patient is a 55 female admitted for continued rehab after surgical repair for a Left proximal fibular and distal tibial fractures 06/15/2025: Patient with no complaints today but did report she has episodes of dizziness with ambulation mildly orthostatic systolic dropped 16 points, Shorty hose added to RLE with monitor for improvement of ortho's. Pain well managed and no further nerve pain/muscle spasms. I am also requesting a wheelchair for patient at time of discharge due to ongoing balance, unsteady gait and continue non-weight bearing status of LLE. Attempt to perform ambulation with a knee scooter but unable to perform due to moderate to severe knee pain. Patient is participating with PT and performing pivot transfer to wheel chair and able to navigate 400 feet with wheelchair with one rest period. The wheelchair will be beneficial to patient recovery and to assist on her everyday ADLS at home. Review of Systems Review of Systems: On the systems are reviewed and negative except as noted in the history above. All systems reviewed & are unremarkable except as noted in HPI and below Exam Narrative: General: alert and comfortable Eyes: EOMI, PERRLA ENNT: External ears normal, Neck is supple, no JVD, Respiratory systems: Clear to auscultation Cardiovascular: S1, S2, normal rhythm. Gastrointestinal: soft, non-tender, and non-distended BS present Skin: no rash, lesions, wounds Musculoskeletal: left leg in fracture boot Pulses 2+ Neurologic: Alert and oriented x3, non focal Mental Status Exam: normal affect Objective Data Vital Signs Vital Signs: Vital Signs - 24 hr 06/14/25 15:35 06/14/25 15:36 06/14/25 15:37 Temperature Pulse Rate 70 79 95 Respiratory Rate Blood Pressure 110/77 91/72 L 94/64 L Pulse Oximetry Oxygen Delivery 06/14/25 20:00 06/15/25 00:00 06/15/25 08:00 Temperature 97.3 F L 96.8 F L Pulse Rate 95 78 81 Respiratory Rate 18 16 18 Blood Pressure 95/60 L 100/66 Pulse Oximetry 96 96 94 Oxygen Delivery Room Air Room Air Room Air Intake/Output Intake/Output: Intake & Output 06/12/25 06/13/25 06/14/25 06/15/25 23:59 23:59 23:59 23:59 Intake Total 2019 5755 1380 610 Output Total 400 Balance 2019 2185 1380 610 Meds/Results Medications: Active Medications Generic Name Dose Route Start Last Admin Trade Name Freq PRN Reason Stop Dose Admin Acetaminophen 500 mg 05/31/25 19:20 Acetaminophen 500 Mg Tablet PO Q6H PRN Pain Rated 5 or Less Hydrocodone Bitart/Acetaminophen 1 tab 05/31/25 20:25 06/15/25 07:46 Hydrocodone/Acetaminophen (*Crx) 10-325 Mg Tablet PO 1 tab Q4H PRN Administration Pain Rated 6 or Greater Dextrose 12.5 gm 05/31/25 19:12 Dextrose 50% 25 Gm/50 Ml Syringe IV PUSH PRN PRN Hypoglycemia Protocol Diazepam 2.5 mg 06/06/25 10:13 06/15/25 07:45 Diazepam (*Crx) 2.5 Mg Tablet PO 2.5 mg TID PRN Administration Muscle Spasticity Duloxetine HCl 30 mg 05/31/25 19:10 06/14/25 17:18 Duloxetine Hcl 30 Mg Capsule. PO 30 mg QPM DAMION Administration Duloxetine HCl 60 mg 06/01/25 09:00 06/15/25 08:47 Duloxetine Hcl 30 Mg Capsule. PO 60 mg QAM DAMION Administration Enoxaparin Sodium 40 mg 06/01/25 09:00 06/15/25 08:47 Enoxaparin 40 Mg/0.4 Ml Syringe SUB-Q 40 mg DAILY DAMION Administration Gabapentin 100 mg 06/01/25 09:00 06/12/25 20:37 Gabapentin 100 Mg Capsule PO 100 mg TID PRN Administration Nerve pain Glucagon 1 mg 05/31/25 19:12 Glucagon For Inj 1 Mg Vial IM PRN PRN Hypoglycemia Protocol Glucose 15 gm 05/31/25 19:12 Glucose Oral Gel 15 Gm Of Glucse In 37.5 Gm Tube PO PRN PRN Hypoglycemia Protocol Hydroxyzine HCl 50 mg 05/31/25 19:12 06/06/25 20:47 Hydroxyzine Hcl 25 Mg Tablet PO 50 mg Q4H PRN Administration Itching Dextrose 1,000 mls @ 100 mls/hr 05/31/25 19:12 Dextrose 5% 1,000 Ml IVPB PRN PRN Hypoglycemia Protocol Insulin Human Lispro 3 - 6 units 06/01/25 08:00 06/15/25 08:46 Insulin Human Lispro (*Bkc) 1,000 Units/10 Ml Vial SUB-Q Not Given TIDWM DAMION Protocol Ondansetron HCl 4 mg 05/31/25 19:12 Ondansetron Hcl Odt 4 Mg Tablet PO Q6H PRN Nausea And Vomiting Paroxetine HCl 40 mg 06/01/25 09:00 06/15/25 08:47 Paroxetine 20 Mg Tablet PO 40 mg DAILY DAMION Administration Polyethylene Glycol 17 gm 06/05/25 09:47 06/06/25 09:41 Polyethylene Glycol 3350 17 Gm Powd.Pack PO 17 gm QAM PRN Administration Constipation Pravastatin Sodium 40 mg 06/01/25 09:00 06/15/25 08:48 Pravastatin Sodium 20 Mg Tablet PO 40 mg DAILY DAMION Administration Senna/Docusate Sodium 2 tab 06/05/25 21:00 06/14/25 20:25 Senna/Docusate Sodium Tablet PO 2 tab HS DAMION Administration Trazodone HCl 150 mg 05/31/25 21:00 06/14/25 20:25 Trazodone Hcl 50 Mg Tablet PO 150 mg HS DAMION Administration Triamcinolone Acetonide 1 applic 05/31/25 21:00 06/15/25 08:47 Triamcinolone Acet 0.1% Cream 15 Gm Tube TOPICAL 1 applic Q12HR DAMION Administration Radiology Results: ITS Impressions Tibia/Fibula X-Ray 06/10/25 15:21 IMPRESSION: Fracture in the distal left tibia with postoperative changes. Ankle X-Ray 06/10/25 15:23 IMPRESSION: Fracture distal left tibia with postoperative changes. Labs Labs: Laboratory Results - last 24 hr 06/14/25 06/14/25 06/14/25 11:50 16:55 19:32 WBC RBC Hgb Hct MCV MCH MCHC RDW Plt Count MPV Sodium Potassium Chloride Carbon Dioxide Anion Gap BUN Creatinine Estim Creat Clear Calc Estimated GFR Glucose POC Capillary Glucose 128 H 101 164 H Calculated Osmolality Calcium Magnesium Total Bilirubin AST ALT Alkaline Phosphatase Total Protein Albumin 06/15/25 07:40 WBC 5.0 RBC 3.90 L Hgb 11.6 L Hct 35.6 MCV 91.3 MCH 29.7 MCHC 32.6 RDW 12.9 Plt Count 190 MPV 9.2 Sodium 139 Potassium 4.4 Chloride 109 H Carbon Dioxide 25 Anion Gap 5 BUN 27 H Creatinine 0.79 Estim Creat Clear Calc 103 Estimated GFR > 60 Glucose 112 H POC Capillary Glucose 119 H Calculated Osmolality 294 Calcium 8.6 Magnesium 1.8 Total Bilirubin 0.5 AST 44 H ALT 41 H Alkaline Phosphatase 100 Total Protein 6.6 Albumin 3.8 Quality VTE Prophylaxis VTE prophylaxis: pharmacologic ordered -Patient's previous records reviewed on admission -ER notes reviewed in detail on admission -discussed all findings and current treatment plan with patient/Family/POA -Consultations reviewed for recommendations -Patient's disposition for safe discharge discussed with shoe parts caser Dictation performed by [employer] direct speech recognition software, therefore medical education coordinator variants and typographical errors may occur. Hospitalist MIPS Advance Care Plan I have confirmed that the patient's Advanced Care Plan is present, code status is documented, or surrogate decision maker is listed in patient medical record.: Yes Medication Reconciliation I have utilized all available resources to obtain, update and review the patients current medications (includes all prescriptions, OTC, herbals, cannabis, and nutritional supplements).: Yes The patient is not eligible for med reconciliation; the patient is in a emergent medical situation where delaying treatment would jeopardize the patients health.: No
[2025-06-15 16:00] VITALS: BP 100/78; PULSE 74; RESP 18; TEMP 36.1; O2SAT 96
[2025-06-15] MEDS: SENNA/DOCUSATE SODIUM TABLET 2 TAB PO (21:01)
[2025-06-15] MEDS: GABAPENTIN 100 MG CAPSULE PO (21:01)
[2025-06-16] VITALS: BP 103/74; PULSE 71; RESP 18; TEMP 36.6; O2SAT 96
[2025-06-16] MEDS: HYDROcodone/acetaminophen (*CRX) 10-325 MG TABLET 1 TAB PO ×3 (06:28→20:52)
[2025-06-16 08:00] VITALS: BP 105/67; PULSE 83; RESP 18; TEMP 36; O2SAT 96
[2025-06-16] MEDS: ENOXAPARIN 40 MG/0.4 ML SYRINGE SUB-Q (08:39)
[2025-06-16] MEDS: PRAVASTATIN SODIUM 20 MG TABLET 40 MG PO (08:39)
[2025-06-16] MEDS: diazePAM (*CRX) 2.5 MG TABLET PO (08:40)
[2025-06-16] MEDS: TRIAMCINOLONE ACET 0.1% CREAM 15 GM TUBE 1 APPLIC TOPICAL ×2 (08:41→20:52)
--- NOTE | 2025-06-16 11:44 | PM.EVENT ---
Event Note Event Note Event Note: Patient is postop ORIF for proximal fractur eof left procimal fibular and left distal tibia this has caused the patient to have mobility limitations which significantly impairs the ability to participate in mobility related activities of daily living. Due to patient's nonweightbearing status per her orthopedic surgeon her mobility limitation can not be resolved with a cane or walker. Patient would benefit from manual wheelchair to significantly improve her ability to participate in her ADLs with plans to use on a regular basis at home. the patient has expressed willingness to use the manual wheelchair with sufficient upper extremity function and other physical and mental capabilities to safely self propel the MWC in the home on a typical day.
[2025-06-16 16:35] VITALS: BP 96/74; PULSE 80; RESP 16; TEMP 36.6; O2SAT 96
[2025-06-16] MEDS: SENNA/DOCUSATE SODIUM TABLET 2 TAB PO (20:52)
[2025-06-16] MEDS: GABAPENTIN 100 MG CAPSULE PO (20:53)
[2025-06-17] VITALS: BP 115/72; PULSE 83; RESP 15; TEMP 36.3; O2SAT 98
[2025-06-17] MEDS: HYDROcodone/acetaminophen (*CRX) 10-325 MG TABLET 1 TAB PO ×2 (06:28→13:23)
[2025-06-17 07:40] VITALS: BP 101/74; PULSE 79; RESP 16; TEMP 35.9; O2SAT 95
[2025-06-17 08:35] VITALS: PULSE 79; RESP 16; O2SAT 95
[2025-06-17] MEDS: ENOXAPARIN 40 MG/0.4 ML SYRINGE SUB-Q (09:13)
[2025-06-17] MEDS: diazePAM (*CRX) 2.5 MG TABLET PO (09:13)
[2025-06-17] MEDS: PRAVASTATIN SODIUM 20 MG TABLET 40 MG PO (09:14)
[2025-06-17] MEDS: TRIAMCINOLONE ACET 0.1% CREAM 15 GM TUBE 1 APPLIC TOPICAL (09:14)
--- NOTE | 2025-06-17 11:05 | P.DS_ITS ---
DS: Admitting Diagnosis Discharge Date 06/17/2025 Admitting Diagnosis Rehab Left post ORIF proximal fibular and distal tibial fractures DS: Discharge Diagnosis Discharge Diagnosis (1) S/P ORIF (open reduction internal fixation) fracture: Code(s): Z98.890 - Other specified postprocedural states; Z87.81 - Personal history of (healed) traumatic fracture Status: Acute (2) MDD (major depressive disorder): Qualifiers: Active/Remission status: in partial remission Major depression recurrence: recurrent Qualified Code(s): F33.41 - Major depressive disorder, recurrent, in partial remission Code(s): F32.9 - Major depressive disorder, single episode, unspecified Status: Acute Assessment and Plan: * (3) Diabetes type 2, controlled: Code(s): E11.9 - Type 2 diabetes mellitus without complications Status: Acute Assessment and Plan: * (4) HLD (hyperlipidemia): Code(s): E78.5 - Hyperlipidemia, unspecified Status: Acute (5) Dizziness: Code(s): R42 - Dizziness and giddiness Status: Acute DS: Summary Hospital Course Reason for hospitalization: Rehab Left post ORIF proximal fibular and distal tibial fractures Hospital Course: Admission: Patient is a 55-year-old female who was admitted to [facility] for rehabilitation following a fall at home with a closed fracture of the left distal tibia. Ankle xray showed spiral fracture of the distal left tibia, Xray tibiofibular showed proximal fracture of left proximal fibular and left distal tibia. Ortho was consulted and performed an ORIF initially started out on a splint and transitioned to a fracture boot prior to discharge to [place]. Patient reports past medical history of diabetes and HLD. patient denied any chest pain, shortness a breath, nausea, vomiting, difficulty with urination or defecation did report some left lower extremity muscle spasm versus nerve pain. Hospital Course: Patient progressed as Expected with physical and occupational therapy currently is toe-touch weight-bearing and was approved for wheelchair at home. Patient with no complaints today at time discharge but did have episodes of dizziness with ambulation mildly orthostatic systolic dropped 16 points, Shorty hose added to RLE with improvement of ortho's. Pain well managed and no further nerve pain/muscle spasms. patient was discharged home with spouse will follow-up [facility] 07/06/2025 Status at Discharge Functional status at discharge: uses cane/walker (TTWB) Overall status at discharge: other (Wheelchiar/walker/TTWB) Time Spent with Patient Time attestation: Total time spent providing and/or coordinating discharge services: Time spent: Greater than 30 minutes Exam Narrative: General: alert and comfortable Eyes: EOMI, PERRLA ENNT: External ears normal, Neck is supple, no JVD, Respiratory systems: Clear to auscultation Cardiovascular: S1, S2, normal rhythm. Gastrointestinal: soft, non-tender, and non-distended BS present Skin: no rash, lesions, wounds Musculoskeletal: left leg in fracture boot Pulses 2+ Neurologic: Alert and oriented x3, non focal Mental Status Exam: normal affect DS: Data Data Completed and Pending Labs on day of discharge: Labs from last 24 hours 06/17/25 06/16/25 06/16/25 07:53 19:34 16:25 POC Capillary Glucose 113 H 131 H 113 H 06/16/25 11:38 POC Capillary Glucose 121 H Discharge Plan Discharge Attending physician on discharge: Darian Richards Consulting providers: Abiola Hampton Discharging Clinician: Abiola Hampton Anticipated Discharge Date/Time: 06/17/25 10:53 Patient Disposition: Home Activity: may shower and other - see discharge instructions Diet: regular Discharge Instructions: Orthopedic Recommendations Dr. Angel Fraser [phone] * Toe touch weight bearing * Keep splint clean, dry and intact. * Elevate leg. Ice over splint. * Pain control. * DVT prophylaxis at discharge x 11 more days with Lovenox shot to complete the 28 days. * Continue using incentive spirometer * continue with bowel regimen while on narcotics * follow up with Dr. Fraser as scheduled in July How can you care for yourself at home? ? Keep track of any new symptoms or changes in your symptoms. ? Rest until you feel better. ? Be safe with medicines. Take your medicines exactly as prescribed. Call your doctor if you think you are having a problem with your medicine. ? Do not drive after taking a prescription pain medicine. ? Ensure to follow-up with primary care physician as indicated and provide updated medication list provided to you at discharge. When should you call for help? Call 911 anytime you think you may need emergency care. For example, call if: ? You passed out (lost consciousness). Call your doctor now or seek immediate medical care if: ? You have new symptoms like fever, difficulty breathing, Chest pain, vomiting, or rash. ? You have new or different pain. ? You are confused and are having trouble thinking clearly. ? Your symptoms are getting worse. Watch closely for changes in your health, and be sure to contact your doctor if: ? You do not get better as expected. Patient Instructions: Antibiotic Form Patient Language: South African Stand Alone Forms: General Discharge Information Follow-up/Referrals: Angel Fraser MD [Physician] - 07/06/25 9:15 am Discharge Medications: New acetaminophen 500 mg Tablet 500 mg PO Q6H PRN (Reason: Pain Rated 5 Or Less) Qty: 30 0RF sennosides-docusate sodium [Senokot-S] 8.6-50 mg Tablet 2 tab-cap PO HS Qty: 60 0RF gabapentin 100 mg Capsule 100 mg PO TID PRN (Reason: Nerve pain) Qty: 90 0RF enoxaparin [Lovenox] 40 mg/0.4 mL Syringe 40 mg subcut DAILY Qty: 11 0RF diazepam [Valium] 2 mg tablet 2 mg PO BID PRN (Reason: muscle spasm) Qty: 20 0RF polyethylene glycol 3350 [Miralax] 17 gram Powder In Packet 17 g PO QAM PRN (Reason: Constipation) Qty: 1 0RF Continued hydrocodone-acetaminophen 5-325 mg tablet 1 tablet PO Q4H PRN (Reason: pain) Qty: 30 0RF pravastatin 40 mg tablet 40 mg PO DAILY Qty: 90 3RF betamethasone dipropionate 0.05 % cream 1 applic topical DAILY Qty: 45 0RF Rx Instructions: Use no more than 2 weeks continuously alprazolam 1 mg tablet 1 mg PO DAILY PRN (Reason: anxiety) Qty: 30 0RF trazodone 150 mg tablet 150 mg PO HS paroxetine HCl 40 mg tablet 40 mg PO DAILY Qty: 90 1RF duloxetine 30 mg capsule,delayed release(DR/EC) 30 mg PO QPM Qty: 90 1RF duloxetine 60 mg capsule,delayed release(DR/EC) 60 mg PO QAM Qty: 90 1RF Held Mounjaro 10 mg/0.5 mL pen injector 10 mg SUBCUT WEEKLY Hold Instructions: Resume on 07/06/25. Hold until F/U with Ortho Discontinued enoxaparin 30 mg/0.3 mL Syringe 30 mg subcut DAILY 28 Days Qty: 8.4 0RF Date of admission: 05/31/25 17:28 Primary Care Provider: ArianeBraxton Admitting Provider: Azalia Hinson Attending physician on admission: Azalia Hinson Condition: Improved Quality VTE Prophylaxis VTE prophylaxis: pharmacologic ordered -Patient's previous records reviewed on admission -ER notes reviewed in detail on admission -discussed all findings and current treatment plan with patient/Family/POA -Consultations reviewed for recommendations -Patient's disposition for safe discharge discussed with medical case worker Dictation performed by [employer] direct speech recognition software, therefore boat engine mechanic variants and typographical errors may occur. Hospitalist MIPS Heart Failure (Exclusion) Patient has history of Heart Transplant or Left Ventricular Assistive Device?: No IF YES, STOP HERE Heart Failure (Qualifier) Patient has current or prior documentation of LVEF less than or equal to 40%, or mod/servere depressed LVSF?: No IF NO, STOP HERE
--- NOTE | 2025-06-17 14:20 | PC.NURSE ---
Patient discharging home. No IV site at time of discharge. All belongings gathered together and sent home with patient. Medication returned to patient. All discharge instructions and education reviewed with patient and . Both parties state understanding. Patient denies any questions at this time. Patient accompanied to front door via wheelchair by this nurse. Patient left via private vehicle with .
--- NOTE | 2025-06-22 09:34 | PC.NURSE ---
Discharge call back completed. Georgiana stated, Im doing well, up and around a little more than in the hospital. I dont have any concerns about discharge instruction and understood everything and no questions on side effects of medications.
== END 2025-06-17 14:20 | disposition home or self-care (01) | DRG 561 ==
PROVIDERS: Nurse Practitioner; Nurse Practitioner Family; Admitting Provider Internal Medicine; PCP Internal Medicine; Visit Provider Internal Medicine
DX: S82.242D Displaced spiral fracture of shaft of left tibia, subsequent encounter for closed fracture with routine healing (principal); W19.XXXD Unspecified fall, subsequent encounter; S82.832D Other fracture of upper and lower end of left fibula, subsequent encounter for closed fracture with routine healing; R26.9 Unspecified abnormalities of gait and mobility; R42 Dizziness and giddiness; Z98.890 Other specified postprocedural states; E11.9 Type 2 diabetes mellitus without complications; E78.5 Hyperlipidemia, unspecified; F33.41 Major depressive disorder, recurrent, in partial remission; Z79.85 Long-term (current) use of injectable non-insulin antidiabetic drugs; Z79.01 Long term (current) use of anticoagulants
CPT/HCPCS: 36415; 73590; 73610; 80053; 82565; 82948; 83735; 85027; 97110; 97161; 97165; 97530; 97535; A9270; J1650

== ENCOUNTER 2025-09-06 14:24 | Outpatient (CLI) | payer OTHER, SELFPAY ==
--- OUTSIDE RECORDS SUMMARY | 2024-10-20 09:00 | XMS_ITS ---
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 Role Phone Braxton Stevenson MD Primary Care Provider Unavaila Eriberto Romero DPM [phone] REASON FOR VISIT lft foot Encounters Encounter Location Date Provider Diagnosis [facility] [address] [address] 10/20/2024 Eriberto Vasquez DPM Achilles tendinitis of left lower extremity M76.62 ; Plantar fasciitis, left M72.2 and Bone spur of posterior portion of left calcaneus M77.32 ASSESSMENTS Encounter Date Diagnosis Assessment Notes Treatment Notes Treatment Clinical Notes 10/20/2024 Achilles tendinitis of left lower extremity (ICD-10 - M76.62) 10/20/2024 Plantar fasciitis, left (ICD-10 - M72.2) Clinically the patient's findings are most consistent with plantar fasciitis and achilles tendinitis. The patient was recommended a boot, a steroid injection, and further physical therapy. Surgical measures to remove the retrocalcaneal spur were discussed. We discussed all risks including risk of infection, continuation of pain, hematoma, seroma, wound dehiscence, delayed healing DVT, numbness, tingling, burning, scar tissue formation, suture reaction, loss of toe, loss of limb, loss of life. All of the risks on the surgical consent form were reviewed individually in layman's terms with the patient today. The patient declined the steroid injection and physical therapy script today, and she opted for the walking boot, dispensed in office. She should wear the boot for three weeks, then follow up in five weeks. 10/20/2024 Bone spur of posterior portion of left calcaneus (ICD-10 - M77.32) PLAN OF TREATMENT Treatment Notes Assessment Notes Plantar fasciitis, left Clinically the patient's findings are most consistent with plantar fasciitis and achilles tendinitis. The patient was recommended a boot, a steroid injection, and further physical therapy. Surgical measures to remove the retrocalcaneal spur were discussed. We discussed all risks including risk of infection, continuation of pain, hematoma, seroma, wound dehiscence, delayed healing DVT, numbness, tingling, burning, scar tissue formation, suture reaction, loss of toe, loss of limb, loss of life. All of the risks on the surgical consent form were reviewed individually in layman's terms with the patient today. The patient declined the steroid injection and physical therapy script today, and she opted for the walking boot, dispensed in office. She should wear the boot for three weeks, then follow up in five weeks. Progress Notes * Examination Category Sub-Category Detail Notes General Examination GENERAL APPEARANCE: LEFT low er extremityVascular: Dorsalis pedis and posterior tibial pulses are palpable 2 out of 4. Capillary refill time is less than 3 seconds to all digits of the left lower extremity. Skin temp is warm to warm and a proximal to distal fashion. Dorsal pedal hair growth present. Absent dependent rubor. No edema.Neurological: Epricritic sensation grossly intact to left foot. Proprioception intact at first metatarsal phalangeal joint.Dermatological: Toenails 1 through 5 are within normal limits. Webspaces 1 through 4 are clean, dry and intact. No rash noted. Skin is supple and well hydrated.No open wounds or ulcerations noted. Musculoskeletal: Muscle strength is 5 out of 5 for all groups of the lower extremity. No pain with medial to lateral compression of the calf muscle. Ankle joint and subtalar joint range of motion are full without pain or crepitus. No obvious pedal abnormalities or deformities noted. History and Physical Notes * HPI (History of Present Illness) Category Sub-Category Detail Notes Depression Screening PHQ-2 (2015 Edition) Little interest or pleasure in doing things?: Not at all Feeling down, depressed, or hopeless?: N ot at all Total Score: 0
--- OUTSIDE RECORDS SUMMARY | 2024-11-22 09:00 | XMS_ITS ---
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 Role Phone Braxton Stevenson MD Primary Care Provider Unavaila Eriberto Romero DPM [phone] Encounters Encounter Location Date Provider Diagnosis [facility] [address] [facility] [address], [place] [address] 11/22/2024 Eriberto Vasquez DPM Achilles tendinitis of left lower extremity M76.62 ; Plantar fasciitis, left M72.2 and Bone spur of posterior portion of left calcaneus M77.32 ASSESSMENTS Encounter Date Diagnosis Assessment Notes Treatment Notes Treatment Clinical Notes 11/22/2024 Achilles tendinitis of left lower extremity (ICD-10 - M76.62) Since the patient hasn't seen any relief with conservative measures, she was recommended to get a bilateral ankle MRI for further diagnosis, which she agreed to. An order was sent to [facility] per the patient's request. We will call with results once they are received. 11/22/2024 Plantar fasciitis, left (ICD-10 - M72.2) 11/22/2024 Bone spur of posterior portion of left calcaneus (ICD-10 - M77.32) PLAN OF TREATMENT Treatment Notes Assessment Notes Achilles tendinitis of left lower extremity Since the patient hasn't seen any relief with conservative measures, she was recommended to get a bilateral ankle MRI for further diagnosis, which she agreed to. An order was sent to [facility] per the patient's request. We will call with results once they are received. Progress Notes * Examination Category Sub-Category Detail [...]
--- OUTSIDE RECORDS SUMMARY | 2025-09-06 15:20 | XMS_ITS | Patient Health Record ---
Author Organization [facility] Address [address] [address] Care Team Providers Care Decator Operator Name Role Phone Braxton Stevenson MD Primary Care Provider Unavaila Eriberto Romero DPM Unavailable [phone] REASON FOR REFERRAL No Information SOCIAL HISTORY Sex Assigned At : Social History Observation Description Sex Assigned At Unknown Encounters Encounter Location Date Provider Diagnosis [facility] [address] [address] 11/22/2024 Eriberto Vasquez DPM Achilles tendinitis of left lower extremity M76.62 ; Plantar fasciitis, left M72.2 and Bone spur of posterior portion of left calcaneus M77.32 [facility] [address] [address] 10/20/2024 Eriberto Vasquez DPM Achilles tendinitis of [...] agreed to. An order was sent to [facility] per the patient's request. We will call [...] Date Coverage End Date [employer] [address] [address] [place] [address] [id number] Charanjit De La Rosa Spouse - patient is the spouse of the insured
[2025-09-06 18:43] LABS: Hematocrit 38.6 % (37.0-47.0); Hemoglobin 13.3 g/dL (12.0-15.0); Mean Corpuscular HGB Conc 34.5 g/dl (32-36); Mean Corpuscular Hemoglobin 29.7 pg (26-34); Mean Corpuscular Volume 86.2 fl (80-100); Platelet Count Result 191 k/mm3 (150-375); Red Blood Count 4.48 M/mm3 (4.2-5.4); White Blood Count 6.7 K/mm3 (4.5-10.0)
[2025-09-06 19:10] LABS: Alanine Aminotransferase 29 U/L (6-35); Albumin Level 4.4 g/dL (3.5-5.1); Alkaline Phosphatase 81 U/L (38-126); Anion Gap 9 mmol/L (4-12); Aspartate Amino Transferase 36 U/L (14-36); Bilirubin,Total 0.4 mg/dL (0.2-1.3); Blood Urea Nitrogen 23 mg/dL (7-17); Calcium 10.1 mg/dL (8.4-10.2); Carbon Dioxide 28 mmol/L (22-30); Chloride 105 mmol/L (98-107); Cholesterol 182 mg/dL (0-200); Estimated Glomerular Filt Rate 42; Glucose 117 mg/dL (65-110); HDL Direct 40 mg/dL; Potassium 4.1 mmol/L (3.4-5.0); Sodium 142 mmol/L (137-145); Total Protein 7.4 g/dL (6.3-8.2); Triglycerides 200 mg/dL (<150)
[2025-09-06 19:44] LABS: Hemoglobin A1C 5.8 % (<5.7)
== END 2025-09-06 14:25 | disposition home or self-care (01) ==
LOC: ANHGOSHLAB 14:25
PROVIDERS: PCP Internal Medicine; Visit Provider Internal Medicine
DX: E78.5 Hyperlipidemia, unspecified (principal); E11.9 Type 2 diabetes mellitus without complications
CPT/HCPCS: 36415; 80053; 80061; 83036; 85027

== ENCOUNTER 2025-10-21 13:00 | Outpatient (RCR) | payer OTHER, SELFPAY ==
--- NOTE | 2025-08-09 14:47 | OPREHPOC ---
Outpatient Therapy Plan of Care This is a Multidisciplinary Plan of Care that may contain components documented by all disciplines (PT, OT, and ST.) PT Problem 1 PT Problem #1 Knowledge Deficit PT Goal 1 Goal / Goal Update [place] with HEP PT Goal 2 Goal / Goal Update Report no pain greater than 2/10 with foot dependance Target Visit 8 PT Problem 2 PT Problem #2 Impaired Gait PT Goal 1 Goal / Goal Update 1. Ambulate independent of AD in CAM boot Target Visit 10 PT Goal 2 Goal / Goal Update 1. Ambulate independent of CAM boot when allowed per MD protocol with no use of AD Target Visit 10 PT Problem 3 PT Problem #3 Impaired Strength PT Goal 1 Goal / Goal Update 1. improve gross strength of left ankle top 4+/5 to improve stability with transition to weight bearing outside of CAM boot Target Visit 10 PT Problem 4 PT Problem #4 Impaired Range of Motion PT Goal 1 Goal / Goal Update 1. Demonstrate full functional L ankle ROM Target Visit 10
--- NOTE | 2025-08-09 14:48 | PTOPEVAL1 ---
Assessment and note entered by Rich Medellin, PT Evaluation Information Assessment Status Evaluation Diagnosis S82.242D ICD-10 Condition Codes (PT) Pain in left ankle and joints of left foot M25.572 Onset 05/24/25 Subjective Information Reports that she has been controlling her pain overall. PRN with pain medications. Swelling is improving per report. She is having some pain at night especially as she has become more active. She has goals to be independent and walking long distances by October. 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 Reported Pain Level Pain Score 0: Self Report Assessment PT Clinical Summary Patient presents with ankle ROM deficits, weakness , and altered gait. She demonstrates decent ankle ROM this date with more emphasis being needed on ankle stability and band work. 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 Plan of Care Interventions Gait Training,Manual Therapy,Neuro Re-education, Therapeutic Activities,Therapeutic Exercise PT Services Indicated Yes Treatment Frequency and 2x/week for 10 visits Duration These treatments will address the objective and functional deficits as defined above. The patient will be advanced safely and appropriately in order for the patient to progress towards his/her prior level of function. Additional exercises will be introduced and as well as a comprehensive home exercise program upon discharge, if needed, ?to ensure carryover of functional gains achieved in the clinic. This treatment plan has been reviewed and agreement upon by the patient.
--- NOTE | 2025-09-12 12:07 | OPREHPOC ---
Outpatient Therapy Plan of Care This is a Multidisciplinary Plan of Care that may contain components documented by all disciplines (PT, OT, and ST.) PT Problem 1 PT Problem #1 Knowledge Deficit PT Goal 1 Goal / Goal Update [place] with HEP Progress Met PT Goal 2 Goal / Goal Update Report no pain greater than 2/10 with foot dependance Target Visit 20 Progress Partially Met PT Problem 2 PT Problem #2 Impaired Gait PT Goal 1 Goal / Goal Update 1. Ambulate independent of AD in CAM boot Target Visit 20 Progress Partially Met PT Goal 2 Goal / Goal Update 1. Ambulate independent of CAM boot when allowed per MD protocol with no use of AD Target Visit 20 Progress Partially Met PT Problem 3 PT Problem #3 Impaired Strength PT Goal 1 Goal / Goal Update 1. improve gross strength of left ankle top 4+/5 to improve stability with transition to weight bearing outside of CAM boot Target Visit 20 Progress Partially Met PT Problem 4 PT Problem #4 Impaired Range of Motion PT Goal 1 Goal / Goal Update 1. Demonstrate full functional L ankle ROM Target Visit 10 Progress Met
--- NOTE | 2025-09-12 12:08 | PTOPPROG ---
Assessment and note entered by Rich Medellin, PT Evaluation Information Assessment Status Progress Diagnosis S82.242D ICD-10 Condition Codes (PT) Pain in left ankle and joints of left foot M25.572 Onset 05/24/25 Subjective Information Patient reports that she has continued to work towards ambulation outside of boot within range of comfort in home. 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 Reports that she does have some pain on lateral ankle with walking more than about 50 feet. Assessment PT Clinical Summary Patient has seen excellent improvement in both ankle ROM and strengthening as this time. Still having trouble with plantar flexion and inversion strength which contribute greatly to independent gait. Will continue to benefit from skilled therapy as we wean out of the boot to promote improved mobility and functional capability. Plan of Care Interventions Gait Training,Manual Therapy,Neuro Re-education, Therapeutic Activities,Therapeutic Exercise PT Services Indicated Yes Treatment Frequency and 2x/week for 10 Duration These treatments will address the objective and functional deficits as defined above. The patient will be advanced safely and appropriately in order for the patient to progress towards his/her prior level of function. Additional exercises will be introduced and as well as a comprehensive home exercise program upon discharge, if needed, ?to ensure carryover of functional gains achieved in the clinic. This treatment plan has been reviewed and agreement upon by the patient.
--- NOTE | 2025-09-20 14:45 | PCPTNOTE ---
Pt called to cancel her appointment due to illness
--- NOTE | 2025-10-21 14:16 | OPREHPOC ---
Outpatient Therapy Plan of Care This is a Multidisciplinary Plan of Care that may contain components documented by all disciplines (PT, OT, and ST.) PT Problem 1 PT Problem #1 Knowledge Deficit PT Goal 1 Goal / Goal Update [place] with HEP Progress Met PT Goal 2 Goal / Goal Update Report no pain greater than 2/10 with foot dependance Target Visit 20 Progress Met PT Problem 2 PT Problem #2 Impaired Gait PT Goal 1 Goal / Goal Update 1. Ambulate independent of AD in CAM boot Target Visit 20 Progress Met PT Goal 2 Goal / Goal Update 1. Ambulate independent of CAM boot when allowed per MD protocol with no use of AD Target Visit 20 Progress Met PT Problem 3 PT Problem #3 Impaired Strength PT Goal 1 Goal / Goal Update 1. improve gross strength of left ankle top 4+/5 to improve stability with transition to weight bearing outside of CAM boot Target Visit 20 Progress Met PT Problem 4 PT Problem #4 Impaired Range of Motion PT Goal 1 Goal / Goal Update 1. Demonstrate full functional L ankle ROM Target Visit 10 Progress Met
--- NOTE | 2025-10-21 14:16 | PTOPDC ---
Assessment and note entered by Rich Medellin, PT Evaluation Information Assessment Status Progress Diagnosis S82.242D ICD-10 Condition Codes (PT) Pain in left ankle and joints of left foot M25.572 Onset 05/24/25 Subjective Information Patient reports that overall she has seen a lot of progress. She still has pain that she cannot classify as limiting but makes a lot of functional things uncomfortable. Feels she is comfortable with her HEP and ready for discharge at this time. Reported Pain Level Pain Score 2: Self Report Assessment PT Clinical Summary Patient has met all personal goals for therapy and is suitable for discharge to [facility] at this time. Reviewed need for continued mobility and functional activity. Plan of Care PT Services Indicated Yes
== END 2025-10-24 16:14 | disposition home or self-care (01) ==
LOC: ANHGOSHPT 13:00
PROVIDERS: PCP Internal Medicine; Visit Provider Orthopaedic Surgery
DX: S82.242D Displaced spiral fracture of shaft of left tibia, subsequent encounter for closed fracture with routine healing (principal)
CPT/HCPCS: 97016; 97110; 97112; 97140; 97161; 97530